=== PATIENT | female | born 1955 | race Caucasian/White ===

== ENCOUNTER 2022-08-27 08:39 | Outpatient (CLI) | payer OTHER, SELFPAY ==
[2022-08-27 15:26] LABS: Chloride* 107 mmol/L (96-114)
[2022-08-27 15:30] LABS: Blood Urea Nitrogen* 18 mg/dL (7-30); Calcium* 9.2 mg/dL (8.4-10.6)
[2022-08-27 15:45] LABS: Creatinine* 1.1 mg/dL (0.5-1.5); Estimated Glomerular Filt Rate 54 ml/min
[2022-08-27 16:26] LABS: Sodium* 143 mmol/L (135-149)
[2022-08-27 16:29] LABS: Carbon Dioxide* 29 mmol/L (20-32); Glucose* 127 mg/dL (60-115)
[2022-08-27 16:36] LABS: Creatinine Urine 187.1 mg/dL
[2022-08-27 16:41] LABS: Microalbumin Creatinine Ratio 10 mg/g (0-30); Microalbumin Urine 3 mg/dL
[2022-08-27 17:28] LABS: Vitamin B12* > 1000 pg/mL (243-894)
== END 2022-08-27 08:40 | disposition home or self-care (01) ==
PROVIDERS: PCP Emergency Medicine; Visit Provider Emergency Medicine
DX: E11.9 Type 2 diabetes mellitus without complications (principal); E78.5 Hyperlipidemia, unspecified
CPT/HCPCS: 80048; 82043; 82570; 82607

== ENCOUNTER 2022-11-03 16:12 | Outpatient (CLI) | payer OTHER, SELFPAY ==
[2022-11-04 01:36] LABS: Free T4 Free Thyroxine* 0.86 ng/dL (0.70-1.85)
== END 2022-11-03 16:13 | disposition home or self-care (01) ==
LOC: LKVREF 16:13
PROVIDERS: PCP Emergency Medicine; Visit Provider Emergency Medicine
DX: E78.5 Hyperlipidemia, unspecified (principal); R26.9 Unspecified abnormalities of gait and mobility; R42 Dizziness and giddiness
CPT/HCPCS: 84439; 84443

== ENCOUNTER 2022-11-25 08:57 | Outpatient (CLI) | payer OTHER, SELFPAY ==
--- NOTE | 2022-11-25 09:15 | CRLHL7_ITS ---
For Patients: As a result of the Century Cures Act, medical imaging exams and procedure reports are released immediately into your electronic medical record. You may view this report before your referring provider. If you have questions, please contact your health care provider. Indication: Ataxia. Gait disturbance. Memory issues. Technique: Multiplanar, multisequence MRI of the brain was performed without intravenous contrast. Comparison: None relevant available. Findings: Moderate thinning of the corpus callosum. Partially empty sella morphology. Clivus is intact. Mild degenerative change visualized upper cervical spine. There is no restricted diffusion. No intracranial hemorrhage. The ventricles are proportionate to the cerebral sulci. The 4th ventricle appears midline. The basal cisterns appear patent. No abnormal extra-axial fluid collection identified. Mild parenchymal volume loss. Scattered T2 FLAIR hyperintense foci within the subcortical and periventricular white matter, favored to represent chronic ischemic microvascular disease. There is asymmetric volume loss with cystic change involving the right amygdala and hippocampus. There is no intracranial mass, abnormal mass-effect or midline shift identified. Major intracranial vascular flow voids appear grossly intact. Bilateral pseudophakia. Impression: 1. Asymmetric volume loss with cystic change of the right amygdala and hippocampus. 2. Mild chronic ischemic microvascular disease. Dictated by Sahil Norman MD @ 11/25/2022 3:24:32 PM (Electronically Signed)
== END 2022-11-25 08:58 | disposition home or self-care (01) ==
LOC: MRI 09:02
PROVIDERS: PCP Emergency Medicine; Visit Provider Emergency Medicine
DX: R27.0 Ataxia, unspecified (principal); I67.82 Cerebral ischemia; R26.9 Unspecified abnormalities of gait and mobility
CPT/HCPCS: 70551

== ENCOUNTER 2023-03-02 08:04 | Outpatient (CLI) | payer OTHER, SELFPAY | END 2023-03-02 08:05 | disposition home or self-care (01) | LOC: WOUND 08:04 | PROVIDERS: PCP Emergency Medicine; Visit Provider Nurse Practitioner Family | DX: E11.621 Type 2 diabetes mellitus with foot ulcer (principal); L97.512 Non-pressure chronic ulcer of other part of right foot with fat layer exposed; L97.522 Non-pressure chronic ulcer of other part of left foot with fat layer exposed; Z79.84 Long term (current) use of oral hypoglycemic drugs | CPT/HCPCS: 97597 ==

== ENCOUNTER 2023-03-04 09:35 | Outpatient (CLI) | payer OTHER, SELFPAY | END 2023-03-04 09:36 | disposition home or self-care (01) | LOC: NFLDREF 03-07 13:21 | PROVIDERS: PCP Emergency Medicine; Referring Provider Emergency Medicine; Visit Provider Emergency Medicine | DX: E11.69 Type 2 diabetes mellitus with other specified complication (principal); E66.9 Obesity, unspecified; E78.5 Hyperlipidemia, unspecified; R79.89 Other specified abnormal findings of blood chemistry; E11.9 Type 2 diabetes mellitus without complications | CPT/HCPCS: 80053; 80061 ==

== ENCOUNTER 2023-03-09 08:08 | Outpatient (CLI) | payer OTHER, SELFPAY | END 2023-03-09 08:09 | disposition home or self-care (01) | LOC: WOUND 08:08 | PROVIDERS: PCP Emergency Medicine; Visit Provider Nurse Practitioner Family | DX: E11.621 Type 2 diabetes mellitus with foot ulcer (principal); L97.512 Non-pressure chronic ulcer of other part of right foot with fat layer exposed; L97.522 Non-pressure chronic ulcer of other part of left foot with fat layer exposed; Z79.84 Long term (current) use of oral hypoglycemic drugs | CPT/HCPCS: 97597 ==

== ENCOUNTER 2023-04-21 10:07 | Outpatient (CLI) | payer OTHER, SELFPAY | END 2023-04-21 10:08 | disposition home or self-care (01) | PROVIDERS: PCP Emergency Medicine; Visit Provider Emergency Medicine | DX: R79.89 Other specified abnormal findings of blood chemistry (principal); E66.9 Obesity, unspecified; R41.89 Other symptoms and signs involving cognitive functions and awareness; E11.9 Type 2 diabetes mellitus without complications | CPT/HCPCS: 84443 ==

== ENCOUNTER 2023-05-21 08:12 | Outpatient (CLI) | payer OTHER, SELFPAY | END 2023-05-21 08:13 | disposition home or self-care (01) | PROVIDERS: PCP Emergency Medicine; Referring Provider Emergency Medicine; Visit Provider Emergency Medicine | DX: Z00.00 Encounter for general adult medical examination without abnormal findings (principal); E11.43 Type 2 diabetes mellitus with diabetic autonomic (poly)neuropathy; E78.5 Hyperlipidemia, unspecified | CPT/HCPCS: 80053; 80061 ==

== ENCOUNTER 2023-05-27 08:22 | Outpatient (CLI) | payer OTHER, SELFPAY | END 2023-05-27 08:23 | disposition home or self-care (01) | PROVIDERS: PCP Emergency Medicine; Visit Provider Emergency Medicine | DX: Z00.00 Encounter for general adult medical examination without abnormal findings (principal) | CPT/HCPCS: 80048; 82607; 83735 ==

== ENCOUNTER 2023-07-07 09:50 | Outpatient (CLI) | payer OTHER, SELFPAY | END 2023-07-07 09:51 | disposition home or self-care (01) | LOC: LKVREF 09:50 | PROVIDERS: PCP Emergency Medicine; Visit Provider Emergency Medicine | DX: E11.69 Type 2 diabetes mellitus with other specified complication (principal); E83.51 Hypocalcemia; R80.9 Proteinuria, unspecified; E66.9 Obesity, unspecified | CPT/HCPCS: 82043; 82570 ==

== ENCOUNTER 2023-10-07 13:27 | Outpatient (CLI) | payer OTHER, SELFPAY ==
--- NOTE | 2023-10-07 13:30 | CRLHL7_ITS ---
For Patients: As a result of the Century Cures Act, medical imaging exams and procedure reports are released immediately into your electronic medical record. You may view this report before your referring provider. If you have questions, please contact your health care provider. INDICATION: Lung cancer screening. Significant smoking history. TECHNIQUE: Low-dose volumetric helical scanning of the thorax was performed without IV contrast material. Coronal and sagittal reconstructions were obtained. COMPARISON: None. FINDINGS: A few noncalcified nodules measuring 3 mm or less are demonstrated. A densely calcified granuloma in the right upper lobe is noted. Infiltrates in the left upper and left lower lobes are demonstrated. No significant airway abnormality is noted. No pleural effusion is demonstrated. No mediastinal or hilar lymphadenopathy is evident. Calcified right hilar and mediastinal lymph nodes are noted. The heart size is normal. Images of the upper abdomen are unremarkable except for postop changes of cholecystectomy. IMPRESSION: 1. Several noncalcified nodules measuring 3 mm or less. Lung-RADS CATEGORY 2: BENIGN APPEARANCE OR BEHAVIOR: Continue annual screening with low-dose chest CT in 12 months. 2. Infiltrates in the left upper and lower lobes. 3. Healed granulomatous disease. Please note that all CT scans at this facility use dose modulation, iterative reconstruction, and/or weight-based dosing when appropriate to reduce radiation dose to as low as reasonably achievable. Dictated by Louis Abdi MD @ 10/08/2023 12:53:16 PM (Electronically Signed)
--- OUTSIDE RECORDS SUMMARY | 2023-10-07 13:34 | XMS_ITS | Clinical Summary ---
Author Name Unknown Organization [facility] Address [address] [place] [address] Care Team Providers Care Banking Analyst Name Role Phone Irvin Mar Primary Care Provider [phone] Allergies Active Allergy Reactions Criticality Noted Date Comments Codeine Hives Medium 09/24/2021 Venlafaxine Other (See Comments) 09/24/2021 DIAPHORESIS, INSOMNIA Medications Medication Sig Dispensed Refills Start Date End Date Status ARIPiprazole (ABILIFY) 5 MG tablet Take 5 mg by mouth daily 0 08/31/2021 Active PARoxetine (PAXIL) 40 MG tablet Take 20 mg by mouth daily 0 08/31/2021 Active simvastatin (ZOCOR) 40 MG tablet Take 40 mg by mouth At Bedtime 0 10/29/2020 Active gabapentin (NEURONTIN) 600 MG tablet Take 600 mg by mouth 2 times daily NIGHT TIME DOSE 0 07/04/2021 Active gabapentin (NEURONTIN) 100 MG capsule Take 200 mg by mouth daily (2 X 100 mg) MORNING DOSE 0 05/01/2021 Active traZODone (DESYREL) 100 MG tablet Take 100 mg by mouth At Bedtime 0 09/04/2021 Active Multiple Vitamin (MULTIVITAMIN ADULT PO) Take 1 tablet by mouth daily 0 Active ibuprofen (ADVIL/MOTRIN) 600 MG tabletIndications:JAQULEINE II (vulvar intraepithelial neoplasia II) Take 1 tablet (600 mg) by mouth every 6 hours as needed for other (mild and/or inflammatory pain) 30 tablet 0 09/25/2021 Active acetaminophen (TYLENOL) 325 MG tabletIndications:JAQUELINE II (vulvar intraepithelial neoplasia II) Take 2 tablets (650 mg) by mouth every 6 hours as needed for mild pain 20 tablet 0 09/25/2021 Active metFORMIN (GLUCOPHAGE-XR) 500 MG 24 hr tablet Take 1,000 mg by mouth daily 0 09/23/2021 Active erythromycin (ROMYCIN) 5 MG/GM ophthalmic ointmentIndications:B row ptosis, bilateral Place into both eyes 3 times daily 7 g 1 11/25/2021 Active Active Problems Problem Noted Date Diagnosed Date 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 Social History Tobacco Use Types Packs/Day Years Used Date Smoking Tobacco: Every Day Cigarettes 0.5 Smokeless Tobacco: Never Alcohol Use Standard Drinks/Week Comments Not Currently 0 (1 standard drink = 0.6 oz pur e alcohol) Adolescent Education Answer Date Record ed Getting School Help Needed Not on file 06/19 Sex and Gender Information Value Date Recorded Sex Assigned at Not on file Gender Identity Not on file Sexual Orientation Not on file Last Filed Vital Signs Vital Sign Reading Time Taken Comments Blood Pressure 126/63 11/25/2021 9:35 AM ERP DEVELOPER Pulse 65 11/25/2021 9:35 AM ERP DEVELOPER Temperature 36.8 ??C (98.3 ??F) 11/25/2021 9:35 AM CS T Respiratory Rate 14 11/25/2021 9:35 AM ERP DEVELOPER Oxygen Saturation 96% 11/25/2021 9:35 AM ERP DEVELOPER Inhaled Oxygen Concentration - - Weight 77.7 kg (171 lb 3.2 oz) 11/25/2021 5:59 A M ERP DEVELOPER Height 162.6 cm (5' 4) 11/25/2021 5:59 AM ERP DEVELOPER Body Mass Index 29.39 11/25/2021 5:59 AM ERP DEVELOPER Plan of Treatment Health Maintenance Due Date Last Done Comments ADVANCE CARE PLANNING 1955 ANNUAL REVIEW OF HM ORDERS 1953 CT COLONOGRAPHY 1953 DEXA 1953 FIT 1953 FLEX SIG 1953 MAMMO SCREENING 1953 sDNA (Cologuard) 1953 COLONOSCOPY 1963 COLORECTAL CANCER SCREENING 1963 HEPATITIS C SCREENING 1971 LUNG CANCER SCREENING 2003 RSV VACCINE ( & 60+) (1 - 1-dose 60+ series) 2013 FALL RISK ASSESSMENT 2018 MEDICARE ANNUAL WELLNESS VISIT 2018 PHQ-2 (once per calendar year) 2022 COVID-19 Vaccine ( season) 2023 07/22/2021, 12/26/2020, 11/28/2020 INFLUENZA VACCINE (#1) 2023 , 06/09/2021, 07/12/2020, Additional history exists LIPID 09/23/2026 09/23/2021 DTAP/TDAP/TD IMMUNIZATION (5 - Td or Tdap) 06/18/2031 06/18/2021, 06/18/2021, 01/16/2011, Additional history exists Pneumococcal Vaccine: 65+ Years Completed 04/18/2020, 03/08/2018, 06/17/2010 ZOSTER IMMUNIZATION Completed 04/18/2020, 0 HPV IMMUNIZATION Aged Out No longer e ligible based on patient's age to complete this topic IPV IMMUNIZATION Aged Out No longer e ligible based on patient's age to complete this topic MENINGITIS IMMUNIZATION Aged Out No l onger eligible based on patient's age to complete this topic RSV MONOCLONAL ANTIBODY Aged Out No l onger eligible based on patient's age to complete this topic Care Teams Banking Analyst Relationship Specialty Start Date End Date Irvin Mar [address] [address] PCP - General Family Medicine 09/09/21
--- OUTSIDE RECORDS SUMMARY | 2023-10-07 13:34 | XMS_ITS | Referral Summary ---
Author Name Unknown Organization [facility] Address [address] [place] [address] Care Team Providers Care Curator Natural [employer] Name Role Phone Irvin Mar Primary Care Provider [phone] Allergies Active Allergy Reactions Criticality Noted Date [...] daily 0 Active ibuprofen (ADVIL/MOTRIN) 600 MG tabletIndications:JAQUELINE II (vulvar intraepithelial neoplasia II) Take 1 [...] Comments Blood Pressure 126/63 11/25/2021 9:35 AM JOB FOREMAN Pulse 65 11/25/2021 9:35 AM JOB FOREMAN Temperature 36.8 ??C (98.3 ??F) 11/25/2021 9:35 AM CS T Respiratory Rate 14 11/25/2021 9:35 AM JOB FOREMAN Oxygen Saturation 96% 11/25/2021 9:35 AM JOB FOREMAN Inhaled Oxygen Concentration - - Weight 77.7 kg (171 lb 3.2 oz) 11/25/2021 5:59 A M JOB FOREMAN Height 162.6 cm (5' 4) 11/25/2021 5:59 AM JOB FOREMAN Body Mass Index 29.39 11/25/2021 5:59 AM JOB FOREMAN Plan of Treatment Not on file Care Teams Curator Natural History Museum Relationship Specialty Start Date End Date Irvin Mar [address] [place] [address] PCP - General Family Medicine 09/09/21
--- OUTSIDE RECORDS SUMMARY | 2023-10-07 13:34 | XMS_ITS | Clinical Summary ---
Author Name Unknown Organization [email or web address] Address [place], [place] [address] Care Team Providers Care Drag Down Name Role Phone Health, Family Primary Care Provider Unavailabl e Allergies Active Allergy Reactions Criticality Noted Date Comments Michael Hivavila 06/30/2013 Medications Medication Sig Dispensed Refills Start Date End Date Status metFORMIN (GLUCOPHAGE) 500 mg tablet Take 1 tablet by mouth 2 times daily with meals. 0 06/30/2013 Active PARoxetine (PAXIL) 40 mg tablet Take 1 tablet by mouth every morning. 0 06/30/2013 Active pravastatin (PRAVACHOL) 40 mg tablet Take 1 tablet by mouth at bedtime. 2 a day total 80 mg 0 06/30/2013 Active temazepam (RESTORIL) 30 mg capsule Take 1 capsule by mouth at bedtime if needed for Sleep. 0 06/30/2013 Active anastrozole (ARIMIDEX) 1 mg tablet Take 1 tablet by mouth once daily. 0 06/30/2013 Active multivitamin (DAILY MULTI-VITAMIN) tablet Take 1 tablet by mouth once daily. 0 06/30/2013 Active Active Problems Problem Noted Date Diagnosed Date Xwdmq-Izzlhdxnq-Rgtxm (WPW) pattern seen on electrocardiography 05/26/2019 Diabetes 06/30/2013 Social History Tobacco Use Types Packs/Day Years Used Date Smoking Tobacco: Former Comments:10 years ago Alcohol Use Standard Drinks/Week Comments Not Asked 0 (1 standard drink = 0.6 oz pur e alcohol) Sex and Gender Information Value Date Recorded Sex Assigned at Not on file Gender Identity Not on file Sexual Orientation Not on file Obstetrics History Last Filed Vital Signs Vital Sign Reading Time Taken Comments Blood Pressure 132/87 06/30/2013 10:32 AM CDT Pulse 67 06/30/2013 10:32 AM CDT Temperature - - Respiratory Rate - - Oxygen Saturation - - Inhaled Oxygen Concentration - - Weight - - Height - - Body Mass Index - - Plan of Treatment Health Maintenance Due Date Last Done Comments Tdap 1964 Depression screening for age 12+ 1965 BMI (ht and wt on same day) for age 18+ 1971 Hepatitis C screening for ag e 18-79 1971 Tetanus booster 1973 Colonoscopy through age 75 1998 Lipids for age 45-75 1998 Mammogram for age 45-75 1998 Zoster (shingles) series for age 50+ (1 of 2) 2003 DEXA/DXA scan for age 65+ 2018 Medicare Wellness for age 65+ 2018 Pneumococcal series for age 65+ (1 of 1 - PCV) 2018 Influenza for age 65+ 05/28/2023 COVID-19 vaccine series Completed 09/07/20, 07/14/2022, 03/18/2022, Additional history exists Care Teams Drag Down Relationship Specialty Start Date End Date Health, Family PCP - General 06/30/13
--- OUTSIDE RECORDS SUMMARY | 2023-10-07 13:34 | XMS_ITS | Encounter Summary ---
Author Name Unknown Organization [facility] Address [address] [place] [address] Care Team Providers Care Infectious Diseases Physician Name Role Phone Irvin Mar Primary Care Provider [phone] Encounter Details Date Type Department Care Team (Late st Contact Info) Description 11/14/2021 Orders Only [facility] Centralized Scheduling [address] [place] [id number] Nolberto French MD [address] [place] [address] Social History Tobacco Use Types Packs/Day Years Used Date Smoking Tobacco: Every Day Cigarettes 0.5 Smokeless Tobacco: Never Alcohol Use Standard Drinks/Week Comments Not Currently 0 (1 standard drink = 0.6 oz pur e alcohol) Sex and Gender Information Value Date Recorded Sex Assigned at Not on file Gender Identity Not on file Sexual Orientation Not on file documented as of this encounter Plan of Treatment Not on file documented as of this encounter Visit Diagnoses Not on filedocumented in this encounter Care Teams Infectious Diseases Physician Relationship Specialty Start Date End Date Irvin Mar [address] [address] PCP - General Family Medicine 09/09/21 documented as of this encounter
--- NOTE | 2023-10-07 14:00 | CRLHL7_ITS ---
For Patients: As a result of the Century Cures Act, medical imaging exams and procedure reports are released immediately into your electronic medical record. You may view this report before your referring provider. If you have questions, please contact your health care provider. DXA BONE MINERAL DENSITY STUDY Reason for exam: Osteopenia. History of breast cancer. Current height (in): 64. Weight (lb): 170. Menopause age: 53. Ethnicity: White. 1. Have you had a previous hip or vertebral fracture? No. 2. Have you had any fractures during your adult life which did not result from significant trauma (e.g., auto accident)? No. 3. Did either of your parents have a hip fracture? No. 4. Do you smoke? No. 5. Have you ever taken Glucocorticoids? No. 6. Do you have rheumatoid arthritis? No. 7. Do you have secondary osteoporosis? No. 8. Do you drink 3 or more alcoholic drinks per day? No. 9. Are you being treated for osteoporosis? No. 10. Have you ever taken any of the following medications: Actonel, Evista, Fosamax, Miacalcin, Reclast, Boniva, Forteo, HRT (i.e., estrogen/hormone therapy), Protelos, Prolia, Vitamin D, Calcium, other ??? please specify. ANSWER: No. 11. Do you have any of the following medical conditions: Anorexia or bulimia, asthma or emphysema, end stage renal disease, hyperparathyroidism, any seizure disorders, cancer, inflammatory bowel diseases, hysterectomy, other ??? please specify. ANSWER: Yes, History of breast cancer. 12. What was your maximum height (inches)? 65. 13. Do you perform weight bearing exercise regularly? No. 14. Do you regularly consume dairy products? Yes. 15. Do you drink caffeinated beverages? Yes. If female: 16. At what age did your period start? 14. 17. Are you premenopausal? No. 18. How many full-term pregnancies have you had? 2. 19. Have you ever missed your period for more than 6 months in a row (not including or menopause)? No. TECHNIQUE: Bone mineral density study was performed using the [employer]. FINDINGS: The results of the study expressed as bone mineral density (BMD) are as follows: Lumbar spine L1 to L4: BMD: 1.054 g/cm2. T-score: 0.1. Z-score: 2.2 Neck Left: BMD: 0.746 g/cm2. T-score: -0.9. Z-score: 0.9 Right: BMD: 0.707 g/cm2. T-score: -1.3. Z-score: 0.5 Total Left: BMD: 0.973 g/cm2. T-score: 0.3. Z-score: 1.8 Right: BMD: 0.962 g/cm2. T-score: 0.2. Z-score: 1.7 IMPRESSION: Osteopenia. *Comparison exams done prior to 02/2020 were performed on different unit, [employer]. COMPARISON: Compared with scan of 12/12/2020, the bone mineral density has decreased by -1.5 percent at the spine and increased by 4.1 percent at the hip. Compared with scan of 04/04/2018, the bone mineral density has decreased by 2.5 percent at the spine and decreased by 1.4 percent at the hip. FRAX 10-year Fracture Risk Major Osteoporotic Fracture: 9.3% Hip Fracture: 1.2% Reported Risk Factors: [place] () Neck BMD=0.707, BMI= 29.2 Batsheva MENDOSA:milan Transcribed: 7:09 p.m. [email or web address] milan/Dictated by: Emil Song MD @ 10/10/2023 8:32:00 PM (Electronically Signed)
== END 2023-10-07 13:28 | disposition home or self-care (01) ==
LOC: CT 13:28
PROVIDERS: PCP Family Medicine; Visit Provider Family Medicine
DX: F17.210 Nicotine dependence, cigarettes, uncomplicated (principal); Z12.2 Encounter for screening for malignant neoplasm of respiratory organs; R91.8 Other nonspecific abnormal finding of lung field; M85.80 Other specified disorders of bone density and structure, unspecified site; Z85.3 Personal history of malignant neoplasm of breast
CPT/HCPCS: 71271; 77080

== ENCOUNTER 2023-10-14 08:45 | Outpatient (RCR) | payer OTHER, SELFPAY ==
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
== END 2023-12-23 13:42 | disposition home or self-care (01) ==
PROVIDERS: PCP Family Medicine; Visit Provider Family Medicine
DX: F03.90 Unspecified dementia, unspecified severity, without behavioral disturbance, psychotic disturbance, mood disturbance, and anxiety (principal); R26.81 Unsteadiness on feet; R41.89 Other symptoms and signs involving cognitive functions and awareness; R26.89 Other abnormalities of gait and mobility; R26.0 Ataxic gait; E11.40 Type 2 diabetes mellitus with diabetic neuropathy, unspecified; Z51.89 Encounter for other specified aftercare
CPT/HCPCS: 97110; 97112; 97116; 97162; 97166; 97535

== ENCOUNTER 2023-11-25 09:37 | Outpatient (CLI) | payer OTHER, SELFPAY ==
--- NOTE | 2023-11-25 11:58 | P.ANES_ITS ---
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
--- NOTE | 2023-11-25 12:02 | W.ANESCHARGE ---
Anesthesia Charges Start Date/Time Anesthesia Start Date: 11/25/23 Anesthesia Start Time: 11:22 Stop Date/Time Anesthesia Stop Date: 11/25/23 Anesthesia Stop Time: 11:58 Summary Extremes of Age - Over 70 or under 1: MDA
== END 2023-11-25 09:38 | disposition home or self-care (01) ==
LOC: OP CLINIC 09:37
PROVIDERS: PCP Family Medicine; Visit Provider Surgery
DX: Z12.11 Encounter for screening for malignant neoplasm of colon (principal); K63.5 Polyp of colon; Z80.0 Family history of malignant neoplasm of digestive organs
CPT/HCPCS: 00811; 45385; 88305; 99100; J2704

== ENCOUNTER 2024-02-18 08:21 | Outpatient (CLI) | payer OTHER, SELFPAY ==
--- OUTSIDE RECORDS SUMMARY | 2024-02-18 08:24 | XMS_ITS | Encounter Summary ---
Author Organization [facility] Address [address] [place] [address] Care Team Providers Care Paid Intern Name Role Phone Irvin Mar Primary Care Provider [phone] Encounter Details Date Type Department Care Team (Late st Contact Info) Description 11/14/2021 Orders Only [facility] Centralized Scheduling [address] [place] [id number] Nolberto French MD [address] [place] [address] Social History Tobacco Use Types Packs/Day Years Used Date Smoking Tobacco: Every Day Cigarettes Smokeless Tobacco: Never Alcohol Use Standard Drinks/Week [...] on filedocumented in this encounter Care Teams Paid Intern Relationship Specialty Start Date End Date Irvin Mar [address] [address] PCP - General Family Medicine 09/09/21 documented as of this encounter
--- OUTSIDE RECORDS SUMMARY | 2024-02-18 08:24 | XMS_ITS | Clinical Summary ---
Author Organization [facility] Address [place], [place] [address] Care Team Providers Care Control Room Operator Name Role Phone Health, Family Primary Care [...] Active Problems Problem Noted Date Diagnosed Date Eulbh-Qofkthspn-Sfveb (WPW) pattern seen on electrocardiography 05/26/2019 Diabetes 06/30/2013 Encounters Date Type Department Care Team Description 11/25/2023 Lab Requisition [facility] [phone] Natty Blanc MD from Last 3 Months Social History Tobacco Use Types Packs/Day Years [...] - PCV) 2018 Influenza for age 65+ 05/28/2024 COVID-19 vaccine series Completed 09/07/20 23, 07/14/2022, 03/18/2022, Additional history exists Procedures Procedure Name Priority Date/Time Associated Diagnosis Comments LAB TRACKING EVENT Routine 11/25/2023 11 :40 AM ENTEROSTOMAL THERAPY NURSE PATH TISSUE EXAM Routine 11/25/2023 11:4 0 AM ENTEROSTOMAL THERAPY NURSE from Last 3 Months Results * LAB TRACKING EVENT (11/25/2023 11:40 AM ENTEROSTOMAL THERAPY NURSE) Other (Other) Client Collect / Unknown 11/25/2023 11:40 AM ENTEROSTOMAL THERAPY NURSE 11/25/2023 9:54 PM ENTEROSTOMAL THERAPY NURSE Natty Blanc MD LAB BILL ONLY [facility]-CEN[facility]AL LABORATORY [address] [place] [address], * PATH TISSUE EXAM (11/25/2023 11:40 AM ENTEROSTOMAL THERAPY NURSE) Case Report Pathology Report ?Case: [id number] ? Authorizing Provider: ??Natty Blanc MD ?Collected: ? 11/25/2023 1140 ? Ordering Location: ? [facility] ?Received: ?11/26/2023 0924 ? Pathologist: ? David Roldan MD ? Specimens: ?? A) - Cecal Polyp ? B) - Transverse Colon Polyp ? 11/30/2023 8:31 AM [facility] LABORATORY-C ENTRAL LABORATORY Final Diagnosis A) COLON, CECUM, POLYPECTOMY: 1. Tubular adenoma 2. Negative for high grade dysplasia 3. Per the colonoscopy report: ?? a. Polyp size: 6 mm ?? b. Resection: Complete ?? c. Retrieval: Complete B) COLON, TRANSVERSE, POLYPECTOMY: 1. Tubular adenoma 2. Negative for high grade dysplasia 3. Per the colonoscopy report: ?? a. Polyp size: 5 mm ?? b. Resection: Complete ?? c. Retrieval: Complete 11/30/2023 8:31 AM ENTEROSTOMAL THERAPY [facility] Clinical Information Ms. Mayers is a 68 y.o. who presents for surveillance colonoscopy. 11/30/2023 8:31 AM ENTEROSTOMAL THERAPY NURSE [facility] Gross Description A) Received in formalin are 9 grimes mucosal fragments ranging from 1 mm to 5 mm in greatest dimension, which are entirely submitted in one cassette. It is labeled with the patient's name and designated cecum. B) Received in formalin is a grimes mucosal fragment measuring 13 mm in greatest dimension, which is entirely submitted in one cassette. It is labeled with the patient's name and designated transverse colon polyp. Luis Oliveira Lucas 11/26/2023 1:13 PM 11/30/2023 8:31 AM ENTEROSTOMAL THERAPY [facility]URSE [facility] LAB[facility]ORY Microscopic Description The final diagnosis is based on microscopic examination of appropriate sections of all specimens. 11/30/2023 8:31 AM ENTEROSTOMAL THERAPY [facility]URSE [facility] Additional Information [facility] - [address] [place] [address] 11/30/2023 8:31 AM ENTEROSTOMAL THERAPY NURSE [facility] LABORATORY-C ENTRAL LABORATORY Other (Cecal Polyp) 11/25/2023 11:40 AM ENTEROSTOMAL THERAPY NURSE 11/26/2023 9:24 AM ENTEROSTOMAL THERAPY NURSE Specimen (specimen) (Transverse Colon Polyp) 11/25/2023 11:40 AM ENTEROSTOMAL THERAPY NURSE 11/26/2023 9:24 AM ENTEROSTOMAL THERAPY NURSE Natty Blanc MD PATHOLOGY/CYTOLOGY [facility] [address] [place] [address], from Last 3 Months Care Teams Control Room Operator Relationship Specialty Start Date End Date Health, Family PCP - General 06/30/13
--- OUTSIDE RECORDS SUMMARY | 2024-02-18 08:24 | XMS_ITS | Referral Summary ---
Author Organization [facility] Address [address] [place] [address] Care Team Providers Care Therapeutic Mentor Name Role Phone Irvin Mar Primary Care Provider [phone] Allergies Active Allergy Reactions Criticality Noted Date Comments Codeine Hives Medium 09/24/2021 Venlafaxine Other (See Comments) 09/24/2021 DIAPHORESIS, INSOMNIA Medications Medication Sig Dispensed Refills Start Date End Date Status ARIPiprazole (ABILIFY) 5 MG tablet Take 5 mg by mouth daily 08/31/2021 Active PARoxetine (PAXIL) 40 MG tablet Take 20 mg by mouth daily 08/31/2021 Active simvastatin (ZOCOR) 40 MG tablet Take 40 mg by mouth At Bedtime 10/29/2020 Active gabapentin (NEURONTIN) 600 MG tablet Take 600 mg by mouth 2 times daily NIGHT TIME DOSE 07/04/2021 Active gabapentin (NEURONTIN) 100 MG capsule Take 200 mg by mouth daily (2 X 100 mg) MORNING DOSE 05/01/2021 Active traZODone (DESYREL) 100 MG tablet Take 100 mg by mouth At Bedtime 09/04/2021 Active Multiple Vitamin (MULTIVITAMIN ADULT PO) Take 1 tablet by mouth daily Active ibuprofen (ADVIL/MOTRIN) 600 MG tabletIndications:JAQUELINE II (vulvar intraepithelial neoplasia II) Take 1 tablet (600 mg) by mouth every 6 hours as needed for other (mild and/or inflammatory pain) 30 tablet 09/25/2021 Active acetaminophen (TYLENOL) 325 MG tabletIndications:JAQUELINE II (vulvar intraepithelial neoplasia II) Take 2 tablets (650 mg) by mouth every 6 hours as needed for mild pain 20 tablet 09/25/2021 Active metFORMIN (GLUCOPHAGE-XR) 500 MG 24 hr tablet Take 1,000 mg by mouth daily 09/23/2021 Active erythromycin (ROMYCIN) 5 MG/GM ophthalmic [...] Comments Blood Pressure 126/63 11/25/2021 9:35 AM MAINTENANCE ADVISOR Pulse 65 11/25/2021 9:35 AM MAINTENANCE ADVISOR Temperature 36.8 ??C (98.3 ??F) 11/25/2021 9:35 AM CS T Respiratory Rate 14 11/25/2021 9:35 AM MAINTENANCE ADVISOR Oxygen Saturation 96% 11/25/2021 9:35 AM MAINTENANCE ADVISOR Inhaled Oxygen Concentration - - Weight 77.7 kg (171 lb 3.2 oz) 11/25/2021 5:59 A M MAINTENANCE ADVISOR Height 162.6 cm (5' 4) 11/25/2021 5:59 AM MAINTENANCE ADVISOR Body Mass Index 29.39 11/25/2021 5:59 AM MAINTENANCE ADVISOR Plan of Treatment Not on file Procedures Procedure Name Priority Date/Time Associated Diagnosis Comments GLUCOSE BY METER Routine 11/25/2021 6:23 AM MAINTENANCE ADVISOR LIPID PANEL (EXTERNAL RESULT) Routine 09/23/2021 2:57 PM MAINTENANCE ADVISOR from Last 3 Months or Most Recently Relevant to Health Maintenance Results * (ABNORMAL) Glucose by meter (11/25/2021 6:23 AM MAINTENANCE ADVISOR) GLUCOSE BY METER POCT 305(H) 70 - 99 mg/dL 11/25/2021 6:30 AM MAINTENANCE ADVISOR [facility] LABORATORY POC Blood, Capillary BLOOD SPECIMEN / Unknown 11/25/2021 6:23 AM MAINTENANCE ADVISOR 11/25/2021 6:30 AM MAINTENANCE ADVISOR Debby Cunningham MD LAB - [facility] CT LABORATORY POC [facility] [address], [address] [place] [address], [facility] [phone] * (ABNORMAL) Lipid Panel (External Result) (09/23/2021 2:57 PM MAINTENANCE ADVISOR) Cholesterol (External) 183 90 - 199 mg/dL [facility] Triglycerides (External) 371(A) 40 - 149 mg/dL [facility] HDL Cholesterol (External) 44 >=50 mg/dL [facility] LDL Cholesterol Calculated (External) 65 <100 mg/dL [facility] Blood 09/23/2021 2:57 PM MAINTENANCE ADVISOR Narrative [facility] - 09/23/2021 2:57 PM MAINTENANCE ADVISOR LAB RESULTS [facility] Provider Outside LAB - HIM EXTERNAL R ESULT [facility] [address] [id number], [facility] [phone] from Last 3 Months or Most Recently Relevant to Health Maintenance Care Teams Therapeutic Mentor Relationship Specialty Start Date End Date Irvin Mar [address] [address] PCP - General Family Medicine 09/09/21
--- OUTSIDE RECORDS SUMMARY | 2024-02-18 08:24 | XMS_ITS | Clinical Summary ---
Author Organization [facility] Address [address] [place] [address] Care Team Providers Care Estimator Printing Plate Making Name Role Phone Irvin Mar Primary Care Provider [phone] Allergies Active Allergy Reactions Criticality Noted Date [...] Comments Blood Pressure 126/63 11/25/2021 9:35 AM AG EQUIPMENT FIELD SERVICE TECHNICIAN Pulse 65 11/25/2021 9:35 AM AG EQUIPMENT FIELD SERVICE TECHNICIAN Temperature 36.8 ??C (98.3 ??F) 11/25/2021 9:35 AM CS T Respiratory Rate 14 11/25/2021 9:35 AM AG EQUIPMENT FIELD SERVICE TECHNICIAN Oxygen Saturation 96% 11/25/2021 9:35 AM AG EQUIPMENT FIELD SERVICE TECHNICIAN Inhaled Oxygen Concentration - - Weight 77.7 kg (171 lb 3.2 oz) 11/25/2021 5:59 A M AG EQUIPMENT FIELD SERVICE TECHNICIAN Height 162.6 cm (5' 4) 11/25/2021 5:59 AM AG EQUIPMENT FIELD SERVICE TECHNICIAN Body Mass Index 29.39 11/25/2021 5:59 AM AG EQUIPMENT FIELD SERVICE TECHNICIAN Plan of Treatment Health Maintenance Due Date [...] ASSESSMENT 2018 MEDICARE ANNUAL WELLNESS VISIT 2018 LIPID 09/23/2022 09/23/2021 COVID-19 Vaccine ( season) 2023 07/22/2021, 12/26/2020, 11/28/2020 PHQ-2 (once per calendar year) 2023 INFLUENZA VACCINE (Season Ended) 2024 06/09/2021, 06/09/2021, 07/12/2020, Additional history exists GLUCOSE 11/25/2024 11/25/2021, 0309/2021, 09/23/2021 DTAP/TDAP/TD IMMUNIZATION (5 - Td or Tdap) 06/18/2031 06/18/2021, 06/18/2021, 01/16/2011, Additional history exists Pneumococcal Vaccine: 65+ Years Completed 04/18/2020, 03/08/2018, 06/17/2010 ZOSTER IMMUNIZATION Completed 04/18/2020, HPV IMMUNIZATION Aged Out No longer e [...] on patient's age to complete this topic Procedures Procedure Name Priority Date/Time Associated Diagnosis Comments GLUCOSE BY METER Routine 11/25/2021 6:23 AM AG EQUIPMENT FIELD SERVICE TECHNICIAN LIPID PANEL (EXTERNAL RESULT) Routine 09/23/2021 2:57 PM AG EQUIPMENT FIELD SERVICE TECHNICIAN from Last 3 Months or Most Recently Relevant to Health Maintenance Results * (ABNORMAL) Glucose by meter (11/25/2021 6:23 AM AG EQUIPMENT FIELD SERVICE TECHNICIAN) GLUCOSE BY METER POCT 305(H) 70 - 99 mg/dL 11/25/2021 6:30 AM AG EQUIPMENT FIELD SERVICE TECHNICIAN LABORATORY POC Blood, Capillary BLOOD SPECIMEN / Unknown 11/25/2021 6:23 AM AG EQUIPMENT FIELD SERVICE TECHNICIAN 11/25/2021 6:30 AM AG EQUIPMENT FIELD SERVICE TECHNICIAN Debby SCRUGGS - [facility] LABORATORY POC [facility] Care Lab [address] floor, [address] [place] [address], [facility] [phone] * (ABNORMAL) Lipid Panel (External Result) (09/23/2021 2:57 PM AG EQUIPMENT FIELD SERVICE TECHNICIAN) Cholesterol (External) 183 90 - 199 mg/dL [facility] Triglycerides (External) 371(A) 40 - 149 mg/dL [facility] HDL Cholesterol (External) 44 >=50 mg/dL [facility] LDL Cholesterol Calculated (External) 65 <100 mg/dL [facility] Blood 09/23/2021 2:57 PM AG EQUIPMENT FIELD SERVICE TECHNICIAN Narrative [facility] - 09/23/2021 2:57 PM AG EQUIPMENT FIELD SERVICE TECHNICIAN LAB RESULTS [facility] AND [facility] Provider Outside LAB - HIM EXTERNAL R ESULT [facility] [address] [place] [address], [facility] [phone] from Last 3 Months or Most Recently Relevant to Health Maintenance Care Teams Estimator Printing Plate Making Relationship Specialty Start Date End Date Irvin Mar [address] [address] PCP - General Family Medicine 09/09/21
--- NOTE | 2024-02-18 08:45 | MM_ITS ---
Patient: YOSSI MC Facility:?[facility] Patient ID:?[id number] Site Patient ID:?[id number] Site :?[id number] Study:?XRay-Breast Right 3D w/CAD-02/18/2024 8:58:25 AM Ordering Physician:Terry Final Report: BILATERAL SCREENING MAMMOGRAM WITH COMPUTER-AIDED DETECTION AND TOMOSYNTHESIS TECHNIQUE: CC and MLO views were obtained. These mammographic images have been obtained using full-field digital technique. These mammographic images were interpreted with the benefit of computer-aided detection. Breast Tomosynthesis was used in this interpretation. COMPARISON FILM: 02/09/23, 02/02/22, 12/12/20. FINDINGS: There are scattered areas of fibroglandular density. IMPRESSION: There is no radiographic evidence for malignancy. ASSESSMENT: BI-RADS Category 1: Negative RECOMMENDATION: Routine screening mammogram in 1 year. A lay language report of this examination will be provided to the patient. Rayshawn Parikh M.D. Diagnostic Radiologist [email or web address] DSM/sp R& Transcribed: 2:33 p.m. SP/Dictated by: Rayshawn Parikh MD @ 02/18/2024 11:05:00 AM Signed by:?Rayshawn Parikh MD @02/18/2024 2:34:15 PM (Electronic Signature)
== END 2024-02-18 08:22 | disposition home or self-care (01) ==
LOC: MAMMO 08:21
PROVIDERS: PCP Family Medicine; Visit Provider Family Medicine
DX: Z12.31 Encounter for screening mammogram for malignant neoplasm of breast (principal)
CPT/HCPCS: 77063; 77067

== ENCOUNTER 2024-02-22 10:03 | Outpatient (CLI) | payer OTHER, SELFPAY ==
--- OUTSIDE RECORDS SUMMARY | 2024-02-22 10:09 | XMS_ITS | Encounter Summary ---
Author Organization [facility] Address [address] [place] [address] Care Team Providers Care Hospice Team Lead Name Role Phone Irvin Mar Primary Care Provider [phone] Encounter Details Date Type Department Care Team (Late st Contact Info) Description 11/14/2021 Orders Only [facility] Centralized Scheduling [address] [place] [id number] Nolberto French MD [address] [place] [address] Social History Tobacco Use Types Packs/Day Years [...] on filedocumented in this encounter Care Teams Hospice Team Lead Relationship Specialty Start Date End Date Irvin Mar [address] [address] PCP - General Family Medicine 09/09/21 documented as of this encounter
--- OUTSIDE RECORDS SUMMARY | 2024-02-22 10:09 | XMS_ITS | Referral Summary ---
Author Organization [facility] Address [address] [place] [address] Care Team Providers Care Photo Technician Name Role Phone Irvin Mar Primary Care Provider [phone] Allergies Active Allergy Reactions Criticality Noted Date [...] Comments Blood Pressure 126/63 11/25/2021 9:35 AM AIR/OCEAN EXPORT CLERK Pulse 65 11/25/2021 9:35 AM AIR/OCEAN EXPORT CLERK Temperature 36.8 ??C (98.3 ??F) 11/25/2021 9:35 AM CS T Respiratory Rate 14 11/25/2021 9:35 AM AIR/OCEAN EXPORT CLERK Oxygen Saturation 96% 11/25/2021 9:35 AM AIR/OCEAN EXPORT CLERK Inhaled Oxygen Concentration - - Weight 77.7 kg (171 lb 3.2 oz) 11/25/2021 5:59 A M AIR/OCEAN EXPORT CLERK Height 162.6 cm (5' 4) 11/25/2021 5:59 AM AIR/OCEAN EXPORT CLERK Body Mass Index 29.39 11/25/2021 5:59 AM AIR/OCEAN EXPORT CLERK Plan of Treatment Not on file Procedures Procedure Name Priority Date/Time Associated Diagnosis Comments GLUCOSE BY METER Routine 11/25/2021 6:23 AM AIR/OCEAN EXPORT CLERK LIPID PANEL (EXTERNAL RESULT) Routine 09/23/2021 2:57 PM AIR/OCEAN EXPORT CLERK from Last 3 Months or Most Recently Relevant to Health Maintenance Results * (ABNORMAL) Glucose by meter (11/25/2021 6:23 AM AIR/OCEAN EXPORT CLERK) GLUCOSE BY METER POCT 305(H) 70 - 99 mg/dL 11/25/2021 6:30 AM AIR/OCEAN EXPORT CLERK SH LABORATORY POC Blood, Capillary BLOOD SPECIMEN / Unknown 11/25/2021 6:23 AM AIR/OCEAN EXPORT CLERK 11/25/2021 6:30 AM AIR/OCEAN EXPORT CLERK Debby Cunningham MD LAB - BEAKER PO CT LABORATORY POC [facility] Acute Care Lab [address], [address] [place] [address], [facility] [phone] * (ABNORMAL) Lipid Panel (External Result) (09/23/2021 2:57 PM AIR/OCEAN EXPORT CLERK) Cholesterol (External) 183 90 - 199 mg/dL [facility] Triglycerides (External) 371(A) 40 - 149 mg/dL [facility] HDL Cholesterol (External) 44 >=50 mg/dL [facility] LDL Cholesterol Calculated (External) 65 <100 mg/dL [facility] Blood 09/23/2021 2:57 PM AIR/OCEAN EXPORT CLERK Narrative [facility] - 09/23/2021 2:57 PM AIR/OCEAN EXPORT CLERK LAB RESULTS [facility] AND [facility] Provider Outside LAB - HIM EXTERNAL R ESULT [facility] [address] [place] [id number], [facility] [phone] from Last 3 Months or Most Recently Relevant to Health Maintenance Care Teams Photo Technician Relationship Specialty Start Date End Date Irvin Mar [address] [address] PCP - General Family Medicine 09/09/21
--- OUTSIDE RECORDS SUMMARY | 2024-02-22 10:09 | XMS_ITS | Clinical Summary ---
Author Organization [facility] Address [address] [place] [address] Care Team Providers Care Ward Helper Name Role Phone Irvin Mar Primary Care Provider [phone] Allergies Active Allergy Reactions Criticality Noted Date [...] Comments Blood Pressure 126/63 11/25/2021 9:35 AM SIGNAL CIRCUIT DESIGNER Pulse 65 11/25/2021 9:35 AM SIGNAL CIRCUIT DESIGNER Temperature 36.8 ??C (98.3 ??F) 11/25/2021 9:35 AM CS T Respiratory Rate 14 11/25/2021 9:35 AM SIGNAL CIRCUIT DESIGNER Oxygen Saturation 96% 11/25/2021 9:35 AM SIGNAL CIRCUIT DESIGNER Inhaled Oxygen Concentration - - Weight 77.7 kg (171 lb 3.2 oz) 11/25/2021 5:59 A M SIGNAL CIRCUIT DESIGNER Height 162.6 cm (5' 4) 11/25/2021 5:59 AM SIGNAL CIRCUIT DESIGNER Body Mass Index 29.39 11/25/2021 5:59 AM SIGNAL CIRCUIT DESIGNER Plan of Treatment Health Maintenance Due Date [...] GLUCOSE BY METER Routine 11/25/2021 6:23 AM SIGNAL CIRCUIT DESIGNER LIPID PANEL (EXTERNAL RESULT) Routine 09/23/2021 2:57 PM SIGNAL CIRCUIT DESIGNER from Last 3 Months or Most Recently Relevant to Health Maintenance Results * (ABNORMAL) Glucose by meter (11/25/2021 6:23 AM SIGNAL CIRCUIT DESIGNER) GLUCOSE BY METER POCT 305(H) 70 - 99 mg/dL 11/25/2021 6:30 AM SIGNAL CIRCUIT DESIGNER LABORATORY POC Blood, Capillary BLOOD SPECIMEN / Unknown 11/25/2021 6:23 AM SIGNAL CIRCUIT DESIGNER 11/25/2021 6:30 AM SIGNAL CIRCUIT DESIGNER Debby SCRUGGS - [facility] LABORATORY POC [facility] Care Lab [address], [address] [place] [address], [facility] [phone] * (ABNORMAL) Lipid Panel (External Result) (09/23/2021 2:57 PM SIGNAL CIRCUIT DESIGNER) Cholesterol (External) 183 90 - 199 mg/dL [facility] Triglycerides (External) 371(A) 40 - 149 mg/dL [facility] HDL Cholesterol (External) 44 >=50 mg/dL [facility] LDL Cholesterol Calculated (External) 65 <100 mg/dL [facility] Blood 09/23/2021 2:57 PM SIGNAL CIRCUIT DESIGNER Narrative [facility] - 09/23/2021 2:57 PM SIGNAL CIRCUIT DESIGNER LAB RESULTS [facility] AND [facility] Provider Outside LAB - HIM EXTERNAL R ESULT [facility] [address] [place] [address], [facility] [phone] from Last 3 Months or Most Recently Relevant to Health Maintenance Care Teams Ward Helper Relationship Specialty Start Date End Date Irvin Mar [address] [address] PCP - General Family Medicine 09/09/21
--- OUTSIDE RECORDS SUMMARY | 2024-02-22 10:09 | XMS_ITS | Clinical Summary ---
Author Organization [facility] Address [place], [place] [address] Care Team Providers Care Janitorial Manager Name Role Phone Health, Family Primary Care [...] Active Problems Problem Noted Date Diagnosed Date Wobkv-Mntbsvmkl-Zwsoi (WPW) pattern seen on electrocardiography 05/26/2019 Diabetes 06/30/2013 Encounters Date Type Department Care Team Description 11/25/2023 Lab Requisition [facility] [phone] Natty Blanc MD from Last 3 Months [...] TRACKING EVENT Routine 11/25/2023 11 :40 AM SQL CONSULTANT PATH TISSUE EXAM Routine 11/25/2023 11:4 0 AM SQL CONSULTANT from Last 3 Months Results * LAB TRACKING EVENT (11/25/2023 11:40 AM SQL CONSULTANT) Other (Other) Client Collect / Unknown 11/25/2023 11:40 AM SQL CONSULTANT 11/25/2023 9:54 PM SQL CONSULTANT Natty Blanc MD LAB BILL ONLY [facility] LABORATORY-CENTRAL LABORATORY [address] [place] [address], * PATH TISSUE EXAM (11/25/2023 11:40 AM SQL CONSULTANT) Case Report Pathology Report ?Case: [id number] ? Authorizing Provider: ??Natty Blanc MD ?Collected: ? 11/25/2023 1140 ? Ordering Location: ? [facility] ?Received: ?11/26/2023 0924 ? Pathologist: ? David Roldan MD ? Specimens: ?? A) - Cecal Polyp ? B) - Transverse Colon Polyp ? 11/30/2023 8:31 AM [facility] [place] [facility] LABORATORY-C ENTRAL LABORATORY Final Diagnosis A) COLON, [...] ?? c. Retrieval: Complete 11/30/2023 8:31 AM SQL CONSULTANT [facility] Clinical Information Ms. Mayers is a 68 y.o. who presents for surveillance colonoscopy. 11/30/2023 8:31 AM SQL CONSULTANT [facility] Gross Description A) Received [...] Lucas 11/26/2023 1:13 PM 11/30/2023 8:31 AM SQL CONSULTANT [facility] LAB[facility]ORY Microscopic Description The final diagnosis is based on microscopic examination of appropriate sections of all specimens. 11/30/2023 8:31 AM SQL CONSULTANT [facility]ORY Additional Information [facility] - [address] [place] [address] 11/30/2023 8:31 AM SQL CONSULTANT [facility] LABORATORY-C ENTRAL LABORATORY Other (Cecal Polyp) 11/25/2023 11:40 AM SQL CONSULTANT 11/26/2023 9:24 AM SQL CONSULTANT Specimen (specimen) (Transverse Colon Polyp) 11/25/2023 11:40 AM SQL CONSULTANT 11/26/2023 9:24 AM SQL CONSULTANT Natty Blanc MD PATHOLOGY/CYTOLOGY [facility] [address] [place] [address], from Last 3 Months Care Teams Janitorial Manager Relationship Specialty Start Date End Date Health, Family PCP - General 06/30/13
== END 2024-02-22 10:04 | disposition home or self-care (01) ==
LOC: LKVREF 10:07
PROVIDERS: PCP Family Medicine; Visit Provider Family Medicine
DX: L65.9 Nonscarring hair loss, unspecified (principal)
CPT/HCPCS: 84443

== ENCOUNTER 2024-04-07 16:27 | Outpatient (CLI) | payer OTHER, SELFPAY ==
--- OUTSIDE RECORDS SUMMARY | 2024-04-07 16:29 | XMS_ITS | Encounter Summary ---
Author Organization [facility] Address [address] [place] [address] Care Team Providers Care Program Coordinator Name Role Phone Irvin Mra Primary Care Provider [phone] Encounter Details Date Type Department Care Team (Late st Contact Info) Description 11/14/2021 Orders Only [facility] Centralized Scheduling [address] [place] [phone] Nolberto French MD [address] [place] [address] Social History Tobacco Use Types Packs/Day Years [...] on filedocumented in this encounter Care Teams Program Coordinator Relationship Specialty Start Date End Date Irvin Mar [address] [address] PCP - General Family Medicine 09/09/21 documented as of this encounter
--- OUTSIDE RECORDS SUMMARY | 2024-04-07 16:29 | XMS_ITS | Clinical Summary ---
Author Organization [facility] Address [place], [place] [address] Care Team Providers Care Nuclear Technologist Name Role Phone Augusto Scott MD Primary Care Provider [phone] Allergies Active Allergy Reactions Criticality Noted Date Comments Michael Orellana 06/30/2013 Medications Medication Sig Dispensed Refills Start Date End Date Status metFORMIN (GLUCOPHAGE) 500 mg tablet Take 1 tablet by mouth 2 times daily with meals. 0 06/30/2013 Active PARoxetine (PAXIL) 40 mg tablet Take 1 tablet by mouth every morning. 0 06/30/2013 Active temazepam (RESTORIL) 30 mg capsule Take 1 capsule by mouth at bedtime if needed for Sleep. 0 06/30/2013 Active anastrozole (ARIMIDEX) 1 mg tablet Take 1 tablet by mouth once daily. 0 06/30/2013 Active multivitamin (DAILY MULTI-VITAMIN) tablet Take 1 tablet by mouth once daily. 0 06/30/2013 Active pravastatin (PRAVACHOL) 40 mg tablet Take 1 tablet by mouth at bedtime. 2 a day total 80 mg 0 06/30/2013 03/30/2024 Discontinued( *Patient states no longer taking) cephalexin (KEFLEX) 500 mg capsuleIndication s:Cellulitis of left lower extremity Take 1 Capsule (500 mg) by mouth four times daily for 7 days. 28 Capsule 03/30/2024 04/06/2024 trimethoprim-sulf amethoxazole, 160-800 mg, (BACTRIM DS, SEPTRA DS) tabIndications:Ce llulitis of left lower extremity Take 1 Tablet by mouth two times daily for 7 days. 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 05/26/2019 Diabetes 06/30/2013 Encounters Date Type Department Care Team Description 03/30/2024 4:06 PM CDT - 03/30/2024 4:21 PM CDT Emergency [facility] [place] [address] [place] [address] Aung Quiroga MD Cellulitis of left lower extremity (Primary Dx) Discharge Disposition: Home Self Care 03/17/2024 7:54 AM CDT - 03/17/2024 11:59 PM CDT Hospital Encounter [facility] [place] [address] [facility] [address] [place] [address] Jeffrey Pearl MD Fischer, Jennifer L, OT 03/17/2024 Travel from Last 3 Months Social History Tobacco [...] Sign Reading Time Taken Comments Blood Pressure 112/70 03/30/2024 4:18 PM CDT Pulse 86 03/30/2024 4:18 PM CDT Temperature 36.9 ??C (98.4 ??F) 03/30/2024 4:18 PM CD T Respiratory Rate 18 03/30/2024 4:18 PM CDT Oxygen Saturation 99% 03/30/2024 4:18 PM CDT Inhaled Oxygen Concentration - - Weight - [...] 65+ (1 of 1 - PCV) 2018 COVID-19 vaccine series ( season) 2024 09/07/2023, 07/14/2022, 03/18/2022, Additional history exists Influenza for age 65+ 05/28/2024 Care Teams Nuclear Technologist Relationship Specialty Start Date End Date Augusto Scott MD [address] [place] [address] PCP - General Family Practice 03/30/24
--- OUTSIDE RECORDS SUMMARY | 2024-04-07 16:29 | XMS_ITS | Clinical Summary ---
Author Organization [facility] Address [address] [place] [address] Care Team Providers Care Vein Pumper Name Role Phone Irvin Mar Primary Care Provider [phone] Allergies Active Allergy Reactions Criticality Noted Date [...] Comments Blood Pressure 126/63 11/25/2021 9:35 AM BROOM MAKER Pulse 65 11/25/2021 9:35 AM BROOM MAKER Temperature 36.8 ??C (98.3 ??F) 11/25/2021 9:35 AM CS T Respiratory Rate 14 11/25/2021 9:35 AM BROOM MAKER Oxygen Saturation 96% 11/25/2021 9:35 AM BROOM MAKER Inhaled Oxygen Concentration - - Weight 77.7 kg (171 lb 3.2 oz) 11/25/2021 5:59 A M BROOM MAKER Height 162.6 cm (5' 4) 11/25/2021 5:59 AM BROOM MAKER Body Mass Index 29.39 11/25/2021 5:59 AM BROOM MAKER Plan of Treatment Health Maintenance Due Date [...] (once per calendar year) 2023 INFLUENZA VACCINE (#1) 2024 , 06/09/2021, 07/12/2020, Additional history exists GLUCOSE 11/25/2024 [...] GLUCOSE BY METER Routine 11/25/2021 6:23 AM BROOM MAKER LIPID PANEL (EXTERNAL RESULT) Routine 09/23/2021 2:57 PM BROOM MAKER from Last 3 Months or Most Recently Relevant to Health Maintenance Results * (ABNORMAL) Glucose by meter (11/25/2021 6:23 AM BROOM MAKER) GLUCOSE BY METER POCT 305(H) 70 - 99 mg/dL 11/25/2021 6:30 AM BROOM MAKER LABORATORY POC Blood, Capillary BLOOD SPECIMEN / Unknown 11/25/2021 6:23 AM BROOM MAKER 11/25/2021 6:30 AM BROOM MAKER Debby SCRUGGS - [facility] LABORATORY POC [facility] Care Lab [address], [address] [place] [address], [facility] [phone] * (ABNORMAL) Lipid Panel (External Result) (09/23/2021 2:57 PM BROOM MAKER) Cholesterol (External) 183 90 - 199 mg/dL [facility] Triglycerides (External) 371(A) 40 - 149 mg/dL [facility] HDL Cholesterol (External) 44 >=50 mg/dL [facility] LDL Cholesterol Calculated (External) 65 <100 mg/dL [facility] Blood 09/23/2021 2:57 PM BROOM MAKER Narrative [facility] - 09/23/2021 2:57 PM BROOM MAKER LAB RESULTS [facility] AND [facility] Provider Outside LAB - HIM EXTERNAL R ESULT [facility] [address] [place] [address], [facility] [phone] from Last 3 Months or Most Recently Relevant to Health Maintenance Care Teams Vein Pumper Relationship Specialty Start Date End Date Irvin Mar [address] [address] PCP - General Family Medicine 09/09/21
--- OUTSIDE RECORDS SUMMARY | 2024-04-07 16:29 | XMS_ITS | Referral Summary ---
Author Organization [facility] Address [address] [place] [address] Care Team Providers Care Needle Loom Operator Helper Name Role Phone Irvin Mar Primary Care Provider [phone] Allergies Active Allergy Reactions Criticality Noted Date [...] Comments Blood Pressure 126/63 11/25/2021 9:35 AM PURCHASER AUTOMOTIVE PARTS Pulse 65 11/25/2021 9:35 AM PURCHASER AUTOMOTIVE PARTS Temperature 36.8 ??C (98.3 ??F) 11/25/2021 9:35 AM CS T Respiratory Rate 14 11/25/2021 9:35 AM PURCHASER AUTOMOTIVE PARTS Oxygen Saturation 96% 11/25/2021 9:35 AM PURCHASER AUTOMOTIVE PARTS Inhaled Oxygen Concentration - - Weight 77.7 kg (171 lb 3.2 oz) 11/25/2021 5:59 A M PURCHASER AUTOMOTIVE [employer]S Height 162.6 cm (5' 4) 11/25/2021 5:59 AM PURCHASER AUTOMOTIVE PARTS Body Mass Index 29.39 11/25/2021 5:59 AM PURCHASER AUTOMOTIVE PARTS Plan of Treatment Not on file Procedures Procedure Name Priority Date/Time Associated Diagnosis Comments GLUCOSE BY METER Routine 11/25/2021 6:23 AM PURCHASER AUTOMOTIVE PARTS LIPID PANEL (EXTERNAL RESULT) Routine 09/23/2021 2:57 PM PURCHASER AUTOMOTIVE PARTS from Last 3 Months or Most Recently Relevant to Health Maintenance Results * (ABNORMAL) Glucose by meter (11/25/2021 6:23 AM PURCHASER AUTOMOTIVE PARTS) GLUCOSE BY METER POCT 305(H) 70 - 99 mg/dL 11/25/2021 6:30 AM PURCHASER AUTOMOTIVE PARTS SH LABORATORY POC Blood, Capillary BLOOD SPECIMEN / Unknown 11/25/2021 6:23 AM PURCHASER AUTOMOTIVE PARTS 11/25/2021 6:30 AM PURCHASER AUTOMOTIVE PARTS Debby Cunningham MD LAB - BEAKER PO CT LABORATORY POC [facility] Acute Care Lab [address], [address] [place] [address], [facility] [phone] * (ABNORMAL) Lipid Panel (External Result) (09/23/2021 2:57 PM PURCHASER AUTOMOTIVE PARTS) Cholesterol (External) 183 90 - 199 mg/dL [facility] Triglycerides (External) 371(A) 40 - 149 mg/dL [facility] HDL Cholesterol (External) 44 >=50 mg/dL [facility] LDL Cholesterol Calculated (External) 65 <100 mg/dL [facility] Blood 09/23/2021 2:57 PM PURCHASER AUTOMOTIVE PARTS Narrative [facility] - 09/23/2021 2:57 PM PURCHASER AUTOMOTIVE PARTS LAB RESULTS [facility] Provider Outside LAB - HIM EXTERNAL R ESULT [facility] [address] [place] [id number], [facility] [phone] from Last 3 Months or Most Recently Relevant to Health Maintenance Care Teams Needle Loom Operator Helper Relationship Specialty Start Date End Date Irivn Mar [address] [address] PCP - General Family Medicine 09/09/21
== END 2024-04-07 16:28 | disposition home or self-care (01) ==
LOC: LKVREF 16:28
PROVIDERS: PCP Family Medicine; Visit Provider Physician Assistant
DX: L03.90 Cellulitis, unspecified (principal)
CPT/HCPCS: 87070; 87186

== ENCOUNTER 2024-04-14 14:12 | Outpatient (CLI) | payer OTHER, SELFPAY ==
--- OUTSIDE RECORDS SUMMARY | 2024-04-14 14:18 | XMS_ITS | Clinical Summary ---
Author Organization [place] Address [address] [place] [address] Care Team Providers Care Sub Arc Operator Name Role Phone Irvin Mar Primary Care Provider [phone] Allergies Active Allergy Reactions Criticality Noted Date [...] Comments Blood Pressure 126/63 11/25/2021 9:35 AM OPS ANALYST Pulse 65 11/25/2021 9:35 AM OPS ANALYST Temperature 36.8 ??C (98.3 ??F) 11/25/2021 9:35 AM CS T Respiratory Rate 14 11/25/2021 9:35 AM OPS ANALYST Oxygen Saturation 96% 11/25/2021 9:35 AM OPS ANALYST Inhaled Oxygen Concentration - - Weight 77.7 kg (171 lb 3.2 oz) 11/25/2021 5:59 A M OPS ANALYST Height 162.6 cm (5' 4) 11/25/2021 5:59 AM OPS ANALYST Body Mass Index 29.39 11/25/2021 5:59 AM OPS ANALYST Plan of Treatment Health Maintenance Due Date [...] GLUCOSE BY METER Routine 11/25/2021 6:23 AM OPS ANALYST LIPID PANEL (EXTERNAL RESULT) Routine 09/23/2021 2:57 PM OPS ANALYST from Last 3 Months or Most Recently Relevant to Health Maintenance Results * (ABNORMAL) Glucose by meter (11/25/2021 6:23 AM OPS ANALYST) GLUCOSE BY METER POCT 305(H) 70 - 99 mg/dL 11/25/2021 6:30 AM OPS ANALYST LABORATORY POC Blood, Capillary BLOOD SPECIMEN / Unknown 11/25/2021 6:23 AM OPS ANALYST 11/25/2021 6:30 AM OPS ANALYST Debby SCRUGGS - [facility] LABORATORY POC [facility] Care Lab [address] 1st floor, [address] [place] [address], [facility] [phone] * (ABNORMAL) Lipid Panel (External Result) (09/23/2021 2:57 PM OPS ANALYST) Cholesterol (External) 183 90 - 199 mg/dL [facility] Triglycerides (External) 371(A) 40 - 149 mg/dL [facility] HDL Cholesterol (External) 44 >=50 mg/dL [facility] LDL Cholesterol Calculated (External) 65 <100 mg/dL [facility] Blood 09/23/2021 2:57 PM OPS ANALYST Narrative [facility] - 09/23/2021 2:57 PM OPS ANALYST LAB RESULTS [facility] Provider Outside LAB - HIM EXTERNAL R ESULT [facility] [address] [place] [address], [facility] [phone] from Last 3 Months or Most Recently Relevant to Health Maintenance Care Teams Sub Arc Operator Relationship Specialty Start Date End Date Irvin Mar [address] [address] PCP - General Family Medicine 09/09/21
--- OUTSIDE RECORDS SUMMARY | 2024-04-14 14:19 | XMS_ITS | Referral Summary ---
Author Organization [place] Address [address] [place] [address] Care Team Providers Care Machine Tool Dresser Name Role Phone Irvin Mar Primary Care Provider [phone] Allergies Active Allergy Reactions Criticality Noted Date [...] Comments Blood Pressure 126/63 11/25/2021 9:35 AM FIELD MERCHANDISER Pulse 65 11/25/2021 9:35 AM FIELD MERCHANDISER Temperature 36.8 ??C (98.3 ??F) 11/25/2021 9:35 AM CS T Respiratory Rate 14 11/25/2021 9:35 AM FIELD MERCHANDISER Oxygen Saturation 96% 11/25/2021 9:35 AM FIELD MERCHANDISER Inhaled Oxygen Concentration - - Weight 77.7 kg (171 lb 3.2 oz) 11/25/2021 5:59 A M FIELD MERCHANDISER Height 162.6 cm (5' 4) 11/25/2021 5:59 AM FIELD MERCHANDISER Body Mass Index 29.39 11/25/2021 5:59 AM FIELD MERCHANDISER Plan of Treatment Not on file Procedures Procedure Name Priority Date/Time Associated Diagnosis Comments GLUCOSE BY METER Routine 11/25/2021 6:23 AM FIELD MERCHANDISER LIPID PANEL (EXTERNAL RESULT) Routine 09/23/2021 2:57 PM FIELD MERCHANDISER from Last 3 Months or Most Recently Relevant to Health Maintenance Results * (ABNORMAL) Glucose by meter (11/25/2021 6:23 AM FIELD MERCHANDISER) GLUCOSE BY METER POCT 305(H) 70 - 99 mg/dL 11/25/2021 6:30 AM FIELD MERCHANDISER SH LABORATORY POC Blood, Capillary BLOOD SPECIMEN / Unknown 11/25/2021 6:23 AM FIELD MERCHANDISER 11/25/2021 6:30 AM FIELD MERCHANDISER Debby Cunningham MD LAB - BEAKER PO CT LABORATORY POC [facility] Acute Care Lab [address] floor, Room [address] [place] [address], [facility] [phone] * (ABNORMAL) Lipid Panel (External Result) (09/23/2021 2:57 PM FIELD MERCHANDISER) Cholesterol (External) 183 90 - 199 mg/dL [facility] Triglycerides (External) 371(A) 40 - 149 mg/dL [facility] HDL Cholesterol (External) 44 >=50 mg/dL [facility] LDL Cholesterol Calculated (External) 65 <100 mg/dL [facility] Blood 09/23/2021 2:57 PM FIELD MERCHANDISER Narrative [facility] - 09/23/2021 2:57 PM FIELD MERCHANDISER LAB RESULTS [facility] Provider Outside LAB - HIM EXTERNAL R ESULT [facility] [address] [place] [id number], [facility] [phone] from Last 3 Months or Most Recently Relevant to Health Maintenance Care Teams Machine Tool Dresser Relationship Specialty Start Date End Date Irvin Mar [address] [address] PCP - General Family Medicine 09/09/21
--- OUTSIDE RECORDS SUMMARY | 2024-04-14 14:19 | XMS_ITS | Encounter Summary ---
Author Organization [place] Address [address] [place] [address] Care Team Providers Care Ophthalmology Technician Name Role Phone Irvin Mar Primary Care Provider [phone] Encounter Details Date Type Department Care Team (Late st Contact Info) Description 11/14/2021 Orders Only [place] Centralized Scheduling [address] [place] [phone] Nolberto French MD [address] [place] [address] Social History Tobacco Use Types Packs/Day Years [...] on filedocumented in this encounter Care Teams Ophthalmology Technician Relationship Specialty Start Date End Date Irvin Mar [address] [address] PCP - General Family Medicine 09/09/21 documented as of this encounter
--- OUTSIDE RECORDS SUMMARY | 2024-04-14 14:19 | XMS_ITS | Clinical Summary ---
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 [address] [place] [address] Jeffrey Pearl MD Fischer, Jennifer L, OT [...] Influenza for age 65+ 05/28/2024 Care Teams Email Marketing Coordinator Relationship Specialty Start Date End Date Augusto Scott MD [address] [place] [address] PCP - General Family Practice 03/30/24
== END 2024-04-14 14:13 | disposition home or self-care (01) ==
LOC: LKVREF 14:17
PROVIDERS: PCP Family Medicine; Visit Provider Family Medicine
DX: M25.562 Pain in left knee (principal)
CPT/HCPCS: 86140

== ENCOUNTER 2024-04-21 13:35 | Outpatient (CLI) | payer OTHER, SELFPAY ==
--- OUTSIDE RECORDS SUMMARY | 2024-04-21 13:38 | XMS_ITS | Encounter Summary ---
Author Organization [place] Address [address] [place] [address] Care Team Providers Care Rehabilitation Medicine Physician Name Role Phone Irvin Mar Primary Care Provider [phone] Encounter Details Date Type Department Care Team (Late st Contact Info) Description 11/14/2021 Orders Only [place] Centralized Scheduling [address] [place] [phone] Nolberto French MD [address] [place] [address] Social History Tobacco Use Types Packs/Day Years [...] on filedocumented in this encounter Care Teams Rehabilitation Medicine Physician Relationship Specialty Start Date End Date Irvin Mar [address] [address] PCP - General Family Medicine 09/09/21 documented as of this encounter
--- OUTSIDE RECORDS SUMMARY | 2024-04-21 13:38 | XMS_ITS | Clinical Summary ---
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/26/2019 Diabetes 06/30/2013 Encounters Date Type Department Care Team Description 03/30/2024 4:06 PM CDT - 03/30/2024 4:21 PM CDT Emergency [facility] [place] [address] [address] Aung Quiroga MD Cellulitis of left lower extremity (Primary Dx) Discharge Disposition: Home Self Care 03/17/2024 7:54 AM CDT - 03/17/2024 11:59 PM CDT Hospital Encounter [facility] [place] [address] [facility] [address] [place] [address] Jeffrey Pearl MD Fischer, Jennifer L, OT [...] Influenza for age 65+ 05/28/2024 Care Teams Chief Technician X Ray Relationship Specialty Start Date End Date Augusto Scott MD [address] [place] [address] PCP - General Family Practice 03/30/24
--- OUTSIDE RECORDS SUMMARY | 2024-04-21 13:38 | XMS_ITS | Clinical Summary ---
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 [place] [address] [place] [address] [place], Wound Healing WOUND CARE from Last 3 Months Social History Tobacco [...] Comments Blood Pressure 126/63 11/25/2021 9:35 AM RADON INSPECTOR Pulse 65 11/25/2021 9:35 AM RADON INSPECTOR Temperature 36.8 ??C (98.3 ??F) 11/25/2021 9:35 AM CS T Respiratory Rate 14 11/25/2021 9:35 AM RADON INSPECTOR Oxygen Saturation 96% 11/25/2021 9:35 AM RADON INSPECTOR Inhaled Oxygen Concentration - - Weight 77.7 kg (171 lb 3.2 oz) 11/25/2021 5:59 A M RADON INSPECTOR Height 162.6 cm (5' 4) 11/25/2021 5:59 AM RADON INSPECTOR Body Mass Index 29.39 11/25/2021 5:59 AM RADON INSPECTOR Plan of Treatment Health Maintenance Due Date [...] 07/12/2020, Additional history exists GLUCOSE 11/25/2024 11/25/2021, 09/2021, 09/23/2021 DTAP/TDAP/TD IMMUNIZATION (5 - Td or [...] GLUCOSE BY METER Routine 11/25/2021 6:23 AM RADON INSPECTOR LIPID PANEL (EXTERNAL RESULT) Routine 09/23/2021 2:57 PM RADON INSPECTOR from Last 3 Months or Most Recently Relevant to Health Maintenance Results * (ABNORMAL) Glucose by meter (11/25/2021 6:23 AM RADON INSPECTOR) GLUCOSE BY METER POCT 305(H) 70 - 99 mg/dL 11/25/2021 6:30 AM RADON INSPECTOR SH LABORATORY POC Blood, Capillary BLOOD SPECIMEN / Unknown 11/25/2021 6:23 AM RADON INSPECTOR 11/25/2021 6:30 AM RADON INSPECTOR Debby Cunningham MD LAB - BEAKER PO CT LABORATORY POC [facility] Acute Care Lab [address] 1[address] floor, Room [address] [place] [address], [facility] [phone] * (ABNORMAL) Lipid Panel (External Result) (09/23/2021 2:57 PM RADON INSPECTOR) Cholesterol (External) 183 90 - 199 mg/dL [facility] Triglycerides (External) 371(A) 40 - 149 mg/dL [facility] HDL Cholesterol (External) 44 >=50 mg/dL [facility] LDL Cholesterol Calculated (External) 65 <100 mg/dL [facility] Blood 09/23/2021 2:57 PM RADON INSPECTOR Narrative [facility] - 09/23/2021 2:57 PM RADON INSPECTOR LAB RESULTS [facility] Provider Outside LAB - HIM EXTERNAL R ESULT [facility] [address] [place] [id number], [facility] [phone] from Last 3 Months or Most Recently Relevant to Health Maintenance Care Teams Master Hearth Technician Relationship Specialty Start Date End Date Irvin Mar [address] [address] PCP - General Family Medicine 09/09/21
--- OUTSIDE RECORDS SUMMARY | 2024-04-21 13:38 | XMS_ITS | Encounter Summary ---
Author Organization [place] Address [address] [place] [address] Care Team Providers Care Rapid Outsole Stitcher Name Role Phone Isabela Irvin Rucker Primary Care Provider [phone] Reason for Visit * Reason Onset Date Comments WOUND CARE 04/19/2024 Encounter Details Date Type Department Care Team (Late st Contact Info) Description 04/19/2024 Telephone [facility] [address] [place] [phone] [place], Wound Healing [facility] Medical Office Building [address] [facility], [address] [place] [address] WOUND CARE Social History Tobacco Use Types Packs/Day Years [...] on file documented as of this encounter Miscellaneous Notes * Telephone Encounter - Aleyda Dorado RN - 04/19/2024 3:39 PM CDT Returned call to Annie and discussed that [facility] is not accepting outside of [place] patients at this time. Annie is not interested in phone numbers to other wound clinics. * Telephone Encounter - Ruby Lucas - 04/19/2024 1:07 PM CDT Patient's daughter in law, Annie, is requesting a wound appt for the patient who has a LLE wound ([place] area) that is non-healing. Patient had a mole removed and sutures placed, but later developed an infection. It has thus far been addressed by dermatology but Annie states that the patient has a history of infection and issues of not healing with previous wounds. Patient is a diabetic which furthers the family's concerns. Annie has also been tending to the wound and reports that there is quite a bit of yellow slough, but with a healthy wound bed underneath. She also states that it looks like a vascular wound. Patient is AMB Please call Annie regarding scheduling [phone] documented in this encounter Plan of Treatment Not on file documented as of this encounter Visit Diagnoses Not on filedocumented in this encounter Care Teams Rapid Outsole Stitcher Relationship Specialty [place] [address] PCP - General Family Medicine 09/09/21 documented as of this encounter
--- OUTSIDE RECORDS SUMMARY | 2024-04-21 13:38 | XMS_ITS | Referral Summary ---
Author Organization [place] Address [facility] [place] [address] Care Team Providers Care Sales Incentive Analyst Name Role Phone Irvin Mar Primary Care Provider [phone] Encounters Date Type Department Care Team Description 04/19/2024 Telephone [facility] W[facility] Clinic [place] [address] [facility] [address] [place] [address] [place], Wound Healing WOUND CARE from Last 3 Months Allergies Active Allergy Reactions Criticality Noted Date [...] Comments Blood Pressure 126/63 11/25/2021 9:35 AM CLERICAL SECRETARY Pulse 65 11/25/2021 9:35 AM CLERICAL SECRETARY Temperature 36.8 ??C (98.3 ??F) 11/25/2021 9:35 AM CS T Respiratory Rate 14 11/25/2021 9:35 AM CLERICAL SECRETARY Oxygen Saturation 96% 11/25/2021 9:35 AM CLERICAL SECRETARY Inhaled Oxygen Concentration - - Weight 77.7 kg (171 lb 3.2 oz) 11/25/2021 5:59 A M CLERICAL SECRETARY Height 162.6 cm (5' 4) 11/25/2021 5:59 AM CLERICAL SECRETARY Body Mass Index 29.39 11/25/2021 5:59 AM CLERICAL SECRETARY Plan of Treatment Not on file Procedures Procedure Name Priority Date/Time Associated Diagnosis Comments GLUCOSE BY METER Routine 11/25/2021 6:23 AM CLERICAL SECRETARY LIPID PANEL (EXTERNAL RESULT) Routine 09/23/2021 2:57 PM CLERICAL SECRETARY from Last 3 Months or Most Recently Relevant to Health Maintenance Results * (ABNORMAL) Glucose by meter (11/25/2021 6:23 AM CLERICAL SECRETARY) GLUCOSE BY METER POCT 305(H) 70 - 99 mg/dL 11/25/2021 6:30 AM CLERICAL SECRETARY LABORATORY POC Blood, Capillary BLOOD SPECIMEN / Unknown 11/25/2021 6:23 AM CLERICAL SECRETARY 11/25/2021 6:30 AM CLERICAL SECRETARY Debby Cunningham MD LAB - BEAKER PO CT LABORATORY POC [facility] Acute Care Lab [address] [facility] [address] 1st floor, Room 20[address] [place] [address], [facility] [phone] * (ABNORMAL) Lipid Panel (External Result) (09/23/2021 2:57 PM CLERICAL SECRETARY) Cholesterol (External) 183 90 - 199 mg/dL [facility] Triglycerides (External) 371(A) 40 - 149 mg/dL [facility] HDL Cholesterol (External) 44 >=50 mg/dL [facility] LDL Cholesterol Calculated (External) 65 <100 mg/dL [facility] Blood 09/23/2021 2:57 PM CLERICAL SECRETARY Narrative [facility] - 09/23/2021 2:57 PM CLERICAL SECRETARY LAB RESULTS [facility] Provider Outside LAB - HIM EXTERNAL R ESULT [facility] [address] [place] [address], [facility] [phone] from Last 3 Months or Most Recently Relevant to Health Maintenance Care Teams Sales Incentive Analyst Relationship Specialty Start Date End Date Irvin Mar [address] [address] PCP - General Family Medicine 09/09/21
== END 2024-04-21 13:36 | disposition home or self-care (01) ==
LOC: WOUND 13:36
PROVIDERS: PCP Family Medicine; Visit Provider Nurse Practitioner Family
DX: E11.622 Type 2 diabetes mellitus with other skin ulcer (principal); L97.828 Non-pressure chronic ulcer of other part of left lower leg with other specified severity; F03.90 Unspecified dementia, unspecified severity, without behavioral disturbance, psychotic disturbance, mood disturbance, and anxiety; Z79.84 Long term (current) use of oral hypoglycemic drugs
CPT/HCPCS: 11042; G0463

== ENCOUNTER 2024-04-28 10:30 | Outpatient (CLI) | payer OTHER, SELFPAY ==
--- OUTSIDE RECORDS SUMMARY | 2024-05-02 11:46 | XMS_ITS | Referral Summary ---
Author Organization [place] Address [facility] [place] [address] Care Team Providers Care Talent Acquisition Relationship Manager Name Role Phone Irvin Mar Primary Care Provider [phone] Encounters Date Type Department Care Team Description 04/19/2024 Telephone [facility] Wound Clinic [place] [address] [facility] [address] [place] [address] [place], Wound Healing WOUND CARE from Last 3 [...] Comments Blood Pressure 126/63 11/25/2021 9:35 AM BURNER TENDER Pulse 65 11/25/2021 9:35 AM BURNER TENDER Temperature 36.8 ??C (98.3 ??F) 11/25/2021 9:35 AM CS T Respiratory Rate 14 11/25/2021 9:35 AM BURNER TENDER Oxygen Saturation 96% 11/25/2021 9:35 AM BURNER TENDER Inhaled Oxygen Concentration - - Weight 77.7 kg (171 lb 3.2 oz) 11/25/2021 5:59 A M BURNER TENDER Height 162.6 cm (5' 4) 11/25/2021 5:59 AM BURNER TENDER Body Mass Index 29.39 11/25/2021 5:59 AM BURNER TENDER Plan of Treatment Not on file Procedures Procedure Name Priority Date/Time Associated Diagnosis Comments GLUCOSE BY METER Routine 11/25/2021 6:23 AM BURNER TENDER LIPID PANEL (EXTERNAL RESULT) Routine 09/23/2021 2:57 PM BURNER TENDER from Last 3 Months or Most Recently Relevant to Health Maintenance Results * (ABNORMAL) Glucose by meter (11/25/2021 6:23 AM BURNER TENDER) GLUCOSE BY METER POCT 305(H) 70 - 99 mg/dL 11/25/2021 6:30 AM BURNER TENDER LABORATORY POC Blood, Capillary BLOOD SPECIMEN / Unknown 11/25/2021 6:23 AM BURNER TENDER 11/25/2021 6:30 AM BURNER TENDER Debby Cunningham MD LAB - BEAKER PO CT LABORATORY POC [facility] Acute Care Lab [address] [facility], Room [address] [place] [address], [facility] [phone] * (ABNORMAL) Lipid Panel (External Result) (09/23/2021 2:57 PM BURNER TENDER) Cholesterol (External) 183 90 - 199 mg/dL [facility] Triglycerides (External) 371(A) 40 - 149 mg/dL [facility] HDL Cholesterol (External) 44 >=50 mg/dL [facility] LDL Cholesterol Calculated (External) 65 <100 mg/dL [facility] Blood 09/23/2021 2:57 PM BURNER TENDER Narrative [facility] - 09/23/2021 2:57 PM BURNER TENDER LAB RESULTS [facility] Provider Outside LAB - HIM EXTERNAL R ESULT [facility] [address] [place] [address], [facility] [phone] from Last 3 Months or Most Recently Relevant to Health Maintenance Care Teams Talent Acquisition Relationship Manager Relationship Specialty Start Date End Date Irvin Mar [address] [address] PCP - General Family Medicine 09/09/21
--- OUTSIDE RECORDS SUMMARY | 2024-05-02 11:46 | XMS_ITS | Encounter Summary ---
Author Organization [place] Address [address] [place] [address] Care Team Providers Care Dean Of Girls Name Role Phone Irvin Mar Primary Care Provider [phone] Encounter Details Date Type Department Care Team (Late st Contact Info) Description 11/14/2021 Orders Only [facility] Centralized Scheduling [address] [place] [phone] Nolberto French MD [address] [place] [address] Social History Tobacco Use Types Packs/Day Years [...] on filedocumented in this encounter Care Teams Dean Of Girls Relationship Specialty Start Date End Date Irvin Mar [address] [address] PCP - General Family Medicine 09/09/21 documented as of this encounter
--- OUTSIDE RECORDS SUMMARY | 2024-05-02 11:46 | XMS_ITS | Clinical Summary ---
Author Organization [place] Address [address] [place] [address] Care Team Providers Care Truck Loader And Unloader Name Role Phone Irvin Mar Primary Care Provider [phone] Allergies Active Allergy Reactions Criticality Noted Date [...] Type Department Care Team Description 04/19/2024 Telephone [facility] [place] [address] [place] [address] [place], Wound Healing WOUND CARE from Last 3 [...] Comments Blood Pressure 126/63 11/25/2021 9:35 AM ASSISTANT CORPORATE SECRETARY Pulse 65 11/25/2021 9:35 AM ASSISTANT CORPORATE SECRETARY Temperature 36.8 ??C (98.3 ??F) 11/25/2021 9:35 AM CS T Respiratory Rate 14 11/25/2021 9:35 AM ASSISTANT CORPORATE SECRETARY Oxygen Saturation 96% 11/25/2021 9:35 AM ASSISTANT CORPORATE SECRETARY Inhaled Oxygen Concentration - - Weight 77.7 kg (171 lb 3.2 oz) 11/25/2021 5:59 A M ASSISTANT CORPORATE SECRETARY Height 162.6 cm (5' 4) 11/25/2021 5:59 AM ASSISTANT CORPORATE SECRETARY Body Mass Index 29.39 11/25/2021 5:59 AM ASSISTANT CORPORATE SECRETARY Plan of Treatment Health Maintenance Due Date [...] GLUCOSE BY METER Routine 11/25/2021 6:23 AM ASSISTANT CORPORATE SECRETARY LIPID PANEL (EXTERNAL RESULT) Routine 09/23/2021 2:57 PM ASSISTANT CORPORATE SECRETARY from Last 3 Months or Most Recently Relevant to Health Maintenance Results * (ABNORMAL) Glucose by meter (11/25/2021 6:23 AM ASSISTANT CORPORATE SECRETARY) GLUCOSE BY METER POCT 305(H) 70 - 99 mg/dL 11/25/2021 6:30 AM ASSISTANT CORPORATE SECRETARY SH LABORATORY POC Blood, Capillary BLOOD SPECIMEN / Unknown 11/25/2021 6:23 AM ASSISTANT CORPORATE SECRETARY 11/25/2021 6:30 AM ASSISTANT CORPORATE SECRETARY Debby Cunningham MD LAB - BEAKER PO CT LABORATORY POC [facility] Acute Care Lab [address] floor, [address] [place] [address], [facility] [phone] * (ABNORMAL) Lipid Panel (External Result) (09/23/2021 2:57 PM ASSISTANT CORPORATE SECRETARY) Cholesterol (External) 183 90 - 199 mg/dL [facility] Triglycerides (External) 371(A) 40 - 149 mg/dL [facility] HDL Cholesterol (External) 44 >=50 mg/dL [facility] LDL Cholesterol Calculated (External) 65 <100 mg/dL [facility] Blood 09/23/2021 2:57 PM ASSISTANT CORPORATE SECRETARY Narrative [facility] - 09/23/2021 2:57 PM ASSISTANT CORPORATE SECRETARY LAB RESULTS [facility] Provider Outside LAB - HIM EXTERNAL R ESULT [facility] [address] [place] [address] [id number], [facility] [phone] from Last 3 Months or Most Recently Relevant to Health Maintenance Care Teams Truck Loader And Unloader Relationship Specialty Start Date End Date Irvin Mar [address] [address] PCP - General Family Medicine 09/09/21
--- OUTSIDE RECORDS SUMMARY | 2024-05-02 11:46 | XMS_ITS | Encounter Summary ---
Author Organization [facility] Address [address] [place] [address] Care Team Providers Care Director Cardiology Name Role Phone Isabela Irvin Rucker Primary Care Provider + [phone] Reason for Visit * Reason Onset Date Comments WOUND CARE 04/19/2024 Encounter Details Date Type Department Care Team (Late st Contact Info) Description 04/19/2024 Telephone [facility] [address] [place] [phone] [place], Wound Healing [facility] Medical Office Building [address] [facility], [address] [place] [address] WOUND CARE Social History Tobacco Use Types [...] Returned call to Annie and discussed that [facility] is not accepting outside of [facility] patients at this time. Annie is not [...] is AMB Please call Annie regarding scheduling [phone] documented in this encounter Plan of Treatment Not on file documented as of this encounter Visit Diagnoses Not on filedocumented in this encounter Care Teams Director Cardiology Relationship Specialty Start Date End [place] [address] PCP - General Family Medicine 09/09/21 documented as of this encounter
--- OUTSIDE RECORDS SUMMARY | 2024-05-02 11:46 | XMS_ITS | Clinical Summary ---
Author Organization [facility] Address [place], [place] [address] Care Team Providers Care Carbon Brushes Assembler Name Role Phone Augusto Scott MD Primary Care Provider [phone] Allergies Active Allergy Reactions Criticality Noted Date [...] by mouth once daily. 0 06/30/2013 Active cephalexin (KEFLEX) 500 mg capsuleIndications: Cellulitis of left lower extremity Take 1 Capsule (500 mg) by mouth four times daily for 7 days. 28 Capsule 03/30/2024 04/06/2024 trimethoprim-sulfam ethoxazole, 160-800 mg, (BACTRIM DS, SEPTRA DS) tabIndications:Cell ulitis of left lower extremity Take 1 Tablet by mouth two times daily for 7 days. 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 05/26/2019 Diabetes 06/30/2013 Encounters Date Type Department Care Team Description 03/30/2024 4:06 PM CDT - 03/30/2024 4:21 PM CDT Emergency [facility] [place] [address] [place] [address] Aung Quiroga MD Cellulitis of left lower extremity (Primary Dx) Discharge Disposition: Home Self Care 03/17/2024 7:54 AM CDT - 03/17/2024 11:59 PM CDT Hospital Encounter [facility] - Drivers [place] [address] [facility] [address] [place] [address] Jeffrey Pearl MD Fischer, Jennifer L, OT [...] Influenza for age 65+ 05/28/2024 Care Teams Carbon Brushes Assembler Relationship Specialty Start Date End Date Augusto Scott MD [address] [place] [address] PCP - General Family Practice 03/30/24
== END 2024-04-28 10:31 | disposition home or self-care (01) ==
LOC: WOUND 05-02 11:45
PROVIDERS: PCP Family Medicine; Visit Provider Nurse Practitioner Family
DX: E11.622 Type 2 diabetes mellitus with other skin ulcer (principal); L97.828 Non-pressure chronic ulcer of other part of left lower leg with other specified severity; C44.91 Basal cell carcinoma of skin, unspecified; Z79.84 Long term (current) use of oral hypoglycemic drugs
CPT/HCPCS: 11042

== ENCOUNTER 2024-05-04 10:10 | Outpatient (CLI) | payer OTHER, SELFPAY ==
--- OUTSIDE RECORDS SUMMARY | 2024-05-04 10:12 | XMS_ITS | Encounter Summary ---
Author Organization [facility] Address [address] [place] [address] Care Team Providers Care Airplane Engineer Name Role Phone Irvin Mar Primary Care Provider [phone] Encounter Details Date Type Department Care Team (Late st Contact Info) Description 11/14/2021 Orders Only [facility] Centralized Scheduling [address] [place] [phone] Nolberto French MD [address] [place] [address] Social History Tobacco Use Types Packs/Day Years [...] on filedocumented in this encounter Care Teams Airplane Engineer Relationship Specialty Start Date End Date Irvin Mar [address] [address] PCP - General Family Medicine 09/09/21 documented as of this encounter
--- OUTSIDE RECORDS SUMMARY | 2024-05-04 10:12 | XMS_ITS | Clinical Summary ---
Author Organization [facility] Address [address] [place] [address] Care Team Providers Care Automatic Pattern Edger Name Role Phone Irvin Mar Primary Care Provider [phone] Allergies Active Allergy Reactions Criticality Noted Date [...] [facility] [place] [address] [place] [address] [place], Wound Healing WOUND CARE from Last 3 [...] Comments Blood Pressure 126/63 11/25/2021 9:35 AM TRACK LAYING MACHINE OPERATOR Pulse 65 11/25/2021 9:35 AM TRACK LAYING MACHINE OPERATOR Temperature 36.8 ??C (98.3 ??F) 11/25/2021 9:35 AM CS T Respiratory Rate 14 11/25/2021 9:35 AM TRACK LAYING MACHINE OPERATOR Oxygen Saturation 96% 11/25/2021 9:35 AM TRACK LAYING MACHINE OPERATOR Inhaled Oxygen Concentration - - Weight 77.7 kg (171 lb 3.2 oz) 11/25/2021 5:59 A M TRACK LAYING MACHINE OPERATOR Height 162.6 cm (5' 4) 11/25/2021 5:59 AM TRACK LAYING MACHINE OPERATOR Body Mass Index 29.39 11/25/2021 5:59 AM TRACK LAYING MACHINE OPERATOR Plan of Treatment Health Maintenance Due Date [...] GLUCOSE BY METER Routine 11/25/2021 6:23 AM TRACK LAYING MACHINE OPERATOR LIPID PANEL (EXTERNAL RESULT) Routine 09/23/2021 2:57 PM TRACK LAYING MACHINE OPERATOR from Last 3 Months or Most Recently Relevant to Health Maintenance Results * (ABNORMAL) Glucose by meter (11/25/2021 6:23 AM TRACK LAYING MACHINE OPERATOR) GLUCOSE BY METER POCT 305(H) 70 - 99 mg/dL 11/25/2021 6:30 AM TRACK LAYING MACHINE OPERATOR SH LABORATORY POC Blood, Capillary BLOOD SPECIMEN / Unknown 11/25/2021 6:23 AM TRACK LAYING MACHINE OPERATOR 11/25/2021 6:30 AM TRACK LAYING MACHINE OPERATOR Debby Cunningham MD LAB - BEAKER PO CT LABORATORY POC [facility] Acute Care Lab [address] 1[address] floor, [address] [place] [address], [facility] [phone] * (ABNORMAL) Lipid Panel (External Result) (09/23/2021 2:57 PM TRACK LAYING MACHINE OPERATOR) Cholesterol (External) 183 90 - 199 mg/dL [facility] Triglycerides (External) 371(A) 40 - 149 mg/dL [facility] HDL Cholesterol (External) 44 >=50 mg/dL [facility] LDL Cholesterol Calculated (External) 65 <100 mg/dL [facility] Blood 09/23/2021 2:57 PM TRACK LAYING MACHINE OPERATOR Narrative [facility] - 09/23/2021 2:57 PM TRACK LAYING MACHINE OPERATOR LAB RESULTS [facility] Provider Outside LAB - HIM EXTERNAL R ESULT [facility] [address] [place] [id number], [facility] [phone] from Last 3 Months or Most Recently Relevant to Health Maintenance Care Teams Automatic Pattern Edger Relationship Specialty Start Date End Date Irvin Mar [address] [address] PCP - General Family Medicine 09/09/21
--- OUTSIDE RECORDS SUMMARY | 2024-05-04 10:12 | XMS_ITS | Referral Summary ---
Author Organization [facility] Address [facility] [place] [address] Care Team Providers Care Patent Lawyer Name Role Phone Irvin Mar Primary Care Provider [phone] Encounters Date Type Department Care Team Description 04/19/2024 Telephone [facility] [place] [address] [facility] [address] [place] [address] [place], Wound Healing WOUND CARE from Last 3 [...] Comments Blood Pressure 126/63 11/25/2021 9:35 AM CREATIVE PRODUCER Pulse 65 11/25/2021 9:35 AM CREATIVE PRODUCER Temperature 36.8 ??C (98.3 ??F) 11/25/2021 9:35 AM CS T Respiratory Rate 14 11/25/2021 9:35 AM CREATIVE PRODUCER Oxygen Saturation 96% 11/25/2021 9:35 AM CREATIVE PRODUCER Inhaled Oxygen Concentration - - Weight 77.7 kg (171 lb 3.2 oz) 11/25/2021 5:59 A M CREATIVE PRODUCER Height 162.6 cm (5' 4) 11/25/2021 5:59 AM CREATIVE PRODUCER Body Mass Index 29.39 11/25/2021 5:59 AM CREATIVE PRODUCER Plan of Treatment Not on file Procedures Procedure Name Priority Date/Time Associated Diagnosis Comments GLUCOSE BY METER Routine 11/25/2021 6:23 AM CREATIVE PRODUCER LIPID PANEL (EXTERNAL RESULT) Routine 09/23/2021 2:57 PM CREATIVE PRODUCER from Last 3 Months or Most Recently Relevant to Health Maintenance Results * (ABNORMAL) Glucose by meter (11/25/2021 6:23 AM CREATIVE PRODUCER) GLUCOSE BY METER POCT 305(H) 70 - 99 mg/dL 11/25/2021 6:30 AM CREATIVE PRODUCER LABORATORY POC Blood, Capillary BLOOD SPECIMEN / Unknown 11/25/2021 6:23 AM CREATIVE PRODUCER 11/25/2021 6:30 AM CREATIVE PRODUCER Debby Cunningham MD LAB - BEAKER PO CT LABORATORY POC [facility] Acute Care Lab [address] [facility] [address], [address] [place] [address], [facility] [phone] * (ABNORMAL) Lipid Panel (External Result) (09/23/2021 2:57 PM CREATIVE PRODUCER) Cholesterol (External) 183 90 - 199 mg/dL [facility] Triglycerides (External) 371(A) 40 - 149 mg/dL [facility] HDL Cholesterol (External) 44 >=50 mg/dL [facility] LDL Cholesterol Calculated (External) 65 <100 mg/dL [facility] Blood 09/23/2021 2:57 PM CREATIVE PRODUCER Narrative [facility] - 09/23/2021 2:57 PM CREATIVE PRODUCER LAB RESULTS [facility] AND [facility] Provider Outside LAB - HIM EXTERNAL R ESULT [facility] [address] [place] [address], [facility] [phone] from Last 3 Months or Most Recently Relevant to Health Maintenance Care Teams Patent Lawyer Relationship Specialty Start Date End Date Irvin Mar [address] [address] PCP - General Family Medicine 09/09/21
--- OUTSIDE RECORDS SUMMARY | 2024-05-04 10:12 | XMS_ITS | Encounter Summary ---
Author Organization [facility] Address [address] [place] [address] Care Team Providers Care Voltmeter Operator Name Role Phone Isabela Irvin Rucker Primary Care Provider + [phone] Reason for Visit * Reason Onset Date Comments WOUND CARE 04/19/2024 Encounter Details Date Type Department Care Team (Late st Contact Info) Description 04/19/2024 Telephone [facility] [address] [place] [phone] [place], Wound Healing [facility] Medical Office Building [address] [facility], [address] [place] [address] WOUND CARE Social History Tobacco Use Types [...] Returned call to Annie and discussed that [facility] is not accepting outside of [facility] patients at this time. Annie is not [...] is AMB Please call Annie regarding scheduling [phone] documented in this encounter Plan of Treatment Not on file documented as of this encounter Visit Diagnoses Not on filedocumented in this encounter Care Teams Voltmeter Operator Relationship Specialty Start [place] [address] PCP - General Family Medicine 09/09/21 documented as of this encounter
--- OUTSIDE RECORDS SUMMARY | 2024-05-04 10:12 | XMS_ITS | Clinical Summary ---
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 05/26/2019 Diabetes 06/30/2013 Encounters Date Type Department Care Team Description 03/30/2024 4:06 PM CDT - 03/30/2024 4:21 PM CDT Emergency [facility] [place] [address] [place] [address] Aung Quiroga MD Cellulitis of left lower extremity (Primary Dx) Discharge Disposition: Home Self Care 03/17/2024 7:54 AM CDT - 03/17/2024 11:59 PM CDT Hospital Encounter [facility] - Drivers [place] [address] [facility] [address] [place] [address] Jeffrey Pearl MD Fischer, Jennifer L, OT [...] Influenza for age 65+ 05/28/2024 Care Teams Dry Food Products Mixer Relationship Specialty Start Date End Date Augusto Scott MD [address] [place] [address] PCP - General Family Practice 03/30/24
== END 2024-05-04 10:11 | disposition home or self-care (01) ==
LOC: WOUND 10:10
PROVIDERS: PCP Family Medicine; Visit Provider Nurse Practitioner Family
DX: E11.622 Type 2 diabetes mellitus with other skin ulcer (principal); L97.828 Non-pressure chronic ulcer of other part of left lower leg with other specified severity; F17.210 Nicotine dependence, cigarettes, uncomplicated; Z79.84 Long term (current) use of oral hypoglycemic drugs
CPT/HCPCS: 11042

== ENCOUNTER 2024-07-05 09:02 | Outpatient (CLI) | payer OTHER, SELFPAY ==
--- OUTSIDE RECORDS SUMMARY | 2024-07-07 12:55 | XMS_ITS | Clinical Summary ---
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
--- OUTSIDE RECORDS SUMMARY | 2024-07-07 12:55 | XMS_ITS | Clinical Summary ---
Author Organization [facility] Address [address] [place] [address] Care Team Providers Care Ship Surveyor Name Role Phone Irvin Mar Primary Care Provider [phone] Allergies Active Allergy Reactions Criticality Noted Date [...] Type Department Care Team Description 04/19/2024 Telephone [facility] Wound Clinic [place] [address] [place] [address] [place], Wound Healing WOUND CARE from Last 3 [...] Comments Blood Pressure 126/63 11/25/2021 9:35 AM REGIONAL SALES LEADER Pulse 65 11/25/2021 9:35 AM REGIONAL SALES LEADER Temperature 36.8 ??C (98.3 ??F) 11/25/2021 9:35 AM CS T Respiratory Rate 14 11/25/2021 9:35 AM REGIONAL SALES LEADER Oxygen Saturation 96% 11/25/2021 9:35 AM REGIONAL SALES LEADER Inhaled Oxygen Concentration - - Weight 77.7 kg (171 lb 3.2 oz) 11/25/2021 5:59 A M REGIONAL SALES LEADER Height 162.6 cm (5' 4) 11/25/2021 5:59 AM REGIONAL SALES LEADER Body Mass Index 29.39 11/25/2021 5:59 AM REGIONAL SALES LEADER Plan of Treatment Health Maintenance Due Date Last Done Comments ADVANCE CARE PLANNING 1953 ANNUAL REVIEW OF HM ORDERS 1953 CT COLONOGRAPHY 1953 DEXA 1953 FIT 1953 FLEX SIG 1953 MAMMO SCREENING 1953 sDNA (Cologuard) 1953 COLONOSCOPY 1963 COLORECTAL CANCER SCREENING 1963 HEPATITIS C SCREENING 1971 LUNG CANCER SCREENING 2003 FALL RISK ASSESSMENT 2018 MEDICARE ANNUAL WELLNESS VISIT 2018 LIPID 09/23/2022 09/23/2021 PHQ-2 (once per calendar year) 2023 COVID-19 Vaccine ( - season) 2024 07/22/2021, 12/26/2020, 11/28/2020 INFLUENZA VACCINE (#1) 2024 , 06/09/2021, 07/12/2020, Additional history exists GLUCOSE 11/25/2024 11/25/2021, 03/0 09/2021, 09/23/2021 RSV VACCINE (1 - 1-dose 75+ series) 2028 DTAP/TDAP/TD IMMUNIZATION (5 - Td or Tdap) [...] GLUCOSE BY METER Routine 11/25/2021 6:23 AM REGIONAL SALES LEADER LIPID PANEL (EXTERNAL RESULT) Routine 09/23/2021 2:57 PM REGIONAL SALES LEADER from Last 3 Months or Most Recently Relevant to Health Maintenance Results * (ABNORMAL) Glucose by meter (11/25/2021 6:23 AM REGIONAL SALES LEADER) GLUCOSE BY METER POCT 305(H) 70 - 99 mg/dL 11/25/2021 6:30 AM REGIONAL SALES LEADER LABORATORY POC Blood, Capillary BLOOD SPECIMEN / Unknown 11/25/2021 6:23 AM REGIONAL SALES LEADER 11/25/2021 6:30 AM REGIONAL SALES LEADER Debby Cunningham MD LAB - BEAKER PO CT SH LABORATORY POC [facility] Acute Care Lab [address] 1st floor, [address] [place] [address], [facility] [phone] * (ABNORMAL) Lipid Panel (External Result) (09/23/2021 2:57 PM REGIONAL SALES LEADER) Cholesterol (External) 183 90 - 199 mg/dL [facility] Triglycerides (External) 371(A) 40 - 149 mg/dL [facility] HDL Cholesterol (External) 44 >=50 mg/dL [facility] LDL Cholesterol Calculated (External) 65 <100 mg/dL [facility] Blood 09/23/2021 2:57 PM REGIONAL SALES LEADER Narrative [facility] - 09/23/2021 2:57 PM REGIONAL SALES LEADER LAB RESULTS [facility] AND [facility] Provider Outside LAB - HIM EXTERNAL R ESULT [facility] [address] [place] [address], [facility] [phone] from Last 3 Months or Most Recently Relevant to Health Maintenance Care Teams Ship Surveyor Relationship Specialty Start Date End Date Irvin Mar [address] [address] PCP - General Family Medicine 09/09/21
--- OUTSIDE RECORDS SUMMARY | 2024-07-07 12:55 | XMS_ITS | Referral Summary ---
Author Organization [facility] Address Replaced by [facility] [place] [address] Care Team Providers Care Hospital Sales Representative Name Role Phone Irvin Mar Primary Care Provider [phone] Encounters Date Type Department Care Team Description 04/19/2024 Telephone [facility] [place] [address] [facility] [address] [place] [address] [place], Wound Healing WOUND CARE from Last 3 [...] Comments Blood Pressure 126/63 11/25/2021 9:35 AM FELT PULLER Pulse 65 11/25/2021 9:35 AM FELT PULLER Temperature 36.8 ??C (98.3 ??F) 11/25/2021 9:35 AM CS T Respiratory Rate 14 11/25/2021 9:35 AM FELT PULLER Oxygen Saturation 96% 11/25/2021 9:35 AM FELT PULLER Inhaled Oxygen Concentration - - Weight 77.7 kg (171 lb 3.2 oz) 11/25/2021 5:59 A M FELT PULLER Height 162.6 cm (5' 4) 11/25/2021 5:59 AM FELT PULLER Body Mass Index 29.39 11/25/2021 5:59 AM FELT PULLER Plan of Treatment Not on file Procedures Procedure Name Priority Date/Time Associated Diagnosis Comments GLUCOSE BY METER Routine 11/25/2021 6:23 AM FELT PULLER LIPID PANEL (EXTERNAL RESULT) Routine 09/23/2021 2:57 PM FELT PULLER from Last 3 Months or Most Recently Relevant to Health Maintenance Results * (ABNORMAL) Glucose by meter (11/25/2021 6:23 AM FELT PULLER) GLUCOSE BY METER POCT 305(H) 70 - 99 mg/dL 11/25/2021 6:30 AM FELT PULLER LABORATORY POC Blood, Capillary BLOOD SPECIMEN / Unknown 11/25/2021 6:23 AM FELT PULLER 11/25/2021 6:30 AM FELT PULLER Debby Cunningham MD LAB - BEAKER PO CT LABORATORY POC [facility] Acute Care Lab [address] floor, [address] [place] [address], [facility] [phone] * (ABNORMAL) Lipid Panel (External Result) (09/23/2021 2:57 PM FELT PULLER) Cholesterol (External) 183 90 - 199 mg/dL [facility] Triglycerides (External) 371(A) 40 - 149 mg/dL [facility] HDL Cholesterol (External) 44 >=50 mg/dL [facility] LDL Cholesterol Calculated (External) 65 <100 mg/dL [facility] Blood 09/23/2021 2:57 PM FELT PULLER Narrative [facility] - 09/23/2021 2:57 PM FELT PULLER LAB RESULTS [facility] AND [facility] Provider Outside LAB - HIM EXTERNAL R ESULT [facility] [address] [place] [address], [facility] [phone] from Last 3 Months or Most Recently Relevant to Health Maintenance Care Teams Hospital Sales Representative Relationship Specialty Start Date End Date Irvin Mar [address] [address] PCP - General Family Medicine 09/09/21
--- OUTSIDE RECORDS SUMMARY | 2024-07-07 12:55 | XMS_ITS | Encounter Summary ---
Author Organization [facility] Address [address] [place] [address] Care Team Providers Care Landfill Gas Collection Operator Name Role Phone Irvin Mar Primary Care Provider [phone] Encounter Details Date Type Department Care Team (Late st Contact Info) Description 11/14/2021 Orders Only [facility] Centralized Scheduling [address] [place] [phone] Nolberto French MD [address] [place] [address] Social History Tobacco Use Types Packs/Day Years [...] on filedocumented in this encounter Care Teams Landfill Gas Collection Operator Relationship Specialty Start Date End Date Irvin Mar [address] [address] PCP - General Family Medicine 09/09/21 documented as of this encounter
--- OUTSIDE RECORDS SUMMARY | 2024-07-07 12:55 | XMS_ITS | Encounter Summary ---
Author Organization [facility] Address [address] [place] [address] Care Team Providers Care Thread Roller Name Role Phone Isabela Irvin Rucker Primary Care Provider [phone] Reason for Visit * Reason Onset Date Comments WOUND CARE 04/19/2024 Encounter Details Date Type Department Care Team (Late st Contact Info) Description 04/19/[address] [facility] W[facility] Clinic [address] [place] [phone] [place], Wound Healing [facility] Medical Office Building [address] [facility], [address] [place] [address] WOUND CARE Social History Tobacco Use Types [...] Returned call to Annie and discussed that [facility] is not accepting outside of [facility] patients at this time. Annie is not [...] vascular wound. Patient is AMB Please call Annei regarding scheduling [phone] documented in this encounter Plan of Treatment Not on file documented as of this encounter Visit Diagnoses Not on filedocumented in this encounter Care Teams Thread Roller Relationship Specialty Start [place] [address] PCP - General Family Medicine 09/09/21 documented as of this encounter
== END 2024-07-05 09:03 | disposition home or self-care (01) ==
LOC: NFLDREF 07-07 12:53
PROVIDERS: PCP Family Medicine; Referring Provider Family Medicine; Visit Provider Family Medicine
DX: E11.69 Type 2 diabetes mellitus with other specified complication (principal); E66.9 Obesity, unspecified; E11.9 Type 2 diabetes mellitus without complications; E78.00 Pure hypercholesterolemia, unspecified
CPT/HCPCS: 80053; 80061; 82043; 82570

== ENCOUNTER 2024-07-20 10:22 | Outpatient (CLI) | payer OTHER, SELFPAY ==
--- OUTSIDE RECORDS SUMMARY | 2024-07-21 11:14 | XMS_ITS | Clinical Summary ---
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 Active simvastatin (ZOCOR) 40 MG tablet Take 40 mg by mouth At Bedtime Active gabapentin (NEURONTIN) 600 MG tablet Take 600 mg by mouth at bedtime. Active traZODone (DESYREL) 100 MG tablet Take 200 mg by mouth at bedtime. Active Multiple Vitamin (MULTIVITAMIN ADULT PO) Take 1 tablet by mouth daily Active metFORMIN (GLUCOPHAGE-XR) 500 MG 24 hr tablet Take 1,000 mg by mouth 2 times daily (with meals). Active buPROPion (WELLBUTRIN SR) 150 MG 12 hr tablet Take 150 mg by mouth 2 times daily. Active busPIRone (BUSPAR) 10 MG tablet Take 10 mg by mouth 2 times daily. Active Continuous Glucose Sensor (DEXCOM G7 SENSOR) MISC Change every 10 days. Active DULoxetine (CYMBALTA) 30 MG capsule Take 30 mg by mouth daily. Active Semaglutide, 1 MG/DOSE, (OZEMPIC) 4 MG/3ML pen Inject 1 mg subcutaneously every 7 days. Active empagliflozin (JARDIANCE) 10 MG TABS tablet Take 10 mg by mouth daily. Active Vitamin D3 (VITAMIN D, CHOLECALCIFEROL,) 25 mcg (1000 units) tablet Take 1 tablet by mouth daily. Active gabapentin (NEURONTIN) 100 MG capsule Take 200 mg by mouth daily (2 X 100 mg) MORNING DOSE 021 2023 Discontin ued(Med Rec(No AVS / No eCancel)) ibuprofen (ADVIL/MOTRIN) 600 MG tabletIndications: JAQUELINE II (vulvar intraepithelial neoplasia II) Take 1 tablet (600 mg) by mouth every 6 hours as needed for other (mild and/or inflammatory pain) 30 tablet 2023 Discontin ued(Med Rec(No AVS / No eCancel)) acetaminophen (TYLENOL) 325 MG tabletIndications: JAQUELINE II (vulvar intraepithelial neoplasia II) Take 2 tablets (650 mg) by mouth every 6 hours as needed for mild pain 20 tablet 2023 Discontin ued(Med Rec(No AVS / No eCancel)) erythromycin (ROMYCIN) 5 MG/GM ophthalmic ointmentIndication s:Brow ptosis, bilateral Place into both eyes 3 times daily 7 g 1 022 2023 Discontin ued(Med Rec(No AVS / No eCancel)) doxycycline hyclate (VIBRAMYCIN) 100 MG capsule Take 100 mg by mouth 2 times daily. 024 2023 Discontin ued(Stop at Discharge ) amoxicillin-clavul anate (AUGMENTIN) 875-125 MG tabletIndications: Pneumonia of left lower lobe due to infectious organism Take 1 tablet by mouth 2 times daily for 6 days. 12 tablet 024 2023 Active Problems Problem Noted Date Diagnosed Date Severe sepsis 07/11/2024 Pneumonia of left lower lobe due to infectious o rganism 07/11/2024 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 Encounters Date Type Department Care Team Description 07/11/2024 4:33 PM CDT - 07/13/2024 10:58 AM CDT Hospital Encounter [facility] [address] [facility] [address] [place] [id number] Brody Beckford MD Jaleta, MD Jo Ann Hoffman, MD Amanuel Severe sepsis (H); Pneumonia of left lower lobe due to infectious organism Discharge Disposition: Home or Self Care 07/11/2024 Travel from Last 3 Months Immunizations Name Administration Dates Next Due Flu, Unspecified 08/28/2005 Influenza (High Dose) Trival ent,PF (Fluzone) 06/16/2024,09/30/2019,07/11/2018 Influenza Vaccine 65+ (Fluzone HD) 07/07,07/14/2022,06/09/2021,2019 Influenza Vaccine >6 months,quad, PF 07/29/2017 Influenza, Split Virus, Triv alent, Pf (Fluzone\Fluarix) 06/22/2013,06/28/2012,06/22/2011 Pneumo Conj 13-V (2010&after) 03/08/2018 Pneumococcal 23 valent 04/18/2020,06/17/2010 RSV Vaccine (Arexvy) 12/27/2023 TDAP (Adacel,Boostrix) 01/16/2011 Td (Adult), Adsorbed 06/18/2021,08/07/2004 Zoster recombinant adjuvante d (SHINGRIX) 04/18/2020,09/30/2019 Social History Tobacco Use Types Packs/Day Years Used Date Smoking Tobacco: Every Day Cigarettes Smokeless Tobacco: Never Alcohol Use Standard Drinks/Week Comments Not Currently 0 (1 standard drink = 0.6 oz pur e alcohol) Adolescent Education Answer Date Record ed Getting School Help Needed Not on file 06/19 Comments No Sex and Gender Information Value Date Recorded Sex Assigned at Not on file Legal Sex Female 11:18 AM [employer] Gender Identity Not on file Sexual Orientation Not on file Last Filed Vital Signs Vital Sign Reading Time Taken Comments Blood Pressure 118/69 07/13/2024 8:02 AM CDT Pulse 69 07/13/2024 8:02 AM CDT Temperature 36.8 ??C (98.2 ??F) 07/13/2024 8:02 AM CD T Respiratory Rate 16 07/13/2024 8:02 AM CDT Oxygen Saturation 97% 07/13/2024 8:02 AM CDT Inhaled Oxygen Concentration - - Weight 77.7 kg (171 lb 3.2 oz) 11/25/2021 5:59 A M [employer] Height 162.6 cm (5' 4) 11/25/2021 5:59 AM [employer] Body Mass Index 29.39 11/25/2021 5:59 AM [employer] Plan of Treatment Health Maintenance Due Date [...] 09/23/2021 PHQ-2 (once per calendar year) 2023 GLUCOSE 07/13/2027 07/13/2024, 06/27, 07/12/2024, Additional history exists DTAP/TDAP/TD IMMUNIZATION (3 - Td or Tdap) 06/18/2031 06/18/2021, 01/16/2011, 08/07/2004 Pneumococcal Vaccine: 65+ Years Completed 04/18/2020, 03/08/2018, 06/17/2010 ZOSTER IMMUNIZATION Completed 04/18/2020, 0 RSV VACCINE Completed 12/27/2023 COVID-19 Vaccine Completed 06/16/2024, 09/2023, 09/07/2023, Additional history exists INFLUENZA VACCINE Completed 06/16/2024, , 07/14/2022, Additional history exists HPV IMMUNIZATION Aged Out No longer e ligible based on patient's age to complete this topic MENINGITIS IMMUNIZATION Aged Out No l onger eligible based on patient's age to complete this topic RSV MONOCLONAL ANTIBODY Aged Out No l onger eligible based on patient's age to complete this topic Procedures Procedure Name Priority Date/Time Associated Diagnosis Comments GLUCOSE BY METER Routine 07/13/2024 8:23 AM CDT EXTRA PURPLE TOP EDTA (LAB USE ONLY) Routine 07/13/2024 6:03 AM CDT LACTIC ACID WHOLE BLOOD Timed 07/13/2024 6:03 AM CDT GLUCOSE BY METER Routine 07/13/2024 2:05 AM CDT GLUCOSE BY METER Routine 07/12/2024 10:3 7 PM CDT LACTIC ACID WHOLE BLOOD Timed 07/12/2024 8:58 PM CDT GLUCOSE BY METER Routine 07/12/2024 4:46 PM CDT GLUCOSE BY METER STAT 07/12/2024 11:3 6 AM CDT GLUCOSE BY METER STAT 07/12/2024 9:27 AM CDT CBC WITH PLATELETS STAT 07/12/2024 8: 53 AM CDT BASIC METABOLIC PANEL STAT 07/12/2024 8:53 AM CDT LACTIC ACID WHOLE BLOOD STAT 07/12/2024 8:53 AM CDT GLUCOSE BY METER STAT 07/12/2024 12:0 6 AM CDT LACTIC ACID WHOLE BLOOD STAT 07/11/2024 10:28 PM CDT ROUTINE UA WITH MICROSCOPIC REFLEX TO CULTURE STAT 07/11/2024 8:32 PM CDT ISTAT GASES LACTATE VENOUS POCT STAT 07/11/2024 8:06 PM CDT XR CHEST 2 VIEWS STAT 07/11/2024 7:[address] HEAD W/O CONTRAST STAT 07/11/2024 7:42 PM CDT ISTAT GASES LACTATE VENOUS POCT STAT 07/11/2024 6:52 PM CDT BLOOD CULTURE STAT 07/11/2024 6:31 PM CDT EKG 12-LEAD, TRACING ONLY STAT 07/11/2024 6:14 PM CDT INFLUENZA A/B, RSV, & SARS-COV2 PCR STAT 07/11/2024 5:19 PM CDT CBC WITH PLATELETS & DIFFERENTIAL STAT 07/11/2024 5:09 PM CDT CBC WITH PLATELETS AND DIFFERENTIAL STAT 07/11/2024 5:09 PM CDT COMPREHENSIVE METABOLIC PANEL STAT 07/11/2024 5:09 PM CDT EXTRA PURPLE TOP TUBE STAT 07/11/2024 5:09 PM CDT EXTRA GREEN TOP (LITHIUM HEPARIN) TUBE STAT 07/11/2024 5:09 PM CDT EXTRA RED TOP TUBE STAT 07/11/2024 5: 09 PM CDT EXTRA BLUE TOP TUBE STAT 07/11/2024 5 :09 PM CDT EXTRA TUBE STAT 07/11/2024 5:09 PM CDT LIPID PANEL (EXTERNAL RESULT) Routine 09/23/2021 2:57 PM [employer]IB[employer] TIER from Last 3 Months or Most Recently Relevant to Health Maintenance Results * (ABNORMAL) Glucose by meter (07/13/2024 8:23 AM CDT) Only the most recent of7 resultswithin the time period is included. GLUCOSE BY METER POCT 120(H) 70 - 99 mg/dL 07/13/2024 8:30 AM CDT [facility] POC Blood, Capillary BLOOD SPECIMEN / Unknown 07/13/2024 8:23 AM CDT 07/13/2024 8:30 AM CDT us Amanuel Cherry MD LAB - BEAKER POCT Final Result [facility] POC [facility] [address] Lab (1st floor, no room number) [place] [phone] [place] [address] * Extra Purple Top EDTA (LAB USE ONLY) (07/13/2024 6:03 AM CDT) Hold Specimen JIC 07/13/2024 7:16 AM CDT [facility] Blood STRUCTURE OF RIGHT HAND / Unknown Venipuncture / Unknown 07/13/2024 6:03 AM CDT 07/13/2024 6:15 AM CDT us Rohit Lerma [facility] LAB - BLOOD ORDERABLES F inal Result [facility] [address] Lab (1st floor, no room number) [address] * Lactic acid whole blood (07/13/2024 6:03 AM CDT) Only the most recent of4 resultswithin the time period is included. Lactic Acid 1.4 0.7 - 2.0 mmol/L 07/13/2024 6:22 AM CDT [facility] Blood STRUCTURE OF RIGHT HAND / Unknown Venipuncture / Unknown 07/13/2024 6:03 AM CDT 07/13/2024 6:15 AM CDT us Allan Mathews MD LAB - BLOOD ORDERABLES Fi nal Result [facility] [address] Lab (1st floor, no room number) [place] [address] * (ABNORMAL) Basic metabolic panel (07/12/2024 8:53 AM CDT) Sodium 137 135 - 145 mmol/L 07/12/2024 9:25 AM CDT LABORATORY Potassium 4.5 3.4 - 5.3 mmol/L 07/12/2024 9:25 AM CDT LABORATORY Chloride 104 98 - 107 mmol/L 07/12/2024 9:25 AM CDT LABORATORY Carbon Dioxide (CO2) 22 22 - 29 mmol/L 07/12/2024 9:25 AM CDT [facility] Anion Gap 11 7 - 15 mmol/L 07/12/2024 9:25 AM CDT [facility] Urea Nitrogen 16.1 8.0 - 23.0 mg/dL 07/12/2024 9:25 AM CDT LABORATORY Creatinine 0.82 0.51 - 0.95 mg/dL 07/12/2024 9:25 AM CDT LABORATORY GFR Estimate 76 >60 mL/min/1.7 3m2 07/12/2024 9:25 AM CDT LABORATORY Comment:eGFR calculated usin 2020 CKD-EPI equation. Calcium 8.2(L) 8.8 - 10.4 mg/dL 07/12/2024 9:25 AM CDT LABORATORY Comment:Reference intervals for this test were updated on 04/11/2024 to reflect our healthy population more accurately. There may be differences in the flagging of prior results with similar values performed with this method. Those prior results can be interpreted in the context of the updated reference intervals. Glucose 129(H) 70 - 99 mg/dL 07/12/2024 9:25 AM CDT LABORATORY Blood STRUCTURE OF RIGHT HAND / Unknown Venipuncture / Unknown 07/12/2024 8:53 AM CDT 07/12/2024 8:58 AM CDT Ashish Dixon MD LAB - BLOOD ORDERABLES Final Result LABORATORY [facility] [address] Lab (1st floor, no room number) [place] [address] * (ABNORMAL) CBC with platelets (07/12/2024 8:53 AM CDT) WBC Count 12.3(H) 4.0 - 11.0 10e3/uL 07/12/2024 9:01 AM CDT [facility] RBC Count 4.12 3.80 - 5.20 10e6/uL 07/12/2024 9:01 AM CDT [facility] Hemoglobin 12.7 11.7 - 15.7 g/dL 07/12/2024 9:01 AM CDT [facility] Hematocrit 39.2 35.0 - 47.0 % 07/12/2024 9:01 AM CDT LABORATORY MCV 95 78 - 100 fL 07/12/2024 9:01 AM CDT LABORATORY MCH 30.8 26.5 - 33.0 pg 07/12/2024 9:01 AM CDT LABORATORY MCHC 32.4 31.5 - 36.5 g/dL 07/12/2024 9:01 AM CDT LABORATORY RDW 12.5 10.0 - 15.0 % 07/12/2024 9:01 AM CDT LABORATORY Platelet Count 164 150 - 450 10e3/uL 07/12/2024 9:01 AM CDT LABORATORY Blood STRUCTURE OF RIGHT HAND / Unknown Venipuncture / Unknown 07/12/2024 8:53 AM CDT 07/12/2024 8:58 AM CDT Ashish Dixon MD LAB - BLOOD ORDERABLES Final Result LABORATORY [facility] [address] Lab (1st floor, no room number) [place] [address], [facility] * (ABNORMAL) UA with Microscopic reflex to Culture (07/11/2024 8:32 PM CDT) Color Urine Light Yellow Colorless, Straw, Light Yellow, Yellow 07/11/2024 8:47 PM CDT LABORATORY Appearance Urine Clear Clear 07/11/20 24 8:47 PM CDT LABORATORY Glucose Urine >=1000(A) Negative mg/dL 07/11/2024 8:47 PM CDT [facility] Bilirubin Urine Negative Negative 8:47 PM CDT [facility] Ketones Urine Negative Negative mg/dL 07/11/2024 8:47 PM CDT [facility] Specific [place]oper Urine 1.032 1.003 - 1.035 07/11/2024 8:47 PM CDT [facility] Blood Urine Moderate(A) Negative 07/11/2024 8:47 PM CDT [facility] pH Urine 5.5 5.0 - 7.0 07/11/2024 8:47 PM CDT [facility] Protein Albumin Urine 20(A) Negative mg/dL 07/11/2024 8:47 PM CDT [facility] Urobilinogen Urine Normal Normal, 2.0 mg/dL 07/11/2024 8:47 PM CDT [facility] Nitrite Urine Negative Negative 07/11/2024 8:47 PM CDT [facility] Leukocyte Esterase Urine Negative Negative 07/11/2024 8:47 PM CDT [facility] RBC Urine <1 <=2 /HPF 07/11/2024 8:47 PM CDT [facility] WBC Urine 0 <=5 /HPF 07/11/2024 8:47 PM CDT [facility] Urine URINE SPECIMEN FROM URINARY CONDUIT / Unknown Non-blood Collection / Unknown 07/11/2024 8:32 PM CDT 07/11/2024 8:36 PM CDT Narrative [facility] - 07/11/2024 8:47 PM CDT Urine Culture not indicated us Brody Beckford MD LAB - URINE ORDERABLES Final Result LABORATORY [facility] [address] Lab (1st floor, no room number) [place] [address], [facility] * (ABNORMAL) iStat Gases (lactate) venous, POCT (07/11/2024 8:06 PM CDT) Only the most recent of2 resultswithin the time period is included. Lactic Acid POCT 1.9 <=2.0 mmol/L 07/11/2024 8:08 PM CDT [facility] POC Bicarbonate Venous POCT 25 21 - 28 mmol/L 07/11/2024 8:08 PM CDT [facility] POC O2 Sat, Venous POCT 64(L) 70 - 75 % 07/11/2024 8:08 PM CDT [facility] POC pCO2 Venous POCT 41 40 - 50 mm Hg 07/11/2024 8:08 PM CDT [facility] POC pH Venous POCT 7.40 7.32 - 7.43 07/11/2024 8:08 PM CDT [facility] POC pO2 Venous POCT 33 25 - 47 mm Hg 07/11/2024 8:08 PM CDT [facility] POC Blood, venous BLOOD SPECIMEN / Unknown 07/11/2024 8:06 PM CDT 07/11/2024 8:08 PM CDT us Brody Beckford MD LAB - BEAKER POCT Final Resul t [facility] POC [facility] [address] [facility] Lab (1st floor, no room number) [place] [address] * XR Chest 2 Views (07/11/2024 7:54 PM CDT) Anatomical Region Laterality Modality Chest Digital Radiogra phy 07/11/2024 7:54 PM CDT Impressions 07/11/2024 8:28 PM CDT IMPRESSION: Heart size is normal. Confluent airspace disease noted in the left lower lobe posteriorly compatible with pneumonia. Clinical correlation and follow-up to resolution recommended. No effusions or pneumothorax. No acute bony abnormalities. Clips in the right upper quadrant are compatible with prior cholecystectomy. Narrative 07/11/2024 8:28 PM CDT EXAM: XR CHEST 2 VIEWS LOCATION: [facility] DATE: 07/11/2024 INDICATION: Fever COMPARISON: None. Procedure Note Hira Casey MD - 07/11/2024 EXAM: XR CHEST 2 VIEWS LOCATION: [facility] DATE: 07/11/2024 INDICATION: Fever COMPARISON: None. IMPRESSION: Heart size is normal. Confluent airspace disease noted in theleft lower lobe posteriorly compatible with pneumonia. Clinicalcorrelation and follow-up to resolution recommended. No effusions orpneumothorax. No acute bony abnormalities. Clips in the right upper quadrant are compatible with priorcholecystectomy. us Brody Beckford MD IMG DIAGNOSTIC IMAGING ORDERA BLES Final Result * Head CT w/o contrast (07/11/2024 7:42 PM CDT) Anatomical Region Laterality Modality Head, SUBRAD CT NEURO, SUBRA D CT NEURO, UMP CT NEURO, RAD CT Computed Tomography 07/11/2024 7:42 PM CDT Impressions 07/11/2024 8:07 PM CDT IMPRESSION: 1. ??No CT evidence for acute intracranial process. 2. ??Brain atrophy and presumed chronic microvascular ischemic changes as above. Narrative 07/11/2024 8:07 PM CDT EXAM: CT HEAD W/O CONTRAST LOCATION: [facility] DATE: 07/11/2024 INDICATION: Confusion. COMPARISON: None. TECHNIQUE: Routine CT Head without IV contrast. Multiplanar reformats. Dose reduction techniques were used. FINDINGS: INTRACRANIAL CONTENTS: No intracranial hemorrhage, extra-axial collection, or mass effect. ??No CT evidence of acute infarct. Mild presumed chronic small vessel ischemic changes. Mild generalized volume loss. No hydrocephalus. VISUALIZED ORBITS/SINUSES/MASTOIDS: No intraorbital abnormality. No paranasal sinus mucosal disease. No middle ear or mastoid effusion. BONES/SOFT TISSUES: No acute abnormality. Procedure Note José Luis Rogel MD - 07/11/2024 EXAM: CT HEAD W/O CONTRAST LOCATION: [facility] DATE: 07/11/2024 INDICATION: Confusion. COMPARISON: None. TECHNIQUE: Routine CT Head without IV contrast. Multiplanar reformats.Dose reduction techniques were used. FINDINGS: INTRACRANIAL CONTENTS: No intracranial hemorrhage, extra-axial collection,or mass effect. No CT evidence of acute infarct. Mild presumed chronicsmall vessel ischemic changes. Mild generalized volume loss. Nohydrocephalus. VISUALIZED ORBITS/SINUSES/MASTOIDS: No intraorbital abnormality. Noparanasal sinus mucosal disease. No middle ear or mastoid effusion. BONES/SOFT TISSUES: No acute abnormality. IMPRESSION: 1. No CT evidence for acute intracranial process. 2. Brain atrophy and presumed chronic microvascular ischemic changes asabove. Brody Beckford MD IMG CT ORDERABLES Final Resul t * Blood Culture Peripheral Blood (07/11/2024 6:31 PM CDT) Culture No Growth 07/16/2024 8:31 PM CDT [facility] Blood BLOOD SPECIMEN / Unknown Venipuncture / Unknown 07/11/2024 6:31 PM CDT 07/11/2024 6:52 PM CDT Brody Beckford MD LAB - MICRO GENERAL ORDERABLE S Final Result Performing Organization Address [place]/[facility] Co de Phone Number [facility] Inf. [facility] Di[facility] Lab [address] [facility] [facility] [address] [place] [id number] * EKG 12 lead (07/11/2024 6:14 PM CDT) Systolic Blood Pressure mmHg RADIOLOGY RESULTS Diastolic Blood Pressure mmHg RADIOLOGY RESULTS Ventricular Rate 91 BPM RAD IOLOGY RESULTS Atrial Rate 91 BPM RADIOLOG Y RESULTS MO Interval 128 ms RADIOLOG Y RESULTS QRS Duration 80 ms RADIOLO GY RESULTS QT 374 ms RADIOLOGY RESULTS QTc 460 ms RADIOLOGY RESULTS P [place] 60 degrees RADIOLOGY RESULTS R AXIS 7 degrees RADIOLOGY RESULTS T [place] 48 degrees RADIOLOGY RESULTS Interpretation ECG Sinus rhythm Normal ECG No previous ECGs available Confirmed by MD WALSH STEVEN ([id number]) on 07/13/2024 4:48:22 PM RADIOLOGY RESULTS 07/11/2024 6:14 PM CDT 07/13/2024 4:48 PM CDT David Gilliland MD ECG ORDERABLES Edited Result - Final RADIOLOGY RESULTS * Asymptomatic Influenza A/B, RSV, & SARS-CoV2 PCR (COVID-19) Nose (07/11/2024 5:19 PM CDT) Influenza A PCR Negative Negative 07/11/2024 6:08 PM CDT [facility] Influenza B PCR Negative Negative 07/11/2024 6:08 PM CDT [facility] RSV PCR Negative Negative 07/11/2024 6:08 PM CDT [facility] SARS CoV2 PCR Negative Negative 07/11/2024 6:08 PM CDT [facility] Comment:NEGATIVE: SARS-CoV-2 (COVID-19) RNA not detected, presumed negative. Swab NASAL STRUCTURE / Unknown Non-blood Collection / Unknown 07/11/2024 5:19 PM CDT 07/11/2024 5:29 PM CDT Narrative [facility] - 07/11/2024 6:08 PM CDT Testing was performed using the Xpert Xpress CoV2/Flu/RSV Assay on the [employer]Xpert Instrument. This test should be ordered for the detection of SARS- CoV2, influenza, and RSV viruses in individuals with signs and symptoms of respiratory tract infection. This test is for in vitro diagnostic use under the [place] FDA for laboratories certified under CLIA to perform high or moderate complexity testing. This test has been [place] FDA cleared. A negative result does not rule out the presence of PCR inhibitors in the specimen or target RNA in concentration below the limit of detection for the assay. If only one viral target is positive but coinfection with multiple targets is suspected, the sample should be re-tested with another FDA cleared, approved, or authorized test, if coninfection would change clinical management. This test was validated by the [facility]. These laboratories are certified under the Clinical Laboratory Improvement Amendments of 1988 (CLIA-88) as qualified to perfom high complexity laboratory testing. Brody Beckford MD LAB - MICRO GENERAL ORDERABLE S Final Result LABORATORY [facility] [address] [facility] Lab (1st floor, no room number) [place] [address], [facility] * Extra Purple Top Tube (07/11/2024 5:09 PM CDT) Hold Specimen [facility] 07/11/2024 6:31 PM CDT [facility] Blood BLOOD SPECIMEN / Unknown Venipuncture / Unknown 07/11/2024 5:09 PM CDT 07/11/2024 5:20 PM CDT Brody Beckford MD LAB - BLOOD ORDERABLES Final Result [facility] [address] Lab (1st floor, no room number) [place] [address] * Extra Green Top (Turrell Heparin) Tube (07/11/2024 5:09 PM CDT) Hold Specimen [facility] 07/11/2024 6:31 PM CDT [facility] Blood BLOOD SPECIMEN / Unknown Venipuncture / Unknown 07/11/2024 5:09 PM CDT 07/11/2024 5:20 PM CDT us Brody Beckford MD LAB - BLOOD ORDERABLES Final Result Performing Organization Address City/[facility]/ZIP Co de Phone Number [facility] [address] Lab (1st floor, no room number) [place] [address], [facility] * Extra Red Top Tube (07/11/2024 5:09 PM CDT) Hold Specimen [facility] 07/11/2024 6:31 PM CDT [facility] Blood BLOOD SPECIMEN / Unknown Venipuncture / Unknown 07/11/2024 5:09 PM CDT 07/11/2024 5:20 PM CDT Brody Beckford MD LAB - BLOOD ORDERABLES Final Result [facility] [address] Lab (1st floor, no room number) [place] [address], [facility] * Extra Blue Top Tube (07/11/2024 5:09 PM CDT) Hold Specimen [facility] 07/11/2024 6:31 PM CDT [facility] Blood BLOOD SPECIMEN / Unknown Venipuncture / Unknown 07/11/2024 5:09 PM CDT 07/11/2024 5:20 PM CDT us Brody Beckford MD LAB - BLOOD ORDERABLES Final Result [facility] [address] Lab (1st floor, no room number) [place] [address], [facility] * (ABNORMAL) CBC with platelets and differential (07/11/2024 5:09 PM CDT) WBC Count 13.4(H) 4.0 - 11.0 10e3/uL 07/11/2024 6:38 PM CDT [facility] RBC Count 4.75 3.80 - 5.20 10e6/uL 07/11/2024 6:38 PM CDT [facility] Hemoglobin 14.7 11.7 - 15.7 g/dL 07/11/2024 6:38 PM CDT [facility] Hematocrit 43.4 35.0 - 47.0 % 07/11/2024 6:38 PM CDT [facility] MCV 91 78 - 100 fL 07/11/2024 6:38 PM CDT [facility] MCH 30.9 26.5 - 33.0 pg 07/11/2024 6:38 PM CDT [facility] MCHC 33.9 31.5 - 36.5 g/dL 07/11/2024 6:38 PM CDT [facility] RDW 12.3 10.0 - 15.0 % 07/11/2024 6:38 PM CDT [facility] Platelet Count 200 150 - 450 10e3/uL 07/11/2024 6:38 PM CDT [facility] % Neutrophils 87 % 07/11/2024 6:38 PM CDT [facility] % Lymphocytes 6 % 07/11/2024 6:38 PM CDT [facility] % Monocytes 6 % 07/11/2024 6:38 PM CDT [facility] % Eosinophils 0 % 07/11/2024 6:38 PM CDT [facility] % Basophils 0 % 07/11/2024 6:38 PM CDT [facility] % Immature Granulocytes 1 % 07/11/2024 6:38 PM CDT [facility] NRBCs per 100 WBC 0 <1 /100 024 6:38 PM CDT [facility] Absolute Neutrophils 11.6(H) 1.6 - 8.3 10e3/uL 07/11/2024 6:38 PM CDT [facility] Absolute Lymphocytes 0.8 0.8 - 5.3 10e3/uL 07/11/2024 6:38 PM CDT [facility] Absolute Monocytes 0.8 0.0 - 1.3 10e3/uL 07/11/2024 6:38 PM CDT [facility] Absolute Eosinophils 0.0 0.0 - 0.7 10e3/uL 07/11/2024 6:38 PM CDT [facility] Absolute Basophils 0.0 0.0 - 0.2 10e3/uL 07/11/2024 6:38 PM CDT [facility] Absolute Immature Granulocytes 0.1 <=0.4 10e3/uL 07/11/2024 6:38 PM CDT [facility] Absolute NRBCs 0.0 10e3/uL 07/11/2024 6:38 PM CDT [facility] Blood BLOOD SPECIMEN / Unknown Venipuncture / Unknown 07/11/2024 5:09 PM CDT 07/11/2024 5:20 PM CDT us Brody Beckford MD LAB - BLOOD ORDERABLES Final Result LABORATORY [facility] [address] [facility] Lab (1st floor, no room number) [place] [address], [facility] * (ABNORMAL) Comprehensive metabolic panel (07/11/2024 5:09 PM CDT) Sodium 130(L) 135 - 145 mmol/L 07/11/2024 6:52 PM CDT LABORATORY Potassium 4.5 3.4 - 5.3 mmol/L 07/11/2024 6:52 PM CDT LABORATORY Carbon Dioxide (CO2) 22 22 - 29 mmol/L 07/11/2024 6:52 PM CDT LABORATORY Anion Gap 17(H) 7 - 15 mmol/L 07/11/2024 6:52 PM CDT LABORATORY Urea Nitrogen 16.6 8.0 - 23.0 mg/dL 07/11/2024 6:52 PM CDT [facility] LAB[facility]ATORY Creatinine 1.07(H) 0.51 - 0.95 mg/dL 07/11/2024 6:52 PM CDT RH LABORATORY GFR Estimate 55(L) >60 mL/min/1.7 3m2 07/11/2024 6:52 PM CDT RH LABORATORY Comment:eGFR calculated usin 2020 CKD-EPI equation. Calcium 9.2 8.8 - 10.4 mg/dL 07/11/2024 6:52 PM CDT [facility] LABORATORY Comment:Reference intervals for this test were updated on 04/11/2024 to reflect our healthy population more accurately. There may be differences in the flagging of prior results with similar values performed with this method. Those prior results can be interpreted in the context of the updated reference intervals. Chloride 91(L) 98 - 107 mmol/L 07/11/2024 6:52 PM CDT RH LABORATORY Glucose 327(H) 70 - 99 mg/dL 07/11/2024 6:52 PM CDT [facility] LABORATORY Alkaline Phosphatase 100 40 - 150 U/L 07/11/2024 6:52 PM CDT RH LABORATORY AST 23 0 - 45 U/L 07/11/2024 6:52 PM CDT RH LABORATORY ALT 15 0 - 50 U/L 07/11/2024 6:52 PM CDT RH LABORATORY Protein Total 7.5 6.4 - 8.3 g/dL 07/11/2024 6:52 PM CDT RH LABORATORY Albumin 4.1 3.5 - 5.2 g/dL 07/11/2024 6:52 PM CDT RH LABORATORY Bilirubin Total 0.5 <=1.2 mg/dL 07/11/2024 6:52 PM CDT RH LABORATORY Blood BLOOD SPECIMEN / Unknown Venipuncture / Unknown 07/11/2024 5:09 PM CDT 07/11/2024 5:20 PM CDT us Brody Beckford MD LAB - BLOOD ORDERABLES Final Result RH LABORATORY [facility] [address] Lab (1st floor, no room number) [place] [address], [facility] * (ABNORMAL) Lipid Panel (External Result) (09/23/2021 2:57 PM RIBBON TIER) Cholesterol (External) 183 90 - 199 mg/dL [facility] Triglycerides (External) 371(A) 40 - 149 mg/dL [facility] HDL Cholesterol (External) 44 >=50 mg/dL [facility] LDL Cholesterol Calculated (External) 65 <100 mg/dL [facility] Blood 09/23/2021 2:57 PM RIBBON TIER Narrative [facility] - 09/23/2021 2:57 PM RIBBON TIER LAB RESULTS [facility] AND [facility] us Provider Outside LAB - HIM EXTERNAL RESULT Edite d Result - Final [facility] [address] [place] [address], [facility] [phone] from Last 3 Months or Most Recently Relevant to Health Maintenance Insurance [employer] Advance Directives For more information, please contact: [phone] * Full Code (Latest Code Status on File) Date Activated Date Inactivated Comments 07/13/2024 8:47 AM Question Answer Comments Code status determined by: Discussion with palak nt/ legal decision maker * Full Code Date Activated Date Inactivated Comments 07/11/2024 11:54 PM 07/13/2024 8:47 AM All basic and advanced life-sustaining interventions are performed as appropriate Question Answer Comments Code status determined by: Discussion with palak nt/ legal decision maker Care Teams Gluing Pressman Relationship Specialty Start Date End Date Augusto Scott MD [facility] [address], [place] [address] PCP - General Family Medicine 07/11/24
--- OUTSIDE RECORDS SUMMARY | 2024-07-21 11:14 | XMS_ITS | Referral Summary ---
Author Organization [facility] Address [address] [place] [address] Care Team Providers Care Fire Tender Name Role Phone Augusto Scott MD Primary Care Provider [phone] Encounters Date Type Department Care Team Description 07/11/2024 4:33 PM CDT - 07/13/2024 10:58 AM CDT Hospital Encounter [place] [address] [facility] [address] [place] [address] Brody Beckford MD Jaleta, MD Jo Ann Hoffman, MD Amanuel Severe sepsis (H); Pneumonia of left lower lobe due to infectious organism Discharge Disposition: Home or Self Care 07/11/2024 Travel from Last 3 Months Allergies Active Allergy [...] daily (2 X 100 mg) MORNING DOSE 2023 Discontin ued(Med Rec(No AVS / No [...] 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 Immunizations Name Administration Dates Next Due Flu, [...] on file 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 Gender Identity Not on file Sexual Orientation [...] lb 3.2 oz) 11/25/2021 5:59 A M TRAVELING CONSTRUCTION SUPERINTENDENT Height 162.6 cm (5' 4) 11/25/2021 5:59 AM TRAVELING CONSTRUCTION SUPERINTENDENT Body Mass Index 29.39 11/25/2021 5:59 AM TRAVELING CONSTRUCTION SUPERINTENDENT Plan of Treatment Not on file Procedures [...] PANEL (EXTERNAL RESULT) Routine 09/23/2021 2:57 PM TRAVELING CONSTRUCTION SUPERINTENDENT from Last 3 Months or Most Recently Relevant to Health Maintenance Results * (ABNORMAL) Glucose by meter (07/13/2024 8:23 AM CDT) Only the most recent of7 resultswithin the time period is included. GLUCOSE BY METER POCT 120(H) 70 - 99 mg/dL 07/13/2024 8:30 AM CDT LABORATORY POC Blood, Capillary BLOOD SPECIMEN / Unknown 07/13/2024 8:23 AM CDT 07/13/2024 8:30 AM CDT Amanuel Cherry MD LAB - BEAKER POCT Final Result LABORATORY POC [facility] Care Lab [address] Lab (1st floor, no room number) [address] * Extra Purple Top EDTA (LAB USE ONLY) (07/13/2024 6:03 AM CDT) Hold Specimen JIC 07/13/2024 7:16 AM CDT LABORATORY Blood STRUCTURE OF RIGHT HAND / Unknown Venipuncture / Unknown 07/13/2024 6:03 AM CDT 07/13/2024 6:15 AM CDT Rohit Lerma [facility] LAB - BLOOD ORDERABLES F inal Result LABORATORY [facility] [address] Lab (1st floor, no room number) [address] * Lactic acid whole blood (07/13/2024 6:03 AM CDT) Only the most recent of4 resultswithin the time period is included. Lactic Acid 1.4 0.7 - 2.0 mmol/L 07/13/2024 6:22 AM CDT LABORATORY Blood STRUCTURE OF RIGHT HAND / Unknown Venipuncture / Unknown 07/13/2024 6:03 AM CDT 07/13/2024 6:15 AM CDT us Al Andres Mathews MD LAB - BLOOD ORDERABLES Fi nal Result LABORATORY [facility] Lab [address] [facility] Lab (1st floor, no room number) [place] [address] * (ABNORMAL) Basic metabolic panel (07/12/2024 8:53 AM CDT) Sodium 137 135 - 145 mmol/L 07/12/2024 9:25 AM CDT LABORATORY Potassium 4.5 3.4 - 5.3 mmol/L 07/12/2024 9:25 AM CDT LABORATORY Chloride 104 98 - 107 mmol/L 07/12/2024 9:25 AM CDT LABORATORY Carbon Dioxide (CO2) 22 22 - 29 mmol/L 07/12/2024 9:25 AM CDT LABORATORY Anion Gap 11 7 - 15 mmol/L 07/12/2024 9:25 AM CDT LABORATORY Urea Nitrogen 16.1 8.0 - 23.0 mg/dL 07/12/2024 9:25 AM CDT LABORATORY Creatinine 0.82 0.51 - 0.95 mg/dL 07/12/2024 9:25 AM CDT LABORATORY GFR Estimate 76 >60 mL/min/1.7 3m2 07/12/2024 9:25 AM CDT LABORATORY Comment:eGFR calculated usin g 2020 CKD-EPI equation. Calcium 8.2(L) 8.8 - [...] - 99 mg/dL 07/12/2024 9:25 AM CDT RH LABORATORY Blood STRUCTURE OF RIGHT HAND / Unknown Venipuncture / Unknown 07/12/2024 8:53 AM CDT 07/12/2024 8:58 AM CDT Ashish Dixon MD LAB - BLOOD ORDERABLES Final Result RH LABORATORY [facility] [address] Lab (1st floor, no room number) [place] [address] * (ABNORMAL) CBC with platelets (07/12/2024 8:53 AM CDT) [facility] WBC Count 12.3(H) 4.0 - 11.0 10e3/uL 07/12/2024 9:01 AM CDT RH LABORATORY RBC Count 4.12 3.80 - 5.20 10e6/uL 07/12/2024 9:01 AM CDT RH LABORATORY Hemoglobin 12.7 11.7 - 15.7 g/dL 07/12/2024 9:01 AM CDT RH LABORATORY Hematocrit 39.2 35.0 - 47.0 % 07/12/2024 9:01 AM CDT RH LABORATORY MCV 95 78 - 100 fL 07/12/2024 9:01 AM CDT RH LABORATORY MCH 30.8 26.5 - 33.0 pg 07/12/2024 9:01 AM CDT RH LABORATORY MCHC 32.4 31.5 - 36.5 g/dL 07/12/2024 9:01 AM CDT RH LABORATORY RDW 12.5 10.0 - 15.0 % 07/12/2024 9:01 AM CDT RH LABORATORY Platelet Count 164 150 - 450 10e3/uL 07/12/2024 9:01 AM CDT RH LABORATORY Blood STRUCTURE OF RIGHT HAND / Unknown Venipuncture / Unknown 07/12/2024 8:53 AM CDT 07/12/2024 8:58 AM CDT Ashish Dixon MD LAB - BLOOD ORDERABLES Final Result RH LABORATORY [facility] [address] Lab (1st floor, no room number) [place] [address], [facility] * (ABNORMAL) UA with Microscopic reflex to Culture (07/11/2024 8:32 PM CDT) Color Urine Light Yellow Colorless, Straw, Light Yellow, Yellow 07/11/2024 8:47 PM CDT LABORATORY Appearance Urine Clear Clear 07/11/20 24 8:47 PM CDT LABORATORY Glucose Urine >=1000(A) Negative mg/dL 07/11/2024 8:47 PM CDT LABORATORY Bilirubin Urine Negative Negative 8:47 PM CDT LABORATORY Ketones Urine Negative Negative mg/dL 07/11/2024 8:47 PM CDT LABORATORY Specific [place] Urine 1.032 1.003 - 1.035 07/11/2024 8:47 PM CDT LABORATORY Blood Urine Moderate(A) Negative 07/11/2024 8:47 PM CDT LABORATORY pH Urine 5.5 5.0 - 7.0 07/11/2024 8:47 PM CDT LABORATORY Protein Albumin Urine 20(A) Negative mg/dL 07/11/2024 8:47 PM CDT LABORATORY Urobilinogen Urine Normal Normal, 2.0 mg/dL 07/11/2024 8:47 PM CDT LABORATORY Nitrite Urine Negative Negative 07/11/2024 8:47 PM CDT LABORATORY Leukocyte Esterase Urine Negative Negative 07/11/2024 8:47 PM CDT LABORATORY RBC Urine <1 <=2 /HPF 07/11/2024 8:47 PM CDT LABORATORY WBC Urine 0 <=5 /HPF 07/11/2024 8:47 PM CDT LABORATORY Urine URINE SPECIMEN FROM URINARY CONDUIT / Unknown Non-blood Collection / Unknown 07/11/2024 8:32 PM CDT 07/11/2024 8:36 PM CDT Narrative LABORATORY - 07/11/2024 8:47 PM CDT Urine Culture not indicated us Brody Beckford MD LAB - URINE ORDERABLES Final Result LABORATORY [facility] [address] Lab (1st floor, no room number) [place] [address] * (ABNORMAL) iStat Gases (lactate) venous, [...] 8:06 PM CDT 07/11/2024 8:08 PM CDT Brody Beckford MD [facility] POCT Final Resul t RH LABORATORY POC [facility] [address] [facility] (1[facility] floor, no room number) [place] [address], [facility] * XR Chest 2 Views (07/11/2024 7:54 [...] CDT EXAM: XR CHEST 2 VIEWS LOCATION: [facility] DATE: 07/11/2024 INDICATION: Fever COMPARISON: None. Procedure Note Hira Casey MD - 07/11/2024 EXAM: XR CHEST 2 VIEWS LOCATION: [facility] DATE: 07/11/2024 INDICATION: Fever COMPARISON: None. IMPRESSION: [...] CDT EXAM: CT HEAD W/O CONTRAST LOCATION: [facility] DATE: 07/11/2024 INDICATION: Confusion. COMPARISON: None. TECHNIQUE: [...] 07/11/2024 EXAM: CT HEAD W/O CONTRAST LOCATION: [facility] DATE: 07/11/2024 INDICATION: Confusion. COMPARISON: None. TECHNIQUE: [...] - MICRO GENERAL ORDERABLE S Final Result [facility] LABORATORY [facility] Inf. Diseases Diag. Lab [address] [facility], Room [address] [address] * EKG 12 lead (07/11/2024 6:14 PM CDT) Systolic Blood Pressure mmHg RADIOLOGY RESULTS Diastolic Blood Pressure mmHg RADIOLOGY RESULTS Ventricular Rate 91 BPM RAD IOLOGY RESULTS Atrial Rate 91 BPM RADIOLOG Y RESULTS WV Interval 128 ms RADIOLOG Y RESULTS QRS Duration 80 ms RADIOLO GY RESULTS QT 374 ms RADIOLOGY RESULTS QTc 460 ms RADIOLOGY RESULTS P Dickinson 60 degrees RADIOLOGY RESULTS R AXIS 7 degrees RADIOLOGY RESULTS T Dickinson 48 degrees RADIOLOGY RESULTS Interpretation ECG Sinus [...] the Xpert Xpress CoV2/Flu/RSV Assay on the [employer] GeneXpert Instrument. This test should be ordered for [...] management. This test was validated by the [facility] [employer]. These laboratories are certified under the Clinical Laboratory Improvement Amendments of 1988 (CLIA-88) as qualified to perfom high complexity laboratory testing. Brody Beckford MD LAB - MICRO GENERAL ORDERABLE S Final Result [facility] [address] Lab (1st floor, no room number) [place] [address] * Extra Purple Top Tube (07/11/2024 5:09 PM CDT) Hold Specimen JI 07/11/2024 6:31 PM CDT RH LABORATORY Blood BLOOD SPECIMEN / Unknown Venipuncture / Unknown 07/11/2024 5:09 PM CDT 07/11/2024 5:20 PM CDT us Brody Beckford MD LAB - BLOOD ORDERABLES Final Result [facility] [address] Lab (1st floor, no room number) [place] [address] * Extra Green Top ([place] Heparin) Tube (07/11/2024 5:09 PM CDT) Hold Specimen [facility] 07/11/2024 6:31 PM CDT RH LABORATORY Blood BLOOD SPECIMEN / Unknown Venipuncture / Unknown 07/11/2024 5:09 PM CDT 07/11/2024 5:20 PM CDT us Brody Beckford MD LAB - BLOOD ORDERABLES Final Result [facility] [address] Lab (1st floor, no room number) [place] [address] * Extra Red Top Tube (07/11/2024 5:09 PM CDT) Hold Specimen [facility] 07/11/2024 6:31 PM CDT RH LABORATORY Blood BLOOD SPECIMEN / Unknown Venipuncture / Unknown 07/11/2024 5:09 PM CDT 07/11/2024 5:20 PM CDT us Brody Beckford MD LAB - BLOOD ORDERABLES Final Result RH LABORATORY [facility] [address] Lab (1st floor, no room number) [place] [address] * Extra Blue Top Tube (07/11/2024 5:09 PM CDT) Hold Specimen JIC 07/11/2024 6:31 PM CDT RH LABORATORY Blood BLOOD SPECIMEN / Unknown Venipuncture / Unknown 07/11/2024 5:09 PM CDT 07/11/2024 5:20 PM CDT Brody Beckford MD LAB - BLOOD ORDERABLES Final Result Performing Organization Address City/[facility]/ZIP Co de Phone Number LABORATORY [facility] Care Lab [address] Lab (1st floor, no room number) [place] [phone] * (ABNORMAL) CBC with platelets and [...] - BLOOD ORDERABLES Final Result RH LABORATORY [facility] [address] Lab (1st floor, no room number) [place] [address], [facility] * (ABNORMAL) Comprehensive metabolic panel (07/11/2024 5:09 PM CDT) Sodium 130(L) 135 - 145 mmol/L 07/11/2024 6:52 PM CDT RH LABORATORY Potassium 4.5 3.4 - 5.3 mmol/L 07/11/2024 6:52 PM CDT RH LABORATORY Carbon Dioxide (CO2) 22 22 - 29 mmol/L 07/11/2024 6:52 PM CDT RH LABORATORY Anion Gap 17(H) 7 - 15 mmol/L 07/11/2024 6:52 PM CDT RH LABORATORY Urea Nitrogen 16.6 8.0 - 23.0 [...] MD LAB - BLOOD ORDERABLES Final Result [facility] [address] Lab (1st floor, no room number) [place] [address], [facility] * (ABNORMAL) Lipid Panel (External Result) (09/23/2021 2:57 PM TRAVELING CONSTRUCTION SUPERINTENDENT) [facility] Signature Cholesterol (External) 183 90 - 199 mg/dL [facility] Triglycerides (External) 371(A) 40 - 149 mg/dL [facility] HDL Cholesterol (External) 44 >=50 mg/dL [facility] LDL Cholesterol Calculated (External) 65 <100 mg/dL [facility] Blood 09/23/2021 2:57 PM TRAVELING CONSTRUCTION SUPERINTENDENT Narrative [facility] - 09/23/2021 2:57 PM TRAVELING CONSTRUCTION SUPERINTENDENT LAB RESULTS [facility] us Provider Outside LAB - HIM EXTERNAL RESULT Edite d Result - Final Performing Organization Address City/[facility]/ZIP Co de Phone Number [facility] [address] [place] [address], [facility] [phone] from Last 3 Months or Most Recently Relevant to Health Maintenance Insurance [employer] Advance Directives For more information, please contact: [phone] * Full Code (Latest Code Status on [...] palak nt/ legal decision maker Care Teams Fire Tender Relationship Specialty Start Date End Date Augusto Scott MD [facility] [address] [place] [address] PCP - General Family Medicine 07/11/24
--- OUTSIDE RECORDS SUMMARY | 2024-07-21 11:14 | XMS_ITS | Encounter Summary ---
Author Organization [facility] Address [address] [place] [address]. [place] [address] Care Team Providers Care School Psychologist Assistant Name Role Phone Irvin Mar Primary Care Provider [phone] Reason for Visit * Reason Onset Date Comments WOUND CARE 04/19/2024 Encounter Details Date Type Department Care Team (Late st Contact Info) Description 04/19/2024 Telephone [facility] [address] [place] [address] [phone] [place], Wound Healing [facility] [address] [facility], [address] [place], [place] [id number] WOUND CARE Social History Tobacco Use Types [...] on file 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 Annie is not [...] vascular wound. Patient is AMB Please call Anine regarding scheduling [phone] documented in this encounter Plan of Treatment Not on file documented as of this encounter Visit Diagnoses Not on filedocumented in this encounter Care Teams School Psychologist Assistant Relationship Specialty Start Date End Date Irvin Mar [address] [address] PCP - General Family Medicine 09/09/21 07/10/24 documented as of this encounter
--- OUTSIDE RECORDS SUMMARY | 2024-07-21 11:14 | XMS_ITS | Encounter Summary ---
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
--- OUTSIDE RECORDS SUMMARY | 2024-07-21 11:14 | XMS_ITS ---
Author Organization [facility] Address [address] [place] [address] Care Team Providers Care Department Secretary Name Role Phone Augusto Scott MD Primary Care Provider [phone] Transitional Care Management Status:Enrolled (Active) Start date:07/14/2024 Enrollment date:07/15/2024 Continued Care and Services Coordination
--- OUTSIDE RECORDS SUMMARY | 2024-07-21 11:14 | XMS_ITS | Encounter Summary ---
Author Organization [facility] Address [address] [place] [address] Care Team Providers Care Screen Examiner Name Role Phone Irvin Mar Primary Care Provider [phone] Augusto Scott MD Primary Care Provider [phone] Encounter Details Date Type Department Care Team (Late st Contact Info) Description 11/14/2021 Orders Only [facility] Centralized Scheduling [address] [place] [address] Nolberto French MD [address] [place] [address] Social History Tobacco Use Types Packs/Day Years Used Date Smoking Tobacco: Every Day Cigarettes Smokeless Tobacco: Never Alcohol Use Standard Drinks/Week Comments Not Currently 0 (1 standard drink = 0.6 oz pur e alcohol) Comments No Sex and Gender Information Value Date Recorded Sex Assigned at Not on file 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
--- OUTSIDE RECORDS SUMMARY | 2024-07-21 11:14 | XMS_ITS | Encounter Summary ---
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 Role Phone Augusto Scott MD Primary Care Provider [phone] Reason for Visit * Reason Comments Urinary Frequency UTI * Auth/Cert (Routine) Specialty Diagnoses / Procedures Referred By Contac t Referred To Contact EMERGENCY MEDICINE Diagnoses Severe sepsis (H) Pneumonia of left lower lobe due to infectious organism [facility] Emergency Dept [address] [place] [address] Phone: tel:[phone] fax: Referral ID Status Reason Start Date Expiration Date Visits Re quested Visits Authorized [id number] 1 1 Encounter Details Date Type Department Care Team (Late st Contact Info) Description 07/11/2024 4:33 PM CDT - 07/13/2024 10:58 AM CDT Hospital Encounter [facility] 5 Medical Surgical [address] [place] [id number] Brody Beckford MD [facility] [address] [facility] [address] [place] [address] Ashish Dixon MD [address] [place] [address] Amanuel Cherry MD [facility] [address], [facility] [address] [place] [address] Severe sepsis (H); Pneumonia of left lower lobe due to infectious organism Discharge Disposition: Home or Self Care Social History Tobacco Use Types Packs/Day Years [...] on file 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 [facility] Hospitalist Discharge Summary Date of Admission: 07/11/2024 Date of Discharge: 07/13/2024 Discharging Provider: Allan Mathews MD, MD Discharge Service: Hospitalist Service Discharge Diagnoses Severe sepsis secondary to bacterial community-acquired pneumonia left lung LINDA resolved secondary to hypovolemia and sepsis Hypovolemic hyponatremia improving resolved Alteration of mental state secondary to acute infectious encephalopathy improved and resolved Rgw-[id number]-[id number] diabetes mellitus History of depression Anxiety Clinically Significant Risk Factors Follow-ups Needed After Discharge Follow-up Appointments Follow-up and recommended labs and tests Follow up with primary care provider, Augusto Scott, within 7 days to evaluate medication change, to evaluate treatment change, and for hospital follow- up. Unresulted Labs Ordered in the Past 30 Days of this Admission Date and Time Order Name Status Description 07/11/2024 6:22 PM Blood Culture Peripheral Blood Preliminary These results will be followed up by primary care physician Discharge Disposition Discharged to home Condition at discharge: Stable Hospital Course Ms. Mayers is a pleasant 69-year-old lady who lives at home with a background history of diabetes, dyslipidemia, anxiety, depression and has been having URI symptoms and was seen as an outpatient basis and started on oral doxycycline but unfortunately did not improve much and had some worsening symptomatology with decreasing oral intake, generalized weakness, fever, cough and alteration in mental status and was seen in the emergency room and eventually got admitted to the hospital. She was foundwith severe sepsis upon presentation felt likely secondary to underlying bacterial community-acquired pneumonia with underlying acute infectious encephalopathy and LINDA. Fortunately she responded wellwith IV fluids resuscitation and support together with administration of IV antibiotics and supportive care. Overnight she remained hemodynamically stable. Mental state back at baseline levels. Able to tolerate oral diet with no nausea or vomiting. She is hopeful and wishing for hospital discharge as she is feeling significantly improved. Currently she is demonstrating stable oxygen levels. No further issues of any worsening coughing spells. Denies any chest pain or shortness of breath. No reports of any diarrhea or any bleeding tendencies. Will continue with plan hospital discharge with intention to finish course of oral antibiotics with Augmentin. She needs to follow-up closely with PCP next week. Halle Mayers is a 69 year old female patient with past medical history of diabetes mellitus type2, hyperlipidemia, anxiety, depression, was brought to emergency room for evaluation for cough, fever, sore throat, generalized weakness and confusion. She states that her symptoms started couple of days ago and gradually got worse. She was seen in the [facility] and diagnosed with bronchitis. She was started on oral doxycycline. Today, she developed worsening symptoms. She was brought to emergency room for evaluation. On arrival to emergency room, her initial vital signs showed temperature 103, pulse 131, blood pressure 125/100, oxygen saturation 98% on room air. Laboratory workup showed sodium 130, potassium 4.5, creatinine 1.07, ALT 15, AST 23, glucose 327, lactic acid 3.0. WBC 13.4, hemoglobin 14.7. Influenza A and B, COVID-19 PCR, RSV PCR negative CT of the head without contrast showed no evidence of acute intracranial process. Chest x-ray showed confluent airspace disease in the left lower lobe posteriorly compatible with pneumonia. In the emergency room, she was given normal saline 2 L bolus. She was also given IV Zosyn and azithromycin. She was admitted to the hospital for further management. Severe sepsis secondary to committee acquired pneumonia Acute infectious encephalopathy-improving Patient presented with cough, fever, sore throat, generalized weakness, confusion. She was febrile and tachycardic on arrival to emergency room. Initial blood pressure was stable. She was not hypoxic. Lab workup showed evidence of leukocytosis, lactic acidosis. Lactic acid improved after 2 L normalsaline. Blood culture collected. Received a dose of Zosyn and azithromycin in the ER. -Currently able to tolerate some of oral diet. Stable hemodynamics. May discontinue IV fluid support -Titrate oxygen support as able -As needed antitussives -Follow-up cultures and adjust antibiotics accordingly -Will put her on normal saline at 100 mL/h -Will put her on ceftriaxone 2 g IV daily and azithromycin 500 mg IV daily -Will put her on oxygen supplement as needed Acute kidney injury-improving resolved -Baseline creatinine around. 1.0. Creatinine elevated at 1.07. Received 2 L NS in the ER. Will continue maintenance IVF. Will monitor renal function. Diabetes mellitus type 2 Hyperglycemia -Will put her on insulin sliding scale. Will resume metformin. Hyperlipidemia -Will resume simvastatin Depression/anxiety -Will resume her psych meds including Abilify, Wellbutrin SR, BuSpar, Cymbalta, trazodone, Paxil once doses verified by pharmacy Medically Ready for Discharge: Anticipated in 2-4 Days Consultations This Hospital Stay None Code Status Full Code Time Spent on this Encounter I, Allan Mathews MD, MD, personally saw the patient today and spent greater than 30 minutes discharging this patient. Allan Mathews MD, MD [place] [address] MEDICAL SURGICAL [address] [facility] [address] Physical Exam Vital Signs: Temp: 98.2 ??F (36.8 ??C) Temp src: Oral BP: 118/69 Pulse: 69 Resp: 16 SpO2: 97 % O2 Device: None (Room air) Weight: 0 lbs 0 oz HEENT; Atraumatic, normocephalic, pinkish conjuctiva, pupils bilateral reactive Skin: warm and moist, no rashes Lymphatics: no cervical or axillary lymphandenopathy Lungs: equal chest expansion, clear to auscultation, no wheezes, no stridor, no crackles, Heart: normal rate, normal rhythm, no rubs or gallops. Abdomen: normal bowel sounds, no tenderness, no peritoneal signs, no guarding Extremities: no deformities, no edema Neuro; follow commands, alert and oriented x3, spontaneous speech, coherent, moves all extremities spontaneously Psych; no hallucination, euthymic mood, not agitated Primary Care Physician Augusto Scott Discharge Orders Reason for your hospital stay Ms. Mayers is a pleasant 69-year-old lady who lives at home with a background history of diabetes, dyslipidemia, anxiety, depression and has been having URI symptoms and was seen as an outpatient basis and started on oral doxycycline but unfortunately did not improve much and had some worsening symptomatology with decreasing oral intake, generalized weakness, fever, cough and alteration in mental status and was seen in the emergency room and eventually got admitted to the hospital. She was foundwith severe sepsis upon presentation felt likely secondary to underlying bacterial community-acquired pneumonia with underlying acute infectious encephalopathy and LINDA. Fortunately she responded wellwith IV fluids resuscitation and support together with administration of IV antibiotics and supportive care. Overnight she remained hemodynamically stable. Mental state back at baseline levels. Able to tolerate oral diet with no nausea or vomiting. She is hopeful and wishing for hospital discharge as she is feeling significantly improved. Currently she is demonstrating stable oxygen levels. No further issues of any worsening coughing spells. Denies any chest pain or shortness of breath. No reports of any diarrhea or any bleeding tendencies. Will continue with plan hospital discharge with intention to finish course of oral antibiotics with Augmentin. She needs to follow-up closely with PCP next week. Follow-up and recommended labs and tests Follow up with primary care provider, Augusto Scott, within 7 days to evaluate medication change, toevaluate treatment change, and for hospital follow- up. Activity Your activity upon discharge: activity as tolerated Full Code Diet Follow this diet upon discharge: Current Diet:Orders Placed This Encounter Combination Diet Regular Diet Adult Significant Results and Procedures Most Recent 3 CBC's: Recent Labs Lab Test 07/12/24 0853 07/11/24 1709 09/25/21 1457 WBC 12.3* 13.4* 5.2 HGB 12.7 14.7 13.6 MCV 95 91 96 PLT 164 200 184 Most Recent 3 BMP's: Recent Labs Lab Test 07/13/24 0823 07/13/24 0205 07/12/24 2237 07/12/24 0927 07/12/24 0853 07/12/24 0006 07/11/24 1709 NA -- -- -- -- 137 -- 130* POTASSIUM -- -- -- -- 4.5 -- 4.5 CHLORIDE -- -- -- -- 104 -- 91* CO2 -- -- -- -- 22 -- 22 BUN -- -- -- -- 16.1 -- 16.6 CR -- -- -- -- 0.82 -- 1.07* ANIONGAP -- -- -- -- 11 -- 17* LYNDSAY -- -- -- -- 8.2* -- 9.2 GLC 120* 113* 125* < > 129* < > 327* < > = values in this interval not displayed. Most Recent 2 LFT's: Recent Labs Lab Test 07/11/24 1709 AST 23 ALT 15 ALKPHOS 100 BILITOTAL 0.5 7-Day Micro Results Collected Updated Procedure Result Status 07/11/2024 1831 07/12/20242030 Blood Culture Peripheral Blood [[id number]] Peripheral Blood Preliminary result Component Value Culture No growth after 1 day [P] 07/11/2024 1719 07/11/2024 1808 Asymptomatic Influenza A/B, RSV, & SARS-CoV2 PCR (COVID-19) Nose [[id number]] Swab from Nose Final result Component Value Influenza A PCR Negative Influenza B PCR Negative RSV PCR Negative SARS CoV2 PCR Negative NEGATIVE: SARS-CoV-2 (COVID-19) RNA not detected, presumed negative. Most Recent TSH and T4:No lab results found. Most Recent Hemoglobin A1c:No lab results found. Most Recent 6 glucoses: Recent Labs Lab Test 07/13/24 0823 07/13/24 0205 07/12/24 2237 07/12/24 1646 07/12/24 1136 07/12/24 0927 GLC 120* 113* 125* 107* 105* 117* Most Recent Urinalysis: Recent Labs Lab Test 07/11/242031 COLOR Light Yellow APPEARANCE Clear URINEGLC >=1000* URINEBILI Negative URINEKETONE Negative SG 1.032 UBLD Moderate* URINEPH 5.5 PROTEIN 20* NITRITE Negative LEUKEST Negative RBCU <1 WBCU 0 Most Recent ABG:No lab results found., Results for orders placed or performed during the hospital encounter of 07/11/24 XR Chest 2 Views Narrative EXAM: XR CHEST 2 VIEWS LOCATION: [facility] DATE: 07/11/2024 INDICATION: Fever COMPARISON: None. Impression IMPRESSION: Heart size is normal. Confluent airspace disease noted in the left lower lobe posteriorly compatible with pneumonia. Clinical correlation and follow-up to resolution recommended. No effusions or pneumothorax. No acute bony abnormalities. Clips in the right upper quadrant are compatible with prior cholecystectomy. Head CT w/o contrast Narrative EXAM: CT HEAD W/O CONTRAST LOCATION: [facility] DATE: 07/11/2024 INDICATION: Confusion. COMPARISON: None. TECHNIQUE: Routine CT Head without IV contrast. Multiplanar reformats. Dose reduction techniques were used. FINDINGS: INTRACRANIAL CONTENTS: No intracranial hemorrhage, extra-axial collection, or mass effect. No CT evidence of acute infarct. Mild presumed chronic small vessel ischemic changes. Mild generalized volume loss. No hydrocephalus. VISUALIZED ORBITS/SINUSES/MASTOIDS: No intraorbital abnormality. No paranasal sinus mucosal disease. No middle ear or mastoid effusion. BONES/SOFT TISSUES: No acute abnormality. Impression IMPRESSION: 1. No CT evidence for acute intracranial process. 2. Brain atrophy and presumed chronic microvascular ischemic changes as above. Discharge Medications Current Discharge Medication List START taking these medications Details amoxicillin-clavulanate (AUGMENTIN) 875-125 MG tablet Take 1 tablet by mouth 2 times daily for 6 days. Qty: 12 tablet, Refills: 0 Associated Diagnoses: Pneumonia of left lower lobe due to infectious organism CONTINUE these medications which have NOT CHANGED Details ARIPiprazole (ABILIFY) 5 MG tablet Take 5 mg by mouth daily buPROPion (WELLBUTRIN SR) 150 MG 12 hr tablet Take 150 mg by mouth 2 times daily. busPIRone (BUSPAR) 10 MG tablet Take 10 mg by mouth 2 times daily. Continuous Glucose Sensor (DEXCOM G7 SENSOR) MISC Change every 10 days. DULoxetine (CYMBALTA) 30 MG capsule Take 30 mg by mouth daily. empagliflozin (JARDIANCE) 10 MG TABS tablet Take 10 mg by mouth daily. gabapentin (NEURONTIN) 600 MG tablet Take 600 mg by mouth at bedtime. metFORMIN (GLUCOPHAGE-XR) 500 MG 24 hr tablet Take 1,000 mg by mouth 2 times daily (with meals). Multiple Vitamin (MULTIVITAMIN ADULT PO) Take 1 tablet by mouth daily PARoxetine (PAXIL) 40 MG tablet Take 40 mg by mouth daily. Semaglutide, 1 MG/DOSE, (OZEMPIC) 4 MG/3ML pen Inject 1 mg subcutaneously every 7 days. simvastatin (ZOCOR) 40 MG tablet Take 40 mg by mouth At Bedtime traZODone (DESYREL) 100 MG tablet Take 200 mg by mouth at bedtime. Vitamin D3 (VITAMIN D, CHOLECALCIFEROL,) 25 mcg (1000 units) tablet Take 1 tablet by mouth daily. STOP taking these medications doxycycline hyclate (VIBRAMYCIN) 100 MG capsule Comments: Reason for Stopping: Allergies Allergies Allergen Reactions Codeine Hives Venlafaxine Other (See Comments) DIAPHORESIS, INSOMNIA documented in this encounter Medications at Time of Discharge ARIPiprazole (ABILIFY) 5 MG tablet Take 5 mg by mouth daily 08/31/2021 buPROPion (WELLBUTRIN SR) 150 MG 12 hr tablet Take 150 mg by mouth 2 times daily. busPIRone (BUSPAR) 10 MG tablet Take 10 mg by mouth 2 times daily. Continuous Glucose Sensor (DEXCOM G7 SENSOR) MISC Change every 10 days. DULoxetine (CYMBALTA) 30 MG capsule Take 30 mg by mouth daily. empagliflozin (JARDIANCE) 10 MG TABS tablet Take 10 mg by mouth daily. gabapentin (NEURONTIN) 600 MG tablet Take 600 mg by mouth at bedtime. metFORMIN (GLUCOPHAGE-XR) 500 MG 24 hr tablet Take 1,000 mg by mouth 2 times daily (with meals). 09/23/2021 Multiple Vitamin (MULTIVITAMIN ADULT PO) Take 1 tablet by mouth daily PARoxetine (PAXIL) 40 MG tablet Take 40 mg by mouth daily. 08/31/2021 Semaglutide, 1 MG/DOSE, (OZEMPIC) 4 MG/3ML pen Inject 1 mg subcutaneously every 7 days. simvastatin (ZOCOR) 40 MG tablet Take 40 mg by mouth At Bedtime 10/29/2020 traZODone (DESYREL) 100 MG tablet Take 200 mg by mouth at bedtime. 09/04/2021 Vitamin D3 (VITAMIN D, CHOLECALCIFEROL ,) 25 mcg (1000 units) tablet Take 1 tablet by mouth daily. amoxicillin-cla vulanate (AUGMENTIN) 875-125 MG tabletIndicatio ns:Pneumonia of left lower lobe due to infectious organism Take 1 tablet by mouth 2 times daily for 6 days. 12 tablet 07/14/2024 documented as of this encounter Progress Notes * Sierra Goodman RN - 07/12/2024 10:47 PM CDT 07/12/24 1700 Skin Skin WDL X;color;integrity;moisture Skin Color pale Skin Moisture dry Skin Integrity scab;abrasion/excoriation Abrasion / Excoriation Right;Nix Scab Other (Comment) (scattered) Device Skin Interventions Taken No adjustments needed Admission/Transfer from: ED 2 RN skin assessment completed. Yes Significant findings include: LDA added (if applicable)? NO Requested WOC Nurse Consult from MD? NO * Allan Mathews MD - 07/12/2024 11:[address] [facility] Medicine Progress Note - Hospitalist Service Date of Admission: 07/11/2024 Assessment & Plan Halle Mayers is a 69 year old female patient with past medical history of diabetes mellitus type2, hyperlipidemia, anxiety, depression, was brought to emergency room for evaluation for cough, fever, sore throat, generalized weakness and confusion. She states that her symptoms started couple of days ago and gradually got worse. She was seen in the [facility] and diagnosed with bronchitis. She was started on oral doxycycline. Today, she developed worsening symptoms. She was brought to emergency room for evaluation. On arrival to emergency room, her initial vital signs showed temperature 103, pulse 131, blood pressure 125/100, oxygen saturation 98% on room air. Laboratory workup showed sodium 130, potassium 4.5, creatinine 1.07, ALT 15, AST 23, glucose 327, lactic acid 3.0. WBC 13.4, hemoglobin 14.7. Influenza A and B, COVID-19 PCR, RSV PCR negative CT of the head without contrast showed no evidence of acute intracranial process. Chest x-ray showed confluent airspace disease in the left lower lobe posteriorly compatible with pneumonia. In the emergency room, she was given normal saline 2 L bolus. She was also given IV Zosyn and azithromycin. She was admitted to the hospital for further management. Severe sepsis secondary to committee acquired pneumonia Acute infectious encephalopathy-improving Patient presented with cough, fever, sore throat, generalized weakness, confusion. She was febrile and tachycardic on arrival to emergency room. Initial blood pressure was stable. She was not hypoxic. Lab workup showed evidence of leukocytosis, lactic acidosis. Lactic acid improved after 2 L normalsaline. Blood culture collected. Received a dose of Zosyn and azithromycin in the ER. -Currently able to tolerate some of oral diet. Stable hemodynamics. May discontinue IV fluid support -Titrate oxygen support as able -As needed antitussives -Follow-up cultures and adjust antibiotics accordingly -Will put her on normal saline at 100 mL/h -Will put her on ceftriaxone 2 g IV daily and azithromycin 500 mg IV daily -Will put her on oxygen supplement as needed Acute kidney injury-improving resolved -Baseline creatinine around. 1.0. Creatinine elevated at 1.07. Received 2 L NS in the ER. Will continue maintenance IVF. Will monitor renal function. Diabetes mellitus type 2 Hyperglycemia -Will put her on insulin sliding scale. Will resume metformin. Hyperlipidemia -Will resume simvastatin Depression/anxiety -Will resume her psych meds including Abilify, Wellbutrin SR, BuSpar, Cymbalta, trazodone, Paxil once doses verified by pharmacy Medically Ready for Discharge: Anticipated in 2-4 Days Diet: Combination Diet Regular Diet Adult DVT Prophylaxis: Pneumatic Compression Devices and Ambulate every shift Esquivel Catheter: Not present Lines: None Cardiac Monitoring: None Code Status: Full Code Clinically Significant Risk Factors Present on Admission # Hyponatremia: Lowest Na = 130 mmol/L in last 2 days, will monitor as appropriate # Hypochloremia: Lowest Cl = 91 mmol/L in last 2 days, will monitor as appropriate # Hypocalcemia: Lowest Ca = 8.2 mg/dL in last 2 days, will monitor and replace as appropriate Disposition Plan Medically Ready for Discharge: Anticipated in 2-4 Days Allan Mathews MD, Hospitalist Service [facility] Securely message with [employer] (more info) Text page via [facility] Paging/Directory Interval History I assumed medicine service care today. Seen and examined. Chart reviewed. Family updated this patient's son present at bedside. I met this pleasant lady while she is laying comfortably in the gurney boarding the emergency room waiting for her admission bed. Fortunately sheappears to be significantly improved with her mental state that she is now more cooperative, interactive and able to take some of oral intake earlier. She is endorsing no ongoing nausea, vomiting or diarrhea. No escalation of oxygen needs. Remained to be afebrile. Still having some intermittent coughing spells. Physical Exam Vital Signs: Temp: 98.3 ??F (36.8 ??C) Temp src: Oral BP: 113/73 Pulse: 76 Resp: 20 SpO2: 92 % O2 Device: Nasal cannula Weight: 0 lbs 0 oz HEENT; Atraumatic, normocephalic, pinkish conjuctiva, pupils bilateral reactive Skin: warm and moist, no rashes Lungs: equal chest expansion, clear to auscultation, no wheezes, no stridor, no crackles, Heart: normal rate, normal rhythm, no rubs or gallops. Abdomen: normal bowel sounds, no tenderness, no peritoneal signs, no guarding Extremities: no deformities, no edema Neuro; follow commands, alert and oriented x3, spontaneous speech, coherent, moves all extremities spontaneously Psych; no hallucination, euthymic mood, not agitated Medical Decision Making 50 MINUTES SPENT BY ME on the date of service doing chart review, history, exam, documentation & further activities per the note. MANAGEMENT DISCUSSED with the following over the past 24 hours: Yes NOTE(S)/MEDICAL RECORDS REVIEWED over the past 24 hours: Yes Data I have personally reviewed the following data over the past 24 hrs: 12.3 (H) \ 12.7 / 164 137 104 16.1 / 117 (H) 4.5 22 0.82 \ ALT: 15 AST: 23 AP: 100 TBILI: 0.5 ALB: 4.1 TOT PROTEIN: 7.5 LIPASE: N/A Procal: N/A CRP: N/A Lactic Acid: 1.1 Imaging results reviewed over the past 24 hrs: Recent Results (from the past 24 hour(s)) Head CT w/o contrast Narrative EXAM: CT HEAD W/O CONTRAST LOCATION: [facility] DATE: 07/11/2024 INDICATION: Confusion. COMPARISON: None. TECHNIQUE: Routine CT Head without IV contrast. Multiplanar reformats. Dose reduction techniques were used. FINDINGS: INTRACRANIAL CONTENTS: No intracranial hemorrhage, extra-axial collection, or mass effect. No CT evidence of acute infarct. Mild presumed chronic small vessel ischemic changes. Mild generalized volume loss. No hydrocephalus. VISUALIZED ORBITS/SINUSES/MASTOIDS: No intraorbital abnormality. No paranasal sinus mucosal disease. No middle ear or mastoid effusion. BONES/SOFT TISSUES: No acute abnormality. Impression IMPRESSION: 1. No CT evidence for acute intracranial process. 2. Brain atrophy and presumed chronic microvascular ischemic changes as above. XR Chest 2 Views Narrative EXAM: XR CHEST 2 VIEWS LOCATION: [facility] DATE: 07/11/2024 INDICATION: Fever COMPARISON: None. Impression IMPRESSION: Heart size is normal. Confluent airspace disease noted in the left lower lobe posteriorly compatible with pneumonia. Clinical correlation and follow-up to resolution recommended. No effusions or pneumothorax. No acute bony abnormalities. Clips in the right upper quadrant are compatible with prior cholecystectomy. * Jazmine Reilly RN - 07/12/2024 7:52 AM CDT [facility] ED Boarding Nurse Handoff Addendum Report: Date/time: 07/12/2024, 7:53 AM Activity Level: assist of 1 Fall Risk: Yes: nonskid shoes/slippers when out of bed and patient and family education Active Infusions: Yes Current Meds Due: See mar Current care needs: continue with POC Oxygen requirements (liters/min and/or FiO2): RA Respiratory status: Room air Vital signs (within last 30 minutes): Vitals: 07/11/24 2230 07/11/24 2245 07/12/24 0000 07/12/24 0741 BP: 90/55 103/53 100/68 112/70 BP Location: Left arm Pulse: 72 75 75 74 Resp: 20 Temp: 98.3 ??F (36.8 ??C) TempSrc: Oral SpO2: 94% 94% 95% 99% Focused assessment within last 30 minutes: ED Boarding Nurse name: Jazmine Reilly RN documented in this encounter H&P Notes * Ashish Dixon MD - 07/11/2024 9:[address] [facility] History and Physical Hospitalist Date of Admission: 07/11/2024 Date of Service (when I saw the patient): 07/11/24 Assessment & Plan Halle Loreto Mayers is a 69 year old female patient with past medical history of diabetes mellitus type2, hyperlipidemia, anxiety, depression, was brought to emergency room for evaluation for cough, fever, sore throat, generalized weakness and confusion. She states that her symptoms started couple of days ago and gradually got worse. She was seen in the [place] [facility] and diagnosed with bronchitis. She was started on oral doxycycline. Today, she developed worsening symptoms. She was brought to emergency room for evaluation. On arrival to emergency room, her initial vital signs showed temperature 103, pulse 131, blood pressure 125/100, oxygen saturation 98% on room air. Laboratory workup showed sodium 130, potassium 4.5, creatinine 1.07, ALT 15, AST 23, glucose 327, lactic acid 3.0. WBC 13.4, hemoglobin 14.7. Influenza A and B, COVID-19 PCR, RSV PCR negative CT of the head without contrast showed no evidence of acute intracranial process. Chest x-ray showed confluent airspace disease in the left lower lobe posteriorly compatible with pneumonia. In the emergency room, she was given normal saline 2 L bolus. She was also given IV Zosyn and azithromycin. She was admitted to the hospital for further management. Severe sepsis secondary to committee acquired pneumonia Acute infectious encephalopathy Patient presented with cough, fever, sore throat, generalized weakness, confusion. She was febrile and tachycardic on arrival to emergency room. Initial blood pressure was stable. She was not hypoxic. Lab workup showed evidence of leukocytosis, lactic acidosis. Lactic acid improved after 2 L normalsaline. Blood culture collected. Received a dose of Zosyn and azithromycin in the ER. -Will put her on normal saline at 100 mL/h -Will put her on ceftriaxone 2 g IV daily and azithromycin 500 mg IV daily -Will put her on oxygen supplement as needed Acute kidney injury -Baseline creatinine around. 1.0. Creatinine elevated at 1.07. Received 2 L NS in the ER. Will continue maintenance IVF. Will monitor renal function. Diabetes mellitus type 2 Hyperglycemia -Will put her on insulin sliding scale. Will resume metformin. Hyperlipidemia -Will resume simvastatin Depression/anxiety -Will resume her psych meds including Abilify, Wellbutrin SR, BuSpar, Cymbalta, trazodone, Paxil once doses verified by pharmacy DVT Prophylaxis: Pneumatic Compression Devices Code Status: Full Code Disposition: Medically Ready for Discharge: Anticipated in 2-4 Days Ashish Dixon MD Primary Care Physician Augusto Scott Chief Complaint Cough, fever History is obtained from the patient History of Present Illness Halle Mayers is a 69 year old female patient with past medical history of diabetes mellitus type2, hyperlipidemia, anxiety, depression, was brought to emergency room for evaluation for cough, fever, sore throat, generalized weakness and confusion. History is obtained from the patient and her son at bedside. She states that she lives independently. She was having cough and fever for the past couple of days. She was seen in the [facility] and diagnosed with bronchitis. She was started on oral antibiotic. Today, she developed worsening symptoms. She was brought to emergency room for evaluation. On arrival to emergency room, her initial vital signs showed temperature 103, pulse 131, blood pressure 125/100, oxygen saturation 98% on room air. Laboratory workup showed sodium 130, potassium 4.5, creatinine 1.07, ALT 15, AST 23, glucose 327, lactic acid 3.0. WBC 13.4, hemoglobin 14.7. CT of the head without contrast showed no evidence of acute intracranial process. Chest x-ray showed confluent airspace disease in the left lower lobe posteriorly compatible with pneumonia. In the emergency room, she was given normal saline 2 L bolus. She was also given IV Zosyn and azithromycin. She was admitted to the hospital for further management. Past Medical History I have reviewed this patient's medical history and updated it with pertinent information if needed. Past Medical History: Diagnosis Date Anxiety and depression Diabetes (H) TYPE 2 History of breast cancer HLD (hyperlipidemia) Obese Past Surgical History I have reviewed this patient's surgical history and updated it with pertinent information if needed. Past Surgical History: Procedure Laterality Date BIOPSY SENTINEL LYMPH NODE BIOPSY BREAST SURGERY MASTECTOMY CHOLECYSTECTOMY COLONOSCOPY COLPOSCOPY, BIOPSY, COMBINED N/A 09/25/2021 Procedure: COLPOSCOPY OF THE VULVA, VAGINA, AND CERVIX,; Surgeon: Ruby Rivero MD; Location: OR COMBINED REPAIR PTOSIS WITH BLEPHAROPLASTY BILATERAL Bilateral 11/25/2021 Procedure: BILATERAL UPPER LID PTOSIS , BLEPHAROPLASTY; Surgeon: Debby Cunningham MD; Location: OR EXCISE VULVA WIDE LOCAL N/A 09/25/2021 Procedure: WIDE LOCAL EXCISION OF THE right groin; Surgeon: Ruby Rivero MD; Location: OR EYE SURGERY CATARACT BILATERAL 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 Taking? ARIPiprazole (ABILIFY) 5 MG tablet Yes Yes Sig: Take 5 mg by mouth daily Continuous Glucose Sensor (DEXCOM G7 SENSOR) MISC Yes Yes Sig: Change every 10 days. DULoxetine (CYMBALTA) 30 MG capsule Yes Yes Sig: Take 30 mg by mouth daily. Multiple Vitamin (MULTIVITAMIN ADULT PO) Yes Yes Sig: Take 1 tablet by mouth daily PARoxetine (PAXIL) 40 MG tablet Yes No Sig: Take 20 mg by mouth daily Semaglutide, 1 MG/DOSE, (OZEMPIC) 4 MG/3ML pen Yes Yes Sig: Inject 1 mg subcutaneously every 7 days. buPROPion (WELLBUTRIN SR) 150 MG 12 hr tablet Yes Yes Sig: Take 150 mg by mouth 2 times daily. busPIRone (BUSPAR) 10 MG tablet Yes Yes Sig: Take 10 mg by mouth 2 times daily. doxycycline hyclate (VIBRAMYCIN) 100 MG capsule Yes Yes Sig: Take 100 mg by mouth 2 times daily. gabapentin (NEURONTIN) 600 MG tablet Yes Yes Sig: Take 600 mg by mouth at bedtime. metFORMIN (GLUCOPHAGE-XR) 500 MG 24 hr tablet Yes Yes Sig: Take 2,000 mg by mouth daily. simvastatin (ZOCOR) 40 MG tablet Yes Yes Sig: Take 40 mg by mouth At Bedtime traZODone (DESYREL) 100 MG tablet Yes Yes Sig: Take 200 mg by mouth at bedtime. Facility-Administered Medications: None Allergies Allergies Allergen Reactions Codeine Hives Venlafaxine Other (See Comments) DIAPHORESIS, INSOMNIA Social History I have reviewed this patient's social history and updated it with pertinent information if needed. Halle Mayers reports that she has been smoking cigarettes. She has never used smokeless tobacco. She reports that she does not currently use alcohol. She reports that she does not use drugs. Family History I have reviewed this patient's family history and updated it with pertinent information if needed. No family history on file. Review of Systems The 10 point Review of Systems is negative other than noted in the HPI or here. Cough, fever Physical Exam Temp: (!) 103 ??F (39.4 ??C) Temp src: Oral BP: 99/67 Pulse: 98 SpO2: 95 % Vital Signs with Ranges Temp: [103 ??F (39.4 ??C)] 103 ??F (39.4 ??C) Pulse: [98-110] 98 BP: (99-128)/(67-77) 99/67 SpO2: [94 %-95 %] 95 % 0 lbs 0 oz GEN: Alert, oriented x 3, appears comfortable, NAD. HEENT: Normocephalic/atraumatic, no scleral icterus, no nasal discharge, mouth moist. CV: Regular rate and rhythm, no murmur or JVD. S1 + S2 noted, no S3 or S4. LUNGS: Clear to auscultation bilaterally without rales/rhonchi/wheezing/retractions. Symmetric chest rise on inhalation noted. ABD: Active bowel sounds, soft, non-tender/non-distended. No rebound/guarding/rigidity. EXT: No edema or cyanosis. Hands/feet warm to touch with good signs of peripheral perfusion. No joint synovitis noted. SKIN: Dry to touch, no exanthems noted in the visualized areas. NEURO: Symmetric muscle strength, sensation to touch grossly intact. No new focal deficits appreciated. Data Data reviewed today: I personally reviewed no images or EKG's today. Recent Labs Lab 07/11/24 1709 WBC 13.4* HGB 14.7 MCV 91 PLT 200 NA 130* POTASSIUM 4.5 CHLORIDE 91* CO2 22 BUN 16.6 CR 1.07* ANIONGAP 17* LYNDSAY 9.2 GLC 327* ALBUMIN 4.1 PROTTOTAL 7.5 BILITOTAL 0.5 ALKPHOS 100 ALT 15 AST 23 Recent Results (from the past 24 hour(s)) Head CT w/o contrast Narrative EXAM: CT HEAD W/O CONTRAST LOCATION: [facility] DATE: 07/11/2024 INDICATION: Confusion. COMPARISON: None. TECHNIQUE: Routine CT Head without IV contrast. Multiplanar reformats. Dose reduction techniques were used. FINDINGS: INTRACRANIAL CONTENTS: No intracranial hemorrhage, extra-axial collection, or mass effect. No CT evidence of acute infarct. Mild presumed chronic small vessel ischemic changes. Mild generalized volume loss. No hydrocephalus. VISUALIZED ORBITS/SINUSES/MASTOIDS: No intraorbital abnormality. No paranasal sinus mucosal disease. No middle ear or mastoid effusion. BONES/SOFT TISSUES: No acute abnormality. Impression IMPRESSION: 1. No CT evidence for acute intracranial process. 2. Brain atrophy and presumed chronic microvascular ischemic changes as above. XR Chest 2 Views Narrative EXAM: XR CHEST 2 VIEWS LOCATION: [facility] DATE: 07/11/2024 INDICATION: Fever COMPARISON: None. Impression IMPRESSION: Heart size is normal. Confluent airspace disease noted in the left lower lobe posteriorly compatible with pneumonia. Clinical correlation and follow-up to resolution recommended. No effusions or pneumothorax. No acute bony abnormalities. Clips in the right upper quadrant are compatible with prior cholecystectomy. documented in this encounter ED Notes * Sukhdeep Navarro RN - 07/11/2024 11:48 PM CDT Report given to Meri LEW * Tracey Solorzano RN - 07/11/2024 11:43 PM CDT Bed: ED30 Expected date: Expected time: Means of arrival: Comments: 37 for Meri * Sukhdeep Navarro RN - 07/11/2024 9:[address] [facility] ED Nurse Handoff Report ED Chief complaint: Urinary Frequency (UTI) . ED Diagnosis: Final diagnoses: Severe sepsis (H) Pneumonia of left lower lobe due to infectious organism Allergies: Allergies Allergen Reactions Codeine Hives Venlafaxine Other (See Comments) DIAPHORESIS, INSOMNIA Code Status: Full Code/ No code status on file Activity level - Baseline/Home: assist of 1. Activity Level - Current: assist of 1. Lift room needed: No. 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 Infection: Not Applicable. Respiratory status: Room air Vital Signs (within 30 minutes): Vitals: 07/11/24 1714 07/11/24 1730 07/11/24 1745 07/11/24 1800 BP: 128/70 122/77 113/74 99/67 Pulse: 105 110 100 98 Temp: TempSrc: SpO2: 95% 95% 94% 95% Cardiac Rhythm: , Pain level: Patient confused: Yes. Patient Falls Risk: assistive device/personal items within reach. Elimination Status: pt straight cathed for UA Patient Report - Initial Complaint: . Urinary Frequency Focused Assessment: Pt A&O X 2, family at bedside, lactic acide initally 3, now 1.8, received abx X2, 2LNS, CT w/o done, Xray chest done, UA sent after straight cath (650 out), 20 RAC, VSS on RA. Abnormal Results: Labs Ordered and Resulted from Time of ED Arrival to Time of ED Departure ROUTINE UA WITH MICROSCOPIC REFLEX TO CULTURE - Abnormal Result Value Color Urine Light Yellow Appearance Urine Clear Glucose Urine >=1000 (*) Bilirubin Urine Negative Ketones Urine Negative Specific [place] Urine 1.032 Blood Urine Moderate (*) pH Urine 5.5 Protein Albumin Urine 20 (*) Urobilinogen Urine Normal Nitrite Urine Negative Leukocyte Esterase Urine Negative RBC Urine <1 WBC Urine 0 COMPREHENSIVE METABOLIC PANEL - Abnormal Sodium 130 (*) Potassium 4.5 Carbon Dioxide (CO2) 22 Anion Gap 17 (*) Urea Nitrogen 16.6 Creatinine 1.07 (*) GFR Estimate 55 (*) Calcium 9.2 Chloride 91 (*) Glucose 327 (*) Alkaline Phosphatase 100 AST 23 ALT 15 Protein Total 7.5 Albumin 4.1 Bilirubin Total 0.5 CBC WITH PLATELETS AND DIFFERENTIAL - Abnormal WBC Count 13.4 (*) RBC Count 4.75 Hemoglobin 14.7 Hematocrit 43.4 MCV 91 MCH 30.9 MCHC 33.9 RDW 12.3 Platelet Count 200 % Neutrophils 87 % Lymphocytes 6 % Monocytes 6 % Eosinophils 0 % Basophils 0 % Immature Granulocytes 1 NRBCs per 100 WBC 0 Absolute Neutrophils 11.6 (*) Absolute Lymphocytes 0.8 Absolute Monocytes 0.8 Absolute Eosinophils 0.0 Absolute Basophils 0.0 Absolute Immature Granulocytes 0.1 Absolute NRBCs 0.0 ISTAT GASES LACTATE VENOUS POCT - Abnormal Lactic Acid POCT 3.0 (*) Bicarbonate Venous POCT 28 O2 Sat, Venous POCT 65 (*) pCO2 Venous POCT 43 pH Venous POCT 7.43 pO2 Venous POCT 33 ISTAT GASES LACTATE VENOUS POCT - Abnormal Lactic Acid POCT 1.9 Bicarbonate Venous POCT 25 O2 Sat, Venous POCT 64 (*) pCO2 Venous POCT 41 pH Venous POCT 7.40 pO2 Venous POCT 33 INFLUENZA A/B, RSV, & SARS-COV2 PCR - Normal Influenza A PCR Negative Influenza B PCR Negative RSV PCR Negative SARS CoV2 PCR Negative LACTIC ACID WHOLE BLOOD BLOOD CULTURE XR Chest 2 Views Final Result IMPRESSION: Heart size is normal. Confluent airspace disease noted in the left lower lobe posteriorly compatible with pneumonia. Clinical correlation and follow-up to resolution recommended. No effusions or pneumothorax. No acute bony abnormalities. Clips in the right upper quadrant are compatible with prior cholecystectomy. Head CT w/o contrast Final Result IMPRESSION: 1. No CT evidence for acute intracranial process. 2. Brain atrophy and presumed chronic microvascular ischemic changes as above. Treatments provided: See mAR/notes Family Comments: at bedside OBS brochure/video discussed/provided to patient: No ED Medications: Medications sodium chloride (PF) 0.9% PF flush 3 mL (3 mLs Intracatheter $Given 07/11/241842) sodium chloride (PF) 0.9% PF flush 3 mL (has no administration in time range) sodium chloride 0.9% BOLUS 1,000 mL (1,000 mLs Intravenous $New Bag 07/11/242050) azithromycin (ZITHROMAX) 500 mg in NS 250 mL intermittent infusion (500 mg Intravenous $New Bag 07/11/242046) acetaminophen (TYLENOL) tablet 650 mg (650 mg Oral $Given 07/11/241704) piperacillin-tazobactam (ZOSYN) 4.5 g vial to attach to NS 100 mL bag (0 g Intravenous Stopped 07/11/242009) sodium chloride 0.9% BOLUS 1,000 mL (1,000 mLs Intravenous $New Bag 07/11/241842) Drips infusing: Yes For the majority of the shift this patient was Green. Interventions performed were N/A. Sepsis treatment initiated: No Cares/treatment/interventions/medications to be completed following ED care: N/A ED Nurse Name: Sukhdeep Navarro RN 9:20 PM' * Brody Beckford MD - 07/11/2024 6:07 PM CDT Emergency Department Note History of Present Illness Chief Complaint Urinary Frequency (UTI) HPI Halle Mayers is a 69 year old female with h/o WPW pattern and DM who presents to the ER for evaluation of fever, malaise, cough, sore throat, mild headache, mild confusion. Patient lives independently. She was seen at her clinic in [place] for bronchitis yesterday. Today she developed progressive weakness per the [id number] at the bedside. Also some mild confusion. No vomiting or diarrhea or abdominal pain or dysuria or rashes or neck stiffness. Independent Historian Daughter in law provides history above. Past Medical History Medical History and Problem List Past Medical History: Diagnosis Date Anxiety and depression Diabetes (H) History of breast cancer HLD (hyperlipidemia) Obese Medications ARIPiprazole (ABILIFY) 5 MG tablet buPROPion (WELLBUTRIN SR) 150 MG 12 hr tablet busPIRone (BUSPAR) 10 MG tablet Continuous Glucose Sensor (DEXCOM G7 SENSOR) MISC doxycycline hyclate (VIBRAMYCIN) 100 MG capsule DULoxetine (CYMBALTA) 30 MG capsule empagliflozin (JARDIANCE) 10 MG TABS tablet gabapentin (NEURONTIN) 600 MG tablet metFORMIN (GLUCOPHAGE-XR) 500 MG 24 hr tablet Multiple Vitamin (MULTIVITAMIN ADULT PO) PARoxetine (PAXIL) 40 MG tablet Semaglutide, 1 MG/DOSE, (OZEMPIC) 4 MG/3ML pen simvastatin (ZOCOR) 40 MG tablet traZODone (DESYREL) 100 MG tablet Vitamin D3 (VITAMIN D, CHOLECALCIFEROL,) 25 mcg (1000 units) tablet Surgical History Past Surgical History: Procedure Laterality Date BIOPSY SENTINEL LYMPH NODE BIOPSY BREAST SURGERY MASTECTOMY CHOLECYSTECTOMY COLONOSCOPY COLPOSCOPY, BIOPSY, COMBINED N/A 09/25/2021 Procedure: COLPOSCOPY OF THE VULVA, VAGINA, AND CERVIX,; Surgeon: Ruby Rivero MD; Location: OR COMBINED REPAIR PTOSIS WITH BLEPHAROPLASTY BILATERAL Bilateral 11/25/2021 Procedure: BILATERAL UPPER LID PTOSIS , BLEPHAROPLASTY; Surgeon: Debby Cunningham MD; Location: OR EXCISE VULVA WIDE LOCAL N/A 09/25/2021 Procedure: WIDE LOCAL EXCISION OF THE right groin; Surgeon: Ruby Rivero MD; Location: OR EYE SURGERY CATARACT BILATERAL GEOSPATIAL INTELLIGENCE ANALYST SURGERY TUBAL LIGATION ORTHOPEDIC SURGERY Right ACL REPAIR REPAIR PTOSIS BROW Bilateral 11/25/2021 Procedure: AND BROW PTOSIS REPAIR; Surgeon: Debby Cunningham MD; Location: OR Physical Exam Patient Vitals for the past 24 hrs: BP Temp Temp src Pulse SpO2 07/12/24 0000 100/68 -- -- 75 95 % 07/11/242244 103/53 -- -- 75 94 % 07/11/240 90/55 -- -- 72 94 % 07/11/242214 95/55 -- -- 72 -- 07/11/242199 98/63 -- -- 76 -- 07/11/242151 -- 98 ??F (36.7 ??C) -- -- -- 07/11/242149 101/62 -- -- 75 -- 07/11/242129 100/60 -- -- 75 -- 07/11/242114 97/64 -- -- 77 -- 07/11/242099 103/66 -- -- 79 92 % 07/11/242044 101/67 -- -- 74 94 % 07/11/242029 96/76 -- -- 79 94 % 07/11/242014 96/63 -- -- 77 94 % 07/11/241999 102/60 -- -- 80 94 % 07/11/24 1800 99/67 -- -- 98 95 % 07/11/24 1745 113/74 -- -- 100 94 % 07/11/24 1730 122/77 -- -- 110 95 % 07/11/24 1714 128/70 -- -- 105 95 % 07/11/241711 -- (!) 103 ??F (39.4 ??C) Oral -- -- Physical Exam VS: Reviewed per above HENT: Mucous membranes moist EYES: sclera anicteric CV: Rate as noted, regular rhythm. RESP: Effort normal. Breath sounds are normal bilaterally. GI: no tenderness/rebound/guarding, not distended. NEURO: Alert, moving all extremities, GCS 14 owing to mild confusion MSK: No deformity of the extremities SKIN: Warm and dry, no rashes Diagnostics Lab Results Labs Ordered and Resulted from Time of ED Arrival to Time of ED Departure ROUTINE UA WITH MICROSCOPIC REFLEX TO CULTURE - Abnormal Result Value Color Urine Light Yellow Appearance Urine Clear Glucose Urine >=1000 (*) Bilirubin Urine Negative Ketones Urine Negative Specific [place] Urine 1.032 Blood Urine Moderate (*) pH Urine 5.5 Protein Albumin Urine 20 (*) Urobilinogen Urine Normal Nitrite Urine Negative Leukocyte Esterase Urine Negative RBC Urine <1 WBC Urine 0 COMPREHENSIVE METABOLIC PANEL - Abnormal Sodium 130 (*) Potassium 4.5 Carbon Dioxide (CO2) 22 Anion Gap 17 (*) Urea Nitrogen 16.6 Creatinine 1.07 (*) GFR Estimate 55 (*) Calcium 9.2 Chloride 91 (*) Glucose 327 (*) Alkaline Phosphatase 100 AST 23 ALT 15 Protein Total 7.5 Albumin 4.1 Bilirubin Total 0.5 CBC WITH PLATELETS AND DIFFERENTIAL - Abnormal WBC Count 13.4 (*) RBC Count 4.75 Hemoglobin 14.7 Hematocrit 43.4 MCV 91 MCH 30.9 MCHC 33.9 RDW 12.3 Platelet Count 200 % Neutrophils 87 % Lymphocytes 6 % Monocytes 6 % Eosinophils 0 % Basophils 0 % Immature Granulocytes 1 NRBCs per 100 WBC 0 Absolute Neutrophils 11.6 (*) Absolute Lymphocytes 0.8 Absolute Monocytes 0.8 Absolute Eosinophils 0.0 Absolute Basophils 0.0 Absolute Immature Granulocytes 0.1 Absolute NRBCs 0.0 ISTAT GASES LACTATE VENOUS POCT - Abnormal Lactic Acid POCT 3.0 (*) Bicarbonate Venous POCT 28 O2 Sat, Venous POCT 65 (*) pCO2 Venous POCT 43 pH Venous POCT 7.43 pO2 Venous POCT 33 ISTAT GASES LACTATE VENOUS POCT - Abnormal Lactic Acid POCT 1.9 Bicarbonate Venous POCT 25 O2 Sat, Venous POCT 64 (*) pCO2 Venous POCT 41 pH Venous POCT 7.40 pO2 Venous POCT 33 GLUCOSE BY METER - Abnormal GLUCOSE BY METER POCT 168 (*) INFLUENZA A/B, RSV, & SARS-COV2 PCR - Normal Influenza A PCR Negative Influenza B PCR Negative RSV PCR Negative SARS CoV2 PCR Negative LACTIC ACID WHOLE BLOOD - Normal Lactic Acid 1.5 GLUCOSE MONITOR NURSING POCT GLUCOSE MONITOR NURSING POCT GLUCOSE MONITOR NURSING POCT GLUCOSE MONITOR NURSING POCT GLUCOSE MONITOR NURSING POCT BLOOD CULTURE Imaging XR Chest 2 Views Final Result IMPRESSION: Heart size is normal. Confluent airspace disease noted in the left lower lobe posteriorly compatible with pneumonia. Clinical correlation and follow-up to resolution recommended. No effusions or pneumothorax. No acute bony abnormalities. Clips in the right upper quadrant are compatible with prior cholecystectomy. Head CT w/o contrast Final Result IMPRESSION: 1. No CT evidence for acute intracranial process. 2. Brain atrophy and presumed chronic microvascular ischemic changes as above. EKG ECG taken at 1813, ECG read at 1814 Normal sinus rhythm No significant changes as compared to prior, dated 09/23/21. Rate 91 bpm. MS interval 128 ms. QRS duration 80 ms. QT/QTc 374/460 ms. P-R-T axes 60 7 48. ED Course Medications Administered Medications sodium chloride (PF) 0.9% PF flush 3 mL (3 mLs Intracatheter $Given 07/11/24 184) sodium chloride (PF) 0.9% PF flush 3 mL (3 mLs Intracatheter $Given 07/12/24 0010) lidocaine 1 % 0.1-1 mL (has no administration in time range) lidocaine (LMX4) cream (has no administration in time range) sodium chloride (PF) 0.9% PF flush 3 mL (3 mLs Intracatheter $Given 07/12/24 001) sodium chloride (PF) 0.9% PF flush 3 mL (has no administration in time range) senna-docusate (SENOKOT-S/PERICOLACE) 8.6-50 MG per tablet 1 tablet (has no administration in time range) Or senna-docusate (SENOKOT-S/PERICOLACE) 8.6-50 MG per tablet 2 tablet (has no administration in time range) calcium carbonate (TUMS) chewable tablet 1,000 mg (has no administration in time range) sodium chloride 0.9 % infusion ( Intravenous $New Bag 07/12/24 001) acetaminophen (TYLENOL) tablet 650 mg (has no administration in time range) Or acetaminophen (TYLENOL) Suppository 650 mg (has no administration in time range) ondansetron (ZOFRAN ODT) ODT tab 4 mg (has no administration in time range) Or ondansetron (ZOFRAN) injection 4 mg (has no administration in time range) cefTRIAXone (ROCEPHIN) 2 g vial to attach to NS 100 ml bag for ADULTS or NS 50 ml bag for PEDS (hasno administration in time range) azithromycin (ZITHROMAX) 500 mg in NS 250 mL intermittent infusion (has no administration in time range) glucose gel 15-30 g (has no administration in time range) Or dextrose 50 % injection 25-50 mL (has no administration in time range) Or glucagon injection 1 mg (has no administration in time range) insulin aspart (NovoLOG) injection (RAPID ACTING) (has no administration in time range) insulin aspart (NovoLOG) injection (RAPID ACTING) ( Subcutaneous Not Given 07/12/24 0014) acetaminophen (TYLENOL) tablet 650 mg (650 mg Oral $Given 07/11/24 1705) piperacillin-tazobactam (ZOSYN) 4.5 g vial to attach to NS 100 mL bag (0 g Intravenous Stopped 07/11/242009) sodium chloride 0.9% BOLUS 1,000 mL (0 mLs Intravenous Stopped 07/11/242238) sodium chloride 0.9% BOLUS 1,000 mL (0 mLs Intravenous Stopped 07/11/242238) azithromycin (ZITHROMAX) 500 mg in NS 250 mL intermittent infusion (0 mg Intravenous Stopped 07/11/242238) Procedures Procedures Medical Decision Making / Diagnosis [facility] Diagnoses: IV Antibiotics given and/or elevated Lactate of 3 and no sepsis note found - Delete this reminder and enter the sepsis note or '.edcms' before signing chart.>>>The patient hassigns of sepsis Sepsis ED evaluation The patient has signs of sepsis as evidenced by: 1. Presence of 2 SIRS criteria, suspected infection, AND 2. Organ dysfunction: Lactic Acidosis with value >2.0 due to infection Time zero: 2027 on 07/11/24 as this was the time when CXR resulted, raising suspicion for bacterialinfection and Lactate was resulted and the level was greater than 2. Note: Due to a national blood culture bottle shortage, reduced blood cultures may have been drawn on this patient. Lactic Acid Results: Recent Labs Lab Test 07/11/24222707/11/24200507/11/24 1852 LACT 1.5 1.9 3.0* 3 Hour Bundle 6 Hour Bundle (Reassessment) Blood Cultures before IV Antibiotics: Yes Antibiotics given: see below Prehospital fluid volume (mL): Total fluids given (ED +Pre-hospital): The patient responded to a lesser volume of IV fluids. The initial volume ordered was 1000 mL. Repeat Lactic Acid Level: Ordered by reflex for 2 hours after initial lactic acid collection. Vasopressors: MAP>65 after initial IVF bolus, will continue to monitor fluid status and vital signs. Repeat perfusion exam: I attest to having performed a repeat sepsis exam and assessment of perfusion at 2046 BMI Readings from Last 1 Encounters: 11/25/21 29.39 kg/m?? Anti-infectives (From admission through now) Start Dose/Rate Route Frequency Ordered Stop 07/11/242039 azithromycin (ZITHROMAX) 500 mg in NS 250 mL intermittent infusion 500 mg over 1 Hours Intravenous ONCE 07/11/24203207/11/24223807/11/241824 piperacillin-tazobactam (ZOSYN) 4.5 g vial to attach to NS 100 mL bag Note to Pharmacy: For [facility], [facility] and [facility]: For Zosyn-naive patients, use the Zosyn initial dose + extended infusion order panel. 4.5 g over 30 Minutes Intravenous ONCE 07/11/24182107/11/242009 and None [facility] Halle Loreto Mayers is a 69 year old female who presents to the ER for evaluation of cough, malaise, fever. On arrival she is febrile. Blood pressures are 90-100 systolic. She is awake and alert with mild confusion. Noncontrast CT head negative. Evaluation notable for signs of severe sepsis with pneumonia. Suspect mild encephalopathy is related to underlying pneumonia. She was given broad- spectrum antibiotics and admitted to hospital service for further cares. At this time, lower suspicion for sinister infectious intra-abdominal pathology or WRAPPING CHECKER infection or skin or soft tissue infection or UTI. Disposition The patient was admitted to the hospital. Diagnosis ICD-10-CM 1. Severe sepsis (H) A41.9 R65.20 2. Pneumonia of left lower lobe due to infectious organism J18.9 Discharge Medications New Prescriptions No medications on file Brody Beckford MD 07/12/24 0030 * Brenda Amador RN - 07/11/2024 4:33 PM CDT Bed: ED37 Expected date: 07/11/24 Expected time: 4:09 PM Means of arrival: Comments: Christi [phone] female documented in this encounter Miscellaneous Notes * Plan of Care - Yuni Snyder RN - 07/13/2024 10:10 AM CDT Goal Outcome Evaluation: Pt A&O, independent for mobility, denied pain, on 100 ml/hr continuing IV fluids, CMS intact, voided adequately, refused breakfast, family present at the bed side, will go home today with oral amoxicillin. BP 118/69 (BP Location: Left arm) Pulse 69 Temp 98.2 ??F (36.8 ??C) (Oral) Resp 16 SpO2 97% Problem: Adult Inpatient Plan of Care Goal: Plan of Care Review Description: The Plan of Care Review/Shift note should be completed every shift. The Outcome Evaluation is a brief statement about your assessment that the patient is improving, declining, or no change. This information will be displayed automatically on your shift note. Outcome: Met Goal: Patient-Specific Goal (Individualized) Description: You can add care plan individualizations to a care plan. Examples of Individualizationmight be: Parent requests to be called daily at 9am for status, I have a hard time hearing out of my right ear, or Do not touch me to wake me up as it startles me. Outcome: Met Goal: Absence of Hospital-Acquired Illness or Injury Outcome: Met Intervention: Identify and Manage Fall Risk Recent Flowsheet Documentation Taken 07/13/2024 1000 by Yuni Snyder RN Safety Promotion/Fall Prevention: safety round/check completed Intervention: Prevent Skin Injury Recent Flowsheet Documentation Taken 07/13/2024 1000 by Yuni Snyder RN Body Position: position changed independently Intervention: Prevent and Manage VTE (Venous Thromboembolism) Risk Recent Flowsheet Documentation Taken 07/13/2024 1000 by Yuni Snyder RN VTE Prevention/Management: SCDs off (sequential compression devices) Intervention: Prevent Infection Recent Flowsheet Documentation Taken 07/13/2024 1000 by Yuni Snyder RN Infection Prevention: single patient room provided Goal: Optimal Comfort and Wellbeing Outcome: Met Goal: Readiness for Transition of Care Outcome: Met Problem: UTI (Urinary Tract Infection) Goal: Improved Infection Symptoms Outcome: Met * Plan of Care - Camryn Hobson RN - 07/13/2024 6:28 AM CDT To Do: End of Shift Summary For vital signs and complete assessments, please see documentation flowsheets. Pertinent assessments: Pt alert, disoriented to place and time. VSS. Denies nausea, pain and SOB. Major Shift Events : none Treatment Plan: RocepjamarnFarooqithro IV and symptom management Bedside Nurse: Camryn Hobson RN Problem: Adult Inpatient Plan of Care Goal: Plan of Care Review Description: The Plan of Care Review/Shift note should be completed every shift. The Outcome Evaluation is a brief statement about your assessment that the patient is improving, declining, or no change. This information will be displayed automatically on your shift note. Outcome: Not Progressing Flowsheets (Taken 07/13/2024 06) Plan of Care Reviewed With: patient Overall Patient Progress: no change Goal: Patient-Specific Goal (Individualized) Description: You can add care plan individualizations to a care plan. Examples of Individualizationmight be: Parent requests to be called daily at 9am for status, I have a hard time hearing out of my right ear, or Do not touch me to wake me up as it startles me. Outcome: Not Progressing Goal: Absence of Hospital-Acquired Illness or Injury Outcome: Not Progressing Intervention: Identify and Manage Fall Risk Recent Flowsheet Documentation Taken 07/12/20242338 by Camryn Hobson RN Safety Promotion/Fall Prevention: activity supervised clutter free environment maintained increase visualization of patient nonskid shoes/slippers when out of bed safety round/check completed room near nurse's station Intervention: Prevent Skin Injury Recent Flowsheet Documentation Taken 07/12/20242338 by Camryn Hobson RN Body Position: position changed independently Intervention: Prevent and Manage VTE (Venous Thromboembolism) Risk Recent Flowsheet Documentation Taken 07/12/20242338 by Camryn Hobson RN VTE Prevention/Management: SCDs off (sequential compression devices) Goal: Optimal Comfort and Wellbeing Outcome: Not Progressing Goal: Readiness for Transition of Care Outcome: Not Progressing Problem: UTI (Urinary Tract Infection) Goal: Improved Infection Symptoms Outcome: Not Progressing Goal Outcome Evaluation: Plan of Care Reviewed With: patient Overall Patient Progress: no changeOverall Patient Progress: no change * Plan of Care - Sierra Goodman RN - 07/12/2024 10:36 PM CDT End of Shift Summary For vital signs and complete assessments, please see documentation flowsheets. Pertinent assessments: pt disoriented to time and place. VSS, on RA. Complained of headache, prn tylenol given. Up SBA . PIV running NS. Major Shift Events: Admitted to unit. Treatment Plan: IVF, IV ABX. Bedside Nurse: Sierra Goodman RN Problem: Adult Inpatient Plan of Care Goal: Plan of Care Review Description: The Plan of Care Review/Shift note should be completed every shift. The Outcome Evaluation is a brief statement about your assessment that the patient is improving, declining, or no change. This information will be displayed automatically on your shift note. Outcome: Not Progressing Flowsheets (Taken 07/12/2024 2236) Outcome Evaluation: prn tylenol given for headache Plan of Care Reviewed With: patient Overall Patient Progress: no change Goal: Patient-Specific Goal (Individualized) Description: You can add care plan individualizations to a care plan. Examples of Individualizationmight be: Parent requests to be called daily at 9am for status, I have a hard time hearing out of my right ear, or Do not touch me to wake me up as it startles me. Outcome: Not Progressing Goal: Absence of Hospital-Acquired Illness or Injury Outcome: Not Progressing Intervention: Identify and Manage Fall Risk Recent Flowsheet Documentation Taken 07/12/2024 1700 by Sierra Goodman RN Safety Promotion/Fall Prevention: supervised activity safety round/check completed room organization consistent room near nurse's station patient and family education nonskid shoes/slippers when out of bed lighting adjusted increase visualization of patient increased rounding and observation clutter free environment maintained Intervention: Prevent Skin Injury Recent Flowsheet Documentation Taken 07/12/2024 1659 by Sierra Goodman RN Body Position: position changed independently Intervention: Prevent and Manage VTE (Venous Thromboembolism) Risk Recent Flowsheet Documentation Taken 07/12/2024 1700 by Babul, Sierra A, RN VTE Prevention/Management: SCDs off (sequential compression devices) Intervention: Prevent Infection Recent Flowsheet Documentation Taken 07/12/2024 1700 by Sierra Goodman RN Infection Prevention: single patient room provided Goal: Optimal Comfort and Wellbeing Outcome: Not Progressing Goal: Readiness for Transition of Care Outcome: Not Progressing Problem: UTI (Urinary Tract Infection) Goal: Improved Infection Symptoms Outcome: Not Progressing Goal Outcome Evaluation: Plan of Care Reviewed With: patient Overall Patient Progress: no changeOverall Patient Progress: no change Outcome Evaluation: prn tylenol given for headache * Pharmacy-Admission Medication History - Riley Rick RPH - 07/11/2024 10:40 PM CDT Pharmacist Admission Medication History Admission medication history is complete. The information provided in this note is only as accurateas the sources available at the time of the update. 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 Past Week busPIRone (BUSPAR) 10 MG tablet Take 10 mg by mouth 2 times daily. Past Week Continuous Glucose Sensor (DEXCOM G7 SENSOR) MISC Change every 10 days. doxycycline hyclate (VIBRAMYCIN) 100 MG capsule Take 100 mg by mouth 2 times daily. 07/11/2024: Prescribed 07/10/24, has not started yet DULoxetine (CYMBALTA) 30 MG capsule Take 30 mg by mouth daily. 07/11/2024: Prescribed 07/10/24, hasnot started yet empagliflozin (JARDIANCE) 10 MG TABS tablet Take 10 mg by mouth daily. Past Week at AM gabapentin (NEURONTIN) 600 MG tablet Take 600 mg by mouth at bedtime. Past Week at PM metFORMIN (GLUCOPHAGE-XR) 500 MG 24 hr tablet Take 1,000 mg by mouth 2 times daily (with meals). Past Week Multiple Vitamin (MULTIVITAMIN ADULT PO) Take 1 tablet by mouth daily Past Week at AM PARoxetine (PAXIL) 40 MG tablet Take 40 mg by mouth daily. Past Week at AM Semaglutide, 1 MG/DOSE, (OZEMPIC) 4 MG/3ML pen Inject 1 mg subcutaneously every 7 days. 07/09/2024 simvastatin (ZOCOR) 40 MG tablet Take 40 mg by mouth At Bedtime traZODone (DESYREL) 100 MG tablet Take 200 mg by mouth at bedtime. Past Week at HS Vitamin D3 (VITAMIN D, CHOLECALCIFEROL,) 25 mcg (1000 units) tablet Take 1 tablet by mouth daily. Past Week at AM documented in this encounter Plan of Treatment Not on file documented as of this encounter Procedures Procedure Name Priority Date/Time Associated Diagnosis [...] BY METER STAT 07/12/2024 9:27 AM CDT LACTIC ACID WHOLE BLOOD STAT 07/12/2024 8:53 AM CDT BASIC METABOLIC PANEL STAT 07/12/2024 8:53 AM CDT CBC WITH PLATELETS STAT 07/12/2024 8: 53 AM CDT GLUCOSE BY METER STAT 07/12/2024 [...] SARS-COV2 PCR STAT 07/11/2024 5:19 PM CDT EXTRA TUBE STAT 07/11/2024 5:09 PM CDT EXTRA PURPLE TOP TUBE STAT 07/11/2024 5:09 PM CDT EXTRA GREEN TOP (LITHIUM HEPARIN) TUBE STAT 07/11/2024 5:09 PM CDT EXTRA RED TOP TUBE STAT 07/11/2024 5: 09 PM CDT EXTRA BLUE TOP TUBE STAT 07/11/2024 5 :09 PM CDT CBC WITH PLATELETS AND DIFFERENTIAL STAT 07/11/2024 5:09 PM CDT CBC WITH PLATELETS & DIFFERENTIAL STAT 07/11/2024 5:09 PM CDT COMPREHENSIVE METABOLIC PANEL STAT 07/11/2024 5:09 PM CDT documented in this encounter Results * (ABNORMAL) Glucose by meter (07/13/2024 8:23 AM CDT) GLUCOSE BY METER POCT 120(H) 70 - 99 mg/dL 07/13/2024 8:30 AM CDT LABORATORY POC Blood, Capillary BLOOD SPECIMEN / Unknown 07/13/2024 8:23 AM CDT 07/13/2024 8:30 AM CDT us Amanuel Cherry MD LAB - BEAKER POCT Final Result LABORATORY [facility] Acute Care Lab [address] Lab (1st floor, no room number) [place] [address] * Extra Purple Top EDTA (LAB USE ONLY) (07/13/2024 6:03 AM CDT) Pathologist [facility] Hold Specimen JIC 07/13/2024 7:16 AM CDT LABORATORY Blood STRUCTURE OF RIGHT HAND / Unknown Venipuncture / Unknown 07/13/2024 6:03 AM CDT 07/13/2024 6:15 AM CDT us Rohit Lerma [facility] LAB - BLOOD ORDERABLES F inal Result LABORATORY [facility] Care Lab [address] Lab (1st floor, no room number) [address] * Lactic acid whole blood (07/13/2024 6:03 AM CDT) Lactic Acid 1.4 0.7 - 2.0 mmol/L 07/13/2024 6:22 AM CDT LABORATORY Blood STRUCTURE OF RIGHT HAND / Unknown Venipuncture / Unknown 07/13/2024 6:03 AM CDT 07/13/2024 6:15 AM CDT us Allan Mathews MD LAB - BLOOD ORDERABLES Fi nal Result Performing Organization Address City/[facility]/ZIP Co de Phone Number LABORATORY [facility] Lab [address] Lab (1st floor, no room number) [place] [address] [place] [address] * (ABNORMAL) Glucose by meter (07/13/2024 2:05 AM CDT) GLUCOSE BY METER POCT 113(H) 70 - 99 mg/dL 07/13/2024 2:12 AM CDT LABORATORY POC Blood, Capillary BLOOD SPECIMEN / Unknown 07/13/2024 2:05 AM CDT 07/13/2024 2:12 AM CDT us Amanuel Cherry MD LAB - BEAKER POCT Final Result LABORATORY POC [facility] Lab [address] Lab (1st floor, no room number) [address] [place] [address] * (ABNORMAL) Glucose by meter (07/12/2024 10:37 PM CDT) GLUCOSE BY METER POCT 125(H) 70 - 99 mg/dL 07/12/2024 10:43 PM CDT LABORATORY POC Blood, Capillary BLOOD SPECIMEN / Unknown 07/12/2024 10:37 PM CDT 07/12/2024 10:43 PM CDT Amanuel Cherry MD LAB - BEAKER POCT Final Result Performing Organization Address City/[facility]/ZIP Co de Phone Number LABORATORY [facility] Lab [address] Lab (1st floor, no room number) [place] [address], [facility] * Lactic acid whole blood (07/12/2024 8:58 PM CDT) Lactic Acid 0.9 0.7 - 2.0 mmol/L 07/12/2024 9:04 PM CDT LABORATORY Blood STRUCTURE OF LEFT HAND / Unknown Venipuncture / Unknown 07/12/2024 8:58 PM CDT 07/12/2024 9:02 PM CDT us Allan Mathews MD LAB - BLOOD ORDERABLES Fi nal Result Performing Organization Address City/[facility]/ZIP Co de Phone Number [facility] Lab [address] Lab (1st floor, no room number) [place] [address], [facility] * (ABNORMAL) Glucose by meter (07/12/2024 4:46 PM CDT) GLUCOSE BY METER POCT 107(H) 70 - 99 mg/dL 07/12/2024 4:53 PM CDT LABORATORY POC Blood, Capillary BLOOD SPECIMEN / Unknown 07/12/2024 4:46 PM CDT 07/12/2024 4:53 PM CDT us Amanuel SCRUGGS - BEAKER POCT Final Result LABORATORY [facility] Lab [address] Lab (1st floor, no room number) [place] [address], [facility] * (ABNORMAL) Glucose by meter (07/12/2024 11:36 AM CDT) GLUCOSE BY METER POCT 105(H) 70 - 99 mg/dL 07/12/2024 11:44 AM CDT [facility] LABORATORY POC Blood, Capillary BLOOD SPECIMEN / Unknown 07/12/2024 11:36 AM CDT 07/12/2024 11:44 AM CDT Amanuel Chrery MD LAB - BEAKER POCT Final Result LABORATORY [facility] Lab [address] Lab (1st floor, no room number) [place] [address] * (ABNORMAL) Glucose by meter (07/12/2024 9:27 AM CDT) GLUCOSE BY METER POCT 117(H) 70 - 99 mg/dL 07/12/2024 9:34 AM CDT LABORATORY POC Blood, Capillary BLOOD SPECIMEN / Unknown 07/12/2024 9:27 AM CDT 07/12/2024 9:34 AM CDT Amanuel Cherry MD LAB - BEAKER POCT Final Result Performing Organization Address City/[facility]/ZIP Co de Phone Number LABORATORY [facility] Lab [address] Lab (1st floor, no room number) [place] [address] * Lactic acid whole blood (07/12/2024 8:53 AM CDT) Lactic Acid 1.1 0.7 - 2.0 mmol/L 07/12/2024 9:06 AM CDT LABORATORY Blood STRUCTURE OF RIGHT HAND / Unknown Venipuncture / Unknown 07/12/2024 8:53 AM CDT 07/12/2024 8:58 AM CDT Brody Beckford MD LAB - BLOOD ORDERABLES Final Result [facility] Lab [address] Lab (1st floor, no room number) [place] [address] * (ABNORMAL) CBC with platelets (07/12/2024 8:53 [...] - BLOOD ORDERABLES Final Result RH LABORATORY [facility] Acute [facility] Lab [address] Lab (1st floor, no room number) [place] [address], [facility] * (ABNORMAL) Basic metabolic panel (07/12/2024 8:53 AM CDT) Pathologist [facility] Sodium 137 135 - 145 mmol/L 07/12/2024 9:25 AM CDT RH LABORATORY Potassium 4.5 3.4 - 5.3 mmol/L 07/12/2024 9:25 AM CDT RH LABORATORY Chloride 104 98 - 107 mmol/L [...] LAB - BLOOD ORDERABLES Final Result LABORATORY [facility] Acute [facility] Lab [address] Lab (1st floor, no room number) [place] [address], [facility] * (ABNORMAL) Glucose by meter (07/12/2024 12:06 AM CDT) [facility] GLUCOSE BY METER POCT 168(H) 70 - 99 mg/dL 07/12/2024 12:13 AM CDT LABORATORY POC Blood, Capillary BLOOD SPECIMEN / Unknown 07/12/2024 12:06 AM CDT 07/12/2024 12:13 AM CDT us Amanuel Cherry MD LAB - BEAKER POCT Final Result LABORATORY [facility] Care Lab [address] Lab (1st floor, no room number) [place] [address], [facility] * Lactic acid whole blood (07/11/2024 10:28 PM CDT) Lactic Acid 1.5 0.7 - 2.0 mmol/L 07/11/2024 10:41 PM CDT LABORATORY Blood BLOOD SPECIMEN / Unknown Venipuncture / Unknown 07/11/2024 10:28 PM CDT 07/11/2024 10:38 PM CDT us Brody Beckford MD LAB - BLOOD ORDERABLES Final Result Performing Organization Address City/[facility]/ZIP Co de Phone Number LABORATORY [facility] Lab [address] Lab (1st floor, no room number) [place] [address], [facility] * (ABNORMAL) UA with Microscopic reflex [...] mg/dL 07/11/2024 8:47 PM CDT LABORATORY Specific [place] Urine 1.032 1.003 - 1.035 07/11/2024 8:47 [...] LAB - URINE ORDERABLES Final Result LABORATORY [facility] Lab [address] Lab (1st floor, no room number) [place] [address] * (ABNORMAL) iStat Gases (lactate) venous, POCT (07/11/2024 8:06 PM CDT) Lactic Acid POCT 1.9 <=2.0 mmol/L 07/11/2024 [...] 07/11/2024 8:08 PM CDT Brody Beckford MD LAB - BEAKER POCT Final Resul t LABORATORY [facility] Acute Care Lab [address] Lab (1st floor, no room number) [place] [address], [facility] * XR Chest 2 Views (07/11/2024 [...] CDT EXAM: XR CHEST 2 VIEWS LOCATION: [facility] DATE: 07/11/2024 INDICATION: Fever COMPARISON: None. Procedure Note Hira Casey MD - 07/11/2024 EXAM: XR CHEST 2 VIEWS LOCATION: [facility] DATE: 07/11/2024 INDICATION: Fever COMPARISON: None. IMPRESSION: Heart size is normal. Confluent airspace disease noted in theleft lower lobe posteriorly compatible with pneumonia. Clinicalcorrelation and follow-up to resolution recommended. No effusions orpneumothorax. No acute bony abnormalities. Clips in the right upper quadrant are compatible with priorcholecystectomy. Brody Beckford MD IMG DIAGNOSTIC IMAGING ORDERA [...] CDT EXAM: CT HEAD W/O CONTRAST LOCATION: [facility] DATE: 07/11/2024 INDICATION: Confusion. COMPARISON: None. TECHNIQUE: [...] 07/11/2024 EXAM: CT HEAD W/O CONTRAST LOCATION: [facility] DATE: 07/11/2024 INDICATION: Confusion. COMPARISON: None. TECHNIQUE: [...] microvascular ischemic changes asabove. Brody Beckford MD IM CT ORDERABLES Final Resul t * (ABNORMAL) iStat Gases (lactate) venous, POCT (07/11/2024 6:52 PM CDT) Lactic Acid POCT 3.0(H) <=2.0 mmol/L 07/11/2024 6:55 PM CDT RH LABORATORY POC Bicarbonate Venous POCT 28 21 - 28 mmol/L 07/11/2024 6:55 PM CDT RH LABORATORY POC O2 Sat, Venous POCT 65(L) 70 - 75 % 07/11/2024 6:55 PM CDT RH LABORATORY POC pCO2 Venous POCT 43 40 - 50 mm Hg 07/11/2024 6:55 PM CDT RH LABORATORY POC pH Venous POCT 7.43 7.32 - 7.43 07/11/2024 6:55 PM CDT RH LABORATORY POC pO2 Venous POCT 33 25 - 47 mm Hg 07/11/2024 6:55 PM CDT RH LABORATORY POC Blood, venous BLOOD SPECIMEN / Unknown 07/11/2024 6:52 PM CDT 07/11/2024 6:55 PM CDT us Brody Beckford MD LAB - BEAKER POCT Final Resul t RH LABORATORY POC [facility] Lab [address] Lab (1st floor, no room number) [place] [address] * Blood Culture Peripheral Blood (07/11/2024 6:31 PM CDT) Culture No Growth 07/16/2024 8:31 PM CDT [facility] LABORATORY Blood BLOOD SPECIMEN / Unknown Venipuncture / Unknown 07/11/2024 6:31 PM CDT 07/11/2024 6:52 PM CDT us Brody Beckford MD LAB - MICRO GENERAL ORDERABLE S Final Result [facility] LABORATORY [facility] Inf. Diseases Diag. Lab [address] [place] [address] * EKG 12 lead (07/11/2024 6:14 PM CDT) Systolic Blood Pressure mmHg RADIOLOGY RESULTS Diastolic Blood Pressure mmHg RADIOLOGY RESULTS Ventricular Rate 91 BPM RAD IOLOGY RESULTS Atrial Rate 91 BPM RADIOLOG Y RESULTS MS Interval 128 ms RADIOLOG Y RESULTS QRS Duration 80 ms RADIOLO GY RESULTS QT 374 ms RADIOLOGY RESULTS QTc 460 ms RADIOLOGY RESULTS P [place] 60 degrees RADIOLOGY RESULTS R AXIS 7 degrees RADIOLOGY RESULTS T [place] 48 degrees RADIOLOGY RESULTS Interpretation ECG Sinus rhythm Normal ECG No previous ECGs available Confirmed by HEIFETZ, MD, ADRIANA ([id number]) on 07/13/2024 4:48:22 PM RADIOLOGY RESULTS [...] the Xpert Xpress CoV2/Flu/RSV Assay on the [employer] GeneXpert Instrument. This test should be ordered [...] management. This test was validated by the [facility] [employer]. These laboratories are certified under the Clinical Laboratory Improvement Amendments of 1988 (CLIA-88) as qualified to perfom high complexity laboratory testing. us Brody Beckford MD LAB - MICRO GENERAL ORDERABLE S Final Result RH LABORATORY [facility] Lab [address] Lab (1st floor, no room number) [place] [address], [facility] * (ABNORMAL) CBC with platelets and differential [...] NRBCs per 100 WBC 0 <1 /100 10/15/2 024 6:38 PM CDT RH LABORATORY Absolute Neutrophils 11.6(H) 1.6 - 8.3 10e3/uL 07/11/2024 6:38 PM CDT [facility] LABORATORY Absolute Lymphocytes 0.8 0.8 - 5.3 10e3/uL 07/11/2024 6:38 PM CDT [facility] LABORATORY Absolute Monocytes 0.8 0.0 - 1.3 10e3/uL 07/11/2024 6:38 PM CDT LABORATORY Absolute Eosinophils 0.0 0.0 - 0.7 10e3/uL 07/11/2024 6:38 PM CDT RH LABORATORY Absolute Basophils 0.0 0.0 - 0.2 10e3/uL 07/11/2024 6:38 PM CDT RH LABORATORY Absolute Immature Granulocytes 0.1 <=0.4 10e3/uL 07/11/2024 6:38 PM CDT RH LABORATORY Absolute NRBCs 0.0 10e3/uL 07/11/2024 6:38 PM CDT LABORATORY Blood BLOOD SPECIMEN / Unknown Venipuncture / Unknown 07/11/2024 5:09 PM CDT 07/11/2024 5:20 PM CDT us Brody Beckford MD LAB - BLOOD ORDERABLES Final Result LABORATORY [facility] [address] [facility] Lab (1st floor, no room number) [place] [address], [facility] * (ABNORMAL) Comprehensive metabolic panel (07/11/2024 [...] LAB - BLOOD ORDERABLES Final Result LABORATORY [facility] [address] Lab (1st floor, no room number) [place] [address], [facility] * Extra Purple Top Tube (07/11/2024 5:09 PM CDT) Hold Specimen [facility] 07/11/2024 6:31 PM CDT RH LABORATORY Blood BLOOD SPECIMEN / Unknown Venipuncture / Unknown 07/11/2024 5:09 PM CDT 07/11/2024 5:20 PM CDT Brody Beckford MD LAB - BLOOD ORDERABLES Final Result [facility] [address] Lab (1st floor, no room number) [place] [address] * Extra Green Top ([place] Heparin) Tube (07/11/2024 5:09 PM CDT) Hold Specimen [facility] 07/11/2024 6:31 PM CDT RH LABORATORY Blood BLOOD SPECIMEN / Unknown Venipuncture / Unknown 07/11/2024 5:09 PM CDT 07/11/2024 5:20 PM CDT us Brody Beckford MD LAB - BLOOD ORDERABLES Final Result [facility] [address] Lab (1st floor, no room number) [place] [address], [facility] * Extra Red Top Tube (07/11/2024 5:09 PM CDT) Hold Specimen [facility] 07/11/2024 6:31 PM CDT RH LABORATORY Blood BLOOD SPECIMEN / Unknown Venipuncture / Unknown 07/11/2024 5:09 PM CDT 07/11/2024 5:20 PM CDT us Brody Beckford MD LAB - BLOOD ORDERABLES Final Result [facility] [address] Lab (1st floor, no room number) [place] [address], [facility] * Extra Blue Top Tube (07/11/2024 5:09 PM CDT) Hold Specimen [facility] 07/11/2024 6:31 PM CDT LABORATORY Blood BLOOD SPECIMEN / Unknown Venipuncture / Unknown 07/11/2024 5:09 PM CDT 07/11/2024 5:20 PM CDT Brody Beckford MD LAB - BLOOD ORDERABLES Final Result LABORATORY [facility] [address] Lab (1st floor, no room number) [place] [address], [facility] documented in this encounter Visit Diagnoses Diagnosis Severe sepsis (H) Pneumonia of left lower lobe due to infectious organism Severe sepsis (H) Pneumonia of left lower lobe due to infectious organism documented in this encounter Administered Medications Inactive Administered Medications - up to 3 most recent administrations Medication Order MAR Action Action Date Dose Rate Site acetaminophen (TYLENOL) Suppository 650 mg 650 mg, Rectal, EVERY 4 HOURS PRN, mild pain, other, and adjunct with moderate or severe pain or per patient request, Starting on Wed07/11/24 at 2354, Alternate with ibuprofen if ordered. Maximum acetaminophen dose from all sources = 75 mg/kg/day not to exceed 4 grams/day. acetaminophen (TYLENOL) tablet 650 mg 650 mg, Oral, ONCE, On Wed07/11/24 at 1705, For 1 dose, Maximum acetaminophen dose from all sources = 75 mg/kg/day not to exceed 4 grams/day. $Given 07/11/2024 5:05 PM CDT 650 mg acetaminophen (TYLENOL) tablet 650 mg 650 mg, Oral, EVERY 4 HOURS PRN, mild pain, other, and adjunct with moderate or severe pain or per patient request, Starting on Wed07/11/24 at 2354, Alternate with ibuprofen if ordered. Maximum acetaminophen dose from all sources = 75 mg/kg/day not to exceed 4 grams/day. $Given 07/12/2024 9:09 PM CDT 650 mg ARIPiprazole (ABILIFY) tablet 5 mg 5 mg, Oral, DAILY, First dose on Wed07/12/24 at 1345 $Given 07/13/2024 8:05 AM CDT 5 mg $Given 07/12/2024 4:08 PM CDT 5 mg azithromycin (ZITHROMAX) 500 mg in NS 250 mL intermittent infusion STAT, 500 mg, Intravenous, ONCE, On Wed07/11/24 at 2040, For 1 dose, Indications: Community Acquired PneumoniaIndications:Community Acquired Pneumonia $New Bag 07/11/2024 8:47 PM CDT 500 mg azithromycin (ZITHROMAX) 500 mg in NS 250 mL intermittent infusion Routine, 500 mg, Intravenous, EVERY 24 HOURS, First dose on Wed07/12/24 at 0800, Indications: Community Acquired PneumoniaIndications:Community Acquired Pneumonia $New Bag 07/13/2024 8:24 AM CDT 500 mg $New Bag 07/12/2024 9:06 AM CDT 500 mg buPROPion (WELLBUTRIN SR) 12 hr tablet 150 mg 150 mg, Oral, 2 TIMES DAILY, First dose on Wed07/12/24 at 1999, DO NOT CRUSH. $Given 07/13/2024 8:06 AM CDT 150 mg $Given 07/12/2024 9:11 PM CDT 150 mg busPIRone (BUSPAR) tablet 10 mg 10 mg, Oral, 2 TIMES DAILY, First dose on Wed07/12/24 at 2000 $Given 07/13/2024 8:05 AM CDT 10 mg $Given 07/12/2024 9:10 PM CDT 10 mg cefTRIAXone (ROCEPHIN) 2 g vial to attach to NS 100 ml bag for ADULTS or NS 50 ml bag for PEDS Routine, 2 g, Intravenous, EVERY 24 HOURS, First dose on Wed07/12/24 at 0800, Indications: Community Acquired PneumoniaIndications:Community Acquired Pneumonia $New Bag 07/13/2024 8:04 AM CDT 2 g $New Bag 07/12/2024 8:31 AM CDT 2 g dextrose 50 % injection 25-50 mL 25-50 mL, Intravenous, EVERY 15 MIN PRN, low blood sugar, Administer over 1-5 Minutes, Starting on Wed07/11/24 at 2354, Use if have IV access, BG less than 70 mg/dL and meet dose criteria below: Dose if conscious and alert (or disorientated) and NPO = 25 mL Dose if unconscious / not alert = 50 mL Give first dose for initial blood glucose less than 70 mg/dL. If blood glucose at 15 minute recheck is less than or equal to 80 mg/dL continue to administer carbohydrate treatment every 15 minutes, as needed, based on blood glucose and assessment parameters until blood glucose level is above 80 mg/dL x 2 consecutive 15 minute checks. DULoxetine (CYMBALTA) DR capsule 30 mg 30 mg, Oral, DAILY, First dose on Wed07/12/24 at 1345 $Given 07/13/2024 8:05 AM CDT 30 mg $Given 07/12/2024 9:10 PM CDT 30 mg gabapentin (NEURONTIN) tablet 600 mg 600 mg, Oral, AT BEDTIME, First dose on Wed07/12/24 at 2200 $Given 07/12/2024 9:09 PM CDT 600 mg glucagon injection 1 mg 1 mg, Subcutaneous, EVERY 15 MIN PRN, low blood sugar, May repeat x 1 only, Starting on Wed07/11/24 at 2354, May give SQ or IM. ONLY use glucagon IF patient has NO IV access AND is UNABLE to swallow AND blood glucose is LESS than or EQUAL to 50 mg/dL. glucose gel 15-30 g 15-30 g, Oral, EVERY 15 MIN PRN, low blood sugar, Starting on Wed07/11/24 at 2354, Give first dose for initial blood glucose less than 70 mg/dL per the dosing instructions below. If blood glucose at 15 minute rechecks is still less than or equal to 80 mg/dL, continue to administer doses per blood glucose parameters every 15 minutes, as needed, until blood glucose level is at or above 80 mg/dL x 2 consecutive 15 minute checks. Dosing Instructions: ~If patient is conscious and able to swallow and NO enteral tube For initial BG 51-69mg/dL OR 15 minute recheck BG 51- 80 mg/dL - give 15 g For BG less than or equal to 50 mg/dL - give 30 g ~ If Enteral tube For initial BG 51-69mg/dL OR 15 minute recheck BG 51- 80 mg/dL - give apple juice 120 mL (4 oz or 15 g of CHO) via enteral tube For BG less than or equal to 50 mg/dL - Give apple juice 240 mL (8 oz or 30 g of CHO) via enteral tube ~Oral gel is preferable for conscious and able to swallow patient. ~IF gel unavailable or patient refuses may provide apple juice per Enteral tube dosing instructions. Document juice on I and O flowsheet. multivitamin w/minerals (THERA-VIT-M) tablet 1 tablet 1 tablet, Oral, DAILY, First dose on Wed07/12/24 at 1345 $Given 07/13/2024 8:05 AM CDT 1 tablet $Given 07/12/2024 4:09 PM CDT 1 tablet ondansetron (ZOFRAN ODT) ODT tab 4 mg 4 mg, Oral, EVERY 6 HOURS PRN, nausea, vomiting, Starting on Wed07/11/24 at 2354, This is Step 1 of nausea and vomiting management. If nausea not resolved in 15 minutes, go to Step 2 prochlorperazine (COMPAZINE). With dry hands, peel back foil backing and gently remove tablet. Do not push oral disintegrating tablet through foil backing. Administer immediately on tongue and oral disintegrating tablet dissolves in seconds, then swallow with saliva. Liquid not required. ondansetron (ZOFRAN) injection 4 mg 4 mg, Intravenous, EVERY 6 HOURS PRN, nausea, vomiting, Administer over 2-5 Minutes, Starting on Wed07/11/24 at 2354, Give IF patient unable to tolerate oral medication. This is Step 1 of nausea and vomiting management. If nausea not resolved in 15 minutes, go to Step 2 prochlorperazine (COMPAZINE). PARoxetine (PAXIL) tablet 40 mg 40 mg, Oral, DAILY, First dose on Wed07/12/24 at 1345 $Given 07/13/2024 8:06 AM CDT 40 mg $Given 07/12/2024 4:09 PM CDT 40 mg piperacillin-tazobactam (ZOSYN) 4.5 g vial to attach to NS 100 mL bag STAT, 4.5 g, Intravenous, ONCE, On Wed07/11/24 at 1825, For 1 dose, First dose STAT and to be started in the unit ordered (ED) PRIOR to transfer or admission. Lactated Ringer's solution is not compatible with piperacillin-tazobactam for injection., Indications: SepsisIndications:Sepsis $New Bag 07/11/2024 6:42 PM CDT 4.5 g senna-docusate (SENOKOT-S/PERICOLACE) 8.6-50 MG per tablet 1 tablet 1 tablet, Oral, 2 TIMES DAILY PRN, constipation, Starting on Wed07/11/24 at 2354, If no bowel movement in 24 hours, increase to 2 tablets by mouth. IF more than 1 constipation PRN medication is ordered, administer step-dunn as indicated, moving to the next step ONLY if prior step ineffective. Step 1: senna-docusate (SENOKOT-S; PERICOLACE) OR bisacodyl (DULCOLAX) EC tablet Step 2: polyethylene glycol (MIRALAX/GLYCOLAX) Step 3: bisacodyl (DULCOLAX) suppository Step 4: enema Hold for loose stools. senna-docusate (SENOKOT-S/PERICOLACE) 8.6-50 MG per tablet 2 tablet 2 tablet, Oral, 2 TIMES DAILY PRN, constipation, Starting on Wed07/11/24 at 2354, IF more than 1 constipation PRN medication is ordered, administer step-dunn as indicated, moving to the next step ONLY if prior step ineffective. Step 1: senna-docusate (SENOKOT-S; PERICOLACE) OR bisacodyl (DULCOLAX) EC tablet Step 2: polyethylene glycol (MIRALAX/GLYCOLAX) Step 3: bisacodyl (DULCOLAX) suppository Step 4: enema Hold for loose stools. simvastatin (ZOCOR) tablet 40 mg 40 mg, Oral, AT BEDTIME, First dose on Wed07/12/24 at 2200 $Given 07/12/2024 9:09 PM CDT 40 mg sodium chloride (PF) 0.9% PF flush 3 mL 3 mL, Intracatheter, EVERY 1 MIN PRN, line flush, for peripheral IV flush post IV meds or to ensure patency., Starting on Wed07/11/24 at 1817 $Given 07/11/2024 6:43 PM CDT 3 mLs sodium chloride (PF) 0.9% PF flush 3 mL 3 mL, Intracatheter, EVERY 8 HOURS, First dose on Wed07/11/24 at 1825, And PRN, to lock peripheral IV dormant line. $Given 07/12/2024 12:10 AM CDT 3 mLs sodium chloride (PF) 0.9% PF flush 3 mL 3 mL, Intracatheter, EVERY 8 HOURS, First dose on Wed07/11/24 at 2355, to lock peripheral IV dormant line $Given 07/12/2024 12:11 AM CDT 3 mLs sodium chloride 0.9 % infusion at 100 mL/hr, Intravenous, CONTINUOUS, Starting on Wed07/11/24 at 2355, Until Samina 07/13/24 at 1258 Rate/Dose Verify 07/13/2024 10:00 AM CDT 100 mL/hr $New Bag 07/13/2024 6:58 AM CDT 100 mL/hr Rate/Dose Verify 07/12/2024 11:39 PM CDT 100 mL /hr sodium chloride 0.9% BOLUS 1,000 mL Intravenous, 1,000 mL, ONCE, at 1,000 mL/hr, Administer over 1 Hours, On Wed07/11/24 at 1825, For 1 dose $New Bag 07/11/2024 6:43 PM CDT 1,000 mLs 1000 mL/hr sodium chloride 0.9% BOLUS 1,000 mL Intravenous, 1,000 mL, ONCE, at 1,000 mL/hr, Administer over 1 Hours, On Wed07/11/24 at 2025, For 1 dose $New Bag 07/11/2024 8:51 PM CDT 1,000 mLs 1000 mL/hr traZODone (DESYREL) tablet 200 mg 200 mg, Oral, AT BEDTIME, First dose on Wed07/12/24 at 2200 $Given 07/12/2024 9:09 PM CDT 200 mg Vitamin D3 (CHOLECALCIFEROL) tablet 25 mcg 25 mcg, Oral, DAILY, First dose on Wed07/12/24 at 1345, Note: 25 mcg = 1000 units $Given 07/13/2024 8:05 AM CDT 25 mcg $Given 07/12/2024 4:09 PM CDT 25 mcg documented in this encounter Active and Recently Administered Medications Times are shown in CDT. Scheduled Medication Order 07/11/2024 07/12/2024 07/13/2024 acetaminophen (TYLENOL) tablet 650 mg (COMPLETED) 650 mg, Oral, ONCE, On Wed07/11/24 at 1705, For 1 dose, Maximum acetaminophen dose from all sources = 75 mg/kg/day not to exceed 4 grams/day. 1705 ($Given - Provider: Sukhdeep Navarro RN) ARIPiprazole (ABILIFY) tablet 5 mg 5 mg, Oral, DAILY, First dose on Wed07/12/24 at 1345 1608 ($Given - Provider: Sierra Goodman RN - Comment: pt came up from ED) 0805 ($Given - Provider: Yuni Cano RN) azithromycin (ZITHROMAX) 500 mg in NS 250 mL intermittent infusion (COMPLETED) STAT, 500 mg, Intravenous, ONCE, On Wed07/11/24 at 2040, For 1 dose, Indications: Community Acquired Pneumonia 2046 ($New Bag - Provider: Laina Ace RN)223 (Stopped - Provider: Sukhdeep Navarro RN) azithromycin (ZITHROMAX) 500 mg in NS 250 mL intermittent infusion Routine, 500 mg, Intravenous, EVERY 24 HOURS, First dose on Wed07/12/24 at 0800, Indications: Community Acquired Pneumonia 0906 ($New Bag - Provider: Annie Heredia RN)1010 (Stopped - Provider: Sandra Holman RN) 0824 ($New Bag - Provider: Yuni Cano RN) buPROPion (WELLBUTRIN SR) 12 hr tablet 150 mg 150 mg, Oral, 2 TIMES DAILY, First dose on Wed07/12/24 at 1999, DO NOT CRUSH. 2111 ($Given - Provider: Sierra Goodman RN) 0806 ($Given - Provider: Yuni Cano RN) busPIRone (BUSPAR) tablet 10 mg 10 mg, Oral, 2 TIMES DAILY, First dose on Wed07/12/24 at 1999 2110 ($Given - Provider: Sierra Goodman RN) 0805 ($Given - Provider: Yuni Cano RN) cefTRIAXone (ROCEPHIN) 2 g vial to attach to NS 100 ml bag for ADULTS or NS 50 ml bag for PEDS Routine, 2 g, Intravenous, EVERY 24 HOURS, First dose on Wed07/12/24 at 0800, Indications: Community Acquired Pneumonia 0831 ($New Bag - Provider: Annie Heredia RN)0906 (Stopped - Provider: Annie Heredia RN) 0804 ($New Bag - Provider: Yuni Cano RN) DULoxetine (CYMBALTA) DR capsule 30 mg 30 mg, Oral, DAILY, First dose on Wed07/12/24 at 1345 2110 ($Given - Provider: Sierra Goodman RN) 0805 ($Given - Provider: Yuni Cano RN) gabapentin (NEURONTIN) tablet 600 mg 600 mg, Oral, AT BEDTIME, First dose on Wed07/12/24 at 2200 2109 ($Given - Provider: Sierra Goodman RN) insulin aspart (NovoLOG) injection (RAPID ACTING) 1-7 Units, Subcutaneous, 3 TIMES DAILY BEFORE MEALS, First dose on Wed07/12/24 at 0730, Correction Scale - MEDIUM INSULIN RESISTANCE DOSING Do Not give Correction Insulin if Pre-Meal BG less than 140. For Pre-Meal BG 140 - 189 give 1 unit. For Pre-Meal BG 190 - 239 give 2 units. For Pre-Meal BG 240 - 289 give 3 units. For Pre-Meal BG 290 - 339 give 4 units. For Pre-Meal BG 340- 389 give 5 units. For Pre-Meal BG 390-439 give 6 units For Pre-Meal BG greater than or equal to 440 give 7 units. To be given with prandial insulin, and based on pre-meal blood glucose. Administering insulin within 5 minutes of the start of the meal is ideal. Administer insulin no more than 30 minutes after the start of the meal, unless directed otherwise by provider. Notify provider if glucose greater than or equal to 350 mg/dL after administration of correction dose. 0933 (Not Given - Provider: Sandra Holman RN - Reason: Order to hold this dose - Comment: BG [phone] (Not Given - Provider: Sandra Holman RN - Reason: Order parameters not met - Comment: BG [phone] (Not Given - Provider: Sierra Goodman RN - Reason: Order parameters not met) 0824 (Not Given - Provider: Yuni Cano RN - Reason: Order parameters not met)1200 (Canceled Entry - Provider: Orders Generic Provider - Comment: Automatically canceled at discontinue of medication order) insulin aspart (NovoLOG) injection (RAPID ACTING) 1-5 Units, Subcutaneous, AT BEDTIME, First dose on Wed07/11/24 at 2355, MEDIUM INSULIN RESISTANCE DOSING Do Not give Bedtime Correction Insulin if BG less than 200. For BG 200 - 249 give 1 units. For BG 250 - 299 give 2 units. For BG 300 - 349 give 3 units. For BG 350 -399 give 4 units. For BG greater than or equal to 400 give 5 units. Notify provider if glucose greater than or equal to 350 mg/dL after administration of correction dose. 0014 (Not Given - Provider: Jazmine Reilly RN - Reason: Order parameters not met - Comment: BG [phone] (Not Given - Provider: Sierra Goodman RN - Reason: Order parameters not met) multivitamin w/minerals (THERA-VIT-M) tablet 1 tablet 1 tablet, Oral, DAILY, First dose on Wed07/12/24 at 1345 1609 ($Given - Provider: Sierra Goodman RN) 0805 ($Given - Provider: Yuni Cano RN) PARoxetine (PAXIL) tablet 40 mg 40 mg, Oral, DAILY, First dose on Wed07/12/24 at 1345 1609 ($Given - Provider: Sierra Goodman RN) 0806 ($Given - Provider: Yuni Cano RN) piperacillin-tazobactam (ZOSYN) 4.5 g vial to attach to NS 100 mL bag (COMPLETED) STAT, 4.5 g, Intravenous, ONCE, On Wed07/11/24 at 1825, For 1 dose, First dose STAT and to be started in the unit ordered (ED) PRIOR to transfer or admission. Lactated Ringer's solution is not compatible with piperacillin-tazobactam for injection., Indications: Sepsis 184 ($New Bag - Provider: Sukhdeep Navarro RN)2009 (Stopped - Provider: Sukhdeep Navarro RN) simvastatin (ZOCOR) tablet 40 mg 40 mg, Oral, AT BEDTIME, First dose on Wed07/12/24 at 2200 2109 ($Given - Provider: Sierra Goodman RN) sodium chloride (PF) 0.9% PF flush 3 mL 3 mL, Intracatheter, EVERY 8 HOURS, First dose on Wed07/11/24 at 1825, And PRN, to lock peripheral IV dormant line. 0010 ($Given - Provider: Jazmine Reilly RN)0140 (Not Given - Provider: Angélica Arroyo RN - Reason: Other)1032 (Not Given - Provider: Sandra Holman RN - Reason: IV Infusing)1858 (Not Given - Provider: Sierra Goodman RN - Reason: IV Infusing) 0130 (Not Given - Provider: Camryn Hobson RN - Reason: IV Infusing)0929 (Not Given - Provider: Yuni Cano RN - Reason: IV Infusing) sodium chloride (PF) 0.9% PF flush 3 mL 3 mL, Intracatheter, EVERY 8 HOURS, First dose on Wed07/11/24 at 2355, to lock peripheral IV dormant line 0011 ($Given - Provider: Jazmine Reilly RN)1028 (Not Given - Provider: Sandra Holman RN - Reason: IV Infusing)1600 (Not Given - Provider: Sierra Goodman RN - Reason: IV Infusing)2340 (Not Given - Provider: Camryn Hobson RN - Reason: IV Infusing) 0813 (Not Given - Provider: Yuni Cano RN - Reason: IV Infusing) sodium chloride 0.9% BOLUS 1,000 mL (COMPLETED) Intravenous, 1,000 mL, ONCE, at 1,000 mL/hr, Administer over 1 Hours, On Wed07/11/24 at 1825, For 1 dose 1843 ($New Bag - Provider: Sukhdeep Navarro RN)223 (Stopped - Provider: Sukhdeep Navarro RN) sodium chloride 0.9% BOLUS 1,000 mL (COMPLETED) Intravenous, 1,000 mL, ONCE, at 1,000 mL/hr, Administer over 1 Hours, On Wed07/11/24 at 2025, For 1 dose 2050 ($New Bag - Provider: Laina Ace RN)223 (Stopped - Provider: Sukhdeep Navarro RN) traZODone (DESYREL) tablet 200 mg 200 mg, Oral, AT BEDTIME, First dose on Wed07/12/24 at 2200 210 ($Given - Provider: Sierra Goodman RN) Vitamin D3 (CHOLECALCIFEROL) tablet 25 mcg 25 mcg, Oral, DAILY, First dose on Wed07/12/24 at 1345, Note: 25 mcg = 1000 units 1609 ($Given - Provider: Sierra Goodman RN) 0805 ($Given - Provider: Yuni Cano RN) Continuous Medication Order 07/11/2024 07/12/2024 07/13/2024 sodium chloride 0.9 % infusion at 100 mL/hr, Intravenous, CONTINUOUS, Starting on Wed07/11/24 at 2355, Until Wed07/13/24 at 1258 0011 ($New Bag - Provider: Jazmine Reilly RN)0833 (Rate/Dose Verify - Provider: Annie Heredia RN)1030 ($New Bag - Provider: Sandra Holman RN)1557 (Rate/Dose Verify - Provider: Sierra Goodman RN)2111 ($New Bag - Provider: Sierra Goodman RN)2339 (Rate/Dose Verify - Provider: Camryn Hobson, VIPIN) 0658 ($New Bag - Provider: Camryn Hobson, VIPIN)1000 (Rate/Dose Verify - Provider: Yuni Cano RN) PRN Medication Order 07/11/2024 07/12/2024 07/13/2024 acetaminophen (TYLENOL) Suppository 650 mg(Linked Group 1) 650 mg, Rectal, EVERY 4 HOURS PRN, mild pain, other, and adjunct with moderate or severe pain or per patient request, Starting on Wed07/11/24 at 2354, Alternate with ibuprofen if ordered. Maximum acetaminophen dose from all sources = 75 mg/kg/day not to exceed 4 grams/day. 2108 (See Alternative - Provider: Sierra Goodman RN) acetaminophen (TYLENOL) tablet 650 mg(Linked Group 1) 650 mg, Oral, EVERY 4 HOURS PRN, mild pain, other, and adjunct with moderate or severe pain or per patient request, Starting on Wed07/11/24 at 2354, Alternate with ibuprofen if ordered. Maximum acetaminophen dose from all sources = 75 mg/kg/day not to exceed 4 grams/day. 2108 ($Given - Provider: Sierra Goodman RN) calcium carbonate (TUMS) chewable tablet 1,000 mg 1,000 mg, Oral, 4 TIMES DAILY PRN, heartburn, Starting on Wed07/11/24 at 2354 dextrose 50 % injection 25-50 mL(Linked Group 2) 25-50 mL, Intravenous, EVERY 15 MIN PRN, low blood sugar, Administer over 1-5 Minutes, Starting on Wed07/11/24 at 2354, Use if have IV access, BG less than 70 mg/dL and meet dose criteria below: Dose if conscious and alert (or disorientated) and NPO = 25 mL Dose if unconscious / not alert = 50 mL Give first dose for initial blood glucose less than 70 mg/dL. If blood glucose at 15 minute recheck is less than or equal to 80 mg/dL continue to administer carbohydrate treatment every 15 minutes, as needed, based on blood glucose and assessment parameters until blood glucose level is above 80 mg/dL x 2 consecutive 15 minute checks. glucagon injection 1 mg(Linked Group 2) 1 mg, Subcutaneous, EVERY 15 MIN PRN, low blood sugar, May repeat x 1 only, Starting on Wed07/11/24 at 2354, May give SQ or IM. ONLY use glucagon IF patient has NO IV access AND is UNABLE to swallow AND blood glucose is LESS than or EQUAL to 50 mg/dL. glucose gel 15-30 g(Linked Group 2) 15-30 g, Oral, EVERY 15 MIN PRN, low blood sugar, Starting on Wed07/11/24 at 2354, Give first dose for initial blood glucose less than 70 mg/dL per the dosing instructions below. If blood glucose at 15 minute rechecks is still less than or equal to 80 mg/dL, continue to administer doses per blood glucose parameters every 15 minutes, as needed, until blood glucose level is at or above 80 mg/dL x 2 consecutive 15 minute checks. Dosing Instructions: ~If patient is conscious and able to swallow and NO enteral tube For initial BG 51-69mg/dL OR 15 minute recheck BG 51- 80 mg/dL - give 15 g For BG less than or equal to 50 mg/dL - give 30 g ~ If Enteral tube For initial BG 51-69mg/dL OR 15 minute recheck BG 51- 80 mg/dL - give apple juice 120 mL (4 oz or 15 g of CHO) via enteral tube For BG less than or equal to 50 mg/dL - Give apple juice 240 mL (8 oz or 30 g of CHO) via enteral tube ~Oral gel is preferable for conscious and able to swallow patient. ~IF gel unavailable or patient refuses may provide apple juice per Enteral tube dosing instructions. Document juice on I and O flowsheet. lidocaine (LMX4) cream Topical, EVERY 1 HOUR PRN, pain, with VAD insertion, Starting on Wed07/11/24 at 2354, Apply at least 30 minutes prior to VAD insertion in divided doses as needed for size of site for insertion. MAX Dose: 2.5 g (?? of 5 g tube) Do NOT give if patient has a history of allergy to any local anesthetic or any dixon product. Do NOT use both lidocaine intradermal/subcutaneous injection and the lidocaine cream on the same site. lidocaine 1 % 0.1-1 mL 0.1-1 mL, Other, EVERY 1 HOUR PRN, mild pain with VAD insertion, Starting on Wed07/11/24 at 2354, MAX dose 1 mL subcutaneous OR intradermal along the side of the vein in divided doses as needed for VAD insertion. Do NOT give if patient has a history of allergy to any local anesthetic or any dixon product. Do NOT use both lidocaine intradermal/subcutaneous injection and the lidocaine cream on the same site. ondansetron (ZOFRAN ODT) ODT tab 4 mg(Linked Group 3) 4 mg, Oral, EVERY 6 HOURS PRN, nausea, vomiting, Starting on Wed07/11/24 at 2354, This is Step 1 of nausea and vomiting management. If nausea not resolved in 15 minutes, go to Step 2 prochlorperazine (COMPAZINE). With dry hands, peel back foil backing and gently remove tablet. Do not push oral disintegrating tablet through foil backing. Administer immediately on tongue and oral disintegrating tablet dissolves in seconds, then swallow with saliva. Liquid not required. ondansetron (ZOFRAN) injection 4 mg(Linked Group 3) 4 mg, Intravenous, EVERY 6 HOURS PRN, nausea, vomiting, Administer over 2-5 Minutes, Starting on Wed07/11/24 at 2354, Give IF patient unable to tolerate oral medication. This is Step 1 of nausea and vomiting management. If nausea not resolved in 15 minutes, go to Step 2 prochlorperazine (COMPAZINE). senna-docusate (SENOKOT-S/PERICOLACE) 8.6-50 MG per tablet 1 tablet(Linked Group 4) 1 tablet, Oral, 2 TIMES DAILY PRN, constipation, Starting on Wed07/11/24 at 2354, If no bowel movement in 24 hours, increase to 2 tablets by mouth. IF more than 1 constipation PRN medication is ordered, administer step-dunn as indicated, moving to the next step ONLY if prior step ineffective. Step 1: senna-docusate (SENOKOT-S; PERICOLACE) OR bisacodyl (DULCOLAX) EC tablet Step 2: polyethylene glycol (MIRALAX/GLYCOLAX) Step 3: bisacodyl (DULCOLAX) suppository Step 4: enema Hold for loose stools. senna-docusate (SENOKOT-S/PERICOLACE) 8.6-50 MG per tablet 2 tablet(Linked Group 4) 2 tablet, Oral, 2 TIMES DAILY PRN, constipation, Starting on Wed07/11/24 at 2354, IF more than 1 constipation PRN medication is ordered, administer step-dunn as indicated, moving to the next step ONLY if prior step ineffective. Step 1: senna-docusate (SENOKOT-S; PERICOLACE) OR bisacodyl (DULCOLAX) EC tablet Step 2: polyethylene glycol (MIRALAX/GLYCOLAX) Step 3: bisacodyl (DULCOLAX) suppository Step 4: enema Hold for loose stools. sodium chloride (PF) 0.9% PF flush 3 mL 3 mL, Intracatheter, EVERY 1 MIN PRN, line flush, for peripheral IV flush post IV meds or to ensure patency., Starting on Wed07/11/24 at 1817 1843 ($Given - Provider: Sukhdeep Navarro RN) sodium chloride (PF) 0.9% PF flush 3 mL 3 mL, Intracatheter, EVERY 1 MIN PRN, line flush, other, to ensure patency or to lock dormant line, Starting on Wed07/11/24 at 2354 Linked Groups Order Group 1: acetaminophen (TYLENOL) tablet 650 mgJump to med 650 mg, Oral, EVERY 4 HOURS PRN, mild pain, other, and adjunct with moderate or severe pain or per patient request, Starting on Wed07/11/24 at 2354, Alternate with ibuprofen if ordered. Maximum acetaminophen dose from all sources = 75 mg/kg/day not to exceed 4 grams/day. Or acetaminophen (TYLENOL) Suppository 650 mgJump to med 650 mg, Rectal, EVERY 4 HOURS PRN, mild pain, other, and adjunct with moderate or severe pain or per patient request, Starting on Wed07/11/24 at 2354, Alternate with ibuprofen if ordered. Maximum acetaminophen dose from all sources = 75 mg/kg/day not to exceed 4 grams/day. Group 2: glucose gel 15-30 gJump to med 15-30 g, Oral, EVERY 15 MIN PRN, low blood sugar, Starting on Wed07/11/24 at 2354, Give first dose for initial blood glucose less than 70 mg/dL per the dosing instructions below. If blood glucose at 15 minute rechecks is still less than or equal to 80 mg/dL, continue to administer doses per blood glucose parameters every 15 minutes, as needed, until blood glucose level is at or above 80 mg/dL x 2 consecutive 15 minute checks. Dosing Instructions: ~If patient is conscious and able to swallow and NO enteral tube For initial BG 51-69mg/dL OR 15 minute recheck BG 51- 80 mg/dL - give 15 g For BG less than or equal to 50 mg/dL - give 30 g ~ If Enteral tube For initial BG 51-69mg/dL OR 15 minute recheck BG 51- 80 mg/dL - give apple juice 120 mL (4 oz or 15 g of CHO) via enteral tube For BG less than or equal to 50 mg/dL - Give apple juice 240 mL (8 oz or 30 g of CHO) via enteral tube ~Oral gel is preferable for conscious and able to swallow patient. ~IF gel unavailable or patient refuses may provide apple juice per Enteral tube dosing instructions. Document juice on I and O flowsheet. Or dextrose 50 % injection 25-50 mLJump to med 25-50 mL, Intravenous, EVERY 15 MIN PRN, low blood sugar, Administer over 1-5 Minutes, Starting on Wed07/11/24 at 2354, Use if have IV access, BG less than 70 mg/dL and meet dose criteria below: Dose if conscious and alert (or disorientated) and NPO = 25 mL Dose if unconscious / not alert = 50 mL Give first dose for initial blood glucose less than 70 mg/dL. If blood glucose at 15 minute recheck is less than or equal to 80 mg/dL continue to administer carbohydrate treatment every 15 minutes, as needed, based on blood glucose and assessment parameters until blood glucose level is above 80 mg/dL x 2 consecutive 15 minute checks. Or glucagon injection 1 mgJump to med 1 mg, Subcutaneous, EVERY 15 MIN PRN, low blood sugar, May repeat x 1 only, Starting on Wed07/11/24 at 2354, May give SQ or IM. ONLY use glucagon IF patient has NO IV access AND is UNABLE to swallow AND blood glucose is LESS than or EQUAL to 50 mg/dL. Group 3: ondansetron (ZOFRAN ODT) ODT tab 4 mgJump to med 4 mg, Oral, EVERY 6 HOURS PRN, nausea, vomiting, Starting on Wed07/11/24 at 2354, This is Step 1 of nausea and vomiting management. If nausea not resolved in 15 minutes, go to Step 2 prochlorperazine (COMPAZINE). With dry hands, peel back foil backing and gently remove tablet. Do not push oral disintegrating tablet through foil backing. Administer immediately on tongue and oral disintegrating tablet dissolves in seconds, then swallow with saliva. Liquid not required. Or ondansetron (ZOFRAN) injection 4 mgJump to med 4 mg, Intravenous, EVERY 6 HOURS PRN, nausea, vomiting, Administer over 2-5 Minutes, Starting on Wed07/11/24 at 2354, Give IF patient unable to tolerate oral medication. This is Step 1 of nausea and vomiting management. If nausea not resolved in 15 minutes, go to Step 2 prochlorperazine (COMPAZINE). Group 4: senna-docusate (SENOKOT-S/PERICOLACE) 8.6-50 MG per tablet 1 tabletJump to med 1 tablet, Oral, 2 TIMES DAILY PRN, constipation, Starting on Wed07/11/24 at 2354, If no bowel movement in 24 hours, increase to 2 tablets by mouth. IF more than 1 constipation PRN medication is ordered, administer step-dunn as indicated, moving to the next step ONLY if prior step ineffective. Step 1: senna-docusate (SENOKOT-S; PERICOLACE) OR bisacodyl (DULCOLAX) EC tablet Step 2: polyethylene glycol (MIRALAX/GLYCOLAX) Step 3: bisacodyl (DULCOLAX) suppository Step 4: enema Hold for loose stools. Or senna-docusate (SENOKOT-S/PERICOLACE) 8.6-50 MG per tablet 2 tabletJump to med 2 tablet, Oral, 2 TIMES DAILY PRN, constipation, Starting on Wed07/11/24 at 2354, IF more than 1 constipation PRN medication is ordered, administer step-dunn as indicated, moving to the next step ONLY if prior step ineffective. Step 1: senna-docusate (SENOKOT-S; PERICOLACE) OR bisacodyl (DULCOLAX) EC tablet Step 2: polyethylene glycol (MIRALAX/GLYCOLAX) Step 3: bisacodyl (DULCOLAX) suppository Step 4: enema Hold for loose stools. documented in this encounter Care Teams Nuclear Equipment Test Engineer Relationship Specialty Start Date End Date Augusto Scott MD [facility] [address], [place] [address] PCP - General Family Medicine 07/11/24 documented as of this encounter
--- OUTSIDE RECORDS SUMMARY | 2024-07-21 11:15 | XMS_ITS | Clinical Summary ---
Author Organization [facility] Address [place], [place] [address] Care Team Providers Care Retail Support Manager Name Role Phone Augusto Scott MD Primary Care Provider [phone] Allergies Active Allergy Reactions Criticality Noted Date [...] Active Problems Problem Noted Date Diagnosed Date Kqbxl-Bykcntofb-Ixaph (WPW) pattern seen on electrocardiography 05/26/2019 Diabetes [...] Influenza for age 65+ 05/28/2024 Care Teams Retail Support Manager Relationship Specialty Start Date End Date Augusto Scott MD [address] [place] [address] PCP - General Family Practice 03/30/24
== END 2024-07-20 10:23 | disposition home or self-care (01) ==
LOC: NFLDREF 07-21 11:09
PROVIDERS: PCP Family Medicine; Referring Provider Family Medicine; Visit Provider Family Medicine
DX: R19.7 Diarrhea, unspecified (principal)
CPT/HCPCS: 87493

== ENCOUNTER 2024-07-24 08:37 | Outpatient (CLI) | payer OTHER, SELFPAY ==
--- OUTSIDE RECORDS SUMMARY | 2024-07-24 08:39 | XMS_ITS | Clinical Summary ---
Author Organization [place] Address [address] [place] [address] Care Team Providers Care Psychiatrist Name Role Phone Augusto Scott MD Primary Care Provider [phone] Allergies Active Allergy Reactions Criticality Noted Date [...] - 07/13/2024 10:58 AM CDT Hospital Encounter [facility] [address] [facility] [address] [place] [id number] Brody Beckford MD Jaleta, MD Jo Ann [...] on file Legal Sex Female 11:18 AM PERSONAL BANKING REPRESENTATIVE Gender Identity Not on file Sexual Orientation [...] lb 3.2 oz) 11/25/2021 5:59 A M PERSONAL BANKING REPRESENTATIVE Height 162.6 cm (5' 4) 11/25/2021 5:59 AM PERSONAL BANKING REPRESENTATIVE Body Mass Index 29.39 11/25/2021 5:59 AM PERSONAL BANKING REPRESENTATIVE Plan of Treatment Health Maintenance Due Date [...] PANEL (EXTERNAL RESULT) Routine 09/23/2021 2:57 PM PERSONAL BANKING REPRESENTATIVE from Last 3 Months or Most Recently [...] BEAKER POCT Final Result [facility] P[facility] [address] Lab (1st floor, no room number) [place] [id number] [place] [address] * Extra Purple Top EDTA (LAB USE ONLY) (07/13/2024 6:03 AM CDT) Hold Specimen JIC 07/13/2024 7:16 AM CDT [facility] Blood STRUCTURE OF RIGHT HAND / Unknown Venipuncture / Unknown 07/13/2024 6:03 AM CDT 07/13/2024 6:15 AM CDT us Rohit Lerma [facility] LAB - BLOOD ORDERABLES F inal Result [facility] [address] Lab (1st floor, no room number) [address] * Lactic acid whole blood (07/13/2024 6:03 AM CDT) Only the most recent of4 resultswithin the time period is included. Lactic Acid 1.4 0.7 - 2.0 mmol/L 07/13/2024 6:22 AM CDT [facility] Blood STRUCTURE OF RIGHT HAND / Unknown Venipuncture / Unknown 07/13/2024 6:03 AM CDT 07/13/2024 6:15 AM CDT us Allan Mathews MD LAB - BLOOD ORDERABLES Fi nal Result [facility] [address] Lab (1st floor, no room number) [place] [address] * (ABNORMAL) Basic metabolic panel (07/12/2024 [...] LAB - BLOOD ORDERABLES Final Result LABORATORY [facility] [address] Lab (1st floor, no room number) [place] [address] * (ABNORMAL) CBC with platelets (07/12/2024 [...] LAB - BLOOD ORDERABLES Final Result LABORATORY [facility] [address] Lab (1st floor, no room number) [place] [address], [facility] * (ABNORMAL) UA with Microscopic reflex [...] 07/11/2024 8:47 PM CDT [facility] Specific [place] Urine 1.032 1.003 - 1.035 07/11/2024 8:47 [...] LAB - URINE ORDERABLES Final Result LABORATORY [facility] [address] Lab (1st floor, no room number) [place] [address], [facility] * (ABNORMAL) iStat Gases (lactate) venous, [...] POCT Final Resul t [facility] POC [facility] [address] [facility] Lab (1st floor, no room number) [place] [address] * XR Chest 2 Views (07/11/2024 [...] CDT EXAM: XR CHEST 2 VIEWS LOCATION: [facility] DATE: 07/11/2024 INDICATION: Fever COMPARISON: None. Procedure Note Hira Casey MD - 07/11/2024 EXAM: XR CHEST 2 VIEWS LOCATION: [facility] DATE: 07/11/2024 INDICATION: Fever COMPARISON: [...] CDT EXAM: CT HEAD W/O CONTRAST LOCATION: [facility] DATE: 07/11/2024 INDICATION: Confusion. COMPARISON: [...] 07/11/2024 EXAM: CT HEAD W/O CONTRAST LOCATION: [facility] DATE: 07/11/2024 INDICATION: Confusion. COMPARISON: [...] ORDERABLE S Final Result Performing Organization Address [facility] Co de Phone Number [facility]. Diseases Di[facility]. Lab [address] [facility], [address] [place] [id number] * EKG 12 lead (07/11/2024 6:14 PM CDT) Systolic Blood Pressure mmHg RADIOLOGY RESULTS Diastolic Blood Pressure mmHg RADIOLOGY RESULTS Ventricular Rate 91 BPM RAD IOLOGY RESULTS Atrial Rate 91 BPM RADIOLOG Y RESULTS CA Interval 128 ms RADIOLOG Y RESULTS QRS Duration 80 ms RADIOLO GY RESULTS QT 374 ms RADIOLOGY RESULTS QTc 460 ms RADIOLOGY RESULTS P Fowler 60 degrees RADIOLOGY RESULTS R AXIS 7 degrees RADIOLOGY RESULTS T [place] 48 degrees RADIOLOGY RESULTS Interpretation ECG Sinus [...] the Xpert Xpress CoV2/Flu/RSV Assay on the [employer]landXpert Instrument. This test should be ordered for [...] management. This test was validated by the [facility]. These laboratories are certified under the Clinical Laboratory Improvement Amendments of 1988 (CLIA-88) as qualified to perfom high complexity laboratory testing. Brody Beckford MD LAB - MICRO GENERAL ORDERABLE S Final Result LABORATORY [facility] [address] [facility] Lab (1st floor, no room number) [place] [address], [facility] * Extra Purple Top Tube (07/11/2024 5:09 PM CDT) Hold Specimen [facility] 07/11/2024 6:31 PM CDT [facility] Blood BLOOD SPECIMEN / Unknown Venipuncture / Unknown 07/11/2024 5:09 PM CDT 07/11/2024 5:20 PM CDT Brody Beckford MD LAB - BLOOD ORDERABLES Final Result [facility] [address] Lab (1st floor, no room number) [place] [address] * Extra Green Top ([place] Heparin) Tube (07/11/2024 5:09 PM CDT) Hold Specimen [facility] 07/11/2024 6:31 PM CDT [facility] Blood BLOOD SPECIMEN / Unknown Venipuncture / Unknown 07/11/2024 5:09 PM CDT 07/11/2024 5:20 PM CDT us Brody Beckford MD LAB - BLOOD ORDERABLES Final Result Performing Organization Address City/[facility]/ZIP Co de Phone Number [facility] [address] Lab (1st floor, no room number) [place] [address], [facility] * Extra Red Top Tube (07/11/2024 5:09 PM CDT) Hold Specimen [facility] 07/11/2024 6:31 PM CDT [facility] Blood BLOOD SPECIMEN / Unknown Venipuncture / Unknown 07/11/2024 5:09 PM CDT 07/11/2024 5:20 PM CDT Brody Beckford MD LAB - BLOOD ORDERABLES Final Result [facility] [address] Lab (1st floor, no room number) [place] [address], [facility] * Extra Blue Top Tube (07/11/2024 5:09 PM CDT) Hold Specimen [facility] 07/11/2024 6:31 PM CDT [facility] Blood BLOOD SPECIMEN / Unknown Venipuncture / Unknown 07/11/2024 5:09 PM CDT 07/11/2024 5:20 PM CDT us Brody Beckford MD LAB - BLOOD ORDERABLES Final Result [facility] [address] Lab (1st floor, no room number) [place] [address], [facility] * (ABNORMAL) CBC with platelets and [...] LAB - BLOOD ORDERABLES Final Result LABORATORY [facility] [address] [facility] Lab (1st floor, no room number) [place] [address], [facility] * (ABNORMAL) Comprehensive metabolic panel (07/11/2024 [...] - BLOOD ORDERABLES Final Result [facility] [address] Lab (1st floor, no room number) [place] [address], [facility] * (ABNORMAL) Lipid Panel (External Result) (09/23/2021 2:57 PM PERSONAL BANKING REPRESENTATIVE) Cholesterol (External) 183 90 - 199 mg/dL [facility] Triglycerides (External) 371(A) 40 - 149 mg/dL [facility] HDL Cholesterol (External) 44 >=50 mg/dL [facility] LDL Cholesterol Calculated (External) 65 <100 mg/dL [facility] Blood 09/23/2021 2:57 PM PERSONAL BANKING REPRESENTATIVE Narrative [facility] - 09/23/2021 2:57 PM PERSONAL BANKING REPRESENTATIVE LAB RESULTS [facility] us Provider Outside LAB - HIM EXTERNAL RESULT Edite d Result - Final [facility] [address] [place] [address], [facility] [phone] from Last 3 Months or Most Recently Relevant to Health Maintenance Insurance [employer] Advance Directives For more information, please contact: [phone] * Full Code (Latest Code Status on [...] palak nt/ legal decision maker Care Teams Psychiatrist Relationship Specialty Start Date End Date Augusto Scott MD PCP - General Family Medicine 07/11/24
--- OUTSIDE RECORDS SUMMARY | 2024-07-24 08:39 | XMS_ITS | Referral Summary ---
Author Organization [facility] Address [address] [place] [address] Care Team Providers Care Cuff Maker Name Role Phone Augusto Scott MD Primary Care Provider [phone] Encounters Date Type Department Care Team Description 07/11/2024 4:33 PM CDT - 07/13/2024 10:58 AM CDT Hospital Encounter [place] [address] [facility] [address] [place] [address] Brody Beckford MD Jaleta, MD Jo Ann [...] on file Legal Sex Female 11:18 AM PHYSIOLOGICAL CHEMIST Gender Identity Not on file Sexual Orientation [...] lb 3.2 oz) 11/25/2021 5:59 A M PHYSIOLOGICAL CHEMIST Height 162.6 cm (5' 4) 11/25/2021 5:59 AM PHYSIOLOGICAL CHEMIST Body Mass Index 29.39 11/25/2021 5:59 AM PHYSIOLOGICAL CHEMIST Plan of Treatment Not on file Procedures [...] PANEL (EXTERNAL RESULT) Routine 09/23/2021 2:57 PM PHYSIOLOGICAL CHEMIST from Last 3 Months or Most Recently Relevant to Health Maintenance Results * (ABNORMAL) Glucose by meter (07/13/2024 8:23 AM CDT) Only the most recent of7 resultswithin the time period is included. GLUCOSE BY METER POCT 120(H) 70 - 99 mg/dL 07/13/2024 8:30 AM CDT LABORATORY POC Blood, Capillary BLOOD SPECIMEN / Unknown 07/13/2024 8:23 AM CDT 07/13/2024 8:30 AM CDT Amanule Cherry MD LAB - BEAKER POCT Final Result LABORATORY POC [facility] [address] Lab (1st floor, no room number) [address] * Extra Purple Top EDTA (LAB USE ONLY) (07/13/2024 6:03 AM CDT) Hold Specimen JIC 07/13/2024 7:16 AM CDT LABORATORY Blood STRUCTURE OF RIGHT HAND / Unknown Venipuncture / Unknown 07/13/2024 6:03 AM CDT 07/13/2024 6:15 AM CDT Rohit Lerma [facility] LAB - BLOOD ORDERABLES F inal Result LABORATORY [facility] [address] (1st floor, no room number) [address] * Lactic acid whole blood (07/13/2024 6:03 AM CDT) Only the most recent of4 resultswithin the time period is included. Lactic Acid 1.4 0.7 - 2.0 mmol/L 07/13/2024 6:22 AM CDT LABORATORY Blood STRUCTURE OF RIGHT HAND / Unknown Venipuncture / Unknown 07/13/2024 6:03 AM CDT 07/13/2024 6:15 AM CDT us Al Andres Mathwes MD LAB - BLOOD ORDERABLES Fi nal Result LABORATORY [facility] [address] [facility] Lab (1st floor, no room number) [place] [address] * (ABNORMAL) Basic metabolic panel (07/12/2024 [...] - BLOOD ORDERABLES Final Result RH LABORATORY [facility] [address] Lab (1st floor, no room number) [place] [address] * (ABNORMAL) CBC with platelets (07/12/2024 8:53 AM CDT) [facility] WBC Count 12.3(H) 4.0 - 11.0 [...] - BLOOD ORDERABLES Final Result RH LABORATORY [facility] [address] Lab (1st floor, no room number) [place] [address], [facility] * (ABNORMAL) UA with Microscopic [...] mg/dL 07/11/2024 8:47 PM CDT LABORATORY Specific [place] Urine 1.032 1.003 - 1.035 07/11/2024 8:47 [...] LAB - URINE ORDERABLES Final Result LABORATORY [facility] [address] Lab (1st floor, no room number) [place] [address] * (ABNORMAL) iStat Gases (lactate) venous, POCT [...] 07/11/2024 8:08 PM CDT Brody Beckford MD [facility] POCT Final Resul t RH LABORATORY POC [facility] [address] ([facility], no room number) [place] [address], [facility] * XR Chest 2 Views (07/11/2024 [...] CDT EXAM: XR CHEST 2 VIEWS LOCATION: [facility] DATE: 07/11/2024 INDICATION: Fever COMPARISON: None. Procedure Note Hira Casey MD - 07/11/2024 EXAM: XR CHEST 2 VIEWS LOCATION: [facility] DATE: 07/11/2024 INDICATION: Fever COMPARISON: None. [...] CDT EXAM: CT HEAD W/O CONTRAST LOCATION: [facility] DATE: 07/11/2024 INDICATION: Confusion. COMPARISON: None. [...] 07/11/2024 EXAM: CT HEAD W/O CONTRAST LOCATION: [facility] DATE: 07/11/2024 INDICATION: Confusion. COMPARISON: None. [...] ORDERABLE S Final Result [facility] IDD LABORATORY [facility] Inf. Diseases Diag. Lab [address] [facility], Room [address] [address] * EKG 12 lead (07/11/2024 6:14 PM CDT) Systolic Blood Pressure mmHg RADIOLOGY RESULTS Diastolic Blood Pressure mmHg RADIOLOGY RESULTS Ventricular Rate 91 BPM RAD IOLOGY RESULTS Atrial Rate 91 BPM RADIOLOG Y RESULTS ND Interval 128 ms RADIOLOG Y RESULTS QRS Duration 80 ms RADIOLO GY RESULTS QT 374 ms RADIOLOGY RESULTS QTc 460 ms RADIOLOGY RESULTS P [place] 60 degrees RADIOLOGY RESULTS R AXIS 7 degrees RADIOLOGY RESULTS T [place] 48 degrees RADIOLOGY RESULTS Interpretation ECG Sinus [...] the Xpert Xpress CoV2/Flu/RSV Assay on the [employer] GeneXpert Instrument. This test should be ordered [...] management. This test was validated by the [facility] for[MD]. These laboratories are certified under the Clinical Laboratory Improvement Amendments of 1988 (CLIA-88) as qualified to perfom high complexity laboratory testing. Brody Beckford MD LAB - MICRO GENERAL ORDERABLE S Final Result [facility] Care Lab [address] Lab (1st floor, no room number) [place] [address] * Extra Purple Top Tube (07/11/2024 5:09 PM CDT) Hold Specimen JI 07/11/2024 6:31 PM CDT RH LABORATORY Blood BLOOD SPECIMEN / Unknown Venipuncture / Unknown 07/11/2024 5:09 PM CDT 07/11/2024 5:20 PM CDT us Brody Beckford MD LAB - BLOOD ORDERABLES Final Result [facility] [address] Lab (1st floor, no room number) [place] [address] * Extra Green Top ([place] Heparin) Tube (07/11/2024 5:09 PM CDT) Hold Specimen [facility] 07/11/2024 6:31 PM CDT RH LABORATORY Blood BLOOD SPECIMEN / Unknown Venipuncture / Unknown 07/11/2024 5:09 PM CDT 07/11/2024 5:20 PM CDT us Brody Beckford MD LAB - BLOOD ORDERABLES Final Result [facility] [address] Lab (1st floor, no room number) [place] [address] * Extra Red Top Tube (07/11/2024 5:09 PM CDT) Hold Specimen [facility] 07/11/2024 6:31 PM CDT RH LABORATORY Blood BLOOD SPECIMEN / Unknown Venipuncture / Unknown 07/11/2024 5:09 PM CDT 07/11/2024 5:20 PM CDT us Brody Beckford MD LAB - BLOOD ORDERABLES Final Result RH LABORATORY [facility] [address] Lab (1st floor, no room number) [place] [address] * Extra Blue Top Tube (07/11/2024 5:09 PM CDT) Hold Specimen JIC 07/11/2024 6:31 PM CDT RH LABORATORY Blood BLOOD SPECIMEN / Unknown Venipuncture / Unknown 07/11/2024 5:09 PM CDT 07/11/2024 5:20 PM CDT Brody Beckford MD LAB - BLOOD ORDERABLES Final Result Performing Organization Address City/[facility]/ZIP Co de Phone Number LABORATORY [facility] [address] Lab (1st floor, no room number) [place] [id number] * (ABNORMAL) CBC with platelets and [...] - BLOOD ORDERABLES Final Result RH LABORATORY [facility] [address] Lab (1st floor, no room number) [place] [address], [facility] * (ABNORMAL) Comprehensive metabolic panel [...] MD LAB - BLOOD ORDERABLES Final Result [facility] [address] Lab (1st floor, no room number) [place] [address], [facility] * (ABNORMAL) Lipid Panel (External Result) (09/23/2021 2:57 PM PHYSIOLOGICAL CHEMIST) [facility] Signature Cholesterol (External) 183 90 - 199 mg/dL [facility] Triglycerides (External) 371(A) 40 - 149 mg/dL [facility] HDL Cholesterol (External) 44 >=50 mg/dL [facility] LDL Cholesterol Calculated (External) 65 <100 mg/dL [facility] Blood 09/23/2021 2:57 PM PHYSIOLOGICAL CHEMIST Narrative [facility] - 09/23/2021 2:57 PM PHYSIOLOGICAL CHEMIST LAB RESULTS [facility] us Provider Outside LAB - HIM EXTERNAL RESULT Edite d Result - Final Performing Organization Address City/[facility]/ZIP Co de Phone Number [facility] [address] [place] [address], [facility] [phone] from Last 3 Months or Most Recently Relevant to Health Maintenance Insurance [employer] Advance Directives For more information, please contact: [phone] * Full Code (Latest Code Status on [...] palak nt/ legal decision maker Care Teams Cuff Maker Relationship Specialty Start Date End Date Augusto Scott MD PCP - General Family Medicine 07/11/24
--- OUTSIDE RECORDS SUMMARY | 2024-07-24 08:40 | XMS_ITS | Encounter Summary ---
Author Organization [facility] Address [address] [place] [address]. [place] [address] Care Team Providers Care Director Summer Sessions Name Role Phone Irvin Mar Primary Care Provider [phone] Reason for Visit * Reason Onset Date Comments WOUND CARE 04/19/2024 Encounter Details Date Type Department Care Team (Late st Contact Info) Description 04/19/2024 Telephone [facility] [address] [place] [phone] [place] Medical Office Building [address] [facility], [address] [place], [place] [id number] WOUND CARE Social History Tobacco Use Types [...] on file Legal Sex 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 Annie is not [...] is AMB Please call Annie regarding scheduling [phone] documented in this encounter Plan of Treatment Not on file documented as of this encounter Visit Diagnoses Not on filedocumented in this encounter Care Teams Director Summer Sessions Relationship Specialty Start Date End Date Irvin Mar [address] [address] PCP - General Family Medicine 09/09/21 07/10/24 documented as of this encounter
--- OUTSIDE RECORDS SUMMARY | 2024-07-24 08:40 | XMS_ITS | Encounter Summary ---
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
--- OUTSIDE RECORDS SUMMARY | 2024-07-24 08:40 | XMS_ITS ---
Author Organization [facility] Address [address] [place] [address] Care Team Providers Care Layout Designer Name Role Phone Augusto Scott MD Primary Care Provider [phone] Transitional Care Management Status:Enrolled (Active) Start date:07/14/2024 Enrollment date:07/15/2024 Continued Care and Services Coordination
--- OUTSIDE RECORDS SUMMARY | 2024-07-24 08:40 | XMS_ITS | Encounter Summary ---
Author Organization [facility] Address [address] [place] [address] Care Team Providers Care Identification Technician Name Role Phone Irvin Mar Primary Care Provider [phone] Augusto Scott MD Primary Care Provider [phone] Encounter Details Date Type Department Care Team (Late st Contact Info) Description 11/14/2021 Orders Only [facility] Centralized Scheduling [address] [place] [address] Nolberto French MD [address] [place] [address] Social History Tobacco Use Types Packs/Day Years Used Date Smoking Tobacco: Every Day Cigarettes Smokeless Tobacco: Never Alcohol Use Standard Drinks/Week Comments Not Currently 0 (1 standard drink = 0.6 oz pur e alcohol) Comments No Sex and Gender Information Value Date Recorded Sex Assigned at Not on file 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
--- OUTSIDE RECORDS SUMMARY | 2024-07-24 08:40 | XMS_ITS | Encounter Summary ---
Author Organization [place] Address [address] [place] [address] Care Team Providers Care Assistant News Director Name Role Phone Augusto Scott MD Primary Care Provider [phone] Reason for Visit * Reason Comments Urinary Frequency UTI * Auth/Cert (Routine) Specialty Diagnoses / Procedures Referred By Contac t Referred To Contact EMERGENCY MEDICINE Diagnoses Severe sepsis (H) Pneumonia of left lower lobe due to infectious organism [facility] Emergency Dept [address] [place] [address] Phone: tel:[phone] fax: Referral ID Status Reason Start Date Expiration Date Visits Re quested Visits Authorized [id number] 1 1 Encounter Details Date Type Department Care Team (Late st Contact Info) Description 07/11/2024 4:33 PM CDT - 07/13/2024 10:58 AM CDT Hospital Encounter [facility] 5 Medical Surgical [address] [place] [id number] Brody Beckford MD [facility] [address] [facility] [address] [place] [address] Ashish Dixon MD [address] [place] [address] Amanuel Cherry MD [facility] [address], [facility] [address] [place] [address] Severe sepsis (H); Pneumonia of left lower [...] on file 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 [facility] Hospitalist Discharge Summary Date of Admission: 07/11/2024 Date of Discharge: 07/13/2024 Discharging Provider: Allan Mathews MD, MD Discharge Service: Hospitalist Service Discharge Diagnoses Severe sepsis secondary to bacterial community-acquired pneumonia left lung [place] resolved secondary to hypovolemia and sepsis Hypovolemic hyponatremia improving resolved Alteration of mental state secondary to acute infectious encephalopathy improved and resolved Ben-jgavohp-qmnjakofq diabetes mellitus History of depression Anxiety Clinically [...] got worse. She was seen in the [place] [facility] and diagnosed with bronchitis. She was [...] discharging this patient. Allan Mathews MD, MD [place] [address] MEDICAL SURGICAL [address] [facility] [address] Physical Exam Vital Signs: Temp: 98.2 ??F [...] 07/11/2024 1831 07/12/20242030 Blood Culture Peripheral Blood [[id number]] Peripheral Blood Preliminary result Component Value Culture No growth after 1 day [P] 07/11/2024 1719 07/11/2024 1808 Asymptomatic Influenza A/B, RSV, & SARS-CoV2 PCR (COVID-19) Nose [[id number]] Swab from Nose Final result Component Value [...] Narrative EXAM: XR CHEST 2 VIEWS LOCATION: [facility] DATE: 07/11/2024 INDICATION: Fever COMPARISON: None. Impression IMPRESSION: Heart size is normal. Confluent airspace disease noted in the left lower lobe posteriorly compatible with pneumonia. Clinical correlation and follow-up to resolution recommended. No effusions or pneumothorax. No acute bony abnormalities. Clips in the right upper quadrant are compatible with prior cholecystectomy. Head CT w/o contrast Narrative EXAM: CT HEAD W/O CONTRAST LOCATION: [facility] DATE: 07/11/2024 INDICATION: Confusion. COMPARISON: None. [...] MD - 07/12/2024 11:[address] [facility] Medicine Progress Note - Hospitalist Service Date [...] got worse. She was seen in the [facility] and diagnosed with bronchitis. She was started [...] Days Allan Mathews MD, Hospitalist Service [facility] Securely message with [employer] (more info) Text page via [facility] Paging/Directory Interval History I assumed medicine service [...] She is endorsing no ongoing nausea, vomiting ordiarrhea. No escalation of oxygen needs. Remained to [...] Narrative EXAM: CT HEAD W/O CONTRAST LOCATION: [facility] DATE: 07/11/2024 INDICATION: Confusion. COMPARISON: None. [...] Narrative EXAM: XR CHEST 2 VIEWS LOCATION: [facility] DATE: 07/11/2024 INDICATION: Fever COMPARISON: None. Impression IMPRESSION: Heart size is normal. Confluent airspace disease noted in the left lower lobe posteriorly compatible with pneumonia. Clinical correlation and follow-up to resolution recommended. No effusions or pneumothorax. No acute bony abnormalities. Clips in the right upper quadrant are compatible with prior cholecystectomy. * Jazmine Reilly RN - 07/12/2024 7:52 AM CDT [facility] ED Boarding Nurse Handoff Addendum Report: [...] MD - 07/11/2024 9:[address] [facility] History and Physical Hospitalist Date of Admission: [...] got worse. She was seen in the [place] [facility] and diagnosed with bronchitis. She was [...] of days. She was seen in the [facility] and diagnosed with bronchitis. 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 COMPARISON: None. [...] Narrative EXAM: XR CHEST 2 VIEWS LOCATION: [facility] DATE: 07/11/2024 INDICATION: Fever COMPARISON: None. [...] RN - 07/11/2024 9:[address] [facility] ED Nurse Handoff Report ED Chief complaint: [...] 1. Lift room needed: No. Bariatric: No Computational Geneticist Needed: No Isolation: No. Infection: Not Applicable. [...] Bilirubin Urine Negative Ketones Urine Negative Specific Brush Urine 1.032 Blood Urine Moderate (*) pH [...] She was seen at her clinic in [place] for bronchitis yesterday. Today she developed progressive weakness per the qqvdayep-ps-tfc at the bedside. Also some mild confusion. 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 Rate 91 bpm. MD interval 128 ms. QRS duration 80 ms. [...] 0.9 % infusion ( Intravenous $New Bag 07/12/2410) acetaminophen (TYLENOL) tablet 650 mg (has no [...] Procedures Procedures Medical Decision Making / Diagnosis [facility] Diagnoses: IV Antibiotics given and/or elevated Lactate [...] 30 Minutes Intravenous ONCE 07/11/24182107/11/242009 and None [facility] Halle Loreto Mayers is [...] suspicion for sinister infectious intra-abdominal pathology or TOBACCO SORTER infection or skin or soft tissue infection [...] Major Shift Events : none Treatment Plan: Farooq Gibsonithro IV and symptom management Bedside Nurse: Camryn [...] shift note. Outcome: Not Progressing Flowsheets (Taken 07/13/2024627) Plan of Care Reviewed With: patient Overall [...] shift note. Outcome: Not Progressing Flowsheets (Taken 07/12/20242235) Outcome Evaluation: prn tylenol given for headache [...] Taken 07/12/2024 1700 by Sierra Goodman RN VTE Prevention/Management: SCDs off (sequential compression [...] in-person Pertinent Information: None Changes made to [employer] medication list: Added: Bupropion SR, Buspirone, Dexcom G7 CGM, Doxycycline, Duloxetine, Empagliflozin, Semaglutide,Vit D Deleted: APAP Changed: Metformin XR --> 1000mg BID WC Paroxetine 20mg --> 40mg daily Trazodone 100mg --> 200mg HS Allergies reviewed with patient and updates made in EHR: no Medication History Completed By: Riley Rick RPH 07/11/2024 10:40 PM [employer] Med List Medication Sig Note Last Dose [...] LAB - BEAKER POCT Final Result LABORATORY [facility] Acute Care Lab [address] Lab (1st floor, no room number) [place] [address]RUST * Extra Purple Top EDTA (LAB USE ONLY) (07/13/2024 6:03 AM CDT) Pathologist [facility] Hold Specimen JIC 07/13/2024 7:16 AM CDT LABORATORY Blood STRUCTURE OF RIGHT HAND / Unknown Venipuncture / Unknown 07/13/2024 6:03 AM CDT 07/13/2024 6:15 AM CDT us Rohit Lerma [facility] LAB - BLOOD ORDERABLES F inal Result LABORATORY [facility] Care Lab [address] Lab (1st floor, no room number) [place] [id number] [place] [address] * Lactic acid whole blood (07/13/2024 6:03 AM CDT) Lactic Acid 1.4 0.7 - 2.0 mmol/L 07/13/2024 6:22 AM CDT LABORATORY Blood STRUCTURE OF RIGHT HAND / Unknown Venipuncture / Unknown 07/13/2024 6:03 AM CDT 07/13/2024 6:15 AM CDT us Allan Mathews MD LAB - BLOOD ORDERABLES Fi nal Result Performing Organization Address City/[facility]/ZIP Co de Phone Number [facility] Lab [address] Lab (1st floor, no room number) [place] [id number] * (ABNORMAL) Glucose by meter (07/13/2024 2:05 AM CDT) GLUCOSE BY METER POCT 113(H) 70 - 99 mg/dL 07/13/2024 2:12 AM CDT LABORATORY POC Blood, Capillary BLOOD SPECIMEN / Unknown 07/13/2024 2:05 AM CDT 07/13/2024 2:12 AM CDT us Amanuel Cherry MD LAB - BEAKER POCT Final Result LABORATORY POC [facility] Care Lab [address] Lab (1st floor, no room number) [place] [id number] * (ABNORMAL) Glucose by meter (07/12/2024 10:37 PM CDT) GLUCOSE BY METER POCT 125(H) 70 - 99 mg/dL 07/12/2024 10:43 PM CDT LABORATORY POC Blood, Capillary BLOOD SPECIMEN / Unknown 07/12/2024 10:37 PM CDT 07/12/2024 10:43 PM CDT us Amanuel Cherry MD LAB - BEAKER POCT Final Result Performing Organization Address City/[facility]/ZIP Co de Phone Number LABORATORY [facility] Care Lab [address] Lab (1st floor, no room number) [place] [address], [facility] * Lactic acid whole blood (07/12/2024 8:58 PM CDT) Lactic Acid 0.9 0.7 - 2.0 mmol/L 07/12/2024 9:04 PM CDT LABORATORY Blood STRUCTURE OF LEFT HAND / Unknown Venipuncture / Unknown 07/12/2024 8:58 PM CDT 07/12/2024 9:02 PM CDT us Allan Mathews MD LAB - BLOOD ORDERABLES Fi nal Result Performing Organization Address City/[facility]/ZIP Co de Phone Number [facility] Lab [address] Lab (1st floor, no room number) [place] [address], [facility] * (ABNORMAL) Glucose by meter (07/12/2024 4:46 PM CDT) GLUCOSE BY METER POCT 107(H) 70 - 99 mg/dL 07/12/2024 4:53 PM CDT LABORATORY POC Blood, Capillary BLOOD SPECIMEN / Unknown 07/12/2024 4:46 PM CDT 07/12/2024 4:53 PM CDT us Amanuel Cherry MD LAB - BEAKER POCT Final Result LABORATORY [facility] Care Lab [address] Lab (1st floor, no room number) [place] [address], [facility] * (ABNORMAL) Glucose by meter (07/12/2024 11:36 AM CDT) GLUCOSE BY METER POCT 105(H) 70 - 99 mg/dL 07/12/2024 11:44 AM CDT RH LABORATORY POC Blood, Capillary BLOOD SPECIMEN / Unknown 07/12/2024 11:36 AM CDT 07/12/2024 11:44 AM CDT Amanuel Cherry MD LAB - BEAKER POCT Final Result LABORATORY [facility] Lab [address] Lab (1st floor, no room number) [place] [address] * (ABNORMAL) Glucose by meter (07/12/2024 9:27 AM CDT) GLUCOSE BY METER POCT 117(H) 70 - 99 mg/dL 07/12/2024 9:34 AM CDT LABORATORY POC Blood, Capillary BLOOD SPECIMEN / Unknown 07/12/2024 9:27 AM CDT 07/12/2024 9:34 AM CDT Amanuel Cherry MD LAB - BEAKER POCT Final Result Performing Organization Address City/[facility]/ZIP Co de Phone Number LABORATORY [facility] Lab [address] Lab (1st floor, no room number) [place] [address] * Lactic acid whole blood (07/12/2024 8:53 AM CDT) Lactic Acid 1.1 0.7 - 2.0 mmol/L 07/12/2024 9:06 AM CDT LABORATORY Blood STRUCTURE OF RIGHT HAND / Unknown Venipuncture / Unknown 07/12/2024 8:53 AM CDT 07/12/2024 8:58 AM CDT Brody Beckford MD LAB - BLOOD ORDERABLES Final Result [facility] Lab [address] Lab (1st floor, no room number) [place] [address] * (ABNORMAL) CBC with platelets (07/12/2024 8:53 [...] - BLOOD ORDERABLES Final Result RH LABORATORY [facility] Acute Care Lab [address] Lab (1st floor, no room number) [place] [address], [facility] * (ABNORMAL) Basic metabolic panel (07/12/2024 [...] LAB - BLOOD ORDERABLES Final Result LABORATORY [facility] Acute Care Lab [address] Lab (1st floor, no room number) [place] [address], [facility] * (ABNORMAL) Glucose by meter (07/12/2024 12:06 AM CDT) [facility] GLUCOSE BY METER POCT 168(H) 70 - 99 mg/dL 07/12/2024 12:13 AM CDT LABORATORY POC Blood, Capillary BLOOD SPECIMEN / Unknown 07/12/2024 12:06 AM CDT 07/12/2024 12:13 AM CDT us Amanuel Cherry MD LAB - BEAKER POCT Final Result LABORATORY [facility] Care Lab [address] Lab (1st floor, no room number) [place] [address], [facility] * Lactic acid whole blood (07/11/2024 10:28 PM CDT) Pathologist [facility] Lactic Acid 1.5 0.7 - 2.0 mmol/L 07/11/2024 10:41 PM CDT LABORATORY Blood BLOOD SPECIMEN / Unknown Venipuncture / Unknown 07/11/2024 10:28 PM CDT 07/11/2024 10:38 PM CDT us Brody Beckford MD LAB - BLOOD ORDERABLES Final Result Performing Organization Address City/[facility]/ZIP Co de Phone Number LABORATORY [facility] [address] [facility] Lab ([facility], no room number) [place] [address], [facility] * (ABNORMAL) UA with Microscopic [...] mg/dL 07/11/2024 8:47 PM CDT LABORATORY Specific Brush Urine 1.032 1.003 - 1.035 07/11/2024 8:47 [...] LAB - URINE ORDERABLES Final Result LABORATORY [facility] Acute Care Lab [address] Lab (1st floor, no room number) [place] [address] * (ABNORMAL) iStat Gases (lactate) venous, POCT [...] - BEAKER POCT Final Resul t LABORATORY [facility] Acute Care Lab [address] Lab (1st floor, no room number) [place] [address], [facility] * XR Chest 2 Views [...] CDT EXAM: XR CHEST 2 VIEWS LOCATION: [facility] DATE: 07/11/2024 INDICATION: Fever COMPARISON: None. Procedure Note Hira Casey MD - 07/11/2024 EXAM: XR CHEST 2 VIEWS LOCATION: [facility] DATE: 07/11/2024 INDICATION: Fever COMPARISON: None. [...] CDT EXAM: CT HEAD W/O CONTRAST LOCATION: [facility] DATE: 07/11/2024 INDICATION: Confusion. COMPARISON: None. [...] 07/11/2024 EXAM: CT HEAD W/O CONTRAST LOCATION: [facility] DATE: 07/11/2024 INDICATION: Confusion. COMPARISON: None. [...] microvascular ischemic changes asabove. Brody Beckford MD [facility] CT ORDERABLES Final Resul t * (ABNORMAL) [...] POCT Final Resul t RH LABORATORY POC [facility] Acute Care Lab [address] Lab (1st floor, no room number) [place] [address] * Blood Culture Peripheral Blood (07/11/2024 6:31 PM CDT) Culture No Growth 07/16/2024 8:31 PM CDT [facility] LABORATORY Blood BLOOD SPECIMEN / Unknown Venipuncture / Unknown 07/11/2024 6:31 PM CDT 07/11/2024 6:52 PM CDT us Brody Beckford MD LAB - MICRO GENERAL ORDERABLE S Final Result [facility] LABORATORY [facility] Inf. Diseases Diag. Lab [address] [facility] [place] [address] * EKG 12 lead (07/11/2024 6:14 PM CDT) Systolic Blood Pressure mmHg RADIOLOGY RESULTS Diastolic Blood Pressure mmHg RADIOLOGY RESULTS Ventricular Rate 91 BPM RAD IOLOGY RESULTS Atrial Rate 91 BPM RADIOLOG Y RESULTS MD Interval 128 ms RADIOLOG Y RESULTS QRS Duration 80 ms RADIOLO GY RESULTS QT 374 ms RADIOLOGY RESULTS QTc 460 ms RADIOLOGY RESULTS P [place] 60 degrees RADIOLOGY RESULTS R AXIS 7 degrees RADIOLOGY RESULTS T [place] 48 degrees RADIOLOGY RESULTS Interpretation ECG Sinus [...] the Xpert Xpress CoV2/Flu/RSV Assay on the 3nder GeneXpert Instrument. This test should be ordered [...] management. This test was validated by the [facility] [employer]. These laboratories are certified under the Clinical Laboratory Improvement Amendments of 1988 (CLIA-88) as qualified to perfom high complexity laboratory testing. us Brody Beckford MD LAB - MICRO GENERAL ORDERABLE S Final Result RH LABORATORY [facility] Acute Care Lab [address] Lab (1st floor, no room number) [place] [address], [facility] * (ABNORMAL) CBC with platelets [...] 0 <1 /100 024 6:38 PM CDT LABORATORY Absolute Neutrophils 11.6(H) 1.6 - 8.3 10e3/uL 07/11/2024 6:38 PM CDT LABORATORY Absolute Lymphocytes 0.8 0.8 - 5.3 [...] LAB - BLOOD ORDERABLES Final Result LABORATORY [facility] Acute Care Lab [address] [facility] Lab (1st floor, no room number) [place] [address], [facility] * (ABNORMAL) Comprehensive metabolic panel [...] 6:52 PM CDT RH LABORATORY Comment:eGFR calculated us2020 CKD-EPI equation. Calcium 9.2 8.8 - 10.4 [...] LAB - BLOOD ORDERABLES Final Result LABORATORY [facility] Acute Care Lab [address] Lab (1st floor, no room number) [place] [address], [facility] * Extra Purple Top Tube (07/11/2024 5:09 PM CDT) Hold Specimen [facility] 07/11/2024 6:31 PM CDT RH LABORATORY Blood BLOOD SPECIMEN / Unknown Venipuncture / Unknown 07/11/2024 5:09 PM CDT 07/11/2024 5:20 PM CDT us Brody Beckford MD LAB - BLOOD ORDERABLES Final Result [facility] Lab [address] Lab (1st floor, no room number) [place] [address], [facility] * Extra Green Top ([place] Heparin) Tube (07/11/2024 5:09 PM CDT) Hold Specimen [facility] 07/11/2024 6:31 PM CDT RH LABORATORY Blood BLOOD SPECIMEN / Unknown Venipuncture / Unknown 07/11/2024 5:09 PM CDT 07/11/2024 5:20 PM CDT us Brody Beckford MD LAB - BLOOD ORDERABLES Final Result [facility] Lab [address] Lab (1st floor, no room number) [place] [address], [facility] * Extra Red Top Tube (07/11/2024 5:09 PM CDT) Hold Specimen [facility] 07/11/2024 6:31 PM CDT RH LABORATORY Blood BLOOD SPECIMEN / Unknown Venipuncture / Unknown 07/11/2024 5:09 PM CDT 07/11/2024 5:20 PM CDT us Brody Beckford MD LAB - BLOOD ORDERABLES Final Result [facility] Lab [address] Lab (1st floor, no room number) [place] [address], [facility] * Extra Blue Top Tube (07/11/2024 5:09 PM CDT) Hold Specimen [facility] 07/11/2024 6:31 PM CDT LABORATORY Blood BLOOD SPECIMEN / Unknown Venipuncture / Unknown 07/11/2024 5:09 PM CDT 07/11/2024 5:20 PM CDT Brody Beckford MD LAB - BLOOD ORDERABLES Final Result [facility] Acute Care Lab [address] [facility] Lab (1st floor, no room number) [place] [address], [facility] documented in this encounter Visit Diagnoses Diagnosis [...] BEDTIME, First dose on Wed07/12/24 at 2200 2108 ($Given - Provider: Sierra Goodman RN) Vitamin [...] Goodman RN)2339 (Rate/Dose Verify - Provider: Camryn Hobson RN) 0658 ($New Bag - Provider: Camryn Hobson, [...] stools. documented in this encounter Care Teams Assistant News Director Relationship Specialty Start Date End Date Augusto Scott MD PCP - General Family Medicine 07/11/24 documented as of this encounter
--- OUTSIDE RECORDS SUMMARY | 2024-07-24 08:40 | XMS_ITS | Clinical Summary ---
Author Organization [facility] Address [place], [place] [address] Care Team Providers Care Rn Post Partum Name Role Phone Augusto Scott MD Primary Care Provider [phone] Allergies Active Allergy Reactions Criticality Noted Date [...] Active Problems Problem Noted Date Diagnosed Date Shnag-Vzfjvlkcr-Gykwa (WPW) pattern seen on electrocardiography 05/26/2019 Diabetes [...] Influenza for age 65+ 05/28/2024 Care Teams Rn Post Partum Relationship Specialty Start Date End Date Augusto Scott MD [address] [place] [address] PCP - General Family Practice 03/30/24
--- NOTE | 2024-07-24 10:00 | CRLHL7_ITS ---
For Patients: As a result of the Century Cures Act, medical imaging exams and procedure reports are released immediately into your electronic medical record. You may view this report before your referring provider. If you have questions, please contact your health care provider. Indication: BREAST CANCER, SOFT TISSUE MASS LEFT CHEST WALL Technique: CT Chest/Abd/Pelvis w/ 75cc [id number] Please note that all CT scans at this facility use dose modulation, iterative reconstruction, and/or weight-based dosing when appropriate to reduce radiation dose to as low as reasonably achievable. Comparison: 10/07/2023 Findings: In the chest, postop changes of left mastectomy are present. There is a circumscribed complex mass within the left anterior chest wall superiorly measuring 3.3 x 4.9 cm. A smaller similar masses present deeper within the left anterior chest wall measuring 1.8 x 2.6 cm adjacent to the anterior 1st rib. Visualized pancreas is normal. Mildly prominent prevascular lymph node is present measuring 13 x 5 millimeters. Similar appearance of precarinal and subcarinal lymph nodes. No enlarged hilar lymph nodes. No pleural or pericardial effusion. Calcified intrathoracic lymph nodes are again noted related to prior granulomatous disease. Calcified granuloma in the right lung is similar. Multiple small pulmonary nodules are present bilaterally particularly within the left lower lobe measuring up to 4.9 millimeters. Development of reticular densities within the left lower lobe. Mild emphysematous changes noted. Multilevel degenerative changes. No fracture. In the abdomen, ill-defined hypodense lesions are present within the left hepatic lobe measuring up to approximately 3.3 cm. Other smaller lesions are present elsewhere within the left hepatic lobe. The gallbladder is absent. No biliary obstruction. Pancreas normal. Normal spleen. Adrenal glands normal. No hydronephrosis. In the abdomen, the bladder is incompletely distended. Uterus normal. Normal ovaries. Relative absence of colonic stool. No mechanical bowel obstruction. Atherosclerotic changes. No aneurysm. No pelvic or inguinal adenopathy. Degenerative facet arthropathy lower lumbar spine. Mild chronic wedging of L5. Impression: Two complex circumscribed masses within the left upper chest wall measuring 4.9 cm and 2.6 cm. Ultrasound recommended for further evaluation followed by biopsy. Innumerable small pulmonary nodules bilaterally particularly within the left lower lobe measuring up to 4.9 millimeters, more conspicuous compared to the prior study. Also development of reticular densities within the left lower lobe. Indeterminate intrahepatic lesions within the left hepatic lobe measuring up to 3.3 cm. Liver MRI recommended for further evaluation. Please note that all CT scans at this facility use dose modulation, iterative reconstruction, and/or weight-based dosing when appropriate to reduce radiation dose to as low as reasonably achievable. Dictated by Rayshawn Parikh MD @ 07/24/2024 12:18:10 PM (Electronically Signed)
== END 2024-07-24 08:38 | disposition home or self-care (01) ==
LOC: CT 08:37
PROVIDERS: PCP Family Medicine; Visit Provider Family Medicine
DX: R22.2 Localized swelling, mass and lump, trunk (principal); M79.89 Other specified soft tissue disorders; R91.8 Other nonspecific abnormal finding of lung field; K76.9 Liver disease, unspecified
CPT/HCPCS: 71260; 74177; Q9967

== ENCOUNTER 2024-07-28 10:53 | Outpatient (CLI) | payer OTHER, SELFPAY ==
--- OUTSIDE RECORDS SUMMARY | 2024-07-28 10:56 | XMS_ITS | Referral Summary ---
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 [address] [employer] Lab (1st floor, no room number) [address] * Extra Purple Top EDTA (LAB USE ONLY) (07/13/2024 6:03 AM CDT) Hold Specimen JIC 07/13/2024 7:16 AM CDT LABORATORY Blood STRUCTURE OF RIGHT HAND / Unknown Venipuncture / Unknown 07/13/2024 6:03 AM CDT 07/13/2024 6:15 AM CDT Rohit Lerma [facility] LAB - BLOOD ORDERABLES F inal Result LABORATORY [facility] [address] (1st floor, no room number) [address] * Lactic acid whole blood (07/13/2024 [...] - BLOOD ORDERABLES Fi nal Result LABORATORY [facility] [address] [facility] Lab (1st floor, no room number) [place] [address] * (ABNORMAL) Basic metabolic panel (07/12/2024 [...] - BLOOD ORDERABLES Final Result RH LABORATORY [facility] [address] Lab (1st floor, no room number) [place] [address] * (ABNORMAL) CBC with platelets (07/12/2024 8:53 AM CDT) [facility] WBC Count 12.3(H) 4.0 - 11.0 [...] - BLOOD ORDERABLES Final Result RH LABORATORY [facility] [address] Lab (1st floor, no room number) [place] [address], [facility] * (ABNORMAL) UA with Microscopic reflex [...] mg/dL 07/11/2024 8:47 PM CDT LABORATORY Specific [place] Urine 1.032 1.003 - 1.035 07/11/2024 8:47 [...] LAB - URINE ORDERABLES Final Result LABORATORY [facility] [address] Lab (1st floor, no room number) [place] [address] * (ABNORMAL) iStat Gases (lactate) venous, [...] 07/11/2024 8:08 PM CDT Brody Beckford MD [facility] POCT Final Resul t RH LABORATORY POC [facility] [address] [facility] (1st floor, no room number) [place] [address], [facility] * XR Chest 2 Views (07/11/2024 [...] CDT EXAM: XR CHEST 2 VIEWS LOCATION: [facility] DATE: 07/11/2024 INDICATION: Fever COMPARISON: None. Procedure Note Hira Casey MD - 07/11/2024 EXAM: XR CHEST 2 VIEWS LOCATION: [facility] DATE: 07/11/2024 INDICATION: Fever COMPARISON: [...] CDT EXAM: CT HEAD W/O CONTRAST LOCATION: [facility] DATE: 07/11/2024 INDICATION: Confusion. COMPARISON: [...] 07/11/2024 EXAM: CT HEAD W/O CONTRAST LOCATION: [facility] DATE: 07/11/2024 INDICATION: Confusion. COMPARISON: [...] ORDERABLE S Final Result [facility] IDD LABORATORY [facility] Lab [address] [facility], Room [address] [address] * EKG 12 lead (07/11/2024 6:14 PM CDT) Systolic Blood Pressure mmHg RADIOLOGY RESULTS Diastolic Blood Pressure mmHg RADIOLOGY RESULTS Ventricular Rate 91 BPM RAD IOLOGY RESULTS Atrial Rate 91 BPM RADIOLOG Y RESULTS AK Interval 128 ms RADIOLOG Y RESULTS QRS Duration 80 ms RADIOLO GY RESULTS QT 374 ms RADIOLOGY RESULTS QTc 460 ms RADIOLOGY RESULTS P Vanduser 60 degrees RADIOLOGY RESULTS R AXIS 7 degrees RADIOLOGY RESULTS T Vanduser 48 degrees RADIOLOGY RESULTS Interpretation ECG Sinus [...] the Xpert Xpress CoV2/Flu/RSV Assay on the [employer] GeneXpert Instrument. This test should be [...] management. This test was validated by the [facility] [employer]. These laboratories are certified under the Clinical Laboratory Improvement Amendments of 1988 (CLIA-88) as qualified to perfom high complexity laboratory testing. Brody Beckford MD LAB - MICRO GENERAL ORDERABLE S Final Result [facility] Care [facility] [address] Lab (1st floor, no room number) [place] [address] * Extra Purple Top Tube (07/11/2024 5:09 PM CDT) Hold Specimen JI 07/11/2024 6:31 PM CDT RH LABORATORY Blood BLOOD SPECIMEN / Unknown Venipuncture / Unknown 07/11/2024 5:09 PM CDT 07/11/2024 5:20 PM CDT us Brody Beckford MD LAB - BLOOD ORDERABLES Final Result [facility] [address] Lab (1st floor, no room number) [place] [address] * Extra Green Top ([place] Heparin) Tube (07/11/2024 5:09 PM CDT) Hold Specimen [facility] 07/11/2024 6:31 PM CDT RH LABORATORY Blood BLOOD SPECIMEN / Unknown Venipuncture / Unknown 07/11/2024 5:09 PM CDT 07/11/2024 5:20 PM CDT us Brody Beckford MD LAB - BLOOD ORDERABLES Final Result [facility] [address] Lab (1st floor, no room number) [place] [address] * Extra Red Top Tube (07/11/2024 5:09 PM CDT) Hold Specimen [facility] 07/11/2024 6:31 PM CDT RH LABORATORY Blood BLOOD SPECIMEN / Unknown Venipuncture / Unknown 07/11/2024 5:09 PM CDT 07/11/2024 5:20 PM CDT us Brody Beckford MD LAB - BLOOD ORDERABLES Final Result RH LABORATORY [facility] [address] Lab (1st floor, no room number) [place] [address] * Extra Blue Top Tube (07/11/2024 5:09 PM CDT) Hold Specimen JIC 07/11/2024 6:31 PM CDT RH LABORATORY Blood BLOOD SPECIMEN / Unknown Venipuncture / Unknown 07/11/2024 5:09 PM CDT 07/11/2024 5:20 PM CDT Brody Beckford MD LAB - BLOOD ORDERABLES Final Result Performing Organization Address City/[facility]/ZIP Co de Phone Number LABORATORY [facility] Care Lab [address] Lab (1st floor, no room number) [place] [phone] * (ABNORMAL) CBC with platelets and [...] - BLOOD ORDERABLES Final Result RH LABORATORY [facility] [address] Lab (1st floor, no room number) [place] [address], [facility] * (ABNORMAL) Comprehensive metabolic panel (07/11/2024 [...] MD LAB - BLOOD ORDERABLES Final Result [facility] Lab [address] Lab (1st floor, no room number) [place] [address], [facility] * (ABNORMAL) Lipid Panel (External Result) (09/23/2021 2:57 PM JUNIOR LEGAL SECRETARY) [facility] Signature Cholesterol (External) 183 90 - 199 mg/dL [facility] Triglycerides (External) 371(A) 40 - 149 mg/dL [facility] HDL Cholesterol (External) 44 >=50 mg/dL [facility] LDL Cholesterol Calculated (External) 65 <100 mg/dL [facility] Blood 09/23/2021 2:57 PM JUNIOR LEGAL SECRETARY Narrative [facility] - 09/23/2021 2:57 PM JUNIOR LEGAL SECRETARY LAB RESULTS [facility] us Provider Outside LAB - HIM EXTERNAL RESULT Edite d Result - Final Performing Organization Address City/[facility]/ZIP Co de Phone Number [facility] [address] [place] [address], [facility] [phone] from Last 3 Months or Most Recently Relevant to Health Maintenance Insurance Badge Advance Directives For more information, please contact: [phone] * Full Code (Latest Code Status on [...] palak nt/ legal decision maker Care Teams Genetic Counsellor Relationship Specialty Start Date End Date Augusto Scott MD PCP - General Family Medicine 07/11/24
--- OUTSIDE RECORDS SUMMARY | 2024-07-28 10:56 | XMS_ITS | Encounter Summary ---
Author Organization [facility] Address [address] [place] [address] Care Team Providers Care Development Administrator Name Role Phone Augusto Scott MD Primary Care Provider [phone] Reason for Visit * Reason Comments Urinary Frequency UTI * Auth/Cert (Routine) Specialty Diagnoses / Procedures Referred By Contac t Referred To Contact EMERGENCY MEDICINE Diagnoses Severe sepsis (H) Pneumonia of left lower lobe due to infectious organism [facility] Emergency Dept [address] [place] [address] Phone: tel:[phone] fax: Referral ID Status Reason Start Date Expiration Date Visits Re quested Visits Authorized [id number] 1 1 Encounter Details Date Type Department Care Team (Late st Contact Info) Description 07/11/2024 4:33 PM CDT - 07/13/2024 10:58 AM CDT Hospital Encounter 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 [facility] Hospitalist Discharge Summary Date of Admission: 07/11/2024 Date of Discharge: 07/13/2024 Discharging Provider: Allan Mathews MD, MD Discharge Service: Hospitalist Service Discharge Diagnoses Severe sepsis secondary to bacterial community-acquired pneumonia left lung LINDA resolved secondary to hypovolemia and sepsis Hypovolemic hyponatremia improving resolved Alteration of mental state secondary to acute infectious encephalopathy improved and resolved Adl-zkwtnnv-tmcxcovwb diabetes mellitus History of depression Anxiety Clinically [...] follow-up closely with PCP next week. Halle aMyers is a 69 year old female patient with past medical history of diabetes mellitus type2, hyperlipidemia, anxiety, depression, was brought to emergency room for evaluation for cough, fever, sore throat, generalized weakness and confusion. She states that her symptoms started couple of days ago and gradually got worse. She was seen in the [place] clinic and diagnosed with bronchitis. She was [...] discharging this patient. Allan Mathews MD, MD [place] [address] MEDICAL SURGICAL [address] [facility] [address] Physical Exam Vital Signs: Temp: 98.2 ??F [...] 07/11/2024 1831 07/12/20242030 Blood Culture Peripheral Blood [[id number]] Peripheral Blood Preliminary result Component Value Culture No growth after 1 day [P] 07/11/2024 1719 07/11/2024 1808 Asymptomatic Influenza A/B, RSV, & SARS-CoV2 PCR (COVID-19) Nose [[id number]] Swab from Nose Final result Component Value [...] Narrative EXAM: XR CHEST 2 VIEWS LOCATION: [facility] DATE: 07/11/2024 INDICATION: Fever COMPARISON: None. Impression IMPRESSION: Heart size is normal. Confluent airspace disease noted in the left lower lobe posteriorly compatible with pneumonia. Clinical correlation and follow-up to resolution recommended. No effusions or pneumothorax. No acute bony abnormalities. Clips in the right upper quadrant are compatible with prior cholecystectomy. Head CT w/o contrast Narrative EXAM: CT HEAD W/O CONTRAST LOCATION: [facility] DATE: 07/11/2024 INDICATION: Confusion. COMPARISON: None. TECHNIQUE: [...] Mathews MD - 07/12/2024 11:04 AM CDT [facility] Medicine Progress Note - Hospitalist [...] got worse. She was seen in the [facility] and diagnosed with bronchitis. She was started [...] 2-4 Days Allan Mathews MD, Hospitalist Service [facility] Securely message with [employer] (more info) Text page via [facility] Paging/Directory Interval History I assumed medicine [...] Narrative EXAM: CT HEAD W/O CONTRAST LOCATION: [facility] DATE: 07/11/2024 INDICATION: Confusion. COMPARISON: None. TECHNIQUE: [...] Narrative EXAM: XR CHEST 2 VIEWS LOCATION: [facility] DATE: 07/11/2024 INDICATION: Fever COMPARISON: None. Impression IMPRESSION: Heart size is normal. Confluent airspace disease noted in the left lower lobe posteriorly compatible with pneumonia. Clinical correlation and follow-up to resolution recommended. No effusions or pneumothorax. No acute bony abnormalities. Clips in the right upper quadrant are compatible with prior cholecystectomy. * Jazmine Reilly RN - 07/12/2024 7:52 AM CDT [facility] ED Boarding Nurse Handoff Addendum Report: Date/time: [...] Dixon MD - 07/11/2024 9:23 PM CDT [facility] History and Physical Hospitalist Date [...] got worse. She was seen in the [place] [facility] and diagnosed with bronchitis. She was [...] of days. She was seen in the [facility] and diagnosed with bronchitis. 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 COMPARISON: None. TECHNIQUE: [...] Narrative EXAM: XR CHEST 2 VIEWS LOCATION: [facility] DATE: 07/11/2024 INDICATION: Fever COMPARISON: None. Impression [...] Navarro RN - 07/11/2024 9:20 PM CDT [facility] ED Nurse Handoff Report ED [...] 1. Lift room needed: No. Bariatric: No Computer Technician Needed: No Isolation: No. Infection: Not Applicable. [...] Bilirubin Urine Negative Ketones Urine Negative Specific [place] Urine 1.032 Blood Urine Moderate (*) pH [...] She was seen at her clinic in [place] for bronchitis yesterday. Today she developed progressive weakness per the cnrgiyso-lv-gyk at the bedside. Also some mild confusion. [...] MD; Location: OR EYE SURGERY CATARACT BILATERAL TRIPLE VALVE MECHANIC SURGERY TUBAL LIGATION ORTHOPEDIC SURGERY Right ACL [...] Bilirubin Urine Negative Ketones Urine Negative Specific [place] Urine 1.032 Blood Urine Moderate (*) pH [...] to prior, dated 09/23/21. Rate 91 bpm. [place] interval 128 ms. QRS duration 80 ms. [...] Procedures Procedures Medical Decision Making / Diagnosis [facility] Diagnoses: IV Antibiotics given and/or elevated Lactate [...] 30 Minutes Intravenous ONCE 07/11/24182107/11/242009 and None [facility] Halle Loreto Mayers is a 69 year [...] suspicion for sinister infectious intra-abdominal pathology or OPTICAL DESIGNER infection or skin or soft tissue infection [...] in-person Pertinent Information: None Changes made to DATA ARCHITECT medication list: Added: Bupropion SR, Buspirone, Dexcom G7 CGM, Doxycycline, Duloxetine, Empagliflozin, Semaglutide,Vit D Deleted: APAP Changed: Metformin XR --> 1000mg BID WC Paroxetine 20mg --> 40mg daily Trazodone 100mg --> 200mg HS Allergies reviewed with patient and updates made in EHR: no Medication History Completed By: Riley Rick RPH 07/11/2024 10:40 PM DATA ARCHITECT Med List Medication Sig Note Last Dose [...] LAB - BEAKER POCT Final Result LABORATORY [facility] [address] Lab (1st floor, no room number) [place] [address] * Extra Purple Top EDTA (LAB USE ONLY) (07/13/2024 6:03 AM CDT) Pathologist [facility] Hold Specimen JIC 07/13/2024 7:16 AM CDT LABORATORY Blood STRUCTURE OF RIGHT HAND / Unknown Venipuncture / Unknown 07/13/2024 6:03 AM CDT 07/13/2024 6:15 AM CDT us Rohit Lerma [facility] LAB - BLOOD ORDERABLES F inal Result LABORATORY [facility] Care Lab [address] Lab (1st floor, no room number) [place] [phone] [place] [address] * Lactic acid whole blood (07/13/2024 6:03 AM CDT) Lactic Acid 1.4 0.7 - 2.0 mmol/L 07/13/2024 6:22 AM CDT LABORATORY Blood STRUCTURE OF RIGHT HAND / Unknown Venipuncture / Unknown 07/13/2024 6:03 AM CDT 07/13/2024 6:15 AM CDT us Allan Mathews MD LAB - BLOOD ORDERABLES Fi nal Result Performing Organization Address City/[facility]/ZIP Co de Phone Number [facility] Lab [address] Lab (1st floor, no room number) [place] [phone] * (ABNORMAL) Glucose by meter (07/13/2024 2:05 AM CDT) GLUCOSE BY METER POCT 113(H) 70 - 99 mg/dL 07/13/2024 2:12 AM CDT LABORATORY POC Blood, Capillary BLOOD SPECIMEN / Unknown 07/13/2024 2:05 AM CDT 07/13/2024 2:12 AM CDT us Amanuel Cherry MD LAB - BEAKER POCT Final Result LABORATORY POC [facility] Care Lab [address] Lab (1st floor, no room number) [place] [phone] * (ABNORMAL) Glucose by meter (07/12/2024 10:37 PM CDT) GLUCOSE BY METER POCT 125(H) 70 - 99 mg/dL 07/12/2024 10:43 PM CDT LABORATORY POC Blood, Capillary BLOOD SPECIMEN / Unknown 07/12/2024 10:37 PM CDT 07/12/2024 10:43 PM CDT us Amanuel Cherry MD LAB - BEAKER POCT Final Result Performing Organization Address City/[facility]/ZIP Co de Phone Number LABORATORY [facility] Care Lab [address] Lab (1st floor, no room number) [place] [address], [place] * Lactic acid whole blood (07/12/2024 8:58 PM CDT) Lactic Acid 0.9 0.7 - 2.0 mmol/L 07/12/2024 9:04 PM CDT LABORATORY Blood STRUCTURE OF LEFT HAND / Unknown Venipuncture / Unknown 07/12/2024 8:58 PM CDT 07/12/2024 9:02 PM CDT us Allan Mathews MD LAB - BLOOD ORDERABLES Fi nal Result Performing Organization Address City/[facility]/ZIP Co de Phone Number [facility] Lab [address] Lab (1st floor, no room number) [place] [address], [place] * (ABNORMAL) Glucose by meter (07/12/2024 4:46 PM CDT) GLUCOSE BY METER POCT 107(H) 70 - 99 mg/dL 07/12/2024 4:53 PM CDT LABORATORY POC Blood, Capillary BLOOD SPECIMEN / Unknown 07/12/2024 4:46 PM CDT 07/12/2024 4:53 PM CDT us Amanuel Cherry MD LAB - BEAKER POCT Final Result LABORATORY [facility] Care Lab [address] Lab (1st floor, no room number) [place] [address], [place] * (ABNORMAL) Glucose by meter (07/12/2024 11:36 AM CDT) GLUCOSE BY METER POCT 105(H) 70 - 99 mg/dL 07/12/2024 11:44 AM CDT RH LABORATORY POC Blood, Capillary BLOOD SPECIMEN / Unknown 07/12/2024 11:36 AM CDT 07/12/2024 11:44 AM CDT Amanuel Cherry MD LAB - BEAKER POCT Final Result LABORATORY [facility] Lab [address] Lab (1st floor, no room number) [place] [address] * (ABNORMAL) Glucose by meter (07/12/2024 9:27 AM CDT) GLUCOSE BY METER POCT 117(H) 70 - 99 mg/dL 07/12/2024 9:34 AM CDT LABORATORY POC Blood, Capillary BLOOD SPECIMEN / Unknown 07/12/2024 9:27 AM CDT 07/12/2024 9:34 AM CDT Amanuel Cherry MD LAB - BEAKER POCT Final Result Performing Organization Address City/[facility]/ZIP Co de Phone Number LABORATORY [facility] Lab [address] Lab (1st floor, no room number) [place] [address] * Lactic acid whole blood (07/12/2024 8:53 AM CDT) Lactic Acid 1.1 0.7 - 2.0 mmol/L 07/12/2024 9:06 AM CDT LABORATORY Blood STRUCTURE OF RIGHT HAND / Unknown Venipuncture / Unknown 07/12/2024 8:53 AM CDT 07/12/2024 8:58 AM CDT Brody Beckford MD LAB - BLOOD ORDERABLES Final Result [facility] Lab [address] Lab (1st floor, no room number) [place] [address] * (ABNORMAL) CBC with platelets (07/12/2024 [...] - BLOOD ORDERABLES Final Result RH LABORATORY [facility] Acute Care Lab [address] Lab (1st floor, no room number) [place] [address], [place] * (ABNORMAL) Basic metabolic panel (07/12/2024 8:53 [...] LAB - BLOOD ORDERABLES Final Result LABORATORY [facility] Acute Care Lab [address] Lab (1st floor, no room number) [place] [address], [place] * (ABNORMAL) Glucose by meter (07/12/2024 12:06 AM CDT) [facility] GLUCOSE BY METER POCT 168(H) 70 - 99 mg/dL 07/12/2024 12:13 AM CDT LABORATORY POC Blood, Capillary BLOOD SPECIMEN / Unknown 07/12/2024 12:06 AM CDT 07/12/2024 12:13 AM CDT us Amanuel Cherry MD LAB - BEAKER POCT Final Result LABORATORY [facility] Care Lab [address] Lab (1st floor, no room number) [place] [address], [place] * Lactic acid whole blood (07/11/2024 10:28 PM CDT) Pathologist [facility] Lactic Acid 1.5 0.7 - 2.0 mmol/L 07/11/2024 10:41 PM CDT LABORATORY Blood BLOOD SPECIMEN / Unknown Venipuncture / Unknown 07/11/2024 10:28 PM CDT 07/11/2024 10:38 PM CDT us Brody Beckford MD LAB - BLOOD ORDERABLES Final Result Performing Organization Address City/[facility]/ZIP Co de Phone Number LABORATORY [facility] [address] [facility] ([facility], no room number) [place] [address], [place] * (ABNORMAL) UA with Microscopic reflex to [...] mg/dL 07/11/2024 8:47 PM CDT LABORATORY Specific [place] Urine 1.032 1.003 - 1.035 07/11/2024 8:47 [...] LAB - URINE ORDERABLES Final Result LABORATORY [facility] Acute Care Lab [address] Lab (1st floor, no room number) [place] [address] * (ABNORMAL) iStat Gases (lactate) venous, [...] - BEAKER POCT Final Resul t LABORATORY [facility] Lab [address] Lab (1st floor, no room number) [place] [address], [place] * XR Chest 2 Views (07/11/2024 7:54 [...] CDT EXAM: XR CHEST 2 VIEWS LOCATION: [facility] DATE: 07/11/2024 INDICATION: Fever COMPARISON: None. Procedure Note Hira Casey MD - 07/11/2024 EXAM: XR CHEST 2 VIEWS LOCATION: [facility] DATE: 07/11/2024 INDICATION: Fever COMPARISON: None. IMPRESSION: [...] CDT EXAM: CT HEAD W/O CONTRAST LOCATION: [facility] DATE: 07/11/2024 INDICATION: Confusion. COMPARISON: None. TECHNIQUE: [...] 07/11/2024 EXAM: CT HEAD W/O CONTRAST LOCATION: [facility] DATE: 07/11/2024 INDICATION: Confusion. COMPARISON: None. TECHNIQUE: [...] microvascular ischemic changes asabove. Brody Beckford MD [facility] CT ORDERABLES Final Resul t * (ABNORMAL) [...] POCT Final Resul t RH LABORATORY POC [facility] Acute Care Lab [address] Lab (1st floor, no room number) [place] [address] * Blood Culture Peripheral Blood (07/11/2024 6:31 PM CDT) Culture No Growth 07/16/2024 8:31 PM CDT [facility] LABORATORY Blood BLOOD SPECIMEN / Unknown Venipuncture / Unknown 07/11/2024 6:31 PM CDT 07/11/2024 6:52 PM CDT us Brody Beckford MD LAB - MICRO GENERAL ORDERABLE S Final Result [facility] LABORATORY [facility] Inf. Diseases Diag. Lab [address] [facility] [place] [address] * EKG 12 lead (07/11/2024 6:14 PM CDT) Systolic Blood Pressure mmHg RADIOLOGY RESULTS Diastolic Blood Pressure mmHg RADIOLOGY RESULTS Ventricular Rate 91 BPM RAD IOLOGY RESULTS Atrial Rate 91 BPM RADIOLOG Y RESULTS [place] Interval 128 ms RADIOLOG Y RESULTS QRS Duration 80 ms RADIOLO GY RESULTS QT 374 ms RADIOLOGY RESULTS QTc 460 ms RADIOLOGY RESULTS P [place] 60 degrees RADIOLOGY RESULTS R AXIS 7 degrees RADIOLOGY RESULTS T [place] 48 degrees RADIOLOGY RESULTS Interpretation ECG Sinus [...] the Xpert Xpress CoV2/Flu/RSV Assay on the [employer] GeneXpert Instrument. This test should be ordered [...] management. This test was validated by the [facility]. These laboratories are certified under the Clinical Laboratory Improvement Amendments of 1988 (CLIA-88) as qualified to perfom high complexity laboratory testing. us Brody Beckford MD LAB - MICRO GENERAL ORDERABLE S Final Result RH LABORATORY [facility] Acute Care Lab [address] Lab (1st floor, no room number) [place] [address], [place] * (ABNORMAL) CBC with platelets and differential [...] LAB - BLOOD ORDERABLES Final Result LABORATORY [facility] Acute Care Lab [address] [facility] Lab (1st floor, no room number) [place] [address], [place] * (ABNORMAL) Comprehensive metabolic panel (07/11/2024 5:09 [...] LAB - BLOOD ORDERABLES Final Result LABORATORY [facility] Acute Care Lab [address] Lab (1st floor, no room number) [place] [address], [place] * Extra Purple Top Tube (07/11/2024 5:09 PM CDT) Hold Specimen [facility] 07/11/2024 6:31 PM CDT RH LABORATORY Blood BLOOD SPECIMEN / Unknown Venipuncture / Unknown 07/11/2024 5:09 PM CDT 07/11/2024 5:20 PM CDT us Brody Beckford MD LAB - BLOOD ORDERABLES Final Result [facility] Lab [address] Lab (1st floor, no room number) [place] [address], [place] * Extra Green Top ([place] Heparin) Tube (07/11/2024 5:09 PM CDT) Hold Specimen [facility] 07/11/2024 6:31 PM CDT RH LABORATORY Blood BLOOD SPECIMEN / Unknown Venipuncture / Unknown 07/11/2024 5:09 PM CDT 07/11/2024 5:20 PM CDT us Brody Beckford MD LAB - BLOOD ORDERABLES Final Result [facility] Lab [address] Lab (1st floor, no room number) [place] [address], [place] * Extra Red Top Tube (07/11/2024 5:09 PM CDT) Hold Specimen [facility] 07/11/2024 6:31 PM CDT RH LABORATORY Blood BLOOD SPECIMEN / Unknown Venipuncture / Unknown 07/11/2024 5:09 PM CDT 07/11/2024 5:20 PM CDT us Brody Beckford MD LAB - BLOOD ORDERABLES Final Result [facility] Lab [address] Lab (1st floor, no room number) [place] [address], [place] * Extra Blue Top Tube (07/11/2024 5:09 PM CDT) Hold Specimen [facility] 07/11/2024 6:31 PM CDT LABORATORY Blood BLOOD SPECIMEN / Unknown Venipuncture / Unknown 07/11/2024 5:09 PM CDT 07/11/2024 5:20 PM CDT Brody Beckford MD LAB - BLOOD ORDERABLES Final Result [facility] Acute Care Lab [address] [facility] Lab (1st floor, no room number) [place] [address], [place] documented in this encounter Visit Diagnoses Diagnosis [...] 4 grams/day. 1705 ($Given - Provider: Sukhdeep aNvarro RN) ARIPiprazole (ABILIFY) tablet 5 mg 5 [...] stools. documented in this encounter Care Teams Development Administrator Relationship Specialty Start Date End Date Augusto Scott MD PCP - General Family Medicine 07/11/24 documented as of this encounter
--- OUTSIDE RECORDS SUMMARY | 2024-07-28 10:56 | XMS_ITS | Clinical Summary ---
Author Organization [facility] Address [address] [place] [address] Care Team Providers Care Linoleum Tile Layer Name Role Phone Augusto Scott MD Primary Care Provider [phone] Allergies Active Allergy Reactions Criticality Noted Date [...] - 07/13/2024 10:58 AM CDT Hospital Encounter [place] [address] [facility] [address] [place] [id number] Brody Beckford MD Jaleta, MD Jo Ann [...] on file Legal Sex Female 11:18 AM KELP GATHERER Gender Identity Not on file Sexual Orientation [...] lb 3.2 oz) 11/25/2021 5:59 A M KELP GATHERER Height 162.6 cm (5' 4) 11/25/2021 5:59 AM KELP GATHERER Body Mass Index 29.39 11/25/2021 5:59 AM KELP GATHERER Plan of Treatment Health Maintenance Due Date [...] PANEL (EXTERNAL RESULT) Routine 09/23/2021 2:57 PM KELP GATHERER from Last 3 Months or Most Recently [...] BEAKER POCT Final Result [facility]AT[facility] POC [facility] [address] Lab (1st floor, no room number) [place] [id number] [place] [address] * Extra Purple Top EDTA (LAB USE ONLY) (07/13/2024 6:03 AM CDT) Hold Specimen JIC 07/13/2024 7:16 AM CDT [facility] LABORATORY Blood STRUCTURE OF RIGHT HAND / Unknown Venipuncture / Unknown 07/13/2024 6:03 AM CDT 07/13/2024 6:15 AM CDT us Rohit Lerma [facility] LAB - BLOOD ORDERABLES F inal Result [facility] Lab [address] Lab (1st floor, no room number) [address] * Lactic acid whole blood (07/13/2024 6:03 AM CDT) Only the most recent of4 resultswithin the time period is included. Lactic Acid 1.4 0.7 - 2.0 mmol/L 07/13/2024 6:22 AM CDT [facility] LABORATORY Blood STRUCTURE OF RIGHT HAND / Unknown Venipuncture / Unknown 07/13/2024 6:03 AM CDT 07/13/2024 6:15 AM CDT us Allan Mathews MD LAB - BLOOD ORDERABLES Fi nal Result [facility] [address] Lab (1st floor, no room number) [place] [address] * (ABNORMAL) Basic metabolic panel [...] LAB - BLOOD ORDERABLES Final Result LABORATORY [facility] [address] Lab (1st floor, no room number) [place] [address] * (ABNORMAL) CBC with platelets [...] LAB - BLOOD ORDERABLES Final Result LABORATORY [facility] [address] Lab (1st floor, no room number) [place] [address], [facility] * (ABNORMAL) UA with Microscopic reflex [...] 07/11/2024 8:47 PM CDT [facility] LABORATORY Specific [place] Urine 1.032 1.003 - 1.035 07/11/2024 8:47 [...] LAB - URINE ORDERABLES Final Result LABORATORY [facility] [address] Lab (1st floor, no room number) [place] [address], [facility] * (ABNORMAL) iStat Gases (lactate) venous, [...] POCT Final Resul t [facility] LABORATORY POC [facility] [address] [facility] Lab (1st floor, no room number) [place] [address] * XR Chest 2 Views [...] CDT EXAM: XR CHEST 2 VIEWS LOCATION: [facility] DATE: 07/11/2024 INDICATION: Fever COMPARISON: None. Procedure Note Hria Casey MD - 07/11/2024 EXAM: XR CHEST 2 VIEWS LOCATION: [facility] DATE: 07/11/2024 INDICATION: [...] CDT EXAM: CT HEAD W/O CONTRAST LOCATION: [facility] DATE: 07/11/2024 INDICATION: [...] 07/11/2024 EXAM: CT HEAD W/O CONTRAST LOCATION: [facility] DATE: 07/11/2024 INDICATION: [...] ORDERABLE S Final Result Performing Organization Address [facility] Co de Phone Number [facility] Inf. Diseases Diag. Lab [address] [facility], [address] [place] [id number] * EKG 12 lead (07/11/2024 6:14 PM CDT) Systolic Blood Pressure mmHg RADIOLOGY RESULTS Diastolic Blood Pressure mmHg RADIOLOGY RESULTS Ventricular Rate 91 BPM RAD IOLOGY RESULTS Atrial Rate 91 BPM RADIOLOG Y RESULTS FL Interval 128 ms RADIOLOG Y RESULTS QRS Duration 80 ms RADIOLO GY RESULTS QT 374 ms RADIOLOGY RESULTS QTc 460 ms RADIOLOGY RESULTS P [place] 60 degrees RADIOLOGY RESULTS R AXIS 7 degrees RADIOLOGY RESULTS T [place] 48 degrees RADIOLOGY RESULTS Interpretation ECG Sinus [...] the Xpert Xpress CoV2/Flu/RSV Assay on the ADPXpert Instrument. This test should be ordered for [...] management. This test was validated by the [facility]. These laboratories are certified under the Clinical Laboratory Improvement Amendments of 1988 (CLIA-88) as qualified to perfom high complexity laboratory testing. Brody Beckford MD LAB - MICRO GENERAL ORDERABLE S Final Result LABORATORY [facility] [address] [facility] Lab (1st floor, no room number) [place] [address], [facility] * Extra Purple Top Tube (07/11/2024 5:09 PM CDT) Hold Specimen [facility] 07/11/2024 6:31 PM CDT RH LABORATORY Blood BLOOD SPECIMEN / Unknown Venipuncture / Unknown 07/11/2024 5:09 PM CDT 07/11/2024 5:20 PM CDT Brody Beckford MD LAB - BLOOD ORDERABLES Final Result [facility] [address] Lab (1st floor, no room number) [place] [address] * Extra Green Top ([place] Heparin) Tube (07/11/2024 5:09 PM CDT) Hold Specimen [facility] 07/11/2024 6:31 PM CDT [facility] LABORATORY Blood BLOOD SPECIMEN / Unknown Venipuncture / Unknown 07/11/2024 5:09 PM CDT 07/11/2024 5:20 PM CDT us Brody Beckford MD LAB - BLOOD ORDERABLES Final Result Performing Organization Address City/[facility]/ZIP Co de Phone Number [facility] [address] Lab (1st floor, no room number) [place] [address], [facility] * Extra Red Top Tube (07/11/2024 5:09 PM CDT) Hold Specimen [facility] 07/11/2024 6:31 PM CDT RH LABORATORY Blood BLOOD SPECIMEN / Unknown Venipuncture / Unknown 07/11/2024 5:09 PM CDT 07/11/2024 5:20 PM CDT Brody Beckford MD LAB - BLOOD ORDERABLES Final Result [facility] [address] Lab (1st floor, no room number) [place] [address], [facility] * Extra Blue Top Tube (07/11/2024 5:09 PM CDT) Hold Specimen [facility] 07/11/2024 6:31 PM CDT [facility] LABORATORY Blood BLOOD SPECIMEN / Unknown Venipuncture / Unknown 07/11/2024 5:09 PM CDT 07/11/2024 5:20 PM CDT us Brody Beckford MD LAB - BLOOD ORDERABLES Final Result [facility] LABORATORY [facility] [address] Lab (1st floor, no room number) [place] [address], [facility] * (ABNORMAL) CBC with platelets and [...] LAB - BLOOD ORDERABLES Final Result LABORATORY [facility] [address] [facility] Lab (1st floor, no room number) [place] [address], [facility] * (ABNORMAL) Comprehensive metabolic panel (07/11/2024 [...] - BLOOD ORDERABLES Final Result RH LABORATORY [facility] [address] Lab (1st floor, no room number) [place] [address], [facility] * (ABNORMAL) Lipid Panel (External Result) (09/23/2021 2:57 PM KELP GATHERER) Cholesterol (External) 183 90 - 199 mg/dL [facility] Triglycerides (External) 371(A) 40 - 149 mg/dL [facility] HDL Cholesterol (External) 44 >=50 mg/dL [facility] LDL Cholesterol Calculated (External) 65 <100 mg/dL [facility] Blood 09/23/2021 2:57 PM KELP GATHERER Narrative [facility] - 09/23/2021 2:57 PM KELP GATHERER LAB RESULTS [facility] us Provider Outside LAB - HIM EXTERNAL RESULT Edite d Result - Final [facility] [address] [place] [address], [facility] [phone] from Last 3 Months or Most Recently Relevant to Health Maintenance Insurance [employer] Advance Directives For more information, please contact: [phone] * Full Code (Latest Code Status on [...] palak nt/ legal decision maker Care Teams Linoleum Tile Layer Relationship Specialty Start Date End Date Augusto Scott MD PCP - General Family Medicine 07/11/24
--- OUTSIDE RECORDS SUMMARY | 2024-07-28 10:57 | XMS_ITS | Clinical Summary ---
Author Organization [facility] Address [place], [place] [address] Care Team Providers Care Product Test Specialist Name Role Phone Augusto Scott MD Primary Care Provider [phone] Allergies Active Allergy Reactions Criticality Noted Date [...] Active Problems Problem Noted Date Diagnosed Date Krrvp-Icsokdlnu-Qynsl (WPW) pattern seen on electrocardiography 05/26/2019 Diabetes [...] Influenza for age 65+ 05/28/2024 Care Teams Product Test Specialist Relationship Specialty Start Date End Date Augusto Scott MD [address] [place] [address] PCP - General Family Practice 03/30/24
--- OUTSIDE RECORDS SUMMARY | 2024-07-28 10:57 | XMS_ITS ---
Author Organization [facility] Address [address] [place] [address] Care Team Providers Care Geothermal Heat Pump Machinist Name Role Phone Augusto Scott MD Primary Care Provider [phone] Transitional Care Management Status:Enrolled (Active) Start date:07/14/2024 Enrollment date:07/15/2024 Continued Care and Services Coordination
--- OUTSIDE RECORDS SUMMARY | 2024-07-28 10:57 | XMS_ITS | Encounter Summary ---
Author Organization [facility] Address [address] [place] [address]. [place] [address] Care Team Providers Care Tin Pourer Name Role Phone Irvin Mar Primary Care Provider [phone] Reason for Visit * Reason Onset Date Comments WOUND CARE 04/19/2024 Encounter Details Date Type Department Care Team (Late st Contact Info) Description 04/19/2024 Telephone [facility] [address] [place] [phone] [place], W[facility] Healing [facility] [address] [facility], [address] [place], [place] [id number] WOUND CARE Social History Tobacco Use Types [...] on file Legal Sex Female 11:18 AM CIGAR PATCHER Gender Identity Not on file Sexual Orientation Not on file documented as of this encounter Miscellaneous Notes * Telephone Encounter - Aleyda Dorado RN - 04/19/2024 3:39 PM CDT Returned call to Annie and discussed that [facility] is not accepting outside of [place] patients at this time. Annie is not [...] is AMB Please call Annie regarding scheduling [phone] documented in this encounter Plan of Treatment Not on file documented as of this encounter Visit Diagnoses Not on filedocumented in this encounter Care Teams Tin Pourer Relationship Specialty Start Date End Date Irvin Mar [address] [address] PCP - General Family Medicine 09/09/21 07/10/24 documented as of this encounter
--- OUTSIDE RECORDS SUMMARY | 2024-07-28 10:57 | XMS_ITS | Encounter Summary ---
Author Organization [facility] Address [address] [place] [address] Care Team Providers Care American Board Certified Orthotist Name Role Phone Irvin Mar Primary Care Provider [phone] Augusto Scott MD Primary Care Provider [phone] Encounter Details Date Type Department Care Team (Late st Contact Info) Description 11/14/2021 Orders Only [facility] Centralized Scheduling [address] [place] [address] Nolberto French MD [address] [place] [address] Social History Tobacco Use Types Packs/Day Years Used Date Smoking Tobacco: Every Day Cigarettes Smokeless Tobacco: Never Alcohol Use Standard Drinks/Week Comments Not Currently 0 (1 standard drink = 0.6 oz pur e alcohol) Comments No Sex and Gender Information Value Date Recorded Sex Assigned at Not on file Legal Sex Female 11:18 AM AUTOMATIC LOG CUT OFF SAWYER Gender Identity Not on file Sexual Orientation Not on file documented as of this encounter Plan of Treatment Not on file documented as of this encounter Visit Diagnoses Not on filedocumented in this encounter Care Teams American Board Certified Orthotist Relationship Specialty Start Date End Date Irvin Mar [facility] [address] [place] [id number] PCP - General Family Medicine 09/09/21 07/10/24 Augusto Scott MD [address] [address] PCP - General Family Medicine 07/11/24 documented as of this encounter
--- OUTSIDE RECORDS SUMMARY | 2024-07-28 10:57 | XMS_ITS | Encounter Summary ---
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
--- NOTE | 2024-07-28 11:00 | CRLHL7_ITS ---
For Patients: As a result of the Century Cures Act, medical imaging exams and procedure reports are released immediately into your electronic medical record. You may view this report before your referring provider. If you have questions, please contact your health care provider. ULTRASOUND-GUIDED CORE NEEDLE BIOPSY OF LEFT ANTERIOR CHEST WALL MASS. CLINICAL HISTORY: Large palpable mass. COMPARISON STUDIES: Ultrasound 07/28/2024, CT 07/24/2024 TECHNIQUE: Real-time ultrasound with image documentation was used for targeting the soft tissue lesion. Core biopsy specimens were obtained using an automated gun with a 14-gauge biopsy needle. CONSENT and TIME OUT: The procedure, risks, and alternatives were explained to the patient and a consent was signed. [place] Protocol was followed including pre-procedure verification that relevant information/documentation was available, reviewed and properly matched to the patient; consent accurate and complete; and equipment and supplies available. Time Out was conducted just prior to starting procedure to verify the four required elements: patient identity, correct side/site marked (if applicable), procedure, relevant images/results properly labeled and displayed (if applicable). PROCEDURE: The patient was positioned supine on the ultrasound table. The left upper anterior chest wall was prepped with ChloraPrep. 8 cc of 1 percent lidocaine was used for local anesthesia. Core samples were obtained. The specimens were placed in 10% formalin and sent to the pathology department. Pressure was held on the biopsy site until all bleeding subsided. The skin incision was closed with Steri-Strips. Post-biopsy instructions were reviewed with the patient, and a written copy was given to her. LATERALITY: Left upper anterior chest wall LESION: Mostly solid soft tissue mass measuring up to 5.6 cm SUSPICION FOR MALIGNANCY: High NUMBER OF SAMPLES: 5 IMPRESSION: Ultrasound-guided soft tissue mass biopsy. Dictated by Rayshawn Parikh MD @ 07/28/2024 1:36:11 PM (Electronically Signed)
--- NOTE | 2024-07-28 11:00 | CRLHL7_ITS ---
For Patients: As a result of the Century Cures Act, medical imaging exams and procedure reports are released immediately into your electronic medical record. You may view this report before your referring provider. If you have questions, please contact your health care provider. Indication: Soft tissue mass Technique: Grayscale and color Doppler ultrasound of the left upper anterior chest wall performed in the area of concern, corresponding with the CT Comparison: CT 07/24/2024 Findings: There is a macrolobular mostly solid heterogeneous mass within the left upper anterior chest wall soft tissues measuring 4.1 x 2.8 x 5.6 cm. A smaller associated masses present deeper to the primary mass. Mild internal vascularity is present. Impression: Large suspicious mostly solid soft tissue mass measuring up to 5.6 cm. Biopsy will be performed subsequently. Dictated by Rayshawn Parikh MD @ 07/28/2024 1:13:22 PM (Electronically Signed)
== END 2024-07-28 10:54 | disposition home or self-care (01) ==
LOC: US 10:54
PROVIDERS: PCP Family Medicine; Visit Provider Family Medicine
DX: M79.89 Other specified soft tissue disorders (principal)
CPT/HCPCS: 20206; 76604; 76942; 88307; 88341; 88342; 88360; 88361; 88377

== ENCOUNTER 2024-08-10 14:51 | Outpatient (CLI) | payer OTHER, SELFPAY ==
--- OUTSIDE RECORDS SUMMARY | 2024-08-10 14:57 | XMS_ITS | Clinical Summary ---
Author Organization [place] Address [address] [place] [address] Care Team Providers Care Sr. Payroll Manager Name Role Phone Augusto Scott MD Primary Care Provider [phone] Allergies Active Allergy Reactions Criticality Noted Date Comments Codeine Hives Medium 09/24/2021 Venlafaxine Other (See Comments) 09/24/2021 DIAPHORESIS, INSOMNIA Medications ARIPiprazole (ABILIFY) 5 MG tablet Take 5 mg by mouth daily 08/31/20 21 Active PARoxetine (PAXIL) 40 MG tablet Take 40 mg by mouth daily. 08/31/20 21 Active simvastatin (ZOCOR) 40 MG tablet Take 40 mg by mouth At Bedtime 10/29/19 21 Active gabapentin (NEURONTIN) 600 MG tablet Take 600 mg by mouth at bedtime. Active traZODone (DESYREL) 100 MG tablet Take 200 mg by mouth at bedtime. 09/04/20 21 Active Multiple Vitamin (MULTIVITAMIN ADULT PO) Take 1 tablet by mouth daily Active metFORMIN (GLUCOPHAGE-XR ) 500 MG 24 hr tablet Take 1,000 mg by mouth 2 times daily (with meals). 09/23/20 21 Active buPROPion (WELLBUTRIN SR) 150 MG 12 [...] mouth daily. Active Vitamin D3 (VITAMIN D, CHOLECALCIFERO L,) 25 mcg (1000 units) tablet Take 1 tablet by mouth daily. Active doxycycline hyclate (VIBRAMYCIN) 100 MG capsule Take 100 mg by mouth 2 times daily. 07/10/20 024 Discontinu ed(Stop at Discharge) amoxicillin-cl avulanate (AUGMENTIN) 875-125 MG tabletIndicati ons:Pneumonia of left lower lobe due to infectious organism Take 1 tablet by mouth 2 times daily for 6 days. 12 tablet 07/14/20 024 Active Problems Problem Noted Date Diagnosed Date Severe sepsis 07/11/2024 Pneumonia of left lower lobe due to infectious o rganism 07/11/2024 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 Encounters Date Type Department Care Team Description 07/11/2024 4:33 PM CDT - 07/13/2024 10:58 AM CDT Hospital Encounter [place] [address] [facility] [address] [place] [address] Brody Beckford MD Jaleta, MD Jo Ann [...] on file Legal Sex Female 11:18 AM PRINT PRODUCER Gender Identity Not on file Sexual Orientation [...] lb 3.2 oz) 11/25/2021 5:59 A M PRINT PRODUCER Height 162.6 cm (5' 4) 11/25/2021 5:59 AM PRINT PRODUCER Body Mass Index 29.39 11/25/2021 5:59 AM PRINT PRODUCER Plan of Treatment Health Maintenance Due Date [...] 04/18/2020, 03/08/2018, 06/17/2010 ZOSTER IMMUNIZATION Completed 04/18/2020, RSV VACCINE Completed 12/27/2023 COVID-19 Vaccine Completed [...] STAT 07/11/2024 6:14 PM CDT INFLUENZA A/B, RSV AND SARS-COV2 PCR STAT 07/11/2024 5:19 PM CDT [...] PANEL (EXTERNAL RESULT) Routine 09/23/2021 2:57 PM PRINT PRODUCER from Last 3 Months or Most [...] CDT us Amanuel Cherry MD LAB - [facility] POCT Final Result [facility] LABORATORY [facility] Acute Care Lab [address] Lab (1st floor, no room number) [place] [address], [facility] * Extra Purple Top EDTA (LAB USE ONLY) (07/13/2024 6:03 AM CDT) Hold Specimen JIC 07/13/2024 7:16 AM CDT LABORATORY Blood STRUCTURE OF RIGHT HAND / Unknown Venipuncture / Unknown 07/13/2024 6:03 AM CDT 07/13/2024 6:15 AM CDT us Rohit Lerma [facility] LAB - BLOOD ORDERABLES F inal Result [facility] Care Lab [address] Lab (1st floor, no room number) [place] [address] * Lactic acid whole blood (07/13/2024 6:03 [...] ORDERABLES Fi nal Result Performing Organization Address City/[facility]/ZIP Co de Phone Number [facility] Acute Care Lab [address] Lab (1st floor, no room number) [place] [address] * (ABNORMAL) Basic metabolic panel (07/12/2024 [...] >60 mL/min/1.7 3m2 07/12/2024 9:25 AM CDT RH LABORATORY Comment:eGFR calculated us2020 CKD-EPI equation. Calcium 8.2(L) 8.8 - 10.4 mg/dL 07/12/2024 9:25 AM CDT [facility] LABORATORY Comment:Reference intervals for this [...] BLOOD ORDERABLES Final Result RH LABORATORY [facility] Acute Care Lab [address] [facility] Lab (1st floor, no room number) [place] [address] * (ABNORMAL) CBC with platelets (07/12/2024 [...] BLOOD ORDERABLES Final Result RH LABORATORY [facility] Acute Care Lab [address] Lab (1st floor, no room number) [place] [address], [facility] * (ABNORMAL) UA with Microscopic reflex to Culture (07/11/2024 8:32 PM CDT) Color Urine Light Yellow Colorless, Straw, Light Yellow, Yellow 07/11/2024 8:47 PM CDT LABORATORY Appearance Urine Clear Clear 07/11/20 8:47 PM CDT LABORATORY Glucose Urine >=1000(A) Negative mg/dL 07/11/2024 8:47 PM CDT LABORATORY Bilirubin Urine Negative Negative 8:47 PM CDT LABORATORY Ketones Urine Negative Negative mg/dL 07/11/2024 8:47 PM CDT LABORATORY Specific [place] Urine 1.032 1.003 - 1.035 07/11/2024 8:47 [...] LAB - URINE ORDERABLES Final Result LABORATORY [facility] Care Lab [address] Lab (1st floor, no room number) [place] [address], [facility] * (ABNORMAL) iStat Gases (lactate) [...] POCT Final Resul t RH LABORATORY POC [facility] Care Lab [address] Lab (1st floor, no room number) [place] [address], [place] * XR Chest 2 Views (07/11/2024 7:54 [...] ORDERABLE S Final Result [facility] IDD LABORATORY [facility] Inf. Diseases Diag. Lab [address] [facility] [place] [address], [facility] * EKG 12 lead (07/11/2024 6:14 PM CDT) Systolic Blood Pressure mmHg RADIOLOGY RESULTS Diastolic Blood Pressure mmHg RADIOLOGY RESULTS Ventricular Rate 91 BPM RAD IOLOGY RESULTS Atrial Rate 91 BPM RADIOLOG Y RESULTS WY Interval 128 ms RADIOLOG Y RESULTS QRS Duration 80 ms RADIOLO GY RESULTS QT 374 ms RADIOLOGY RESULTS QTc 460 ms RADIOLOGY RESULTS P [place] 60 degrees RADIOLOGY RESULTS R AXIS 7 degrees RADIOLOGY RESULTS T [place] 48 degrees RADIOLOGY RESULTS Interpretation ECG Sinus rhythm Normal ECG No previous ECGs available Confirmed by MD WALSH STEVEN ([id number]) on 07/13/2024 4:48:22 PM RADIOLOGY RESULTS 07/11/2024 6:14 PM CDT 07/13/2024 4:48 PM CDT David Gilliland MD ECG ORDERABLES Edited Result - Final RADIOLOGY RESULTS * Asymptomatic Influenza A/B, RSV, & SARS-CoV2 PCR (COVID-19) Nose (07/11/2024 5:19 PM CDT) Pathologist [facility] Influenza A PCR Negative Negative 07/11/2024 6:08 PM CDT LABORATORY Influenza B PCR Negative Negative 07/11/2024 6:08 PM CDT LABORATORY RSV PCR Negative Negative 07/11/2024 6:08 PM CDT LABORATORY SARS CoV2 PCR Negative Negative 07/11/2024 6:08 PM CDT LABORATORY Comment:NEGATIVE: SARS-CoV-2 (COVID-19) RNA not detected, presumed negative. Swab NASAL STRUCTURE / Unknown Non-blood Collection / Unknown 07/11/2024 5:19 PM CDT 07/11/2024 5:29 PM CDT Narrative [facility] LABORATORY - 07/11/2024 6:08 PM CDT Testing was performed using the Xpert Xpress CoV2/Flu/RSV Assay on the Outline AppXpert Instrument. This test should be ordered for [...] management. This test was validated by the [facility]. These laboratories are certified under the Clinical Laboratory Improvement Amendments of 1988 (CLIA-88) as qualified to perfom high complexity laboratory testing. Brody Beckford MD LAB - MICRO GENERAL ORDERABLE S Final Result [facility] Lab [address] Lab (1st floor, no room number) [place] [address] * Extra Purple Top Tube (07/11/2024 5:09 PM CDT) Hold Specimen [facility] 07/11/2024 6:31 PM CDT RH LABORATORY Blood BLOOD SPECIMEN / Unknown Venipuncture / Unknown 07/11/2024 5:09 PM CDT 07/11/2024 5:20 PM CDT Brody Beckford MD LAB - BLOOD ORDERABLES Final Result Performing Organization Address City/[facility]/ZIP Co de Phone Number [facility] Lab [address] Lab (1st floor, no room number) [place] [address], [facility] * Extra Green Top (Moodus Heparin) Tube (07/11/2024 5:09 PM CDT) Hold Specimen [facility] 07/11/2024 6:31 PM CDT RH LABORATORY Blood BLOOD SPECIMEN / Unknown Venipuncture / Unknown 07/11/2024 5:09 PM CDT 07/11/2024 5:20 PM CDT Brody Beckford MD LAB - BLOOD ORDERABLES Final Result [facility] Care Lab [address] Lab (1st floor, no room number) [place] [id number] * Extra Red Top Tube (07/11/2024 5:09 PM CDT) Hold Specimen [facility] 07/11/2024 6:31 PM CDT RH LABORATORY Blood BLOOD SPECIMEN / Unknown Venipuncture / Unknown 07/11/2024 5:09 PM CDT 07/11/2024 5:20 PM CDT Brody Beckford MD LAB - BLOOD ORDERABLES Final Result LABORATORY [facility] Lab [address] Lab (1st floor, no room number) [place] [phone] [place] [address] * Extra Blue Top Tube (07/11/2024 5:09 PM CDT) [facility] Signature Hold Specimen [facility] 07/11/2024 6:31 PM CDT RH LABORATORY Blood BLOOD SPECIMEN / Unknown Venipuncture / Unknown 07/11/2024 5:09 PM CDT 07/11/2024 5:20 PM CDT Brody Beckford MD LAB - BLOOD ORDERABLES Final Result LABORATORY [facility] Care Lab [address] Lab (1st floor, no room number) [place] [phone] [place] [address] * (ABNORMAL) CBC with platelets and differential (07/11/2024 5:09 PM CDT) Pathologist [facility] WBC Count 13.4(H) 4.0 - 11.0 10e3/uL [...] BLOOD ORDERABLES Final Result RH LABORATORY [facility] Acute Care Lab [address] Lab (1st floor, no room number) [place] [address], [facility] * (ABNORMAL) Comprehensive metabolic panel [...] LAB - BLOOD ORDERABLES Final Result LABORATORY [facility] Acute Care Lab [address] Lab (1st floor, no room number) [place] [address], [facility] * (ABNORMAL) Lipid Panel (External Result) (09/23/2021 2:57 PM PRINT PRODUCER) [facility] Signature Cholesterol (External) 183 90 - 199 mg/dL [facility] Triglycerides (External) 371(A) 40 - 149 mg/dL [facility] HDL Cholesterol (External) 44 >=50 mg/dL [facility] LDL Cholesterol Calculated (External) 65 <100 mg/dL [facility] Blood 09/23/2021 2:57 PM PRINT PRODUCER Narrative [facility] - 09/23/2021 2:57 PM PRINT PRODUCER LAB RESULTS [facility] us Provider Outside LAB - HIM EXTERNAL RESULT Edite d Result - Final [facility] [address] [place] [address], [facility] [phone] from Last 3 Months or Most Recently Relevant to Health Maintenance Insurance [employer] Advance Directives For more information, please contact: [phone] * Full Code (Latest Code Status on [...] palak nt/ legal decision maker Care Teams Sr. Payroll Manager Relationship Specialty Start Date End Date Augusto Scott MD [facility] [address] [place] [address] PCP - General Family Medicine 07/11/24
--- OUTSIDE RECORDS SUMMARY | 2024-08-10 14:58 | XMS_ITS | Clinical Summary ---
Author Organization [facility] Address [place], [place] [address] Care Team Providers Care Superintendent Custodian Janitor Name Role Phone Augusto Scott MD Primary Care Provider [phone] Allergies Active Allergy Reactions Criticality Noted Date [...] Active Problems Problem Noted Date Diagnosed Date Kqdat-Rvlxjedhc-Oafmj (WPW) pattern seen on electrocardiography 05/26/2019 Diabetes 06/30/2013 Encounters Date Type Department Care Team Description 07/28/2024 Lab Requisition [facility] C[facility]AL LAB [phone] Unknown, Doctor from Last 3 Months Social History Tobacco [...] history exists Influenza for age 65+ 05/28/2024 Procedures Procedure Name Priority Date/Time Associated Diagnosis Comments LAB TRACKING EVENT Routine 07/28/2024 11 :40 AM CDT PATH TISSUE EXAM Routine 07/28/2024 11:4 0 AM CDT CG HER2 BREAST Routine 07/28/2024 11:40 AM CDT CYTOGENETICS MALIGNANT TISSUE Routine 07/28/2024 11:40 AM CDT from Last 3 Months Results * LAB TRACKING EVENT (07/28/2024 11:40 AM CDT) Other (Other) Client Collect / Unknown 07/28/2024 11:40 AM CDT 07/28/2024 10:16 PM CDT Doctor Unknown LAB BILL ONLY [facility] LABORAT[facility]-CENTRAL LABORATORY [address] [place] [address], [place] * CG HER2 BREAST (07/28/2024 11:40 AM CDT) Other (Chest Wall) 07/28/2024 11:40 AM CDT 08/02/2024 11:30 AM VALIDATION SPECIALIST Doctor Unknown LABORATORY Performing Organization Address [facility] de Phone Number [facility] [address] [place] [address], [place] * CYTOGENETICS MALIGNANT TISSUE STUDIES (07/28/2024 11:40 AM CDT) RFR Breast cancer 08/07/2024 4:01 PM VALIDATION SPECIALIST [facility] LABORATORY- NTRAL LABORATORY TEST & RESULT SUMMARY HER2 FISH Breast: See pathology report [id number]. See comments. 08/07/2024 4:01 PM VALIDATION SPECIALIST [facility] LABORATORY- NTRAL LABORATORY _ 08/07/2024 4:01 PM VALIDATION SPECIALIST [facility] LABORATORY- NTRAL LABORATORY COMMENTS This record is used as an internal laboratory test designed for workflow purposes only. 08/07/2024 4:01 PM VALIDATION SPECIALIST [facility] LABORATORY- NTRAL LABORATORY SOURCE Chest Wall (Paraffin Slides A1 2 uns) [id number] 08/07/2024 4:01 PM VALIDATION SPECIALIST [facility] LABORATORY- NTRAL LABORATORY Other (Chest Wall) 07/28/2024 11:40 AM CDT 08/02/2024 11:30 AM VALIDATION SPECIALIST Doctor Unknown LABORATORY Performing Organization Address [facility] Co de Phone Number [facility] [employer]-CENTRAL LABORATORY [address] [place] [address], * PATH TISSUE EXAM (07/28/2024 11:40 AM CDT) Case Report Pathology Report ?Case: [id number] ? Authorizing Provider: ??Unknown, Doctor ?Collected: ? 07/28/2024 1140 ? Ordering Location: ? [facility] ?Received: ?07/29/2024 0534 ? Pathologist: ? Haven Birmingham ? MD Vilma ? Specimen: ?Chest Wall ? 4 5:13 PM VALIDATION SPECIALIST [facility] LABORATORY- CENTRAL LABORATORY Amendment 08/02/2024 - Amendmen t issued to incorporate ancillary studies. 08/07/2024 - Amendment issued to incorporate ancillary HER2 FISH studies. 4 5:13 PM VALIDATION SPECIALIST [facility]- CENTRAL LABORATORY Final Diagnosis SOFT TISSUE MASS, LEFT CHEST WALL, CORE BIOPSY: 1. Poorly differentiated adenocarcinoma, compatible with breast primary 2. Breast Ancillary Testing: ?a. Hormone Receptors: ?Estrogen receptor: Negative ?Progesterone receptor: Negative ?b. HER2 by IHC: Equivocal (2+ by manual morphometry) ? HER2 by FISH: Negative ?HER2/CEP17 ratio: 1.46 ?HER2 signals/cell: 3.47 ?CEP17 signals/cell: 2.38 4 5:13 PM [facility] Amendment electronically signed by Alva Goss MD on 08/07/2024 at 5:13 PM Amendment electronically signed by Alva Goss MD on 08/02/2024 at 11:33 AM Electronically signed by Alva Goss MD for [facility], Haven Esparza MD on 08/02/2024 at 9:47 AM Comment Case seen in consultation with Dr. Goss. Estrogen Receptor Comment No internal controls are present, but external controls are appropriately positive. If needed, testing another specimen that contains internal controls may be warranted for confirmation of ER status. 4 5:13 PM [facility] Clinical Information The patient is a 69 y.o. female with a left anterior chest wall mass, approximately 6 cm. She has a history of left breast cancer 7 years ago. 4 5:13 PM [facility] Gross Description A) Received in formalin, labeled with the patient's name and anterior chest wall left, are 5 cylindrical grimes-white ranging from 1.4-1.7 cm in length and each measuring 0.2 cm in diameter. ??The specimen is submitted entirely, in toto in 1 cassette. [facility]MG 07/29/2024 ? 4 5:13 PM [facility] Microscopic Description The final diagnosis is based on microscopic examination of appropriate sections of all specimens. Immunohistochemical staining is performed (block A1) with the following results: Stain: ?Result: Claudin-4 ? Positive SHANIQUE-3 ?Positive CK 7 ?Positive Support for the interpretation of this case may have included the use of immunohistochemistry and/or in situ hybridization tests that were performed by [facility] and whose performance characteristics were evaluated by pathologists from [facility]. These tests have not been cleared or approved by the U.S. Food and Drug Administration. The FDA has determined that such clearance or approval is not necessary. These tests are used for??clinical purposes and should not be regarded as investigational or for research. This laboratory is certified under the Clinical Laboratory Improvement Amendments of 1988 (CLIA) as qualified to perform high complexity clinical laboratory testing. 4 5:13 PM [facility] Cytogenetics Summary Cytogenetic testing has been ordered and will be reported separately. 4 5:13 PM [facility] SYNOPTIC REPORTING Breast Biomarker Reporting Template BREAST BIOMARKER REPORTING TEMPLATE - A Protocol posted: 09/08/2023 ?? Test(s) Performed: ? Estrogen Receptor (ER) Status: ?Negative (less than 1%) ? : ?Internal control cells absent ? Test Type: ?Laboratory-developed test ? Primary Antibody: ?SP1 ?? Test(s) Performed: ? Progesterone Receptor (PgR) Status: ?Negative (less than 1%) ? : ?Internal control cells absent ? Test Type: ?Laboratory-developed test ? Primary Antibody: ?16 ?? Test(s) Performed: ? HER2 by Immunohistochemistry: ?Equivocal (Score 2+) ? Percentage of Cells with Uniform Intense Complete Membrane Staining: ?0 % ? Test Type: ?Laboratory-developed test ? Primary Antibody: ?4B5 ?? Test(s) Performed: ? HER2 by in situ Hybridization: ?Negative (not amplified) ? Number of Observers: ?2 ? Number of Invasive Tumor Cells Counted: ?60 cells ? Method: ?Dual probe assay ? Average Number of HER2 Signals per Cell: ?3.47 ? Average Number of CEP17 Signals per Cell: ?2.38 ? HER2 / CEP17 Ratio: ?1.46 ? Aneusomy: ?Not identified ? Heterogeneous Signals: ?Not identified ? Test Type: ?Food and Drug Administration (FDA) cleared (test / vendor): [employer] HER2/Joaquim ?? Cold Ischemia and Fixation Times: ?Cannot be determined: cold ischemia time and duration in formalin not documented. ?? Testing Performed on Block Number(s): ?A1 METHODS ?? Fixative: ?Formalin ?? Image Analysis: ?Performed ? Method: ?Aperio morphometric analysis ? Biomarkers Scored by Image Analysis: ?ER ? Biomarkers Scored by Image Analysis: ?PgR ?? Comment(s): ?The FDA approved [employer]ion DNA Probe Kit was developed and its performance characteristics determined by [facility]. This test incorporates minor modifications to protocol and validated by the [facility] Cytogenetics Laboratory and [facility] to yield equivocal or superior performance. This FISH test uses a multiplex probe stain procedure. 4 5:13 PM [facility] LABORATORY- CENTRAL LABORATORY Additional Information Patients with breast cancers that are HER2 IHC 3+ or IHC 2+/CHELSEA amplified may be eligible for several therapies that disrupt HER2 signaling pathways. Invasive breast cancers that test 'HER2-negative' (IHC 0, 1+ or 2+/CHELSEA not-amplified) are more specifically considered 'HER2-negative for protein overexpression/gene amplification' since non-overexpressed levels of the HER2 protein may be present in these cases. Patients with breast cancers that are HER2 IHC 1+ or IHC 2+/CHELSEA not amplified may be eligible for a treatment that targets non-amplified/non-over expressed levels of HER2 expression for cytotoxic drug delivery (IHC 0 results do not result in eligibility currently). [facility] - [address], [place] [address] Immunohistochemistry controls were reviewed and approved by the pathologist during this examination. 5:13 PM VALIDATION SPECIALIST [facility] LABORATORY- CENTRAL LABORATORY Other (Chest Wall) 07/28/2024 11:40 AM CDT 07/29/2024 5:34 AM CDT Doctor Unknown PATHOLOGY/[facility] [address] [place] [address], [place] from Last 3 Months Care Teams Superintendent Custodian Janitor Relationship Specialty Start Date End Date Augusto Scott MD [address] [place] [address] PCP - General Family Practice 03/30/24
--- OUTSIDE RECORDS SUMMARY | 2024-08-10 14:58 | XMS_ITS | Encounter Summary ---
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
--- OUTSIDE RECORDS SUMMARY | 2024-08-10 14:58 | XMS_ITS ---
Author Organization [place] Address [address] [place] [address] Care Team Providers Care Lace Paper Machine Operator Name Role Phone Augusto Scott MD Primary Care Provider [phone] Transitional Care Management Status:Closed (Closed) Start date:07/14/2024 Enrollment date:07/15/2024 End date:07/28/2024 Close reason:Goals met Continued Care and Services Coordination
--- OUTSIDE RECORDS SUMMARY | 2024-08-10 14:58 | XMS_ITS | Encounter Summary ---
Author Organization [place] Address [address] [place] [address] Care Team Providers Care Bowling Ball Weigher And Packer Name Role Phone Irvin Mar Primary Care Provider [phone] Augusto Scott MD Primary Care Provider [phone] Encounter Details Date Type Department Care Team (Late st Contact Info) Description 11/14/2021 Orders Only [facility] Centralized Scheduling [address] [place] [address] Nolberto French MD [address] [place] [address] Social History Tobacco Use Types Packs/Day Years Used Date Smoking Tobacco: Every Day Cigarettes Smokeless Tobacco: Never Alcohol Use Standard Drinks/Week Comments Not Currently 0 (1 standard drink = 0.6 oz pur e alcohol) Comments No Sex and Gender Information Value Date Recorded Sex Assigned at Not on file Legal Sex Female 11:18 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
--- OUTSIDE RECORDS SUMMARY | 2024-08-10 14:58 | XMS_ITS | Encounter Summary ---
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 Emergency Dept [address] [place] [address] Phone: tel:[phone] fax: Referral ID Status Reason Start Date Expiration Date Visits Re quested Visits Authorized [id number] 1 1 Encounter Details Date Type Department Care Team (Late st Contact Info) Description 07/11/2024 4:33 PM CDT - 07/13/2024 10:58 AM CDT Hospital Encounter 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 [facility] Hospitalist Discharge Summary Date of Admission: 07/11/2024 Date of Discharge: 07/13/2024 Discharging Provider: Allan Mathews MD, MD Discharge Service: Hospitalist Service Discharge Diagnoses Severe sepsis secondary to bacterial community-acquired pneumonia left lung LINDA resolved secondary to hypovolemia and sepsis Hypovolemic hyponatremia improving resolved Alteration of mental state secondary to acute infectious encephalopathy improved and resolved Wwf-dwechwg-lfqyhybkr diabetes mellitus History of depression Anxiety Clinically [...] got worse. She was seen in the [place] clinic and diagnosed with bronchitis. She was [...] discharging this patient. Allan Mathews MD, MD [place] [address] MEDICAL SURGICAL [address] [facility] [address] Physical Exam Vital Signs: Temp: 98.2 ??F [...] mood, not agitated Primary Care Physician Augusto cSott Discharge Orders Reason for your hospital stay [...] 07/11/2024 1831 07/12/20242030 Blood Culture Peripheral Blood [[id number]] Peripheral Blood Preliminary result Component Value Culture No growth after 1 day [P] 07/11/2024 1719 07/11/2024 1808 Asymptomatic Influenza A/B, RSV, & SARS-CoV2 PCR (COVID-19) Nose [[id number]] Swab from Nose Final result Component Value [...] Narrative EXAM: XR CHEST 2 VIEWS LOCATION: [facility] DATE: 07/11/2024 INDICATION: Fever COMPARISON: None. Impression IMPRESSION: Heart size is normal. Confluent airspace disease noted in the left lower lobe posteriorly compatible with pneumonia. Clinical correlation and follow-up to resolution recommended. No effusions or pneumothorax. No acute bony abnormalities. Clips in the right upper quadrant are compatible with prior cholecystectomy. Head CT w/o contrast Narrative EXAM: CT HEAD W/O CONTRAST LOCATION: [facility] DATE: 07/11/2024 INDICATION: Confusion. COMPARISON: None. TECHNIQUE: [...] Mathews MD - 07/12/2024 11:04 AM CDT [facility] Medicine Progress Note - Hospitalist [...] got worse. She was seen in the [facility] and diagnosed with bronchitis. She was started on oral doxycycline. Today, she developed worsening symptoms. She was brought toemergency room for evaluation. On arrival to emergency [...] Anticipated in 2-4 Days Allan Mathews MD, MD Hospitalist Service [facility] Securely message with [employer] (more info) Text page via [facility] Paging/Directory Interval History I assumed medicine [...] Narrative EXAM: CT HEAD W/O CONTRAST LOCATION: [facility] DATE: 07/11/2024 INDICATION: Confusion. COMPARISON: None. TECHNIQUE: [...] Narrative EXAM: XR CHEST 2 VIEWS LOCATION: [facility] DATE: 07/11/2024 INDICATION: Fever COMPARISON: None. Impression IMPRESSION: Heart size is normal. Confluent airspace disease noted in the left lower lobe posteriorly compatible with pneumonia. Clinical correlation and follow-up to resolution recommended. No effusions or pneumothorax. No acute bony abnormalities. Clips in the right upper quadrant are compatible with prior cholecystectomy. * Jazmine Reilly RN - 07/12/2024 7:52 AM CDT [facility] ED Boarding Nurse Handoff Addendum Report: Date/time: [...] Dixon MD - 07/11/2024 9:23 PM CDT [facility] History and Physical Hospitalist Date [...] got worse. She was seen in the [place] clinic and diagnosed with bronchitis. She was [...] of days. She was seen in the [facility] and diagnosed with bronchitis. 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 COMPARISON: None. TECHNIQUE: [...] Narrative EXAM: XR CHEST 2 VIEWS LOCATION: [facility] DATE: 07/11/2024 INDICATION: Fever COMPARISON: None. Impression [...] Navarro RN - 07/11/2024 9:20 PM CDT [facility] ED Nurse Handoff Report ED [...] 1. Lift room needed: No. Bariatric: No National Sales Director Needed: No Isolation: No. Infection: Not Applicable. [...] Bilirubin Urine Negative Ketones Urine Negative Specific [place] Urine 1.032 Blood Urine Moderate (*) pH [...] She was seen at her clinic in [place] for bronchitis yesterday. Today she developed progressive weakness per the xwetkuuo-do-psp at the bedside. Also some mild confusion. 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 Rate 91 bpm. GA interval 128 ms. QRS duration 80 ms. 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: Added: Bupropion SR, Buspirone, Dexcom G7 CGM, Doxycycline, Duloxetine, Empagliflozin, Semaglutide,Vit D Deleted: APAP Changed: Metformin XR --> 1000mg BID WC Paroxetine 20mg --> 40mg daily Trazodone 100mg --> 200mg HS Allergies reviewed with patient and updates made in EHR: no Medication History Completed By: Riley Rick RPH 07/11/2024 10:40 PM INGREDIENT SCALER HELPER Med List Medication Sig Note Last Dose [...] LAB - BEAKER POCT Final Result LABORATORY [facility] Acute Care Lab [address] Lab (1st floor, no room number) [place] [address] * Extra Purple Top EDTA (LAB USE ONLY) (07/13/2024 6:03 AM CDT) Pathologist [facility] Hold Specimen JIC 07/13/2024 7:16 AM CDT LABORATORY Blood STRUCTURE OF RIGHT HAND / Unknown Venipuncture / Unknown 07/13/2024 6:03 AM CDT 07/13/2024 6:15 AM CDT us Rohit Lerma [facility] LAB - BLOOD ORDERABLES F inal Result LABORATORY [facility] Care Lab [address] Lab (1st floor, no room number) [address] * Lactic acid whole blood (07/13/2024 6:03 AM CDT) Lactic Acid 1.4 0.7 - 2.0 mmol/L 07/13/2024 6:22 AM CDT LABORATORY Blood STRUCTURE OF RIGHT HAND / Unknown Venipuncture / Unknown 07/13/2024 6:03 AM CDT 07/13/2024 6:15 AM CDT us Allan Mathews MD LAB - BLOOD ORDERABLES Fi nal Result Performing Organization Address City/[facility]/ZIP Co de Phone Number [facility] Lab [address] Lab (1st floor, no room number) [place] [phone] [place] [address] * (ABNORMAL) Glucose by meter (07/13/2024 2:05 AM CDT) GLUCOSE BY METER POCT 113(H) 70 - 99 mg/dL 07/13/2024 2:12 AM CDT LABORATORY POC Blood, Capillary BLOOD SPECIMEN / Unknown 07/13/2024 2:05 AM CDT 07/13/2024 2:12 AM CDT us Amanuel Cherry MD LAB - BEAKER POCT Final Result LABORATORY POC [facility] Lab [address] Lab (1st floor, no room number) [address] [place] [address] * (ABNORMAL) Glucose by meter (07/12/2024 10:37 PM CDT) GLUCOSE BY METER POCT 125(H) 70 - 99 mg/dL 07/12/2024 10:43 PM CDT LABORATORY POC Blood, Capillary BLOOD SPECIMEN / Unknown 07/12/2024 10:37 PM CDT 07/12/2024 10:43 PM CDT Amanuel Cherry MD LAB - BEAKER POCT Final Result Performing Organization Address City/[facility]/ZIP Co de Phone Number [facility] Lab [address] Lab (1st floor, no room number) [place] [address], [facility] * Lactic acid whole blood (07/12/2024 8:58 PM CDT) Lactic Acid 0.9 0.7 - 2.0 mmol/L 07/12/2024 9:04 PM CDT LABORATORY Blood STRUCTURE OF LEFT HAND / Unknown Venipuncture / Unknown 07/12/2024 8:58 PM CDT 07/12/2024 9:02 PM CDT us Allan Mathews MD LAB - BLOOD ORDERABLES Fi nal Result Performing Organization Address City/[facility]/ZIP Co de Phone Number [facility] Lab [address] Lab (1st floor, no room number) [place] [address], [facility] * (ABNORMAL) Glucose by meter (07/12/2024 4:46 PM CDT) GLUCOSE BY METER POCT 107(H) 70 - 99 mg/dL 07/12/2024 4:53 PM CDT LABORATORY POC Blood, Capillary BLOOD SPECIMEN / Unknown 07/12/2024 4:46 PM CDT 07/12/2024 4:53 PM CDT us Amanuel SCRUGGS - BEAKER POCT Final Result LABORATORY [facility] Lab [address] Lab (1st floor, no room number) [place] [address], [facility] * (ABNORMAL) Glucose by meter (07/12/2024 11:36 AM CDT) GLUCOSE BY METER POCT 105(H) 70 - 99 mg/dL 07/12/2024 11:44 AM CDT RH LABORATORY POC Blood, Capillary BLOOD SPECIMEN / Unknown 07/12/2024 11:36 AM CDT 07/12/2024 11:44 AM CDT Amanuel Cherry MD LAB - BEAKER POCT Final Result LABORATORY [facility] Lab [address] Lab (1st floor, no room number) [place] [address] * (ABNORMAL) Glucose by meter (07/12/2024 9:27 AM CDT) GLUCOSE BY METER POCT 117(H) 70 - 99 mg/dL 07/12/2024 9:34 AM CDT LABORATORY POC Blood, Capillary BLOOD SPECIMEN / Unknown 07/12/2024 9:27 AM CDT 07/12/2024 9:34 AM CDT Amanuel Cherry MD LAB - BEAKER POCT Final Result Performing Organization Address City/[facility]/ZIP Co de Phone Number LABORATORY [facility] Lab [address] Lab (1st floor, no room number) [place] [address] * Lactic acid whole blood (07/12/2024 8:53 AM CDT) Lactic Acid 1.1 0.7 - 2.0 mmol/L 07/12/2024 9:06 AM CDT LABORATORY Blood STRUCTURE OF RIGHT HAND / Unknown Venipuncture / Unknown 07/12/2024 8:53 AM CDT 07/12/2024 8:58 AM CDT Brody Beckford MD LAB - BLOOD ORDERABLES Final Result [facility] Lab [address] Lab (1st floor, no room number) [place] [address] * (ABNORMAL) CBC with platelets (07/12/2024 [...] - BLOOD ORDERABLES Final Result RH LABORATORY [facility] Acute Care Lab [address] Lab (1st floor, no room number) [place] [address], [facility] * (ABNORMAL) Basic metabolic panel (07/12/2024 8:53 AM CDT) Pathologist [facility] Sodium 137 135 - 145 mmol/L 07/12/2024 [...] LAB - BLOOD ORDERABLES Final Result LABORATORY [facility] Acute Care Lab [address] Lab (1st floor, no room number) [place] [address], [facility] * (ABNORMAL) Glucose by meter (07/12/2024 12:06 AM CDT) [facility] GLUCOSE BY METER POCT 168(H) 70 - 99 mg/dL 07/12/2024 12:13 AM CDT LABORATORY POC Blood, Capillary BLOOD SPECIMEN / Unknown 07/12/2024 12:06 AM CDT 07/12/2024 12:13 AM CDT us Amanuel Cherry MD LAB - BEAKER POCT Final Result LABORATORY [facility] Lab [address] Lab (1st floor, no room number) [place] [address], [facility] * Lactic acid whole blood (07/11/2024 10:28 PM CDT) Lactic Acid 1.5 0.7 - 2.0 mmol/L 07/11/2024 10:41 PM CDT LABORATORY Blood BLOOD SPECIMEN / Unknown Venipuncture / Unknown 07/11/2024 10:28 PM CDT 07/11/2024 10:38 PM CDT us Brody Beckford MD LAB - BLOOD ORDERABLES Final Result Performing Organization Address City/[facility]/ZIP Co de Phone Number LABORATORY [facility] [address] [facility], no room number) [place] [address], [facility] * (ABNORMAL) UA with Microscopic reflex to [...] mg/dL 07/11/2024 8:47 PM CDT LABORATORY Specific [place] Urine 1.032 1.003 - 1.035 07/11/2024 8:47 [...] LAB - URINE ORDERABLES Final Result LABORATORY [facility] Acute Care Lab [address] Lab (1st floor, no room number) [place] [address] * (ABNORMAL) iStat Gases (lactate) venous, [...] - BEAKER POCT Final Resul t LABORATORY [facility] Acute Care Lab [address] Lab (1st floor, no room number) [place] [address], [facility] * XR Chest 2 Views (07/11/2024 7:54 [...] CDT EXAM: XR CHEST 2 VIEWS LOCATION: [facility] DATE: 07/11/2024 INDICATION: Fever COMPARISON: None. Procedure Note Hira Casey MD - 07/11/2024 EXAM: XR CHEST 2 VIEWS LOCATION: [facility] DATE: 07/11/2024 INDICATION: Fever COMPARISON: None. IMPRESSION: [...] CDT EXAM: CT HEAD W/O CONTRAST LOCATION: [facility] DATE: 07/11/2024 INDICATION: Confusion. COMPARISON: None. TECHNIQUE: [...] 07/11/2024 EXAM: CT HEAD W/O CONTRAST LOCATION: [facility] DATE: 07/11/2024 INDICATION: Confusion. COMPARISON: None. TECHNIQUE: [...] POCT Final Resul t RH LABORATORY POC [facility] Acute Care Lab [address] Lab (1st floor, no room number) [place] [address] * Blood Culture Peripheral Blood (07/11/2024 6:31 PM CDT) Culture No Growth 07/16/2024 8:31 PM CDT [facility] LABORATORY Blood BLOOD SPECIMEN / Unknown Venipuncture / Unknown 07/11/2024 6:31 PM CDT 07/11/2024 6:52 PM CDT Brody Beckford MD LAB - MICRO GENERAL ORDERABLE S Final Result [facility] LABORATORY [facility] Inf. Diseases Diag. Lab [address] [facility] [place] [address] * EKG 12 lead (07/11/2024 6:14 PM CDT) Systolic Blood Pressure mmHg RADIOLOGY RESULTS Diastolic Blood Pressure mmHg RADIOLOGY RESULTS Ventricular Rate 91 BPM RAD IOLOGY RESULTS Atrial Rate 91 BPM RADIOLOG Y RESULTS GA Interval 128 ms RADIOLOG Y RESULTS QRS Duration 80 ms RADIOLO GY RESULTS QT 374 ms RADIOLOGY RESULTS QTc 460 ms RADIOLOGY RESULTS P [place] 60 degrees RADIOLOGY RESULTS R AXIS 7 degrees RADIOLOGY RESULTS T [place] 48 degrees RADIOLOGY RESULTS Interpretation ECG Sinus [...] the Xpert Xpress CoV2/Flu/RSV Assay on the [employer] GeneXpert Instrument. This test should be ordered [...] management. This test was validated by the [facility]. These laboratories are certified under the Clinical Laboratory Improvement Amendments of 1988 (CLIA-88) as qualified to perfom high complexity laboratory testing. us Brody Beckford MD LAB - MICRO GENERAL ORDERABLE S Final Result RH LABORATORY [facility] Acute Care Lab [address] Lab (1st floor, no room number) [place] [address], [facility] * (ABNORMAL) CBC with platelets and differential [...] LAB - BLOOD ORDERABLES Final Result LABORATORY [facility] Acute Care Lab [address] [facility] Lab (1st floor, no room number) [place] [address], [facility] * (ABNORMAL) Comprehensive metabolic panel (07/11/2024 5:09 [...] LAB - BLOOD ORDERABLES Final Result LABORATORY [facility] Acute Care Lab [address] Lab (1st floor, no room number) [place] [address], [facility] * Extra Purple Top Tube (07/11/2024 5:09 PM CDT) Hold Specimen [facility] 07/11/2024 6:31 PM CDT RH LABORATORY Blood BLOOD SPECIMEN / Unknown Venipuncture / Unknown 07/11/2024 5:09 PM CDT 07/11/2024 5:20 PM CDT us Brody Beckford MD LAB - BLOOD ORDERABLES Final Result [facility] Lab [address] Lab (1st floor, no room number) [place] [address] * Extra Green Top ([place] Heparin) Tube (07/11/2024 5:09 PM CDT) Hold Specimen [facility] 07/11/2024 6:31 PM CDT RH LABORATORY Blood BLOOD SPECIMEN / Unknown Venipuncture / Unknown 07/11/2024 5:09 PM CDT 07/11/2024 5:20 PM CDT us Brody Beckford MD LAB - BLOOD ORDERABLES Final Result [facility] Lab [address] Lab (1st floor, no room number) [place] [address], [facility] * Extra Red Top Tube (07/11/2024 5:09 PM CDT) Hold Specimen [facility] 07/11/2024 6:31 PM CDT RH LABORATORY Blood BLOOD SPECIMEN / Unknown Venipuncture / Unknown 07/11/2024 5:09 PM CDT 07/11/2024 5:20 PM CDT us Brody Beckford MD LAB - BLOOD ORDERABLES Final Result [facility] Lab [address] Lab (1st floor, no room number) [place] [address], [facility] * Extra Blue Top Tube (07/11/2024 5:09 PM CDT) Hold Specimen [facility] 07/11/2024 6:31 PM CDT LABORATORY Blood BLOOD SPECIMEN / Unknown Venipuncture / Unknown 07/11/2024 5:09 PM CDT 07/11/2024 5:20 PM CDT Brody Beckford MD LAB - BLOOD ORDERABLES Final Result [facility] Acute Care Lab [address] [facility] Lab (1st floor, no room number) [place] [address], [facility] documented in this encounter Visit Diagnoses Diagnosis [...] Annie Heredia RN)[phone] (Stopped - Provider: Annie Herdeia RN) 0804 ($New Bag - Provider: Yuni [...] On Wed07/11/24 at 2025, For 1 dose 205 ($New Bag - Provider: Laina Ace RN)223 [...] stools. 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
--- OUTSIDE RECORDS SUMMARY | 2024-08-10 14:58 | XMS_ITS | Referral Summary ---
Author Organization [facility] Address [address] [place] [address] Care Team Providers Care Watch Assembler Name Role Phone Augusto Scott MD Primary Care Provider [phone] Encounters Date Type Department Care Team Description 07/11/2024 4:33 PM CDT - 07/13/2024 10:58 AM CDT Hospital Encounter [place] [address] [facility] [address] [place] [address] Brody Beckford MD Jaleta, MD Jo Ann [...] mg by mouth 2 times daily. 07/10/20 24 024 Discontinu ed(Stop at Discharge) amoxicillin-cl avulanate (AUGMENTIN) 875-125 MG tabletIndicati ons:Pneumonia of left lower lobe due to infectious organism Take 1 tablet by mouth 2 times daily for 6 days. 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 [facility] GLUCOSE BY METER POCT 120(H) 70 - 99 mg/dL 07/13/2024 8:30 AM CDT LABORATORY POC Blood, Capillary BLOOD SPECIMEN / Unknown 07/13/2024 8:23 AM CDT 07/13/2024 8:30 AM CDT us Amanuel SCRUGGS - BEAKER POCT Final Result LABORATORY [facility] Lab [address] Lab (1st floor, no room number) [place] [address], [facility] * Extra Purple Top EDTA (LAB USE ONLY) (07/13/2024 6:03 AM CDT) Hold Specimen JIC 07/13/2024 7:16 AM CDT LABORATORY Blood STRUCTURE OF RIGHT HAND / Unknown Venipuncture / Unknown 07/13/2024 6:03 AM CDT 07/13/2024 6:15 AM CDT us Rohit Lerma [facility] LAB - BLOOD ORDERABLES F inal Result LABORATORY [facility] Lab [address] Lab (1st floor, no room number) [address] * Lactic acid whole blood (07/13/2024 6:03 AM CDT) Only the most recent of4 resultswithin the time period is included. Lactic Acid 1.4 0.7 - 2.0 mmol/L 07/13/2024 6:22 AM CDT LABORATORY Blood STRUCTURE OF RIGHT HAND / Unknown Venipuncture / Unknown 07/13/2024 6:03 AM CDT 07/13/2024 6:15 AM CDT us Allan Mathews MD LAB - BLOOD ORDERABLES Fi nal Result LABORATORY [facility] Lab [address] Lab (1st floor, no room number) [address] * (ABNORMAL) Basic metabolic panel (07/12/2024 8:53 [...] - 23.0 mg/dL 07/12/2024 9:25 AM CDT [facility] LABORATORY Creatinine 0.82 0.51 - 0.95 mg/dL 07/12/2024 9:25 AM CDT [facility] LABORATORY GFR Estimate 76 >60 mL/min/1.7 3m2 07/12/2024 9:25 AM CDT [facility] LABORATORY Comment:eGFR calculated usin 2020 [...] - BLOOD ORDERABLES Final Result RH LABORATORY [facility] Acute Care Lab [address] [facility] Lab (1st floor, no room number) [place] [address], [facility] * (ABNORMAL) CBC with platelets (07/12/2024 [...] LAB - BLOOD ORDERABLES Final Result LABORATORY [facility] Acute [facility] Lab [address] Lab (1st floor, no room number) [place] [address], [facility] * (ABNORMAL) UA with Microscopic reflex [...] mg/dL 07/11/2024 8:47 PM CDT LABORATORY [facility] Urine 1.032 1.003 - 1.035 07/11/2024 8:47 [...] LAB - URINE ORDERABLES Final Result LABORATORY [facility] Lab [address] Lab (1st floor, no room number) [place] [address], [facility] * (ABNORMAL) iStat Gases (lactate) venous, [...] BEAKER POCT Final Resul t RH LABORATORY [facility] Acute Care Lab [address] Lab (1st floor, no room number) [place] [address] * XR Chest 2 Views (07/11/2024 [...] CDT EXAM: XR CHEST 2 VIEWS LOCATION: [facility] DATE: 07/11/2024 INDICATION: Fever COMPARISON: None. Procedure Note Hira Casey MD - 07/11/2024 EXAM: XR CHEST 2 VIEWS LOCATION: [facility] DATE: 07/11/2024 INDICATION: Fever COMPARISON: [...] CDT EXAM: CT HEAD W/O CONTRAST LOCATION: [facility] DATE: 07/11/2024 INDICATION: Confusion. COMPARISON: [...] 07/11/2024 EXAM: CT HEAD W/O CONTRAST LOCATION: [facility] DATE: 07/11/2024 INDICATION: Confusion. COMPARISON: [...] and presumed chronic microvascular ischemic changes asabove. us Brody Beckford MD IMG CT ORDERABLES Final Resul t * Blood Culture Peripheral Blood (07/11/2024 6:31 PM CDT) Culture No Growth 07/16/2024 8:31 PM CDT [facility]AT[facility] Blood BLOOD SPECIMEN / Unknown Venipuncture / Unknown 07/11/2024 6:31 PM CDT 07/11/2024 6:52 PM CDT us Brody Beckford MD LAB - MICRO GENERAL ORDERABLE S Final Result [facility] LABORATORY [facility] Inf. Diseases Di[facility]. Lab [address] [facility], [address] [place] [address], [facility] * EKG 12 lead (07/11/2024 6:14 PM CDT) Systolic Blood Pressure mmHg RADIOLOGY RESULTS Diastolic Blood Pressure mmHg RADIOLOGY RESULTS Ventricular Rate 91 BPM RAD IOLOGY RESULTS Atrial Rate 91 [address] RESULTS [address] Interval 128 ms RADIOLOG Y RESULTS QRS Duration 80 ms RADIOLO GY RESULTS QT 374 ms RADIOLOGY RESULTS QTc 460 ms RADIOLOGY RESULTS P [place] 60 degrees RADIOLOGY RESULTS R AXIS 7 degrees RADIOLOGY RESULTS T [place] 48 degrees RADIOLOGY RESULTS Interpretation ECG Sinus rhythm Normal ECG No previous ECGs available Confirmed by MD NICO, ADRIANA ([id number]) on 07/13/2024 4:48:22 PM RADIOLOGY RESULTS 07/11/2024 6:14 PM CDT 07/13/2024 4:48 PM CDT us David Gilliland MD ECG ORDERABLES Edited Result [...] the Xpert Xpress CoV2/Flu/RSV Assay on the [employer] GeneXpert Instrument. This test should be ordered [...] management. This test was validated by the [facility]. These laboratories are certified under the Clinical Laboratory Improvement Amendments of 1988 (CLIA-88) as qualified to perfom high complexity laboratory testing. Brdoy Beckford MD LAB - MICRO GENERAL ORDERABLE S Final Result [facility] [address] [facility], no room number) [place] [address] * Extra Purple Top Tube (07/11/2024 5:09 PM CDT) [facility] Signature Hold Specimen [facility] 07/11/2024 6:31 PM CDT LABORATORY Blood BLOOD SPECIMEN / Unknown Venipuncture / Unknown 07/11/2024 5:09 PM CDT 07/11/2024 5:20 PM CDT Brody Beckford MD LAB - BLOOD ORDERABLES Final Result [facility] Lab [address] Lab (1st floor, no room number) [place] [address], [facility] * Extra Green Top (Beason Heparin) Tube (07/11/2024 5:09 PM CDT) Hold Specimen [facility] 07/11/2024 6:31 PM CDT RH LABORATORY Blood BLOOD SPECIMEN / Unknown Venipuncture / Unknown 07/11/2024 5:09 PM CDT 07/11/2024 5:20 PM CDT Brody Beckford MD LAB - BLOOD ORDERABLES Final Result [facility] [address] Lab (1st floor, no room number) [place] [phone] [place] [address] * Extra Red Top Tube (07/11/2024 5:09 PM CDT) Hold Specimen [facility] 07/11/2024 6:31 PM CDT RH LABORATORY Blood BLOOD SPECIMEN / Unknown Venipuncture / Unknown 07/11/2024 5:09 PM CDT 07/11/2024 5:20 PM CDT Brody Beckford MD LAB - BLOOD ORDERABLES Final Result [facility] Lab [address] Lab (1st floor, no room number) [place] [phone] [place] [address] * Extra Blue Top Tube (07/11/2024 5:09 PM CDT) Hold Specimen [facility] 07/11/2024 6:31 PM CDT RH LABORATORY Blood BLOOD SPECIMEN / Unknown Venipuncture / Unknown 07/11/2024 5:09 PM CDT 07/11/2024 5:20 PM CDT Brody Beckford MD LAB - BLOOD ORDERABLES Final Result [facility] Lab [address] Lab (1st floor, no room number) [place] [phone] [place] [address] * (ABNORMAL) CBC with platelets and differential (07/11/2024 5:09 PM CDT) [facility] WBC Count 13.4(H) 4.0 - 11.0 10e3/uL [...] LAB - BLOOD ORDERABLES Final Result LABORATORY [facility] Lab [address] [facility] Lab (1st floor, no room number) [place] [address], [facility] * (ABNORMAL) Comprehensive metabolic panel (07/11/2024 [...] 0.5 <=1.2 mg/dL 07/11/2024 6:52 PM CDT LABORATORY Blood BLOOD SPECIMEN / Unknown Venipuncture / Unknown 07/11/2024 5:09 PM CDT 07/11/2024 5:20 PM CDT us Brody Beckford MD LAB - BLOOD ORDERABLES Final Result LABORATORY [facility] Lab [address] [facility] Lab (1st floor, no room number) [place] [address], [facility] * (ABNORMAL) Lipid Panel (External Result) (09/23/2021 2:57 PM TRANSIT CLERK) Cholesterol (External) 183 90 - 199 mg/dL [facility] Triglycerides (External) 371(A) 40 - 149 mg/dL [facility] HDL Cholesterol (External) 44 >=50 mg/dL [facility] LDL Cholesterol Calculated (External) 65 <100 mg/dL [facility] Blood 09/23/2021 2:57 PM TRANSIT CLERK Narrative [facility] - 09/23/2021 2:57 PM TRANSIT CLERK LAB RESULTS [facility] us Provider Outside LAB - HIM EXTERNAL RESULT Edite d Result - Final [facility] [address] [place] [address], [facility] [phone] from Last 3 Months or Most Recently Relevant to Health Maintenance Insurance [place] Advance Directives For more information, please contact: [phone] * Full Code (Latest Code Status on [...] palak nt/ legal decision maker Care Teams Watch Assembler Relationship Specialty Start Date End Date Augusto Scott MD [facility] [address] [place] [address] PCP - General Family Medicine 07/11/24
--- NOTE | 2024-08-10 15:15 | CRLHL7_ITS ---
For Patients: As a result of the Century Cures Act, medical imaging exams and procedure reports are released immediately into your electronic medical record. You may view this report before your referring provider. If you have questions, please contact your health care provider. INDICATION: Liver lesions; lesions left chest wall COMPARISON: CT chest, abdomen and pelvis with intravenous contrast July 24, 2024; low-dose screening chest CT October 07, 2023. TECHNIQUE: Precontrast T1 and T2 weighted imaging; T2 haste imaging; diffusion-weighted imaging; in and out of phase imaging; postcontrast imaging including subtraction; 14 cc of dotarem contrast was injected. FINDINGS: Multiple lesions identified in the liver. Largest lesion is in segment 3 of the liver measuring 5.5 x 4 cm. A 1 cm lesion in segment 4 of the liver. 1 cm lesion in the dome of the liver in segment 7. All the lesions have restricted diffusion and low signal on the precontrast T1 weighted imaging and intermediate signal on the precontrast T2 haste imaging with enhancement postcontrast administration; highly concerning for metastatic disease. No evidence of portal vein thrombosis. No splenic pathology. No pancreatic pathology. Status post cholecystectomy. No adrenal pathology. Kidneys are unremarkable. No retroperitoneal lymphadenopathy. Status post left mastectomy. IMPRESSION: 1. Lesions identified in the left hepatic lobe as well as the right hepatic lobe; highly concerning for metastatic disease; amenable for image guided biopsy. 2. Status post cholecystectomy and left mastectomy. Dictated by Adolfo Cervantes MD @ 08/11/2024 3:07:46 PM (Electronically Signed)
== END 2024-08-10 14:52 | disposition home or self-care (01) ==
LOC: MRI 14:53
PROVIDERS: PCP Family Medicine; Visit Provider Family Medicine
DX: K76.89 Other specified diseases of liver (principal)
CPT/HCPCS: 74183; A9575

== ENCOUNTER 2024-08-17 10:08 | Outpatient (CLI) | payer OTHER, SELFPAY ==
--- OUTSIDE RECORDS SUMMARY | 2024-08-17 10:12 | XMS_ITS | Encounter Summary ---
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
--- OUTSIDE RECORDS SUMMARY | 2024-08-17 10:12 | XMS_ITS ---
Author Organization [facility] Address [address] [place] [address] Care Team Providers Care Foreign Languages Professor Name Role Phone Augusto Scott MD Primary Care Provider [phone] Transitional Care Management Status:Closed (Closed) Start date:07/14/2024 Enrollment date:07/15/2024 End date:07/28/2024 Close reason:Goals met Continued Care and Services Coordination
--- OUTSIDE RECORDS SUMMARY | 2024-08-17 10:12 | XMS_ITS | Encounter Summary ---
Author Organization [facility] Address [address] [place] [address] Care Team Providers Care Sustainability Executive Director Name Role Phone Augusto Scott MD Primary Care Provider [phone] Reason for Visit * Reason Comments Urinary Frequency UTI * Auth/Cert (Routine) Specialty Diagnoses / Procedures Referred By Contac t Referred To Contact EMERGENCY MEDICINE Diagnoses Severe sepsis (H) Pneumonia of left lower lobe due to infectious organism [facility] [address] [place] [address] Phone: tel:[phone] fax: Referral ID Status Reason Start Date Expiration Date Visits Re quested Visits Authorized [id number] 1 1 Encounter Details Date Type Department Care Team (Late st Contact Info) Description 07/11/2024 4:33 PM CDT - 07/13/2024 10:58 AM CDT Hospital Encounter [facility] 5 Medical Surgical [address] [place] [id number] Brody Beckford MD [facility] [address] [facility] [address] [place] [address] Ashish Dixon MD [address] [place] [address] Amanuel Cherry MD [facility] [address], [facility] [address] [place] [address] Severe sepsis (H); Pneumonia of left lower [...] on file Legal Sex Female 11:18 AM [employer] Gender Identity Not on file Sexual Orientation Not on file documented as of this encounter Last Filed Vital Signs Vital Sign Reading Time Taken Comments Blood Pressure 118/69 07/13/2024 8:02 AM CDT Pulse 69 07/13/2024 8:02 AM CDT Temperature 36.8 C (98.2 F) 07/13/2024 8:02 AM CDT Respiratory Rate 16 07/13/2024 8:02 AM CDT Oxygen Saturation 97% 07/13/2024 8:02 AM CDT Inhaled Oxygen Concentration - - Weight - - Height - - Body Mass Index - - documented in this encounter Discharge Summaries * Allan Mathews MD - 07/13/2024 8:50 AM CDT Images from the original note were not included. [facility] Hospitalist Discharge Summary Date of Admission: 07/11/2024 Date of Discharge: 07/13/2024 Discharging Provider: Allan Mathews MD, MD Discharge Service: Hospitalist Service Discharge Diagnoses Severe sepsis secondary to bacterial community-acquired pneumonia left lung LINDA resolved secondary to hypovolemia and sepsis Hypovolemic hyponatremia improving resolved Alteration of mental state secondary to acute infectious encephalopathy improved and resolved Muf-fhdudlq-nkikrwyof diabetes mellitus History of depression Anxiety Clinically [...] got worse. She was seen in the [place] clinic and diagnosed with bronchitis. She was [...] discharging this patient. Allan Mathews MD, MD [place] [address] MEDICAL SURGICAL [address] [facility] [address] Physical Exam Vital Signs: Temp: 98.2 ??F [...] 07/11/2024 1831 07/12/20242030 Blood Culture Peripheral Blood [[id number]] Peripheral Blood Preliminary result Component Value Culture No growth after 1 day [P] 07/11/2024 1719 07/11/2024 1808 Asymptomatic Influenza A/B, RSV, & SARS-CoV2 PCR (COVID-19) Nose [[id number]] Swab from Nose Final result Component Value [...] Narrative EXAM: XR CHEST 2 VIEWS LOCATION: [facility] DATE: 07/11/2024 INDICATION: Fever COMPARISON: None. Impression IMPRESSION: Heart size is normal. Confluent airspace disease noted in the left lower lobe posteriorly compatible with pneumonia. Clinical correlation and follow-up to resolution recommended. No effusions or pneumothorax. No acute bony abnormalities. Clips in the right upper quadrant are compatible with prior cholecystectomy. Head CT w/o contrast Narrative EXAM: CT HEAD W/O CONTRAST LOCATION: [facility] DATE: 07/11/2024 INDICATION: Confusion. COMPARISON: [...] Mathews MD - 07/12/2024 11:04 AM CDT [facility] Medicine Progress Note - Hospitalist Service Date of Admission: 07/11/2024 Assessment & Plan Halleyolanda Mayers is a 69 year old female patient with past medical history of diabetes mellitus type2, hyperlipidemia, anxiety, depression, was brought to emergency room for evaluation for cough, fever, sore throat, generalized weakness and confusion. She states that her symptoms started couple of days ago and gradually got worse. She was seen in the [facility] and diagnosed with bronchitis. She was started [...] Days Allan Mathews MD, MD Hospitalist Service [facility] Securely message with [employer] (more info) Text page via [facility] Paging/Directory Interval History I assumed medicine service care today. Seen and examined. Chart reviewed. Family updated this patient's son present at bedside. I met this pleasant lady while she is [facility] the [facility] room waiting for her [...] Narrative EXAM: CT HEAD W/O CONTRAST LOCATION: [facility] DATE: 07/11/2024 INDICATION: Confusion. COMPARISON: [...] Narrative EXAM: XR CHEST 2 VIEWS LOCATION: [facility] DATE: 07/11/2024 INDICATION: Fever COMPARISON: None. Impression IMPRESSION: Heart size is normal. Confluent airspace disease noted in the left lower lobe posteriorly compatible with pneumonia. Clinical correlation and follow-up to resolution recommended. No effusions or pneumothorax. No acute bony abnormalities. Clips in the right upper quadrant are compatible with prior cholecystectomy. * Jazmine Reilly RN - 07/12/2024 7:52 AM CDT [facility] ED Boarding Nurse Handoff Addendum Report: Date/time: [...] Dixon MD - 07/11/2024 9:23 PM CDT [facility] History and Physical Hospitalist Date [...] got worse. She was seen in the [place] clinic and diagnosed with bronchitis. She was [...] of days. She was seen in the [facility] and diagnosed with bronchitis. She was started [...] MD; Location: OR EYE SURGERY [facility]AR[facility] BILATERAL DIRECTOR HEDIS SURGERY TUBAL LIGATION ORTHOPEDIC SURGERY Right ACL [...] Narrative EXAM: CT HEAD W/O CONTRAST LOCATION: [facility] DATE: 07/11/2024 INDICATION: Confusion. COMPARISON: [...] Narrative EXAM: XR CHEST 2 VIEWS LOCATION: [facility] DATE: 07/11/2024 INDICATION: Fever COMPARISON: None. Impression [...] 11:48 PM CDT Report given to Meri RN * Tracey Solorzano RN - 07/11/2024 11:43 PM CDT Bed: ED30 Expected date: Expected time: Means of arrival: Comments: 37 for Meri * Sukhdeep Navarro RN - 07/11/2024 9:20 PM CDT [facility] ED Nurse Handoff Report ED [...] 1. Lift room needed: No. Bariatric: No News Assistant Needed: No Isolation: No. Infection: Not Applicable. [...] Bilirubin Urine Negative Ketones Urine Negative Specific [place] Urine 1.032 Blood Urine Moderate (*) pH [...] She was seen at her clinic in [place] for bronchitis yesterday. Today she developed progressive weakness per the dkzshsel-wv-dmi at the bedside. Also some mild confusion. [...] MD; Location: OR EYE SURGERY [facility] BILATERAL DIRECTOR HEDIS SURGERY TUBAL LIGATION ORTHOPEDIC SURGERY Right ACL REPAIR REPAIR PTOSIS BROW Bilateral 11/25/2021 Procedure: AND BROW PTOSIS REPAIR; Surgeon: Debby Cunningham MD; Location: OR Physical Exam Patient Vitals for the past 24 hrs: BP Temp Temp src Pulse SpO2 07/12/24 0000 100/68 -- -- 75 95 % 07/11/242244 103/53 -- -- 75 94 % 07/11/242229 90/55 -- -- 72 94 % 07/11/242214 [...] Bilirubin Urine Negative Ketones Urine Negative Specific [place] Urine 1.032 Blood Urine Moderate (*) pH [...] changes as above. EKG ECG taken at 181, ECG read at 181 Normal sinus rhythm No significant changes as compared to prior, dated 09/23/21. Rate 91 bpm. OR interval 128 ms. QRS duration 80 ms. QT/QTc 374/460 ms. P-R-T axes 60 7 48. ED Course Medications Administered Medications sodium chloride (PF) 0.9% PF flush 3 mL (3 mLs Intracatheter $Given 07/11/24 1843) sodium chloride (PF) 0.9% PF flush 3 mL (3 mLs Intracatheter $Given 07/12/24 0010) lidocaine 1 % 0.1-1 mL (has no administration in time range) lidocaine (LMX4) cream (has no administration in time range) sodium chloride (PF) 0.9% PF flush 3 mL (3 mLs Intracatheter $Given 07/12/24 0011) sodium chloride (PF) 0.9% PF flush 3 [...] Procedures Procedures Medical Decision Making / Diagnosis [facility] Diagnoses: IV Antibiotics given and/or elevated Lactate [...] 30 Minutes Intravenous ONCE 07/11/24182107/11/242009 and None MDM Halle Loreto Mayers is a 69 year [...] suspicion for sinister infectious intra-abdominal pathology or LINE WORKER infection or skin or soft tissue infection [...] Outcome: Met * Plan of Care - Camyrn Hobson RN - 07/13/2024 6:28 AM CDT [...] note. Outcome: Not Progressing Flowsheets (Taken 07/13/2024 0653) Plan of Care Reviewed With: patient Overall [...] in-person Pertinent Information: None Changes made to EMERGENCY ROOM CLINICIAN medication list: Added: Bupropion SR, Buspirone, Dexcom G7 CGM, Doxycycline, Duloxetine, Empagliflozin, Semaglutide,Vit D Deleted: APAP Changed: Metformin XR --> 1000mg BID WC Paroxetine 20mg --> 40mg daily Trazodone 100mg --> 200mg HS Allergies reviewed with patient and updates made in EHR: no Medication History Completed By: Riley Rick RPH 07/11/2024 10:40 PM EMERGENCY ROOM CLINICIAN Med List Medication Sig Note Last Dose [...] LAB - BEAKER POCT Final Result LABORATORY [facility] Lab [address] Lab (1st floor, no room number) [place] [address] * Extra Purple Top EDTA (LAB USE ONLY) (07/13/2024 6:03 AM CDT) Hold Specimen JIC 07/13/2024 7:16 AM CDT LABORATORY Blood STRUCTURE OF RIGHT HAND / Unknown Venipuncture / Unknown 07/13/2024 6:03 AM CDT 07/13/2024 6:15 AM CDT Rohit Lerma [facility] LAB - BLOOD ORDERABLES F inal Result LABORATORY [facility] Lab [address] Lab (1st floor, no room number) [place] [phone] [place] [address] * Lactic acid whole blood (07/13/2024 6:03 AM CDT) Lactic Acid 1.4 0.7 - 2.0 mmol/L 07/13/2024 6:22 AM CDT LABORATORY Blood STRUCTURE OF RIGHT HAND / Unknown Venipuncture / Unknown 07/13/2024 6:03 AM CDT 07/13/2024 6:15 AM CDT us Allan Mathews MD LAB - BLOOD ORDERABLES Fi nal Result Performing Organization Address [facility]/ZIP Co de Phone Number LABORATORY [facility] [address] Lab (1st floor, no room number) [place] [phone] * (ABNORMAL) Glucose by meter (07/13/2024 2:05 AM CDT) GLUCOSE BY METER POCT 113(H) 70 - 99 mg/dL 07/13/2024 2:12 AM CDT LABORATORY POC Blood, Capillary BLOOD SPECIMEN / Unknown 07/13/2024 2:05 AM CDT 07/13/2024 2:12 AM CDT us Amanuel Cherry MD LAB - BEAKER POCT Final Result LABORATORY POC [facility] Lab [address] Lab (1st floor, no room number) [place] [id number] * (ABNORMAL) Glucose by meter (07/12/2024 10:37 PM CDT) GLUCOSE BY METER POCT 125(H) 70 - 99 mg/dL 07/12/2024 10:43 PM CDT LABORATORY POC Blood, Capillary BLOOD SPECIMEN / Unknown 07/12/2024 10:37 PM CDT 07/12/2024 10:43 PM CDT Amanuel Cherry MD LAB - BEAKER POCT Final Result Performing Organization Address City/[facility]/ZIP Co de Phone Number LABORATORY [facility] Lab [address] Lab (1st floor, no room number) [place] [phone], [facility] * Lactic acid whole blood (07/12/2024 8:58 PM CDT) Lactic Acid 0.9 0.7 - 2.0 mmol/L 07/12/2024 9:04 PM CDT LABORATORY Blood STRUCTURE OF LEFT HAND / Unknown Venipuncture / Unknown 07/12/2024 8:58 PM CDT 07/12/2024 9:02 PM CDT us Allan Mathews MD LAB - BLOOD ORDERABLES Fi nal Result Performing Organization Address [facility]/ZIP Co de Phone Number [facility] Lab [address] Lab (1st floor, no room number) [place] [address], [facility] * (ABNORMAL) Glucose by meter (07/12/2024 4:46 PM CDT) GLUCOSE BY METER POCT 107(H) 70 - 99 mg/dL 07/12/2024 4:53 PM CDT LABORATORY POC Blood, Capillary BLOOD SPECIMEN / Unknown 07/12/2024 4:46 PM CDT 07/12/2024 4:53 PM CDT us Amanuel Cherry MD LAB - BEAKER POCT Final Result Performing Organization Address City/[facility]/ZIP Co de Phone Number LABORATORY [facility] Lab [address] Lab (1st floor, no room number) [place] [address], [facility] * (ABNORMAL) Glucose by meter (07/12/2024 11:36 AM CDT) GLUCOSE BY METER POCT 105(H) 70 - 99 mg/dL 07/12/2024 11:44 AM CDT RH LABORATORY POC Blood, Capillary BLOOD SPECIMEN / Unknown 07/12/2024 11:36 AM CDT 07/12/2024 11:44 AM CDT Amanuel Cherry MD LAB - BEAKER POCT Final Result LABORATORY [facility] Lab [address] Lab (1st floor, no room number) [place] [phone] [place] [address] * (ABNORMAL) Glucose by meter (07/12/2024 9:27 AM CDT) GLUCOSE BY METER POCT 117(H) 70 - 99 mg/dL 07/12/2024 9:34 AM CDT LABORATORY POC Blood, Capillary BLOOD SPECIMEN / Unknown 07/12/2024 9:27 AM CDT 07/12/2024 9:34 AM CDT Amanuel Cherry MD LAB - BEAKER POCT Final Result Performing Organization Address City/[facility]/ZIP Co de Phone Number LABORATORY [facility] Lab [address] Lab (1st floor, no room number) [place] [phone], [facility] * Lactic acid whole blood (07/12/2024 8:53 AM CDT) Lactic Acid 1.1 0.7 - 2.0 mmol/L 07/12/2024 9:06 AM CDT LABORATORY Blood STRUCTURE OF RIGHT HAND / Unknown Venipuncture / Unknown 07/12/2024 8:53 AM CDT 07/12/2024 8:58 AM CDT Brody Beckford MD LAB - BLOOD ORDERABLES Final Result [facility] Lab [address] Lab (1st floor, no room number) [place] [phone], [facility] * (ABNORMAL) CBC with [...] BLOOD ORDERABLES Final Result RH LABORATORY [facility] Lab [address] Lab (1st floor, no room number) [place] [address], [facility] * (ABNORMAL) Basic metabolic panel (07/12/2024 [...] 07/12/2024 9:25 AM CDT LABORATORY Comment:eGFR calculated us2020 CKD-EPI equation. Calcium [...] - BLOOD ORDERABLES Final Result LABORATORY [facility] [address] [facility] Lab (1st floor, no room number) [place] [address], [facility] * (ABNORMAL) Glucose by meter (07/12/2024 12:06 AM CDT) [facility] GLUCOSE BY METER POCT 168(H) 70 - 99 mg/dL 07/12/2024 12:13 AM CDT LABORATORY POC Blood, Capillary BLOOD SPECIMEN / Unknown 07/12/2024 12:06 AM CDT 07/12/2024 12:13 AM CDT us Amanuel Cherry MD LAB - BEAKER POCT Final Result RH LABORATORY POC [facility] [address] Lab (1st floor, no room number) [place] [address] * Lactic acid whole blood (07/11/2024 10:28 PM CDT) Lactic Acid 1.5 0.7 - 2.0 mmol/L 07/11/2024 10:41 PM CDT LABORATORY Blood BLOOD SPECIMEN / Unknown Venipuncture / Unknown 07/11/2024 10:28 PM CDT 07/11/2024 10:38 PM CDT us Brody Beckford MD LAB - BLOOD ORDERABLES Final Result Performing Organization Address City/[facility]/ZIP Co de Phone Number LABORATORY [facility] Lab [address] Lab (1st floor, no room number) [place] [address] * (ABNORMAL) UA with Microscopic [...] mg/dL 07/11/2024 8:47 PM CDT LABORATORY Specific [place] Urine 1.032 1.003 - 1.035 07/11/2024 8:47 [...] - URINE ORDERABLES Final Result LABORATORY [facility] [address] Lab (1st floor, no room number) [place] [address] * (ABNORMAL) iStat Gases (lactate) venous, POCT (07/11/2024 8:06 PM CDT) Pathologist [facility] Lactic Acid POCT 1.9 <=2.0 mmol/L 07/11/2024 [...] BEAKER POCT Final Resul t RH LABORATORY [facility] [address] Lab (1st floor, no room number) [place] [address], [facility] * XR Chest 2 Views (07/11/2024 [...] CDT EXAM: XR CHEST 2 VIEWS LOCATION: [facility] DATE: 07/11/2024 INDICATION: Fever COMPARISON: None. Procedure Note Hira Casey MD - 07/11/2024 EXAM: XR CHEST 2 VIEWS LOCATION: [facility] DATE: 07/11/2024 INDICATION: Fever COMPARISON: [...] Impressions 07/11/2024 8:07 PM CDT IMPRESSION: 1. No CT evidence for acute intracranial process. 2. Brain atrophy and presumed chronic microvascular ischemic changes as above. Narrative 07/11/2024 8:07 PM CDT EXAM: CT HEAD W/O CONTRAST LOCATION: [facility] DATE: 07/11/2024 INDICATION: Confusion. COMPARISON: [...] 07/11/2024 EXAM: CT HEAD W/O CONTRAST LOCATION: [facility] DATE: 07/11/2024 INDICATION: Confusion. COMPARISON: [...] ischemic changes asabove. Brody Beckford MD [facility] CT ORDERABLES Final Resul t * (ABNORMAL) [...] Final Resul t RH LABORATORY POC [facility] Lab [address] Lab (1st floor, no room number) [place] [address] * Blood Culture Peripheral Blood (07/11/2024 6:31 PM CDT) Culture No Growth 07/16/2024 8:31 PM CDT [facility] LABORATORY Blood BLOOD SPECIMEN / Unknown Venipuncture / Unknown 07/11/2024 6:31 PM CDT 07/11/2024 6:52 PM CDT us Brody Beckford MD LAB - MICRO GENERAL ORDERABLE S Final Result [facility]ORAT[facility] Inf. Diseases Diag. Lab [address] [facility] [place] [address] * EKG 12 lead (07/11/2024 6:14 PM CDT) Systolic Blood Pressure mmHg RADIOLOGY RESULTS Diastolic Blood Pressure mmHg RADIOLOGY RESULTS Ventricular Rate 91 BPM RAD IOLOGY RESULTS Atrial Rate 91 BPM RADIOLOG Y RESULTS OR Interval 128 ms RADIOLOG Y RESULTS QRS Duration 80 ms RADIOLO GY RESULTS QT 374 ms RADIOLOGY RESULTS QTc 460 ms RADIOLOGY RESULTS P [place] 60 degrees RADIOLOGY RESULTS R AXIS 7 degrees RADIOLOGY RESULTS T [place] 48 degrees RADIOLOGY RESULTS Interpretation ECG Sinus [...] the Xpert Xpress CoV2/Flu/RSV Assay on the [employer] GeneXpert Instrument. This test should be ordered [...] management. This test was validated by the [facility] [employer]. These laboratories are certified under the Clinical Laboratory Improvement Amendments of 1988 (CLIA-88) as qualified to perfom high complexity laboratory testing. us Brody Beckford MD LAB - MICRO GENERAL ORDERABLE S Final Result RH LABORATORY [facility] Lab [address] Lab (1st floor, no room number) [place] [address], [facility] * (ABNORMAL) CBC with platelets and [...] - BLOOD ORDERABLES Final Result LABORATORY [facility] Lab [address] [facility] Lab (1st floor, no room number) [place] [address], [facility] * (ABNORMAL) Comprehensive metabolic panel (07/11/2024 [...] - 23.0 mg/dL 07/11/2024 6:52 PM CDT LABORATORY Creatinine 1.07(H) 0.51 - 0.95 mg/dL [...] - 150 U/L 07/11/2024 6:52 PM CDT LABORATORY AST 23 0 - 45 U/L 07/11/2024 6:52 PM CDT RH LABORATORY ALT 15 0 - 50 U/L 07/11/2024 6:52 PM CDT LABORATORY Protein Total 7.5 6.4 - 8.3 g/dL 07/11/2024 6:52 PM CDT RH LABORATORY Albumin 4.1 3.5 - 5.2 g/dL 07/11/2024 6:52 PM CDT LABORATORY Bilirubin Total 0.5 <=1.2 mg/dL 07/11/2024 6:52 PM CDT LABORATORY Blood BLOOD SPECIMEN / Unknown Venipuncture / Unknown 07/11/2024 5:09 PM CDT 07/11/2024 5:20 PM CDT us Brody Beckford MD LAB - BLOOD ORDERABLES Final Result LABORATORY [facility] [address] ([facility], no room number) [place] [address], [facility] * Extra Purple Top Tube (07/11/2024 5:09 PM CDT) Hold Specimen JIC 07/11/2024 6:31 PM CDT RH LABORATORY Blood BLOOD SPECIMEN / Unknown Venipuncture / Unknown 07/11/2024 5:09 PM CDT 07/11/2024 5:20 PM CDT Brody Beckford MD LAB - BLOOD ORDERABLES Final Result [facility] Lab [address] Lab (1st floor, no room number) [place] [address] * Extra Green Top ([place] Heparin) Tube (07/11/2024 5:09 PM CDT) Hold Specimen [facility] 07/11/2024 6:31 PM CDT RH LABORATORY Blood BLOOD SPECIMEN / Unknown Venipuncture / Unknown 07/11/2024 5:09 PM CDT 07/11/2024 5:20 PM CDT us Brody Beckford MD LAB - BLOOD ORDERABLES Final Result [facility] Lab [address] Lab (1st floor, no room number) [place] [address], [place] * Extra Red Top Tube (07/11/2024 5:09 PM CDT) Hold Specimen [facility] 07/11/2024 6:31 PM CDT RH LABORATORY Blood BLOOD SPECIMEN / Unknown Venipuncture / Unknown 07/11/2024 5:09 PM CDT 07/11/2024 5:20 PM CDT Brody Beckford MD LAB - BLOOD ORDERABLES Final Result [facility] Lab [address] Lab (1st floor, no room number) [place] [address], [facility] * Extra Blue Top Tube (07/11/2024 5:09 PM CDT) Hold Specimen [facility] 07/11/2024 6:31 PM CDT LABORATORY Blood BLOOD SPECIMEN / Unknown Venipuncture / Unknown 07/11/2024 5:09 PM CDT 07/11/2024 5:20 PM CDT us Brody Beckford MD LAB - BLOOD ORDERABLES Final Result [facility] Acute Care Lab [address] Lab (1st floor, no room number) [place] [address], [facility] documented in this encounter Visit Diagnoses [...] 2109 ($Given - Provider: Sierra Goodman RN) Vitamin D3 (CHOLECALCIFEROL) tablet 25 mcg 25 mcg, Oral, DAILY, First dose on Wed07/12/24 at 1345, Note: 25 mcg = 1000 units 1609 ($Given - Provider: Sierra Goodman RN) 0805 ($Given - Provider: Yuni Snyder V RN) Continuous Medication Order 07/11/2024 07/12/2024 07/13/2024 sodium chloride 0.9 % infusion at 100 mL/hr, Intravenous, CONTINUOUS, Starting on Wed07/11/24 at 2355, Until Samina 07/13/24 at 1258 0011 ($New Bag - Provider: [...] site for insertion. MAX Dose: 2.5 g ( of 5 g tube) Do NOT give [...] stools. documented in this encounter Care Teams Sustainability Executive Director Relationship Specialty Start Date End Date Augusto Scott MD PCP - General Family Medicine 07/11/24 documented as of this encounter
--- OUTSIDE RECORDS SUMMARY | 2024-08-17 10:12 | XMS_ITS | Clinical Summary ---
Author Organization [facility] Address [address] [place] [address] Care Team Providers Care Program Consultant Name Role Phone Augusto Scott MD Primary Care Provider [phone] Allergies Active Allergy Reactions Criticality Noted Date [...] Take 1 tablet by mouth daily. 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 Gender Identity Not on file Sexual Orientation [...] lb 3.2 oz) 11/25/2021 5:59 A M USED CAR SALESPERSON Height 162.6 cm (5' 4) 11/25/2021 5:59 AM USED CAR SALESPERSON Body Mass Index 29.39 11/25/2021 5:59 AM USED CAR SALESPERSON Plan of Treatment Health Maintenance Due Date [...] PANEL (EXTERNAL RESULT) Routine 09/23/2021 2:57 PM USED CAR SALESPERSON from Last 3 Months or Most Recently [...] MD LAB - BEAKER POCT Final Result [facility] Care Lab [address] [facility] Lab (1st floor, no room number) [place] [address] * Extra Purple Top EDTA (LAB USE ONLY) (07/13/2024 6:03 AM CDT) [facility] Hold Specimen JIC 07/13/2024 7:16 AM CDT LABORATORY Blood STRUCTURE OF RIGHT HAND / Unknown Venipuncture / Unknown 07/13/2024 6:03 AM CDT 07/13/2024 6:15 AM CDT us Rohit Lerma [facility] LAB - BLOOD ORDERABLES F inal Result [facility] Acute Care Lab [address] Lab (1st floor, no room number) [place] [id number] * Lactic acid whole blood (07/13/2024 6:03 AM CDT) Only the most recent of4 resultswithin the time period is included. Lactic Acid 1.4 0.7 - 2.0 mmol/L 07/13/2024 6:22 AM CDT LABORATORY Blood STRUCTURE OF RIGHT HAND / Unknown Venipuncture / Unknown 07/13/2024 6:03 AM CDT 07/13/2024 6:15 AM CDT us Al Andres Mathews MD LAB - BLOOD ORDERABLES Fi nal Result RH LABORATORY [facility] Acute Care Lab [address] [facility] Lab (1st floor, no room number) [place] [phone] * (ABNORMAL) Basic metabolic panel [...] 8:53 AM CDT 07/12/2024 8:58 AM CDT us Ashish Dixon MD LAB - BLOOD ORDERABLES Final Result RH LABORATORY [facility] Acute Care Lab [address] [facility] Lab (1st floor, no room number) [place] [address], [facility] * (ABNORMAL) CBC with platelets (07/12/2024 [...] LAB - BLOOD ORDERABLES Final Result LABORATORY [facility] Acute Care Lab [address] Lab (1st floor, no room number) [place] [address], [facility] * (ABNORMAL) UA [...] mg/dL 07/11/2024 8:47 PM CDT LABORATORY Specific [place] Urine 1.032 1.003 - 1.035 07/11/2024 8:47 [...] LAB - URINE ORDERABLES Final Result LABORATORY [facility] Care Lab [address] Lab (1st floor, no room number) [place] [address] * (ABNORMAL) iStat Gases (lactate) venous, POCT (07/11/2024 8:06 PM CDT) Only the most recent of2 resultswithin the time period is included. [facility] Lactic Acid POCT 1.9 <=2.0 mmol/L 07/11/2024 [...] - BEAKER POCT Final Resul t LABORATORY POC [facility] Care Lab [address] Lab (1st floor, no room number) [place] [address], [facility] * XR Chest [...] CDT EXAM: XR CHEST 2 VIEWS LOCATION: [facility] DATE: 07/11/2024 INDICATION: Fever COMPARISON: None. Procedure Note Hira Casey MD - 07/11/2024 EXAM: XR CHEST 2 VIEWS LOCATION: [facility] DATE: 07/11/2024 INDICATION: Fever COMPARISON: None. [...] CDT EXAM: CT HEAD W/O CONTRAST LOCATION: [facility] DATE: 07/11/2024 INDICATION: Confusion. COMPARISON: None. [...] 07/11/2024 EXAM: CT HEAD W/O CONTRAST LOCATION: [facility] DATE: 07/11/2024 INDICATION: Confusion. COMPARISON: None. [...] ORDERABLE S Final Result UU IDD LABORATORY [facility] Inf. Diseases Diag. Lab [address] [facility], [address] [place] [address] * EKG 12 lead (07/11/2024 6:14 PM CDT) Systolic Blood Pressure mmHg RADIOLOGY RESULTS Diastolic Blood Pressure mmHg RADIOLOGY RESULTS Ventricular Rate 91 BPM RAD IOLOGY RESULTS Atrial Rate 91 BPM RADIOLOG Y RESULTS AR Interval 128 ms RADIOLOG Y RESULTS QRS Duration 80 ms RADIOLO GY RESULTS QT 374 ms RADIOLOGY RESULTS QTc 460 ms RADIOLOGY RESULTS P [place] 60 degrees RADIOLOGY RESULTS R AXIS 7 degrees RADIOLOGY RESULTS T [place] 48 degrees RADIOLOGY RESULTS Interpretation ECG Sinus rhythm Normal ECG No previous ECGs available Confirmed by MD WALSH STEVEN ([id number]) on 07/13/2024 4:48:22 PM RADIOLOGY RESULTS 07/11/2024 6:14 PM CDT 07/13/2024 4:48 PM CDT David Gilliland MD ECG ORDERABLES Edited Result - Final RADIOLOGY RESULTS * Asymptomatic Influenza A/B, RSV, & SARS-CoV2 PCR (COVID-19) Nose (07/11/2024 5:19 PM CDT) Pathologist [facility] Influenza A PCR Negative Negative 07/11/2024 [...] the Xpert Xpress CoV2/Flu/RSV Assay on the C[employer] GeneXpert Instrument. This test should be ordered [...] management. This test was validated by the [facility]. These laboratories are certified under the Clinical Laboratory Improvement Amendments of 1988 (CLIA-88) as qualified to perfom high complexity laboratory testing. us Brody Beckford MD LAB - MICRO GENERAL ORDERABLE S Final Result [facility] Care Lab [address] Lab (1st floor, no room number) [place] [address] * Extra Purple Top Tube (07/11/2024 5:09 PM CDT) Hold Specimen [facility] 07/11/2024 6:31 PM CDT RH LABORATORY Blood BLOOD SPECIMEN / Unknown Venipuncture / Unknown 07/11/2024 5:09 PM CDT 07/11/2024 5:20 PM CDT Brody Beckford MD LAB - BLOOD ORDERABLES Final Result Performing Organization Address City/[facility]/ZIP Co de Phone Number [facility] Lab [address] Lab (1st floor, no room number) [place] [address], [facility] * Extra Green Top ([place] Heparin) Tube (07/11/2024 5:09 PM CDT) Hold Specimen [facility] 07/11/2024 6:31 PM CDT LABORATORY Blood BLOOD SPECIMEN / Unknown Venipuncture / Unknown 07/11/2024 5:09 PM CDT 07/11/2024 5:20 PM CDT us Brody Beckford MD LAB - BLOOD ORDERABLES Final Result [facility] Care Lab [address] Lab (1st floor, no room number) [place] [address], [facility] * Extra Red Top Tube (07/11/2024 5:09 PM CDT) Hold Specimen [facility] 07/11/2024 6:31 PM CDT RH LABORATORY Blood BLOOD SPECIMEN / Unknown Venipuncture / Unknown 07/11/2024 5:09 PM CDT 07/11/2024 5:20 PM CDT Brody Beckford MD LAB - BLOOD ORDERABLES Final Result LABORATORY [facility] Care Lab [address] Lab (1st floor, no room number) [place] [id number] [place] [address] * Extra Blue Top Tube (07/11/2024 5:09 PM CDT) [facility] Signature Hold Specimen [facility] 07/11/2024 6:31 PM CDT RH LABORATORY Blood BLOOD SPECIMEN / Unknown Venipuncture / Unknown 07/11/2024 5:09 PM CDT 07/11/2024 5:20 PM CDT Brody Beckford MD LAB - BLOOD ORDERABLES Final Result [facility] Lab [address] Lab (1st floor, no room number) [address] * (ABNORMAL) CBC with platelets and differential (07/11/2024 5:09 PM CDT) [facility] WBC Count 13.4(H) 4.0 - 11.0 [...] - BLOOD ORDERABLES Final Result RH LABORATORY [facility] Acute Care Lab [address] [facility] Lab (1st floor, no room number) [place] [address], [facility] * (ABNORMAL) Comprehensive [...] PM CDT RH LABORATORY Comment:eGFR calculated usin g 2020 CKD-EPI equation. Calcium 9.2 8.8 - [...] LAB - BLOOD ORDERABLES Final Result LABORATORY [facility] Acute Care Lab [address] [facility] Lab (1st floor, no room number) [place] [address], [facility] * (ABNORMAL) Lipid Panel (External Result) (09/23/2021 2:57 PM USED CAR SALESPERSON) [facility] Signature Cholesterol (External) 183 90 - 199 mg/dL [facility] Triglycerides (External) 371(A) 40 - 149 mg/dL [facility] HDL Cholesterol (External) 44 >=50 mg/dL [facility] LDL Cholesterol Calculated (External) 65 <100 mg/dL [facility] Blood 09/23/2021 2:57 PM USED CAR SALESPERSON Narrative [facility] - 09/23/2021 2:57 PM USED CAR SALESPERSON LAB RESULTS [facility] us Provider Outside LAB - HIM EXTERNAL RESULT Edite d Result - Final [facility] [address] [place] [id number], [facility] [phone] from Last 3 Months or Most Recently Relevant to Health Maintenance Insurance [employer] Advance Directives For more information, please contact: [phone] * Full Code (Latest Code Status on [...] palak nt/ legal decision maker Care Teams Program Consultant Relationship Specialty Start Date End Date Augusto Scott MD PCP - General Family Medicine 07/11/24
--- OUTSIDE RECORDS SUMMARY | 2024-08-17 10:12 | XMS_ITS | Encounter Summary ---
Author Organization [facility] Address [address] [place] [address] Care Team Providers Care Compositor Apprentice Name Role Phone Irvin Mar Primary Care Provider [phone] Augusto Scott MD Primary Care Provider Encounter Details Date Type Department Care Team (Late st Contact Info) Description 11/14/2021 Orders Only [facility] Centralized Scheduling [address] [place] [address] Nolberto French MD [address] [place] [address] Social History Tobacco Use Types Packs/Day Years Used Date Smoking Tobacco: Every Day Cigarettes Smokeless Tobacco: Never Alcohol Use Standard Drinks/Week Comments Not Currently 0 (1 standard drink = 0.6 oz pur e alcohol) Comments No Sex and Gender Information Value Date Recorded Sex Assigned at Not on file 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
--- OUTSIDE RECORDS SUMMARY | 2024-08-17 10:12 | XMS_ITS | Referral Summary ---
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 [facility] GLUCOSE BY METER POCT 120(H) 70 - 99 mg/dL 07/13/2024 8:30 AM CDT LABORATORY POC Blood, Capillary BLOOD SPECIMEN / Unknown 07/13/2024 8:23 AM CDT 07/13/2024 8:30 AM CDT us Amanuel Cherry MD LAB - BEAKER POCT Final Result LABORATORY [facility] Acute Care Lab [address] [facility] Lab (1st floor, no room number) [place] [address], [facility] * Extra Purple Top EDTA (LAB USE ONLY) (07/13/2024 6:03 AM CDT) [facility] Hold Specimen [facility] 07/13/2024 7:16 AM CDT RH LABORATORY Blood STRUCTURE OF RIGHT HAND / Unknown Venipuncture / Unknown 07/13/2024 6:03 AM CDT 07/13/2024 6:15 AM CDT Rohit Lerma [facility] LAB - BLOOD ORDERABLES F inal Result [facility] Acute Care Lab [address] Lab (1st floor, no room number) [place] [phone] [place] [address] * Lactic acid whole blood (07/13/2024 6:03 AM CDT) Only the most recent of4 resultswithin the time period is included. Lactic Acid 1.4 0.7 - 2.0 mmol/L 07/13/2024 6:22 AM CDT LABORATORY Blood STRUCTURE OF RIGHT HAND / Unknown Venipuncture / Unknown 07/13/2024 6:03 AM CDT 07/13/2024 6:15 AM CDT us Al Andres Mathews MD LAB - BLOOD ORDERABLES Fi nal Result [facility] Care Lab [address] Lab (1st floor, no room number) [place] [id number] * (ABNORMAL) Basic metabolic panel (07/12/2024 [...] - BLOOD ORDERABLES Final Result RH LABORATORY [facility] Acute Care Lab [address] [facility] Lab (1st floor, no room number) [place] [address], [facility] * (ABNORMAL) CBC [...] LAB - BLOOD ORDERABLES Final Result LABORATORY [facility] Acute Care Lab [address] Lab (1st floor, no room number) [place] [address], [facility] * (ABNORMAL) UA [...] mg/dL 07/11/2024 8:47 PM CDT LABORATORY Specific [place] Urine 1.032 1.003 - 1.035 07/11/2024 8:47 [...] LAB - URINE ORDERABLES Final Result LABORATORY [facility] Acute Care Lab [address] Lab (1st floor, no room number) [place] [address], [facility] * (ABNORMAL) iStat [...] BEAKER POCT Final Resul t RH LABORATORY [facility] Acute Care Lab [address] Lab (1st floor, no room number) [place] [address], [facility] * XR Chest 2 Views (07/11/2024 [...] CDT EXAM: XR CHEST 2 VIEWS LOCATION: [facility] DATE: 07/11/2024 INDICATION: Fever COMPARISON: None. Procedure Note Hira Casey MD - 07/11/2024 EXAM: XR CHEST 2 VIEWS LOCATION: [facility] DATE: 07/11/2024 INDICATION: Fever COMPARISON: None. IMPRESSION: [...] CDT EXAM: CT HEAD W/O CONTRAST LOCATION: [facility] DATE: 07/11/2024 INDICATION: Confusion. COMPARISON: None. TECHNIQUE: [...] 07/11/2024 EXAM: CT HEAD W/O CONTRAST LOCATION: [facility] DATE: 07/11/2024 INDICATION: Confusion. COMPARISON: None. TECHNIQUE: [...] ORDERABLE S Final Result UU IDD LABORATORY [facility] Inf. Diseases Diag. Lab [address] [facility], [address] [place] [address], [facility] * EKG 12 lead (07/11/2024 6:14 PM CDT) Systolic Blood Pressure mmHg RADIOLOGY RESULTS Diastolic Blood Pressure mmHg RADIOLOGY RESULTS Ventricular Rate 91 BPM RAD IOLOGY RESULTS Atrial Rate 91 BPM RADIOLOG Y RESULTS NC Interval 128 ms RADIOLOG Y RESULTS QRS Duration 80 ms RADIOLO GY RESULTS QT 374 ms RADIOLOGY RESULTS QTc 460 ms RADIOLOGY RESULTS P [place] 60 degrees RADIOLOGY RESULTS R AXIS 7 degrees RADIOLOGY RESULTS T [place] 48 degrees RADIOLOGY RESULTS Interpretation ECG Sinus rhythm Normal ECG No previous ECGs available Confirmed by MD NICO, ADRIANA ([id number]) on 07/13/2024 4:48:22 PM RADIOLOGY RESULTS 07/11/2024 6:14 PM CDT 07/13/2024 4:48 PM CDT David Gilliland MD ECG ORDERABLES Edited Result - Final RADIOLOGY RESULTS * Asymptomatic Influenza A/B, RSV, & SARS-CoV2 PCR (COVID-19) Nose (07/11/2024 5:19 PM CDT) Pathologist [facility] Influenza A PCR Negative Negative 07/11/2024 6:08 [...] the Xpert Xpress CoV2/Flu/RSV Assay on the [employer] GeneXpert Instrument. This test should be ordered [...] management. This test was validated by the [facility]. These laboratories are certified under the Clinical Laboratory Improvement Amendments of 1988 (CLIA-88) as qualified to perfom high complexity laboratory testing. Brody Beckford MD LAB - MICRO GENERAL ORDERABLE S Final Result Performing Organization Address City/[facility]/ZIP Co de Phone Number [facility] Lab [address] Lab (1st floor, no room number) [place] [address] * Extra Purple Top Tube (07/11/2024 5:09 PM CDT) Hold Specimen [facility] 07/11/2024 6:31 PM CDT LABORATORY Blood BLOOD SPECIMEN / Unknown Venipuncture / Unknown 07/11/2024 5:09 PM CDT 07/11/2024 5:20 PM CDT Brody Beckford MD LAB - BLOOD ORDERABLES Final Result [facility] Lab [address] Lab (1st floor, no room number) [place] [address], [facility] * Extra Green Top ([place] Heparin) Tube (07/11/2024 5:09 PM CDT) Hold Specimen [facility] 07/11/2024 6:31 PM CDT LABORATORY Blood BLOOD SPECIMEN / Unknown Venipuncture / Unknown 07/11/2024 5:09 PM CDT 07/11/2024 5:20 PM CDT Brody Beckford MD LAB - BLOOD ORDERABLES Final Result [facility] Care Lab [address] Lab (1st floor, no room number) [address] [place] [address] * Extra Red Top Tube (07/11/2024 5:09 PM CDT) Hold Specimen [facility] 07/11/2024 6:31 PM CDT RH LABORATORY Blood BLOOD SPECIMEN / Unknown Venipuncture / Unknown 07/11/2024 5:09 PM CDT 07/11/2024 5:20 PM CDT Brody Beckford MD LAB - BLOOD ORDERABLES Final Result Performing Organization Address City/[facility]/ZIP Co de Phone Number [facility] Lab [address] Lab (1st floor, no room number) [address] * Extra Blue Top Tube (07/11/2024 5:09 PM CDT) Hold Specimen [facility] 07/11/2024 6:31 PM CDT RH LABORATORY Blood BLOOD SPECIMEN / Unknown Venipuncture / Unknown 07/11/2024 5:09 PM CDT 07/11/2024 5:20 PM CDT Brody Beckford MD LAB - BLOOD ORDERABLES Final Result [facility] Care Lab [address] Lab (1st floor, no room number) [address] * (ABNORMAL) CBC with platelets and [...] - BLOOD ORDERABLES Final Result RH LABORATORY [facility] [address] [facility] ([facility]st [facility], no room number) [place] [address], [facility] * (ABNORMAL) Comprehensive [...] - 0.95 mg/dL 07/11/2024 6:52 PM CDT LABORATORY GFR Estimate 55(L) >60 mL/min/1.7 3m2 [...] - 107 mmol/L 07/11/2024 6:52 PM CDT LABORATORY Glucose 327(H) 70 - 99 mg/dL [...] LAB - BLOOD ORDERABLES Final Result LABORATORY [facility] Acute Care Lab [address] Lab (1st floor, no room number) [place] [address], [facility] * (ABNORMAL) Lipid Panel (External Result) (09/23/2021 2:57 PM PERFECT BINDER SETTER) Cholesterol (External) 183 90 - 199 mg/dL [facility] Triglycerides (External) 371(A) 40 - 149 mg/dL [facility] HDL Cholesterol (External) 44 >=50 mg/dL [facility] LDL Cholesterol Calculated (External) 65 <100 mg/dL [facility] Blood 09/23/2021 2:57 PM PERFECT BINDER SETTER Narrative [facility] - 09/23/2021 2:57 PM PERFECT BINDER SETTER LAB RESULTS [facility] us Provider Outside LAB - HIM EXTERNAL RESULT Edite d Result - Final [facility] [address] [place], [place] [address] [phone] from Last 3 Months or Most Recently Relevant to Health Maintenance Insurance [employer] Advance Directives For more information, please contact: [phone] * Full Code (Latest Code Status on File) Date Activated Date Inactivated Comments 07/13/2024 8:47 AM Question Answer Comments Code status determined by: Discussion with aplak cabrera/ legal decision maker * Full Code Date Activated Date Inactivated Comments 07/11/2024 11:54 PM 07/13/2024 8:47 AM All basic and advanced life-sustaining interventions are performed as appropriate Question Answer Comments Code status determined by: Discussion with palak nt/ legal decision maker Care Teams Manager Salt Relationship Specialty Start Date End Date Augusto Scott MD PCP - General Family Medicine 07/11/24
--- OUTSIDE RECORDS SUMMARY | 2024-08-17 10:12 | XMS_ITS | Clinical Summary ---
Author Organization [employer] 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 05/26/2019 Diabetes 06/30/2013 Encounters Date Type Department Care Team Description 08/17/2024 Transcribe Orders [facility] [address] [place] [address] Claudette Arreguin MD 07/28/2024 Lab Requisition [facility] [phone] Unknown, Doctor from Last 3 Months Social [...] 86 03/30/2024 4:18 PM CDT Temperature 36.9 C (98.4 F) 03/30/2024 4:18 PM CDT Respiratory Rate 18 03/30/2024 4:18 PM CDT Oxygen Saturation 99% 03/30/2024 4:18 PM CDT Inhaled Oxygen Concentration - - Weight - - Height - - Body Mass Index - - Plan of Treatment Upcoming Encounters Date Type Department Care Team (Late st Contact Info) Description 08/23/2024 10:30 AM AIRCRAFT FUELER Appointment [facility] Medical Imaging [address] [place] [address] Health Maintenance Due Date Last Done Comments [...] PM CDT Doctor Unknown LAB BILL ONLY Performing Organization Address [facility]/ZIP Co de Phone Number [facility] [address] [place] [address], * CG HER2 BREAST (07/28/2024 11:40 AM CDT) Other (Chest Wall) 07/28/2024 11:40 AM CDT 08/02/2024 11:30 AM AIRCRAFT FUELER Doctor Unknown LABORATORY Performing Organization Address [facility] Co de Phone Number [facility] Sport LABORATORY [address] [place] [address], * CYTOGENETICS MALIGNANT TISSUE STUDIES (07/28/2024 11:40 AM CDT) RFR Breast cancer 08/07/2024 4:01 PM AIRCRAFT FUELER [employer] Online [facility] TEST & RESULT SUMMARY HER2 FISH Breast: See pathology report [id number]. See comments. 08/07/2024 4:01 PM AIRCRAFT FUELER [employer]- NTRAL LABORATORY _ 08/07/2024 4:01 PM AIRCRAFT FUELER [facility]- [facility]AL LABORATORY COMMENTS This record is used as an internal laboratory test designed for workflow purposes only. 08/07/2024 4:01 PM AIRCRAFT FUELER [employer]- NTRAL LABORATORY SOURCE Chest Wall (Paraffin Slides A1 2 uns) [id number] 08/07/2024 4:01 PM AIRCRAFT FUELER [facility] Other (Chest Wall) 07/28/2024 11:40 AM CDT 08/02/2024 11:30 AM AIRCRAFT FUELER Doctor Unknown LABORATORY Performing Organization Address City/[facility]/ZIP Co de Phone Number [facility]AL LABORATORY [address] [place] [address], * PATH TISSUE EXAM (07/28/2024 11:40 AM CDT) Case Report Pathology Report Case: [id number] Authorizing Provider: Unknown, Doctor Collected: 07/28/2024 1140 Ordering Location: [facility] Received: 07/29/2024 0534 Pathologist: Haven Birmingham MD Specimen: Chest Wall 4 5:13 PM AIRCRAFT FUELER [facility] Amendment 08/02/2024 - Amendmen t issued to incorporate ancillary studies. 08/07/2024 - Amendment issued to incorporate ancillary HER2 FISH studies. 4 5:13 PM AIRCRAFT FUELER [facility] Final Diagnosis SOFT TISSUE MASS, LEFT CHEST WALL, CORE BIOPSY: 1. Poorly differentiated adenocarcinoma, compatible with breast primary 2. Breast Ancillary Testing: a. Hormone Receptors: Estrogen receptor: Negative Progesterone receptor: Negative b. HER2 by IHC: Equivocal (2+ by manual morphometry) HER2 by FISH: Negative HER2/CEP17 ratio: 1.46 HER2 signals/cell: 3.47 CEP17 signals/cell: 2.38 4 5:13 PM AIRCRAFT FUELER [facility] Amendment electronically signed by Alva Goss MD on 08/07/2024 at 5:13 PM Amendment electronically signed by Alva Goss MD on 08/02/2024 at 11:33 AM Comment Case seen in consultation with Dr. Goss. Estrogen Receptor Comment No internal controls are present, but external controls are appropriately positive. If needed, testing another specimen that contains internal controls may be warranted for confirmation of ER status. 4 5:13 PM AIRCRAFT FUELER [facility] Clinical Information The patient is a 69 y.o. female with a left anterior chest wall mass, approximately 6 cm. She has a history of left breast cancer 7 years ago. 4 5:13 PM AIRCRAFT FUELER [facility] Gross Description A) Received in formalin, labeled with the patient's name and anterior chest wall left, are 5 cylindrical grimes-white ranging from 1.4-1.7 cm in length and each measuring 0.2 cm in diameter. The specimen is submitted entirely, in toto in 1 cassette. LMG 07/29/2024 4 5:13 PM [facility] Microscopic Description The final diagnosis is based on microscopic examination of appropriate sections of all specimens. Immunohistochemical staining is performed (block A1) with the following results: Stain: Result: Claudin-4 Positive SHANIQUE-3 Positive CK 7 Positive Support for the interpretation of this case may have included the use of immunohistochemistry and/or in situ hybridization tests that were performed by [facility] and whose performance characteristics were evaluated by pathologists from [facility]. These tests have not been cleared or approved by the U.S. Food and Drug Administration. The FDA has determined that such clearance or approval is not necessary. These tests are used for clinical purposes and should not be regarded as investigational or for research. This laboratory is certified under the Clinical Laboratory Improvement Amendments of 1988 (CLIA) as qualified to perform high complexity clinical laboratory testing. 4 5:13 PM [facility] Cytogenetics Summary Cytogenetic testing has been ordered and will be reported separately. 4 5:13 PM [facility] SYNOPTIC REPORTING Breast Biomarker Reporting Template BREAST BIOMARKER REPORTING TEMPLATE - A Protocol posted: 09/08/2023 Test(s) Performed: Estrogen Receptor (ER) Status: Negative (less than 1%) : Internal control cells absent Test Type: Laboratory-developed test Primary Antibody: SP1 Test(s) Performed: Progesterone Receptor (PgR) Status: Negative (less than 1%) : Internal control cells absent Test Type: Laboratory-developed test Primary Antibody: 16 Test(s) Performed: HER2 by Immunohistochemistry: Equivocal (Score 2+) Percentage of Cells with Uniform Intense Complete Membrane Stainin % Test Type: Laboratory-developed test Primary Antibody: 4B5 Test(s) Performed: HER2 by in situ Hybridization: Negative (not amplified) Number of Observers: 2 Number of Invasive Tumor Cells Counted: 60 cells Method: Dual probe assay Average Number of HER2 Signals per Cell: 3.47 Average Number of CEP17 Signals per Cell: 2.38 HER2 / CEP17 Ratio: 1.46 Aneusomy: Not identified Heterogeneous Signals: Not identified Test Type: Food and Drug Administration (FDA) cleared (test / vendor): [employer] Path[employer]ion HER2/Joaquim Cold Ischemia and Fixation Times: Cannot be determined: cold ischemia time and duration in formalin not documented. Testing Performed on Block Number(s): A1 METHODS Fixative: Formalin Image Analysis: Performed Method: Aperio morphometric analysis Biomarkers Scored by Image Analysis: ER Biomarkers Scored by Image Analysis: PgR Comment(s): The FDA approved [employer] PathVysion DNA Probe Kit was developed and its performance characteristics determined by [facility]. This test incorporates minor modifications to protocol and validated by the [facility] to yield equivocal or superior performance. This FISH test uses a multiplex probe stain procedure. 5:13 PM [facility] Additional Information Patients with breast [...] not result in eligibility currently). Interpreted at [facility], Central Laboratory - [address], [place] [address] Immunohistochemistry controls were reviewed and approved by the pathologist during this examination. 4 5:13 PM [facility]AT[facility] Other (Chest Wall) 07/28/2024 11:40 AM CDT 07/29/2024 5:34 AM CDT Doctor Unknown PATHOLOGY/CYTOLOGY [facility] [address] [place] [address], [place] from Last 3 Months Care Teams Wood Hacker Relationship Specialty Start Date End Date Augusto Scott MD [address] [place] [address] PCP - General Family Practice 03/30/24
--- NOTE | 2024-08-17 10:15 | CRLHL7_ITS ---
For Patients: As a result of the Century Cures Act, medical imaging exams and procedure reports are released immediately into your electronic medical record. You may view this report before your referring provider. If you have questions, please contact your health care provider. INDICATION: Breast cancer. Staging. COMPARISON: 11/25/2022. TECHNIQUE: Multiplanar T1, T2, FLAIR and diffusion-weighted imaging. FINDINGS: Mild generalized volume loss. Scattered patchy T2/FLAIR signal hyperintense within the white matter of both cerebral hemispheres are nonspecific and may represent chronic deep white matter small vessel ischemic changes or sequela of migraine headache. No intracranial hemorrhage. No abnormal ventricular dilatation. Intracranial vascular flow voids are preserved. No mass effect or midline shift. No restricted diffusion to suggest acute ischemia. No susceptibility artifact of remote hemorrhage. No abnormal enhancement or enhancing lesions within the brain parenchyma. Bilateral orbits are unremarkable. Normal appearing sella. Visualized paranasal sinuses and mastoid air cells are unremarkable. IMPRESSION: 1. No acute intracranial abnormality. 2. Mild generalized cerebral volume loss. Scattered patchy T2/FLAIR signal hyperintensity within the white matter both cerebral hemispheres are nonspecific and may represent chronic deep white matter small vessel ischemic changes or sequela of migraine headache 3. No acute or chronic intracranial hemorrhage. 4. No abnormal enhancement or enhancing lesions. No intracranial metastases Dictated by Garry French MD @ 08/18/2024 12:14:27 PM (Electronically Signed)
== END 2024-08-17 10:09 | disposition home or self-care (01) ==
LOC: MRI 10:10
PROVIDERS: PCP Family Medicine; Visit Provider Surgery
DX: C50.919 Malignant neoplasm of unspecified site of unspecified female breast (principal); R22.2 Localized swelling, mass and lump, trunk; M89.9 Disorder of bone, unspecified; R41.89 Other symptoms and signs involving cognitive functions and awareness
CPT/HCPCS: 70553; A9575

== ENCOUNTER 2024-08-17 10:15 | Outpatient (CLI) | payer OTHER, SELFPAY ==
--- NOTE | 2024-08-17 10:15 | CRLHL7_ITS ---
For Patients: As a result of the Century Cures Act, medical imaging exams and procedure reports are released immediately into your electronic medical record. You may view this report before your referring provider. If you have questions, please contact your health care provider. EXAM: MRI OF THE LEFT BRACHIAL PLEXUS, WITHOUT AND WITH IV CONTRAST CLINICAL INDICATION: Left upper extremity pain. Breast carcinoma. COMPARISON PLAIN FILMS: None. COMPARISON CROSS-SECTIONAL IMAGING STUDIES: 07/24/2024 CT chest abdomen and pelvis. TECHNICAL: Axial, sagittal and coronal T1 and STIR images precontrast. Postcontrast T1 weighted imaging with fat saturation. Contrast: Dotarem, 20 mL IV. FINDINGS: Spinal Cord: Normal signal and morphology. No intrinsic mass. Central Canal: No fluid collection or mass. Disc osteophyte complexes in the lower cervical interspaces. No high-grade narrowing. Brachial Plexus and Soft Tissues: Subcutaneous mass in the left chest wall with extension deep to the pectoralis major muscle measures up to 5.2 cm in size. There is a large area of central nonenhancement consistent with necrosis. Additional mass more medially deep to the pectoralis minor musculature measures up to 2.7 cm in size. The majority of the mass demonstrates non enhancement consistent with necrosis. There are multiple additional subcentimeter lesions adjacent to the subclavian vasculature both superiorly, medially and laterally to the smaller lesion deep to the pectoralis minor muscle. Adjacent soft tissue edema and enhancement. The masses adjacent to the pectoralis minor muscle and subclavian vasculature are inferior and anterior from the brachial plexus. No masses with direct mass effect on the brachial plexus. Single enlarged left axillary lymph node. No abnormal enhancement of the brachial plexus. Left mastectomy. BONES: Lobular 5 cm mass in the proximal left humerus and smaller mass in the right glenoid with extension into the base of the coracoid. Findings consistent with osseous metastases. IMPRESSION: 1. Subcutaneous mass in the left chest wall and additional mass deep to the pectoralis minor muscle are again identified. Multiple additional small masses adjacent to the pectoralis minor muscle and subclavian vasculature. Adjacent soft tissue edema and enhancement. Enlarged left axillary lymph node. 2. No mass effect on the brachial plexus or abnormal enhancement. 3. Osseous lesions in the proximal left humerus and right glenoid/coracoid consistent with metastases. Dictated by Steven Hernández MD @ 08/18/2024 12:02:38 PM (Electronically Signed)
== END 2024-08-17 10:16 | disposition home or self-care (01) ==
LOC: MRI 10:16
PROVIDERS: PCP Family Medicine; Visit Provider Internal Medicine Hematology & Oncology
DX: C50.919 Malignant neoplasm of unspecified site of unspecified female breast (principal); R59.0 Localized enlarged lymph nodes; R22.2 Localized swelling, mass and lump, trunk; M89.9 Disorder of bone, unspecified; M79.622 Pain in left upper arm
CPT/HCPCS: 70543; A9575

== ENCOUNTER 2024-08-18 10:10 | Outpatient (CLI) | payer OTHER, SELFPAY ==
--- OUTSIDE RECORDS SUMMARY | 2024-08-18 10:17 | XMS_ITS | Referral Summary ---
Author Organization [facility] Address [address] [place] [address] Care Team Providers Care Magazine Repairer Name Role Phone Augusto Scott MD Primary Care Provider [phone] Encounters Date Type Department Care Team Description 07/11/2024 4:33 PM CDT - 07/13/2024 10:58 AM CDT Hospital Encounter [place] [address] Medical Surgical [address] [place] [address] Brody Beckford MD Jaleta, MD Jo Ann [...] file Legal Sex Female 11:18 AM HEALTH INFORMATICS SPECIALIST Gender Identity Not on file Sexual Orientation [...] lb 3.2 oz) 11/25/2021 5:59 A M HEALTH INFORMATICS SPECIALIST Height 162.6 cm (5' 4) 11/25/2021 5:59 AM HEALTH INFORMATICS SPECIALIST Body Mass Index 29.39 11/25/2021 5:59 AM HEALTH INFORMATICS SPECIALIST Plan of Treatment Not on file Procedures [...] PANEL (EXTERNAL RESULT) Routine 09/23/2021 2:57 PM HEALTH INFORMATICS SPECIALIST from Last 3 Months or Most Recently Relevant to Health Maintenance Results * (ABNORMAL) Glucose by meter (07/13/2024 8:23 AM CDT) Only the most recent of7 resultswithin the time period is included. [facility] GLUCOSE BY METER POCT 120(H) 70 - 99 mg/dL 07/13/2024 8:30 AM CDT LABORATORY POC Blood, Capillary BLOOD SPECIMEN / Unknown 07/13/2024 8:23 AM CDT 07/13/2024 8:30 AM CDT us Amanuel Cherry MD LAB - BEAKER POCT Final Result LABORATORY [facility] [address] [facility] Lab (1st floor, no room number) [place] [address], [facility] * Extra Purple Top EDTA (LAB USE ONLY) (07/13/2024 6:03 AM CDT) [facility] Hold Specimen JIC 07/13/2024 7:16 AM CDT RH LABORATORY Blood STRUCTURE OF RIGHT HAND / Unknown Venipuncture / Unknown 07/13/2024 6:03 AM CDT 07/13/2024 6:15 AM CDT Rhoit Lerma [facility] LAB - BLOOD ORDERABLES F inal Result [facility] Acute Care Lab [address] Lab (1st floor, no room number) [place] [phone] [place] [address] * Lactic acid whole blood (07/13/2024 6:03 AM CDT) Only the most recent of4 resultswithin the time period is included. Lactic Acid 1.4 0.7 - 2.0 mmol/L 07/13/2024 6:22 AM CDT LABORATORY Blood STRUCTURE OF RIGHT HAND / Unknown Venipuncture / Unknown 07/13/2024 6:03 AM CDT 07/13/2024 6:15 AM CDT us Al Andres Mathews MD LAB - BLOOD ORDERABLES Fi nal Result [facility] [address] Lab (1st floor, no room number) [place] [id number] * (ABNORMAL) Basic metabolic panel [...] - BLOOD ORDERABLES Final Result RH LABORATORY [facility] Acute Care Lab [address] [facility] Lab (1st floor, no room number) [place] [address], [facility] * (ABNORMAL) CBC with platelets [...] LAB - BLOOD ORDERABLES Final Result LABORATORY [facility] Acute Care Lab [address] Lab (1st floor, no room number) [place] [address], [facility] * (ABNORMAL) UA with Microscopic [...] mg/dL 07/11/2024 8:47 PM CDT LABORATORY Specific [place] Urine 1.032 1.003 - 1.035 07/11/2024 8:47 [...] LAB - URINE ORDERABLES Final Result LABORATORY [facility] Acute Care Lab [address] Lab (1st floor, no room number) [place] [address], [facility] * (ABNORMAL) iStat Gases (lactate) [...] BEAKER POCT Final Resul t RH LABORATORY [facility] Lab [address] Lab (1st floor, no room number) [place] [address], [facility] * XR Chest 2 Views (07/11/2024 [...] ORDERABLE S Final Result [facility]ORAT[facility] [employer] Inf. Diseases Diag. Lab [address] [facility] [place] [address], [facility] * EKG 12 lead (07/11/2024 6:14 PM CDT) Systolic Blood Pressure mmHg RADIOLOGY RESULTS Diastolic Blood Pressure mmHg RADIOLOGY RESULTS Ventricular Rate 91 BPM RAD IOLOGY RESULTS Atrial Rate 91 BPM RADIOLOG Y RESULTS PA Interval 128 ms RADIOLOG Y RESULTS QRS Duration 80 ms RADIOLO GY RESULTS QT 374 ms RADIOLOGY RESULTS QTc 460 ms RADIOLOGY RESULTS P Donnelly 60 degrees RADIOLOGY RESULTS R AXIS 7 degrees RADIOLOGY RESULTS T Donnelly 48 degrees RADIOLOGY RESULTS Interpretation ECG Sinus [...] the Xpert Xpress CoV2/Flu/RSV Assay on the [employer] GeneXpert Instrument. This test should be ordered [...] management. This test was validated by the [facility]. These laboratories are certified under the Clinical Laboratory Improvement Amendments of 1988 (CLIA-88) as qualified to perfom high complexity laboratory testing. Brody Beckford MD LAB - MICRO GENERAL ORDERABLE S Final Result Performing Organization Address City/[facility]/ZIP Co de Phone Number [facility] Lab [address] Lab (1st floor, no room number) [place] [address] * Extra Purple Top Tube (07/11/2024 5:09 PM CDT) Hold Specimen [facility] 07/11/2024 6:31 PM CDT LABORATORY Blood BLOOD SPECIMEN / Unknown Venipuncture / Unknown 07/11/2024 5:09 PM CDT 07/11/2024 5:20 PM CDT Brody Beckford MD LAB - BLOOD ORDERABLES Final Result [facility] Lab [address] Lab (1st floor, no room number) [place] [address], [facility] * Extra Green Top ([place] Heparin) Tube (07/11/2024 5:09 PM CDT) Hold Specimen [facility] 07/11/2024 6:31 PM CDT LABORATORY Blood BLOOD SPECIMEN / Unknown Venipuncture / Unknown 07/11/2024 5:09 PM CDT 07/11/2024 5:20 PM CDT Brody Beckford MD LAB - BLOOD ORDERABLES Final Result [facility] Lab [address] Lab (1st floor, no room number) [address] [place] [address] * Extra Red Top Tube (07/11/2024 5:09 PM CDT) Hold Specimen [facility] 07/11/2024 6:31 PM CDT RH LABORATORY Blood BLOOD SPECIMEN / Unknown Venipuncture / Unknown 07/11/2024 5:09 PM CDT 07/11/2024 5:20 PM CDT Brody Beckford MD LAB - BLOOD ORDERABLES Final Result Performing Organization Address City/[facility]/ZIP Co de Phone Number [facility] Lab [address] Lab (1st floor, no room number) [address] * Extra Blue Top Tube (07/11/2024 5:09 PM CDT) Hold Specimen [facility] 07/11/2024 6:31 PM CDT RH LABORATORY Blood BLOOD SPECIMEN / Unknown Venipuncture / Unknown 07/11/2024 5:09 PM CDT 07/11/2024 5:20 PM CDT Brody Beckford MD LAB - BLOOD ORDERABLES Final Result [facility] [address] Lab (1st floor, no room number) [address] * (ABNORMAL) CBC with platelets and [...] - BLOOD ORDERABLES Final Result RH LABORATORY [facility] [address] [facility] [facility] ([facility]st floor, no room number) [place] [address], [facility] * (ABNORMAL) Comprehensive metabolic panel [...] LAB - BLOOD ORDERABLES Final Result LABORATORY [facility] Care Lab [address] Lab (1st floor, no room number) [place] [address], [facility] * (ABNORMAL) Lipid Panel (External Result) (09/23/2021 2:57 PM HEALTH INFORMATICS SPECIALIST) Cholesterol (External) 183 90 - 199 mg/dL [facility] Triglycerides (External) 371(A) 40 - 149 mg/dL [facility] HDL Cholesterol (External) 44 >=50 mg/dL [facility] LDL Cholesterol Calculated (External) 65 <100 mg/dL [facility] Blood 09/23/2021 2:57 PM HEALTH INFORMATICS SPECIALIST Narrative [facility] - 09/23/2021 2:57 PM HEALTH INFORMATICS SPECIALIST LAB RESULTS [facility] us Provider Outside LAB - HIM EXTERNAL RESULT Edite d Result - Final [facility] [address] [place], [place] [address] [phone] from Last 3 Months or Most Recently Relevant to Health Maintenance Insurance [employer] Advance Directives For more information, please contact: [phone] * Full Code (Latest Code Status on File) Date Activated Date Inactivated Comments 07/13/2024 8:47 AM Question Answer Comments Code status determined by: Discussion with palak cabrera/ legal decision maker * Full Code Date Activated Date Inactivated Comments 07/11/2024 11:54 PM 07/13/2024 8:47 AM All basic and advanced life-sustaining interventions are performed as appropriate Question Answer Comments Code status determined by: Discussion with palak nt/ legal decision maker Care Teams Magazine Repairer Relationship Specialty Start Date End Date Augusto Scott MD PCP - General Family Medicine 07/11/24
--- OUTSIDE RECORDS SUMMARY | 2024-08-18 10:17 | XMS_ITS | Clinical Summary ---
Author Organization [place] Address [address] [place] [address] Care Team Providers Care Jewel Gauger Name Role Phone Augusto Scott MD Primary Care Provider [phone] Allergies Active Allergy Reactions Criticality Noted Date [...] - 07/13/2024 10:58 AM CDT Hospital Encounter [place] [address] [facility] [address] [place] [address] Brody Beckford MD Jaleta, Cherinet [...] on file Legal Sex Female 11:18 AM RESIZER OPERATOR Gender Identity Not on file Sexual [...] lb 3.2 oz) 11/25/2021 5:59 A M RESIZER OPERATOR Height 162.6 cm (5' 4) 11/25/2021 5:59 AM RESIZER OPERATOR Body Mass Index 29.39 11/25/2021 5:59 AM RESIZER OPERATOR Plan of Treatment Health Maintenance Due [...] PANEL (EXTERNAL RESULT) Routine 09/23/2021 2:57 PM RESIZER OPERATOR from Last 3 Months or Most [...] MD LAB - BEAKER POCT Final Result [facility] Care Lab [address] Lab (1st floor, no room number) [place] [address] * Extra Purple Top EDTA (LAB USE ONLY) (07/13/2024 6:03 AM CDT) [facility] Hold Specimen JIC 07/13/2024 7:16 AM CDT LABORATORY Blood STRUCTURE OF RIGHT HAND / Unknown Venipuncture / Unknown 07/13/2024 6:03 AM CDT 07/13/2024 6:15 AM CDT us Rohit Lerma [facility] LAB - BLOOD ORDERABLES F inal Result [facility] Acute Care Lab [address] Lab (1st floor, no room number) [place] [id number] * Lactic acid whole blood (07/13/2024 [...] BLOOD ORDERABLES Fi nal Result RH LABORATORY [facility] Acute Care Lab [address] [facility] Lab (1st floor, no room number) [place] [id number] * (ABNORMAL) Basic metabolic panel (07/12/2024 [...] - BLOOD ORDERABLES Final Result RH LABORATORY [facility] Acute Care Lab [address] [facility] Lab (1st floor, no room number) [place] [address], [facility] * (ABNORMAL) CBC with platelets (07/12/2024 8:53 [...] LAB - BLOOD ORDERABLES Final Result LABORATORY [facility] Acute Care Lab [address] Lab (1st floor, no room number) [place] [address], [facility] * (ABNORMAL) UA with Microscopic reflex to [...] mg/dL 07/11/2024 8:47 PM CDT LABORATORY Specific [place] Urine 1.032 1.003 - 1.035 07/11/2024 8:47 [...] LAB - URINE ORDERABLES Final Result LABORATORY [facility] Care Lab [address] Lab (1st floor, no room number) [place] [address] * (ABNORMAL) iStat Gases (lactate) venous, POCT (07/11/2024 8:06 PM CDT) Only the most recent of2 resultswithin the time period is included. [facility] Lactic Acid POCT 1.9 <=2.0 mmol/L 07/11/2024 [...] BEAKER POCT Final Resul t LABORATORY POC [facility] Care Lab [address] Lab (1st floor, no room number) [place] [address], [facility] * XR Chest 2 Views (07/11/2024 7:54 [...] CDT EXAM: XR CHEST 2 VIEWS LOCATION: [facility] DATE: 07/11/2024 INDICATION: Fever COMPARISON: None. Procedure Note Hira Casey MD - 07/11/2024 EXAM: XR CHEST 2 VIEWS LOCATION: [facility] DATE: 07/11/2024 INDICATION: Fever COMPARISON: [...] CDT EXAM: CT HEAD W/O CONTRAST LOCATION: [facility] DATE: 07/11/2024 INDICATION: Confusion. COMPARISON: [...] 07/11/2024 EXAM: CT HEAD W/O CONTRAST LOCATION: [facility] DATE: 07/11/2024 INDICATION: Confusion. COMPARISON: [...] [facility] Lab [address] [facility] [place] [address] * EKG 12 lead (07/11/2024 6:14 PM CDT) Systolic Blood Pressure mmHg RADIOLOGY RESULTS Diastolic Blood Pressure mmHg RADIOLOGY RESULTS Ventricular Rate 91 BPM RAD IOLOGY RESULTS Atrial Rate 91 BPM RADIOLOG Y RESULTS WI Interval 128 ms RADIOLOG Y RESULTS QRS Duration 80 ms RADIOLO GY RESULTS QT 374 ms RADIOLOGY RESULTS QTc 460 ms RADIOLOGY RESULTS P [place] 60 degrees RADIOLOGY RESULTS R AXIS 7 degrees RADIOLOGY RESULTS T [place] 48 degrees RADIOLOGY RESULTS Interpretation ECG Sinus rhythm Normal ECG No previous ECGs available Confirmed by MD WALSH STEVEN ([id number]) on 07/13/2024 4:48:22 PM RADIOLOGY RESULTS 07/11/2024 6:14 PM CDT 07/13/2024 4:48 PM CDT David Gilliland MD ECG ORDERABLES Edited Result - Final RADIOLOGY RESULTS * Asymptomatic Influenza A/B, RSV, & SARS-CoV2 PCR (COVID-19) Nose (07/11/2024 5:19 PM CDT) Pathologist [facility] [place] Influenza A PCR Negative Negative 07/11/2024 6:08 [...] the Xpert Xpress CoV2/Flu/RSV Assay on the [employer] GeneXpert Instrument. This test should be ordered [...] management. This test was validated by the [facility]. These laboratories are certified under the Clinical Laboratory Improvement Amendments of 1988 (CLIA-88) as qualified to perfom high complexity laboratory testing. us Brody Beckford MD LAB - MICRO GENERAL ORDERABLE S Final Result [facility] Care Lab [address] Lab (1st floor, no room number) [place] [address] * Extra Purple Top Tube (07/11/2024 5:09 PM CDT) Hold Specimen [facility] 07/11/2024 6:31 PM CDT RH LABORATORY Blood BLOOD SPECIMEN / Unknown Venipuncture / Unknown 07/11/2024 5:09 PM CDT 07/11/2024 5:20 PM CDT Brody Beckford MD LAB - BLOOD ORDERABLES Final Result Performing Organization Address City/[facility]/ZIP Co de Phone Number [facility] Lab [address] Lab (1st floor, no room number) [place] [address], [facility] * Extra Green Top ([place] Heparin) Tube (07/11/2024 5:09 PM CDT) Hold Specimen [facility] 07/11/2024 6:31 PM CDT LABORATORY Blood BLOOD SPECIMEN / Unknown Venipuncture / Unknown 07/11/2024 5:09 PM CDT 07/11/2024 5:20 PM CDT us Brody Beckford MD LAB - BLOOD ORDERABLES Final Result [facility] Care Lab [address] Lab (1st floor, no room number) [place] [address], [facility] * Extra Red Top Tube (07/11/2024 5:09 PM CDT) Hold Specimen [facility] 07/11/2024 6:31 PM CDT RH LABORATORY Blood BLOOD SPECIMEN / Unknown Venipuncture / Unknown 07/11/2024 5:09 PM CDT 07/11/2024 5:20 PM CDT Brody Beckford MD LAB - BLOOD ORDERABLES Final Result LABORATORY [facility] Care Lab [address] Lab (1st floor, no room number) [place] [id number] [place] [address] * Extra Blue Top Tube (07/11/2024 5:09 PM CDT) [facility] Signature Hold Specimen [facility] 07/11/2024 6:31 PM CDT RH LABORATORY Blood BLOOD SPECIMEN / Unknown Venipuncture / Unknown 07/11/2024 5:09 PM CDT 07/11/2024 5:20 PM CDT Brody Beckford MD LAB - BLOOD ORDERABLES Final Result [facility] Lab [address] Lab (1st floor, no room number) [address] * (ABNORMAL) CBC with platelets and differential (07/11/2024 5:09 PM CDT) [facility] WBC Count 13.4(H) 4.0 - 11.0 10e3/uL [...] - BLOOD ORDERABLES Final Result RH LABORATORY [facility] Acute Care Lab [address] [facility] Lab (1st floor, no room number) [place] [address], [facility] * (ABNORMAL) Comprehensive metabolic panel (07/11/2024 5:09 [...] LAB - BLOOD ORDERABLES Final Result LABORATORY [facility] Acute Care Lab [address] [facility] Lab (1st floor, no room number) [place] [address], [facility] * (ABNORMAL) Lipid Panel (External Result) (09/23/2021 2:57 PM RESIZER OPERATOR) [facility] Signature Cholesterol (External) 183 90 - 199 mg/dL [facility] Triglycerides (External) 371(A) 40 - 149 mg/dL [facility] HDL Cholesterol (External) 44 >=50 mg/dL [facility] LDL Cholesterol Calculated (External) 65 <100 mg/dL [facility] Blood 09/23/2021 2:57 PM RESIZER OPERATOR Narrative [facility] - 09/23/2021 2:57 PM RESIZER OPERATOR LAB RESULTS [facility] us Provider Outside LAB - HIM EXTERNAL RESULT Edite d Result - Final [facility] [address] [place] [id number], [facility] [phone] from Last 3 Months or Most Recently Relevant to Health Maintenance Insurance [employer] Advance Directives For more information, please contact: [phone] * Full Code (Latest Code Status on [...] palak nt/ legal decision maker Care Teams Jewel Gauger Relationship Specialty Start Date End Date Augusto Scott MD PCP - General Family Medicine 07/11/24
--- OUTSIDE RECORDS SUMMARY | 2024-08-18 10:18 | XMS_ITS ---
Author Organization [facility] Address [address] [place] [address] Care Team Providers Care Jockey Agent Name Role Phone Augusto Scott MD Primary Care Provider [phone] Transitional Care Management Status:Closed (Closed) Start date:07/14/2024 Enrollment date:07/15/2024 End date:07/28/2024 Close reason:Goals met Continued Care and Services Coordination
--- OUTSIDE RECORDS SUMMARY | 2024-08-18 10:18 | XMS_ITS | Encounter Summary ---
Author Organization [facility] Address [address] [place] [address] Care Team Providers Care Piece Presser Name Role Phone Irvin Mar Primary Care Provider [phone] Augusto Scott MD Primary Care Provider Encounter Details Date Type Department Care Team (Late st Contact Info) Description 11/14/2021 Orders Only [facility] Centralized Scheduling [address] [place] [address] Nolberto French MD [address] [place] [address] Social History Tobacco Use Types Packs/Day Years Used Date Smoking Tobacco: Every Day Cigarettes Smokeless Tobacco: Never Alcohol Use Standard Drinks/Week Comments Not Currently 0 (1 standard drink = 0.6 oz pur e alcohol) Comments No Sex and Gender Information Value Date Recorded Sex Assigned at Not on file Legal Sex Female 11:18 AM RANGE AIDE Gender Identity Not on file Sexual Orientation Not on file documented as of this encounter Plan of Treatment Not on file documented as of this encounter Visit Diagnoses Not on filedocumented in this encounter Care Teams Piece Presser Relationship Specialty Start Date End Date Irvin Mar [facility] [address] [place] [id number] PCP - General Family Medicine 09/09/21 07/10/24 Augusto Scott MD [address] [address] PCP - General Family Medicine 07/11/24 documented as of this encounter
--- OUTSIDE RECORDS SUMMARY | 2024-08-18 10:18 | XMS_ITS | Clinical Summary ---
Author Organization [facility] 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 05/26/2019 Diabetes 06/30/2013 Encounters Date Type Department Care Team Description 08/17/2024 Transcribe Orders [facility] [address] [place] [address] Claudette Arreguin MD 07/28/2024 Lab Requisition [facility] [phone] Unknown, Doctor from Last 3 Months Social [...] Care Team (Late st Contact Info) Description 08/21/2024 8:30 AM DATA ENGINEER Appointment [facility] Out[facility] Imaging [address] [place] [address] 08/22/2024 9:00 AM DATA ENGINEER Telemedicine [facility] [address] [place] [address] Nicole Dugan MS, [facility] [address] [place] [address] [address] [place] [address] 08/23/2024 10:30 AM DATA ENGINEER Appointment [facility] Medical Imaging [address] [place] [address] Health Maintenance Due Date Last Done Comments [...] Unknown LAB BILL ONLY Performing Organization Address [facility] Co de Phone Number [facility] [address] [place] [address], [place] * CG HER2 BREAST (07/28/2024 11:40 AM CDT) Other (Chest Wall) 07/28/2024 11:40 AM CDT 08/02/2024 11:30 AM DATA ENGINEER Doctor Unknown LABORATORY Performing Organization Address City/[facility] Co de Phone Number [facility] [address] [place] [address], [place] * CYTOGENETICS MALIGNANT TISSUE STUDIES (07/28/2024 11:40 AM CDT) RFR Breast cancer 08/07/2024 4:01 PM DATA ENGINEER [employer] [facility] TEST & RESULT SUMMARY HER2 FISH Breast: See pathology report [id number]. See comments. 08/07/2024 4:01 PM DATA ENGINEER [employer] N[facility] _ 08/07/2024 4:01 PM DATA ENGINEER [employer] N[facility] COMMENTS This record is used as an internal laboratory test designed for workflow purposes only. 08/07/2024 4:01 PM DATA ENGINEER [facility] NTRAL LABORATORY SOURCE Chest Wall (Paraffin Slides A1 2 uns) [id number] 08/07/2024 4:01 PM DATA ENGINEER [facility] Other (Chest Wall) 07/28/2024 11:40 AM CDT 08/02/2024 11:30 AM DATA ENGINEER Doctor Unknown LABORATORY [facility] [address] [place] [address], * PATH TISSUE EXAM (07/28/2024 11:40 AM CDT) Case Report Pathology Report Case: [id number] Authorizing Provider: Unknown, Doctor Collected: 07/28/2024 1140 Ordering Location: [facility] Received: 07/29/2024 0534 Pathologist: Haven Birmingham MD Specimen: Chest Wall 4 5:13 PM [facility] Amendment 08/02/2024 - Amendmen t issued to incorporate ancillary studies. 08/07/2024 - Amendment issued to incorporate ancillary HER2 FISH studies. 4 5:13 PM [facility] Final Diagnosis SOFT TISSUE MASS, LEFT CHEST WALL, CORE BIOPSY: 1. Poorly differentiated adenocarcinoma, compatible with breast primary 2. Breast Ancillary Testing: a. Hormone Receptors: Estrogen receptor: Negative Progesterone receptor: Negative b. HER2 by IHC: Equivocal (2+ by manual morphometry) HER2 by FISH: Negative HER2/CEP17 ratio: 1.46 HER2 signals/cell: 3.47 CEP17 signals/cell: 2.38 4 5:13 PM DATA ENGINEER [facility] Amendment electronically signed by Alva [...] confirmation of ER status. 4 5:13 PM [facility] Clinical Information The patient is a 69 y.o. female with a left anterior chest wall mass, approximately 6 cm. She has a history of left breast cancer 7 years ago. 4 5:13 PM [facility] Gross Description A) Received in formalin, labeled with the patient's name and anterior chest wall left, are 5 cylindrical grimes-white ranging from 1.4-1.7 cm in length and each measuring 0.2 cm in diameter. The specimen is submitted entirely, in toto in 1 cassette. [facility] 07/29/2024 5:13 PM [facility] Microscopic Description The final diagnosis is based on microscopic examination of appropriate sections of all specimens. Immunohistochemical staining is performed (block A1) with the following results: Stain: Result: Claudin-4 Positive SHANIQUE-3 Positive CK 7 Positive Support for the interpretation of this case may have included the use of immunohistochemistry and/or in situ hybridization tests that were performed by [facility] [employer] and whose performance characteristics were evaluated by [...] to perform high complexity clinical laboratory testing. 5:13 PM [facility] Cytogenetics Summary Cytogenetic testing has been ordered and will be reported separately. 5:13 PM [facility] [...] developed and its performance characteristics determined by [facility]. This test incorporates minor modifications to protocol and validated by the [facility] to yield equivocal or superior performance. This FISH test uses a multiplex probe stain procedure. 4 5:13 PM [facility] Additional Information Patients with breast cancers [...] not result in eligibility currently). Interpreted at [facility] Central Laboratory - [address], [place] [address] Immunohistochemistry controls were reviewed and approved by the pathologist during this examination. 4 5:13 PM DATA ENGINEER [facility]- [facility]TRAL LABORATORY Other (Chest Wall) 07/28/2024 11:40 AM CDT 07/29/2024 5:34 AM CDT Doctor Unknown PATHOLOGY/CYTOLOGY [facility] [employer] LABORATORY-CENTRAL LABORATORY [address] [place] [address], [place] from Last 3 Months Care Teams Clinical Recruiter Relationship Specialty Start Date End Date Augusto Scott MD [address] [place] [address] PCP - General Family Practice 03/30/24
--- OUTSIDE RECORDS SUMMARY | 2024-08-18 10:18 | XMS_ITS | Encounter Summary ---
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
--- OUTSIDE RECORDS SUMMARY | 2024-08-18 10:18 | XMS_ITS | Encounter Summary ---
Author Organization [place] Address [address] [place] [address] Care Team Providers Care Service Desk Associate Name Role Phone Augusto Scott MD Primary Care Provider [phone] Reason for Visit * Reason Comments Urinary Frequency UTI * Auth/Cert (Routine) Specialty Diagnoses / Procedures Referred By Contac t Referred To Contact EMERGENCY MEDICINE Diagnoses Severe sepsis (H) Pneumonia of left lower lobe due to infectious organism [facility] Emergency Dept [address] [place] [address] Phone: tel:[phone] fax: Referral ID Status Reason Start Date Expiration Date Visits Re quested Visits Authorized [id number] 1 1 Encounter Details Date Type Department Care Team (Late st Contact Info) Description 07/11/2024 4:33 PM CDT - 07/13/2024 10:58 AM CDT Hospital Encounter [facility] 5 Medical Surgical [address] [place] [id number] Brody Beckford MD [facility] [address] [facility] [address] [place] [address] Ashish Dixon MD [address] [place] [address] Amanuel Cherry MD [facility] [address], [facility] [address] [place] [address] Severe sepsis (H); Pneumonia of left lower [...] on file 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 [facility] Hospitalist Discharge Summary Date of Admission: 07/11/2024 Date of Discharge: 07/13/2024 Discharging Provider: Allan Mathews MD, MD Discharge Service: Hospitalist Service Discharge Diagnoses Severe sepsis secondary to bacterial community-acquired pneumonia left lung LINDA resolved secondary to hypovolemia and sepsis Hypovolemic hyponatremia improving resolved Alteration of mental state secondary to acute infectious encephalopathy improved and resolved Kul-zetmidt-beiexkqvc diabetes mellitus History of depression Anxiety Clinically [...] got worse. She was seen in the [place] [facility] and diagnosed with bronchitis. She was [...] discharging this patient. Allan Mathews MD, MD [place] [address] MEDICAL SURGICAL [address] [facility] [address] Physical Exam Vital Signs: Temp: 98.2 ??F [...] 07/11/2024 1831 07/12/20242030 Blood Culture Peripheral Blood [[id number]] Peripheral Blood Preliminary result Component Value Culture No growth after 1 day [P] 07/11/2024 1719 07/11/2024 1808 Asymptomatic Influenza A/B, RSV, & SARS-CoV2 PCR (COVID-19) Nose [[id number]] Swab from Nose Final result Component Value [...] Narrative EXAM: XR CHEST 2 VIEWS LOCATION: [facility] DATE: 07/11/2024 INDICATION: Fever COMPARISON: None. Impression IMPRESSION: Heart size is normal. Confluent airspace disease noted in the left lower lobe posteriorly compatible with pneumonia. Clinical correlation and follow-up to resolution recommended. No effusions or pneumothorax. No acute bony abnormalities. Clips in the right upper quadrant are compatible with prior cholecystectomy. Head CT w/o contrast Narrative EXAM: CT HEAD W/O CONTRAST LOCATION: [facility] DATE: 07/11/2024 INDICATION: Confusion. COMPARISON: None. [...] Mathews MD - 07/12/2024 11:04 AM CDT [facility] Medicine Progress Note - Hospitalist Service [...] got worse. She was seen in the [facility] and diagnosed with bronchitis. She was [...] Days Allan Mathews MD, MD Hospitalist Service [facility] Securely message with [employer] (more info) Text page via [facility] Paging/Directory Interval History I assumed medicine service care today. Seen and examined. Chart reviewed. Family updated this patient's son present at bedside. I met this pleasant lady while she is laying comfortably in the [facility] boarding the emergency room waiting for her [...] Narrative EXAM: CT HEAD W/O CONTRAST LOCATION: [facility] DATE: 07/11/2024 INDICATION: Confusion. COMPARISON: None. [...] Narrative EXAM: XR CHEST 2 VIEWS LOCATION: [facility] DATE: 07/11/2024 INDICATION: Fever COMPARISON: None. Impression IMPRESSION: Heart size is normal. Confluent airspace disease noted in the left lower lobe posteriorly compatible with pneumonia. Clinical correlation and follow-up to resolution recommended. No effusions or pneumothorax. No acute bony abnormalities. Clips in the right upper quadrant are compatible with prior cholecystectomy. * Jazmine Reilly RN - 07/12/2024 7:52 AM CDT [facility] ED Boarding Nurse Handoff Addendum Report: Date/time: [...] Dixon MD - 07/11/2024 9:23 PM CDT [facility] History and Physical Hospitalist Date of [...] got worse. She was seen in the [place] [facility] and diagnosed with bronchitis. She was [...] of days. She was seen in the [facility] and diagnosed with bronchitis. She was [...] MD; Location: OR EYE SURGERY CATARACT BILATERAL NIGHT CUSTODIAN SURGERY TUBAL LIGATION ORTHOPEDIC SURGERY Right ACL [...] Narrative EXAM: CT HEAD W/O CONTRAST LOCATION: [facility] DATE: 07/11/2024 INDICATION: Confusion. COMPARISON: None. [...] Narrative EXAM: XR CHEST 2 VIEWS LOCATION: [facility] DATE: 07/11/2024 INDICATION: Fever COMPARISON: None. Impression [...] Navarro RN - 07/11/2024 9:20 PM CDT [facility] ED Nurse Handoff Report ED Chief [...] 1. Lift room needed: No. Bariatric: No Chemic Mangler Needed: No Isolation: No. Infection: Not Applicable. [...] Bilirubin Urine Negative Ketones Urine Negative Specific [place] Urine 1.032 Blood Urine Moderate (*) pH [...] She was seen at her clinic in [place] for bronchitis yesterday. Today she developed progressive weakness per the xnnetmhs-fz-rxh at the bedside. Also some mild confusion. [...] MD; Location: OR EYE SURGERY CATARACT BILATERAL NIGHT CUSTODIAN SURGERY TUBAL LIGATION ORTHOPEDIC SURGERY Right ACL [...] Bilirubin Urine Negative Ketones Urine Negative Specific [place] Urine 1.032 Blood Urine Moderate (*) pH [...] to prior, dated 09/23/21. Rate 91 bpm. DC interval 128 ms. QRS duration 80 ms. [...] Procedures Procedures Medical Decision Making / Diagnosis [facility] Diagnoses: IV Antibiotics given and/or elevated Lactate [...] suspicion for sinister infectious intra-abdominal pathology or HOSE CEMENTER infection or skin or soft tissue infection [...] note. Outcome: Not Progressing Flowsheets (Taken 07/13/2024 0632) Plan of Care Reviewed With: patient Overall [...] in-person Pertinent Information: None Changes made to DATAPOWER CONSULTANT medication list: Added: Bupropion SR, Buspirone, Dexcom G7 CGM, Doxycycline, Duloxetine, Empagliflozin, Semaglutide,Vit D Deleted: APAP Changed: Metformin XR --> 1000mg BID WC Paroxetine 20mg --> 40mg daily Trazodone 100mg --> 200mg HS Allergies reviewed with patient and updates made in EHR: no Medication History Completed By: Riley Rick RPH 07/11/2024 10:40 PM DATAPOWER CONSULTANT Med List Medication Sig Note Last Dose [...] [facility] [address] Lab (1st floor, no room number) [place] [address] * Extra Purple Top EDTA (LAB USE ONLY) (07/13/2024 6:03 AM CDT) Hold Specimen JIC 07/13/2024 7:16 AM CDT LABORATORY Blood STRUCTURE OF RIGHT HAND / Unknown Venipuncture / Unknown 07/13/2024 6:03 AM CDT 07/13/2024 6:15 AM CDT Rohit Lerma [facility] LAB - BLOOD ORDERABLES F inal Result LABORATORY [facility] Acute Care Lab [address] Lab (1st floor, no room number) [place] [id number] [place] [address] * Lactic acid whole blood (07/13/2024 6:03 AM CDT) Lactic Acid 1.4 0.7 - 2.0 mmol/L 07/13/2024 6:22 AM CDT LABORATORY Blood STRUCTURE OF RIGHT HAND / Unknown Venipuncture / Unknown 07/13/2024 6:03 AM CDT 07/13/2024 6:15 AM CDT us Allan Mathews MD LAB - BLOOD ORDERABLES Fi nal Result Performing Organization Address [facility]/ZIP Co de Phone Number LABORATORY [facility] Care Lab [address] Lab (1st floor, no room number) [place] [phone] * (ABNORMAL) Glucose by meter (07/13/2024 2:05 AM CDT) GLUCOSE BY METER POCT 113(H) 70 - 99 mg/dL 07/13/2024 2:12 AM CDT LABORATORY POC Blood, Capillary BLOOD SPECIMEN / Unknown 07/13/2024 2:05 AM CDT 07/13/2024 2:12 AM CDT us Amanuel Cherry MD LAB - BEAKER POCT Final Result LABORATORY POC [facility] Acute Care Lab [address] Lab (1st floor, no room number) [place] [phone] * (ABNORMAL) Glucose by meter (07/12/2024 10:37 PM CDT) GLUCOSE BY METER POCT 125(H) 70 - 99 mg/dL 07/12/2024 10:43 PM CDT LABORATORY POC Blood, Capillary BLOOD SPECIMEN / Unknown 07/12/2024 10:37 PM CDT 07/12/2024 10:43 PM CDT Amanuel Cherry MD LAB - BEAKER POCT Final Result Performing Organization Address City/[facility]/ZIP Co de Phone Number LABORATORY [facility] Lab [address] Lab (1st floor, no room number) [place] [phone], [facility] * Lactic acid whole blood (07/12/2024 8:58 PM CDT) Lactic Acid 0.9 0.7 - 2.0 mmol/L 07/12/2024 9:04 PM CDT LABORATORY Blood STRUCTURE OF LEFT HAND / Unknown Venipuncture / Unknown 07/12/2024 8:58 PM CDT 07/12/2024 9:02 PM CDT us Allan Mathews MD LAB - BLOOD ORDERABLES Fi nal Result Performing Organization Address [facility]/ZIP Co de Phone Number [facility] Lab [address] Lab (1st floor, no room number) [place] [address], [facility] * (ABNORMAL) Glucose by meter (07/12/2024 4:46 PM CDT) GLUCOSE BY METER POCT 107(H) 70 - 99 mg/dL 07/12/2024 4:53 PM CDT LABORATORY POC Blood, Capillary BLOOD SPECIMEN / Unknown 07/12/2024 4:46 PM CDT 07/12/2024 4:53 PM CDT us Amanuel Cherry MD LAB - BEAKER POCT Final Result Performing Organization Address City/[facility]/ZIP Co de Phone Number LABORATORY [facility] Lab [address] Lab (1st floor, no room number) [place] [address], [facility] * (ABNORMAL) Glucose by meter (07/12/2024 11:36 AM CDT) GLUCOSE BY METER POCT 105(H) 70 - 99 mg/dL 07/12/2024 11:44 AM CDT RH LABORATORY POC Blood, Capillary BLOOD SPECIMEN / Unknown 07/12/2024 11:36 AM CDT 07/12/2024 11:44 AM CDT Amanuel Cherry MD LAB - BEAKER POCT Final Result LABORATORY [facility] Lab [address] Lab (1st floor, no room number) [place] [phone] [place] [address] * (ABNORMAL) Glucose by meter (07/12/2024 9:27 AM CDT) GLUCOSE BY METER POCT 117(H) 70 - 99 mg/dL 07/12/2024 9:34 AM CDT LABORATORY POC Blood, Capillary BLOOD SPECIMEN / Unknown 07/12/2024 9:27 AM CDT 07/12/2024 9:34 AM CDT Amanuel Cherry MD LAB - BEAKER POCT Final Result Performing Organization Address City/[facility]/ZIP Co de Phone Number LABORATORY [facility] Lab [address] Lab (1st floor, no room number) [place] [phone], [facility] * Lactic acid whole blood (07/12/2024 8:53 AM CDT) Lactic Acid 1.1 0.7 - 2.0 mmol/L 07/12/2024 9:06 AM CDT LABORATORY Blood STRUCTURE OF RIGHT HAND / Unknown Venipuncture / Unknown 07/12/2024 8:53 AM CDT 07/12/2024 8:58 AM CDT Brody Beckford MD LAB - BLOOD ORDERABLES Final Result [facility] [address] Lab (1st floor, no room number) [place] [phone], [facility] * (ABNORMAL) CBC with platelets (07/12/2024 [...] - BLOOD ORDERABLES Final Result RH LABORATORY [facility] Acute Care Lab [address] Lab (1st floor, no room number) [place] [address], [facility] * (ABNORMAL) Basic metabolic panel (07/12/2024 [...] LAB - BLOOD ORDERABLES Final Result LABORATORY [facility] Acute Care Lab [address] [facility] Lab (1st floor, no room number) [place] [address], [facility] * (ABNORMAL) Glucose by meter (07/12/2024 12:06 AM CDT) [facility] GLUCOSE BY METER POCT 168(H) 70 - 99 mg/dL 07/12/2024 12:13 AM CDT LABORATORY POC Blood, Capillary BLOOD SPECIMEN / Unknown 07/12/2024 12:06 AM CDT 07/12/2024 12:13 AM CDT us Amanuel Cherry MD LAB - BEAKER POCT Final Result RH LABORATORY POC [facility] Care Lab [address] Lab (1st floor, no room number) [place] [address] * Lactic acid whole blood (07/11/2024 10:28 PM CDT) Lactic Acid 1.5 0.7 - 2.0 mmol/L 07/11/2024 10:41 PM CDT LABORATORY Blood BLOOD SPECIMEN / Unknown Venipuncture / Unknown 07/11/2024 10:28 PM CDT 07/11/2024 10:38 PM CDT us Brody Beckford MD LAB - BLOOD ORDERABLES Final Result Performing Organization Address City/[facility]/ZIP Co de Phone Number LABORATORY [facility] [address] Lab (1st floor, no room number) [place] [address] * (ABNORMAL) UA with Microscopic reflex to [...] mg/dL 07/11/2024 8:47 PM CDT LABORATORY Specific [place] Urine 1.032 1.003 - 1.035 07/11/2024 8:47 [...] LAB - URINE ORDERABLES Final Result LABORATORY [facility] Acute Care Lab [address] Lab (1st floor, no room number) [place] [address] * (ABNORMAL) iStat Gases (lactate) venous, POCT (07/11/2024 8:06 PM CDT) Pathologist [facility] Lactic Acid POCT 1.9 <=2.0 mmol/L 07/11/2024 [...] [address] Lab (1st floor, no room number) [place] [address], [facility] * XR Chest 2 Views (07/11/2024 [...] CDT EXAM: XR CHEST 2 VIEWS LOCATION: [facility] DATE: 07/11/2024 INDICATION: Fever COMPARISON: None. Procedure Note Hira Casey MD - 07/11/2024 EXAM: XR CHEST 2 VIEWS LOCATION: [facility] DATE: 07/11/2024 INDICATION: Fever COMPARISON: None. [...] CDT EXAM: CT HEAD W/O CONTRAST LOCATION: [facility] DATE: 07/11/2024 INDICATION: Confusion. COMPARISON: None. [...] 07/11/2024 EXAM: CT HEAD W/O CONTRAST LOCATION: [facility] DATE: 07/11/2024 INDICATION: Confusion. COMPARISON: None. [...] microvascular ischemic changes asabove. Brody Beckford MD [facility] CT ORDERABLES Final Resul t * (ABNORMAL) [...] POCT Final Resul t RH LABORATORY POC [facility] Acute Care Lab [address] Lab (1st floor, no room number) [place] [address] * Blood Culture Peripheral Blood (07/11/2024 6:31 PM CDT) Culture No Growth 07/16/2024 8:31 PM CDT [facility] LABORATORY Blood BLOOD SPECIMEN / Unknown Venipuncture / Unknown 07/11/2024 6:31 PM CDT 07/11/2024 6:52 PM CDT us Brody Beckford MD LAB - MICRO GENERAL ORDERABLE S Final Result [facility] LABORATORY [facility] Inf. Diseases Diag. Lab [address] [facility], [address] [place] [address] * EKG 12 lead (07/11/2024 6:14 PM CDT) Systolic Blood Pressure mmHg RADIOLOGY RESULTS Diastolic Blood Pressure mmHg RADIOLOGY RESULTS Ventricular Rate 91 BPM RAD IOLOGY RESULTS Atrial Rate 91 BPM RADIOLOG Y RESULTS DC Interval 128 ms RADIOLOG Y RESULTS QRS Duration 80 ms RADIOLO GY RESULTS QT 374 ms RADIOLOGY RESULTS QTc 460 ms RADIOLOGY RESULTS P [place] 60 degrees RADIOLOGY RESULTS R AXIS 7 degrees RADIOLOGY RESULTS T [place] 48 degrees RADIOLOGY RESULTS Interpretation ECG Sinus [...] the Xpert Xpress CoV2/Flu/RSV Assay on the [employer] GeneXpert Instrument. This test should be ordered [...] management. This test was validated by the [facility]. These laboratories are certified under the Clinical Laboratory Improvement Amendments of 1988 (CLIA-88) as qualified to perfom high complexity laboratory testing. us Brody Beckford MD LAB - MICRO GENERAL ORDERABLE S Final Result RH LABORATORY [facility] Acute Care Lab [address] Lab (1st floor, no room number) [place] [address], [facility] * (ABNORMAL) CBC with platelets and [...] LAB - BLOOD ORDERABLES Final Result LABORATORY [facility] Acute Care Lab [address] [facility] Lab (1st floor, no room number) [place] [address], [facility] * (ABNORMAL) Comprehensive metabolic panel (07/11/2024 [...] LAB - BLOOD ORDERABLES Final Result LABORATORY [facility] [address] [facility] (1st floor, no room number) [place] [address], [facility] * Extra Purple Top Tube (07/11/2024 5:09 PM CDT) Hold Specimen JIC 07/11/2024 6:31 PM CDT RH LABORATORY Blood BLOOD SPECIMEN / Unknown Venipuncture / Unknown 07/11/2024 5:09 PM CDT 07/11/2024 5:20 PM CDT Brody Beckford MD LAB - BLOOD ORDERABLES Final Result [facility] [address] Lab (1st floor, no room number) [place] [address] * Extra Green Top ([place] Heparin) Tube (07/11/2024 5:09 PM CDT) Hold Specimen [facility] 07/11/2024 6:31 PM CDT RH LABORATORY Blood BLOOD SPECIMEN / Unknown Venipuncture / Unknown 07/11/2024 5:09 PM CDT 07/11/2024 5:20 PM CDT us Brody Beckford MD LAB - BLOOD ORDERABLES Final Result [facility] [address] Lab (1st floor, no room number) [place] [address], [place] * Extra Red Top Tube (07/11/2024 5:09 PM CDT) Hold Specimen [facility] 07/11/2024 6:31 PM CDT RH LABORATORY Blood BLOOD SPECIMEN / Unknown Venipuncture / Unknown 07/11/2024 5:09 PM CDT 07/11/2024 5:20 PM CDT Brody Beckford MD LAB - BLOOD ORDERABLES Final Result [facility] [address] Lab (1st floor, no room number) [place] [address], [facility] * Extra Blue Top Tube (07/11/2024 5:09 PM CDT) Hold Specimen [facility] 07/11/2024 6:31 PM CDT LABORATORY Blood BLOOD SPECIMEN / Unknown Venipuncture / Unknown 07/11/2024 5:09 PM CDT 07/11/2024 5:20 PM CDT us Brody Beckford MD LAB - BLOOD ORDERABLES Final Result [facility] Acute Care Lab [address] Lab (1st floor, no room number) [place] [address], [facility] documented in this encounter Visit Diagnoses [...] stools. documented in this encounter Care Teams Service Desk Associate Relationship Specialty Start Date End Date Augusto Scott MD PCP - General Family Medicine 07/11/24 documented as of this encounter
== END 2024-08-18 10:11 | disposition home or self-care (01) ==
PROVIDERS: PCP Family Medicine; Visit Provider Family Medicine
DX: Z01.818 Encounter for other preprocedural examination (principal)
CPT/HCPCS: 80053; 88360

== ENCOUNTER 2024-09-04 06:18 | Day surgery (SDC) | payer OTHER, SELFPAY ==
--- OUTSIDE RECORDS SUMMARY | 2024-09-04 06:22 | XMS_ITS | Encounter Summary ---
Author Organization [facility] Address [address] [place] [address] Care Team Providers Care Supervising Appraiser Name Role Phone Irvin Mar Primary Care Provider [phone] Augusto Scott MD Primary Care Provider [phone] Encounter Details Date Type Department Care Team (Late st Contact Info) Description 11/14/2021 Orders Only [facility] Centralized Scheduling [address] [place] [address] Nolberto French MD [address] [place] [address] Social History Tobacco Use Types Packs/Day Years Used Date Smoking Tobacco: Every Day Cigarettes Smokeless Tobacco: Never Alcohol Use Standard Drinks/Week Comments Not Currently 0 (1 standard drink = 0.6 oz pur e alcohol) Comments No Sex and Gender Information Value Date Recorded Sex Assigned at Not on file 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
--- OUTSIDE RECORDS SUMMARY | 2024-09-04 06:22 | XMS_ITS | Encounter Summary ---
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
--- OUTSIDE RECORDS SUMMARY | 2024-09-04 06:22 | XMS_ITS | Clinical Summary ---
Author Organization [place] Address [address] [place] [address] Care Team Providers Care Bow Repairer Custom Name Role Phone Augusto Scott MD Primary Care Provider [phone] Allergies Active Allergy Reactions Criticality Noted Date Comments Codeine Hives Medium 09/24/2021 Venlafaxine Other (See Comments) 09/24/2021 DIAPHORESIS, INSOMNIA Medications ARIPiprazole (ABILIFY) 5 MG tablet Take 5 mg by mouth daily 1 Active PARoxetine (PAXIL) 40 MG tablet Take 40 mg by mouth daily. 1 Active simvastatin (ZOCOR) 40 MG tablet Take 40 mg by mouth At Bedtime 1 Active gabapentin (NEURONTIN) 600 MG tablet Take 600 mg by mouth at bedtime. Active traZODone (DESYREL) 100 MG tablet Take 200 mg by mouth at bedtime. 1 Active Multiple Vitamin (MULTIVITAMIN ADULT PO) Take 1 tablet by mouth daily Active metFORMIN (GLUCOPHAGE-XR ) 500 MG 24 hr tablet Take 1,000 mg by mouth 2 times daily (with meals). 1 Active buPROPion (WELLBUTRIN SR) 150 MG 12 [...] Take 1 tablet by mouth daily. Active Active Problems Problem Noted Date Diagnosed Date Severe sepsis 07/11/2024 Pneumonia of left lower lobe due to infectious o rganism 07/11/2024 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 Encounters Date Type Department Care Team Description 07/11/2024 4:33 PM CDT - 07/13/2024 10:58 AM CDT Hospital Encounter [place] [address] [facility] [address] [place] [phone] Brody Beckford MD Jaleta, Cherinet Negeri, MD Foss, MD Amanuel Severe sepsis (H); Pneumonia of [...] on file Legal Sex Female 11:18 AM DEVELOPMENT PROFESSIONAL Gender Identity Not on file Sexual Orientation [...] lb 3.2 oz) 11/25/2021 5:59 A M DEVELOPMENT PROFESSIONAL Height 162.6 cm (5' 4) 11/25/2021 5:59 AM DEVELOPMENT PROFESSIONAL Body Mass Index 29.39 11/25/2021 5:59 AM DEVELOPMENT PROFESSIONAL Plan of Treatment Health Maintenance Due Date [...] PANEL (EXTERNAL RESULT) Routine 09/23/2021 2:57 PM DEVELOPMENT PROFESSIONAL from Last 3 Months or Most Recently [...] LAB - BEAKER POCT Final Result LABORATORY [facility] Care Lab [address] Lab (1st floor, no room number) [place] [phone] * Extra Purple Top EDTA (LAB USE ONLY) (07/13/2024 6:03 AM CDT) [facility] Hold Specimen JIC 07/13/2024 7:16 AM CDT LABORATORY Blood STRUCTURE OF RIGHT HAND / Unknown Venipuncture / Unknown 07/13/2024 6:03 AM CDT 07/13/2024 6:15 AM CDT Rohit Lerma [facility] LAB - BLOOD ORDERABLES F inal Result [facility] Lab [address] Lab (1st floor, no room number) [place] [address] * Lactic acid whole blood (07/13/2024 6:03 AM CDT) Only the most recent of4 resultswithin the time period is included. Lactic Acid 1.4 0.7 - 2.0 mmol/L 07/13/2024 6:22 AM CDT LABORATORY Blood STRUCTURE OF RIGHT HAND / Unknown Venipuncture / Unknown 07/13/2024 6:03 AM CDT 07/13/2024 6:15 AM CDT Al Andres Mathews MD LAB - BLOOD ORDERABLES Fi nal Result LABORATORY [facility] [address] [facility] ([facility], no room number) [place] [address], [facility] * (ABNORMAL) Basic metabolic panel (07/12/2024 8:53 AM CDT) Pathologist [facility] Sodium 137 135 - 145 mmol/L 07/12/2024 [...] - BLOOD ORDERABLES Final Result RH LABORATORY [facility] [address] Lab (1st floor, no room number) [place] [address], [facility] * (ABNORMAL) CBC with platelets (07/12/2024 [...] - BLOOD ORDERABLES Final Result RH LABORATORY [facility] [address] Lab (1st floor, no room number) [place] [address] * (ABNORMAL) UA with Microscopic reflex [...] mg/dL 07/11/2024 8:47 PM CDT LABORATORY Specific [place] Urine 1.032 1.003 - 1.035 07/11/2024 8:47 [...] MD LAB - URINE ORDERABLES Final Result Performing Organization Address [facility]/ZIP Co de Phone Number LABORATORY [facility] [address] Lab (1st floor, no room number) [place] [address] * (ABNORMAL) iStat Gases [...] LAB - BEAKER POCT Final Resul t Performing Organization Address [facility] Co de Phone Number LABORATORY POC [facility] Care Lab [address] Lab (1st floor, no room number) [place] [address], [facility] * XR Chest 2 Views (07/11/2024 [...] CDT EXAM: XR CHEST 2 VIEWS LOCATION: [facility] DATE: 07/11/2024 INDICATION: Fever COMPARISON: None. Procedure Note Hira Casey MD - 07/11/2024 EXAM: XR CHEST 2 VIEWS LOCATION: [facility] DATE: 07/11/2024 INDICATION: Fever COMPARISON: None. [...] CDT EXAM: CT HEAD W/O CONTRAST LOCATION: [facility] DATE: 07/11/2024 INDICATION: Confusion. COMPARISON: None. [...] 07/11/2024 EXAM: CT HEAD W/O CONTRAST LOCATION: [facility] DATE: 07/11/2024 INDICATION: Confusion. COMPARISON: None. [...] ORDERABLE S Final Result [facility] IDD LABORATORY [facility] Inf. Diseases Diag. Lab [address] [facility], [address] [place] [phone] * EKG 12 lead (07/11/2024 6:14 PM CDT) Systolic Blood Pressure mmHg RADIOLOGY RESULTS Diastolic Blood Pressure mmHg RADIOLOGY RESULTS Ventricular Rate 91 BPM RAD IOLOGY RESULTS Atrial Rate 91 BPM RADIOLOG Y RESULTS IN Interval 128 ms RADIOLOG Y RESULTS QRS Duration 80 ms RADIOLO GY RESULTS QT 374 ms RADIOLOGY RESULTS QTc 460 ms RADIOLOGY RESULTS P [place] 60 degrees RADIOLOGY RESULTS R AXIS 7 degrees RADIOLOGY RESULTS T [place] 48 degrees RADIOLOGY RESULTS Interpretation ECG Sinus rhythm Normal ECG No previous ECGs available Confirmed by MD WALSH STEVEN ([id number]) on 07/13/2024 4:48:22 PM RADIOLOGY RESULTS 07/11/2024 6:14 PM CDT 07/13/2024 4:48 PM CDT David Gilliland MD ECG ORDERABLES Edited Result - Final RADIOLOGY RESULTS * Asymptomatic Influenza A/B, RSV, & SARS-CoV2 PCR (COVID-19) Nose (07/11/2024 5:19 PM CDT) Pathologist [facility] Influenza A PCR Negative Negative 07/11/2024 [...] PM CDT 07/11/2024 5:29 PM CDT Narrative LABORATORY - 07/11/2024 6:08 PM CDT Testing was performed using the Xpert Xpress CoV2/Flu/RSV Assay on the [employer] GeneXpert Instrument. This test should be ordered [...] management. This test was validated by the [facility]. These laboratories are certified under the Clinical Laboratory Improvement Amendments of 1988 (CLIA-88) as qualified to perfom high complexity laboratory testing. us Brody Beckford MD LAB - MICRO GENERAL ORDERABLE S Final Result [facility] Lab [address] Lab (1st floor, no room number) [place] [phone] [place] [address] * Extra Purple Top Tube (07/11/2024 5:09 PM CDT) Hold Specimen [facility] 07/11/2024 6:31 PM CDT RH LABORATORY Blood BLOOD SPECIMEN / Unknown Venipuncture / Unknown 07/11/2024 5:09 PM CDT 07/11/2024 5:20 PM CDT Brody Beckford MD LAB - BLOOD ORDERABLES Final Result Performing Organization Address City/[facility]/ZIP Co de Phone Number [facility] Lab [address] Lab (1st floor, no room number) [place] [phone] [place] [address] * Extra Green Top ([place] Heparin) Tube (07/11/2024 5:09 PM CDT) Hold Specimen [facility] 07/11/2024 6:31 PM CDT RH LABORATORY Blood BLOOD SPECIMEN / Unknown Venipuncture / Unknown 07/11/2024 5:09 PM CDT 07/11/2024 5:20 PM CDT Brody Beckford MD LAB - BLOOD ORDERABLES Final Result [facility] Care Lab [address] Lab (1st floor, no room number) [place] [phone] * Extra Red Top Tube (07/11/2024 5:09 PM CDT) Hold Specimen [facility] 07/11/2024 6:31 PM CDT RH LABORATORY Blood BLOOD SPECIMEN / Unknown Venipuncture / Unknown 07/11/2024 5:09 PM CDT 07/11/2024 5:20 PM CDT Brody Beckford MD LAB - BLOOD ORDERABLES Final Result LABORATORY [facility] [address] Lab (1st floor, no room number) [address] * Extra Blue Top Tube (07/11/2024 5:09 PM CDT) Hold Specimen [facility] 07/11/2024 6:31 PM CDT RH LABORATORY Blood BLOOD SPECIMEN / Unknown Venipuncture / Unknown 07/11/2024 5:09 PM CDT 07/11/2024 5:20 PM CDT Brody Beckford MD LAB - BLOOD ORDERABLES Final Result Performing Organization Address City/[facility]/ZIP Co de Phone Number [facility] Lab [address] Lab (1st floor, no room number) [address] * (ABNORMAL) CBC with platelets and [...] - BLOOD ORDERABLES Final Result RH LABORATORY [facility] [address] Lab (1st floor, no room number) [place] [address], [facility] * (ABNORMAL) Comprehensive metabolic panel (07/11/2024 [...] LAB - BLOOD ORDERABLES Final Result LABORATORY [facility] [address] Lab (1st floor, no room number) [place] [address] * (ABNORMAL) Lipid Panel (External Result) (09/23/2021 2:57 PM DEVELOPMENT PROFESSIONAL) [facility] Cholesterol (External) 183 90 - 199 mg/dL [facility] Triglycerides (External) 371(A) 40 - 149 mg/dL [facility] HDL Cholesterol (External) 44 >=50 mg/dL [facility] LDL Cholesterol Calculated (External) 65 <100 mg/dL [facility] Blood 09/23/2021 2:57 PM DEVELOPMENT PROFESSIONAL Narrative [facility] - 09/23/2021 2:57 PM DEVELOPMENT PROFESSIONAL LAB RESULTS [facility] us Provider Outside LAB - HIM EXTERNAL RESULT Edite d Result - Final [facility] [address] [place] [address], [facility] [phone] from Last 3 Months or Most Recently Relevant to Health Maintenance Insurance [employer] Member Subscriber Plan / Payer (Ef fective 2020-Present) Name:Halle Mayers Relation to Subscriber:Self Name:Halle Mayers Payer ID:[id number] (NAIC) Type:HMO Address: [address] [place] [phone] Advance Directives For more information, please contact: [phone] * Full Code (Latest Code Status on [...] palak nt/ legal decision maker Care Teams Bow Repairer Custom Relationship Specialty Start Date End Date Augusto Scott MD PCP - General Family Medicine 07/11/24
--- OUTSIDE RECORDS SUMMARY | 2024-09-04 06:22 | XMS_ITS | Encounter Summary ---
Author Organization [place] Address [address] [place] [id number] Care Team Providers Care Home Extension Agent Name Role Phone Augusto Scott MD Primary Care Provider Reason for Visit * Reason Comments Urinary Frequency UTI * Auth/Cert (Routine) Specialty Diagnoses / Procedures Referred By Contac t Referred To Contact EMERGENCY MEDICINE Diagnoses Severe sepsis (H) Pneumonia of left lower lobe due to infectious organism [facility] Emergency Dept [address] [place] [address] Phone: tel:[phone] fax: Referral ID Status Reason Start Date Expiration Date Visits Re quested Visits Authorized [id number] 1 1 Encounter Details Date Type Department Care Team (Late st Contact Info) Description 07/11/2024 4:33 PM CDT - 07/13/2024 10:58 AM CDT Hospital Encounter [facility] 5 Medical Surgical [address] [place] [id number] Brody Beckford MD [facility] [address] [facility] [address] [place] [address] Ashish Dixon MD [address] [place] [address] Amanuel Cherry MD [facility] [address] [facility] [address] [place] [address] Severe sepsis (H); Pneumonia of left lower [...] on file Legal Sex Female 11:18 AM [employer] Gender Identity Not on file Sexual Orientation [...] from the original note were not included. [facility] Hospitalist Discharge Summary Date of Admission: 07/11/2024 Date of Discharge: 07/13/2024 Discharging Provider: Allan Mathews MD, MD Discharge Service: Hospitalist Service Discharge Diagnoses Severe sepsis secondary to bacterial community-acquired pneumonia left lung LINDA resolved secondary to hypovolemia and sepsis Hypovolemic hyponatremia improving resolved Alteration of mental state secondary to acute infectious encephalopathy improved and resolved Ogx-iigkqqr-xkidmphxo diabetes mellitus History of depression Anxiety Clinically [...] got worse. She was seen in the [place] clinic and diagnosed with bronchitis. She was [...] discharging this patient. Allan Mathews MD, MD [place] [address] MED[facility] SUR[facility]ICAL [address] [facility] [address] Physical Exam Vital Signs: Temp: 98.2 ??F [...] 07/11/2024 1831 07/12/20242030 Blood Culture Peripheral Blood [[id number]] Peripheral Blood Preliminary result Component Value Culture No growth after 1 day [P] 07/11/2024 1719 07/11/2024 1808 Asymptomatic Influenza A/B, RSV, & SARS-CoV2 PCR (COVID-19) Nose [[id number]] Swab from Nose Final result Component Value [...] Narrative EXAM: XR CHEST 2 VIEWS LOCATION: [facility] DATE: 07/11/2024 INDICATION: Fever COMPARISON: None. Impression IMPRESSION: Heart size is normal. Confluent airspace disease noted in the left lower lobe posteriorly compatible with pneumonia. Clinical correlation and follow-up to resolution recommended. No effusions or pneumothorax. No acute bony abnormalities. Clips in the right upper quadrant are compatible with prior cholecystectomy. Head CT w/o contrast Narrative EXAM: CT HEAD W/O CONTRAST LOCATION: [facility] DATE: 07/11/2024 INDICATION: Confusion. COMPARISON: None. [...] Mathews MD - 07/12/2024 11:04 AM CDT [facility] Medicine Progress Note - Hospitalist Service Date of Admission: 07/11/2024 Assessment & Plan Halelyolanda Mayers is a 69 year old female patient with past medical history of diabetes mellitus type2, hyperlipidemia, anxiety, depression, was brought to emergency room for evaluation for cough, fever, sore throat, generalized weakness and confusion. She states that her symptoms started couple of days ago and gradually got worse. [facility]. She was started [...] Days Allan Mathews MD, MD Hospitalist Service [facility] Securely message with [employer] (more info) Text page via [facility] Paging/Directory Interval History I assumed medicine service care today. Seen and examined. Chart reviewed. Family updated this patient's son present at bedside. I met this pleasant lady while she is laying comfortably in the [facility] boarding the emergency room waiting for her [...] Narrative EXAM: CT HEAD W/O CONTRAST LOCATION: [facility] DATE: 07/11/2024 INDICATION: Confusion. COMPARISON: None. [...] Narrative EXAM: XR CHEST 2 VIEWS LOCATION: [facility] DATE: 07/11/2024 INDICATION: Fever COMPARISON: None. Impression IMPRESSION: Heart size is normal. Confluent airspace disease noted in the left lower lobe posteriorly compatible with pneumonia. Clinical correlation and follow-up to resolution recommended. No effusions or pneumothorax. No acute bony abnormalities. Clips in the right upper quadrant are compatible with prior cholecystectomy. * Jazmine Reilly RN - 07/12/2024 7:52 AM CDT [facility] ED Boarding Nurse Handoff Addendum Report: [...] Dixon MD - 07/11/2024 9:23 PM CDT [facility] History and Physical Hospitalist Date of [...] got worse. She was seen in the [place] clinic and diagnosed with bronchitis. She was [...] of days. [facility]. She was started [...] MD; Location: OR EYE SURGERY [employer]ARACT BILATERAL SENIOR INSPECTOR SURGERY TUBAL LIGATION ORTHOPEDIC SURGERY Right [...] updated it with pertinent information if needed. aHlle Mayers reports that she has been smoking [...] Narrative EXAM: CT HEAD W/O CONTRAST LOCATION: [facility] DATE: 07/11/2024 INDICATION: Confusion. COMPARISON: None. [...] Narrative EXAM: XR CHEST 2 VIEWS LOCATION: [facility] DATE: 07/11/2024 INDICATION: Fever COMPARISON: None. [...] Navarro RN - 07/11/2024 9:20 PM CDT [facility] ED Nurse Handoff Report ED Chief [...] 1. Lift room needed: No. Bariatric: No Blister Packing Machine Tender Needed: No Isolation: No. Infection: Not Applicable. [...] Bilirubin Urine Negative Ketones Urine Negative Specific [place] Urine 1.032 Blood Urine Moderate (*) pH [...] She was seen at her clinic in [place] for bronchitis yesterday. Today she developed progressive weakness per the [id number]-sx-acn at the bedside. Also some mild confusion. 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 Rate 91 bpm. TN interval 128 ms. QRS duration 80 ms. [...] Procedures Procedures Medical Decision Making / Diagnosis [facility] Diagnoses: IV Antibiotics given and/or elevated [...] suspicion for sinister infectious intra-abdominal pathology or DEVELOPMENT PLANNER infection or skin or soft tissue infection [...] note. Outcome: Not Progressing Flowsheets (Taken 07/13/2024 0613) Plan of Care Reviewed With: patient Overall [...] in-person Pertinent Information: None Changes made to INSTRUCTIONAL TECHNOLOGY FACILITATOR medication list: Added: Bupropion SR, Buspirone, Dexcom G7 CGM, Doxycycline, Duloxetine, Empagliflozin, Semaglutide,Vit D Deleted: APAP Changed: Metformin XR --> 1000mg BID WC Paroxetine 20mg --> 40mg daily Trazodone 100mg --> 200mg HS Allergies reviewed with patient and updates made in EHR: no Medication History Completed By: Riley Rick RPH 07/11/2024 10:40 PM INSTRUCTIONAL TECHNOLOGY FACILITATOR Med List Medication Sig Note Last Dose [...] LAB - BEAKER POCT Final Result LABORATORY [facility] Acute Care Lab [address] Lab (1st floor, no room number) [place] [address] * Extra Purple Top EDTA (LAB USE ONLY) (07/13/2024 6:03 AM CDT) Hold Specimen JIC 07/13/2024 7:16 AM CDT LABORATORY Blood STRUCTURE OF RIGHT HAND / Unknown Venipuncture / Unknown 07/13/2024 6:03 AM CDT 07/13/2024 6:15 AM CDT Rohit Lerma [facility] LAB - BLOOD ORDERABLES F inal Result LABORATORY [facility] Acute Care Lab [address] Lab (1st floor, no room number) [place] [phone] [place] [address] * Lactic acid whole blood (07/13/2024 6:03 AM CDT) Lactic Acid 1.4 0.7 - 2.0 mmol/L 07/13/2024 6:22 AM CDT LABORATORY Blood STRUCTURE OF RIGHT HAND / Unknown Venipuncture / Unknown 07/13/2024 6:03 AM CDT 07/13/2024 6:15 AM CDT us Allan Mathews MD LAB - BLOOD ORDERABLES Fi nal Result Performing Organization Address [facility]/ZIP Co de Phone Number LABORATORY [facility] Care Lab [address] Lab (1st floor, no room number) [place] [phone] * (ABNORMAL) Glucose by meter (07/13/2024 2:05 AM CDT) GLUCOSE BY METER POCT 113(H) 70 - 99 mg/dL 07/13/2024 2:12 AM CDT LABORATORY POC Blood, Capillary BLOOD SPECIMEN / Unknown 07/13/2024 2:05 AM CDT 07/13/2024 2:12 AM CDT us Amanuel Cherry MD LAB - BEAKER POCT Final Result LABORATORY POC [facility] Acute Care Lab [address] Lab (1st floor, no room number) [place] [phone] * (ABNORMAL) Glucose by meter (07/12/2024 10:37 PM CDT) GLUCOSE BY METER POCT 125(H) 70 - 99 mg/dL 07/12/2024 10:43 PM CDT LABORATORY POC Blood, Capillary BLOOD SPECIMEN / Unknown 07/12/2024 10:37 PM CDT 07/12/2024 10:43 PM CDT Amanuel Cherry MD LAB - BEAKER POCT Final Result Performing Organization Address City/[facility]/ZIP Co de Phone Number LABORATORY [facility] Lab [address] Lab (1st floor, no room number) [place] [phone], [facility] * Lactic acid whole blood (07/12/2024 8:58 PM CDT) Lactic Acid 0.9 0.7 - 2.0 mmol/L 07/12/2024 9:04 PM CDT LABORATORY Blood STRUCTURE OF LEFT HAND / Unknown Venipuncture / Unknown 07/12/2024 8:58 PM CDT 07/12/2024 9:02 PM CDT us Allan Mathews MD LAB - BLOOD ORDERABLES Fi nal Result Performing Organization Address [facility]/ZIP Co de Phone Number [facility] Lab [address] Lab (1st floor, no room number) [place] [address], [facility] * (ABNORMAL) Glucose by meter (07/12/2024 4:46 PM CDT) GLUCOSE BY METER POCT 107(H) 70 - 99 mg/dL 07/12/2024 4:53 PM CDT LABORATORY POC Blood, Capillary BLOOD SPECIMEN / Unknown 07/12/2024 4:46 PM CDT 07/12/2024 4:53 PM CDT us Amanuel Cherry MD LAB - BEAKER POCT Final Result Performing Organization Address City/[facility]/ZIP Co de Phone Number LABORATORY [facility] Lab [address] Lab (1st floor, no room number) [place] [address], [facility] * (ABNORMAL) Glucose by meter (07/12/2024 11:36 AM CDT) GLUCOSE BY METER POCT 105(H) 70 - 99 mg/dL 07/12/2024 11:44 AM CDT RH LABORATORY POC Blood, Capillary BLOOD SPECIMEN / Unknown 07/12/2024 11:36 AM CDT 07/12/2024 11:44 AM CDT Amanuel Cherry MD LAB - BEAKER POCT Final Result LABORATORY [facility] Lab [address] Lab (1st floor, no room number) [place] [phone] [place] [address] * (ABNORMAL) Glucose by meter (07/12/2024 9:27 AM CDT) GLUCOSE BY METER POCT 117(H) 70 - 99 mg/dL 07/12/2024 9:34 AM CDT LABORATORY POC Blood, Capillary BLOOD SPECIMEN / Unknown 07/12/2024 9:27 AM CDT 07/12/2024 9:34 AM CDT Amanuel Cherry MD LAB - BEAKER POCT Final Result Performing Organization Address City/[facility]/ZIP Co de Phone Number LABORATORY [facility] Lab [address] Lab (1st floor, no room number) [place] [phone], [facility] * Lactic acid whole blood (07/12/2024 8:53 AM CDT) Lactic Acid 1.1 0.7 - 2.0 mmol/L 07/12/2024 9:06 AM CDT LABORATORY Blood STRUCTURE OF RIGHT HAND / Unknown Venipuncture / Unknown 07/12/2024 8:53 AM CDT 07/12/2024 8:58 AM CDT Brody Beckford MD LAB - BLOOD ORDERABLES Final Result [facility] Lab [address] Lab (1st floor, no room number) [place] [phone], [facility] * (ABNORMAL) CBC with [...] - BLOOD ORDERABLES Final Result [facility] LABORATORY [facility] Acute Care Lab [address] Lab (1st floor, no room number) [place] [address], [facility] * (ABNORMAL) Basic metabolic [...] LAB - BLOOD ORDERABLES Final Result LABORATORY [facility] Acute Care Lab [address] Lab (1st floor, no room number) [place] [address], [facility] * (ABNORMAL) Glucose by meter (07/12/2024 12:06 AM CDT) [facility] GLUCOSE BY METER POCT 168(H) 70 - 99 mg/dL 07/12/2024 12:13 AM CDT LABORATORY POC Blood, Capillary BLOOD SPECIMEN / Unknown 07/12/2024 12:06 AM CDT 07/12/2024 12:13 AM CDT us Amanuel Cherry MD LAB - BEAKER POCT Final Result RH LABORATORY POC [facility] Care Lab [address] Lab (1st floor, no room number) [place] [address] * Lactic acid whole blood (07/11/2024 10:28 PM CDT) Lactic Acid 1.5 0.7 - 2.0 mmol/L 07/11/2024 10:41 PM CDT LABORATORY Blood BLOOD SPECIMEN / Unknown Venipuncture / Unknown 07/11/2024 10:28 PM CDT 07/11/2024 10:38 PM CDT us Brody Beckford MD LAB - BLOOD ORDERABLES Final Result Performing Organization Address City/[facility]/ZIP Co de Phone Number LABORATORY [facility] Lab [address] Lab (1st floor, no room number) [place] [address] * (ABNORMAL) UA with Microscopic reflex to [...] mg/dL 07/11/2024 8:47 PM CDT LABORATORY Specific [place] Urine 1.032 1.003 - 1.035 07/11/2024 8:47 [...] LAB - URINE ORDERABLES Final Result LABORATORY [facility] Acute Care Lab [address] Lab (1st floor, no room number) [place] [address] * (ABNORMAL) iStat Gases (lactate) venous, POCT (07/11/2024 8:06 PM CDT) Pathologist [facility] Department Lactic Acid POCT 1.9 <=2.0 mmol/L 07/11/2024 [...] BEAKER POCT Final Resul t RH LABORATORY [facility] Acute Care Lab [address] Lab (1st floor, no room number) [place] [address], [facility] * XR Chest 2 [...] CDT EXAM: XR CHEST 2 VIEWS LOCATION: [facility] DATE: 07/11/2024 INDICATION: Fever COMPARISON: None. Procedure Note Hira Casey MD - 07/11/2024 EXAM: XR CHEST 2 VIEWS LOCATION: [facility] DATE: 07/11/2024 INDICATION: Fever COMPARISON: None. [...] CDT EXAM: CT HEAD W/O CONTRAST LOCATION: [facility] DATE: 07/11/2024 INDICATION: Confusion. COMPARISON: None. [...] 07/11/2024 EXAM: CT HEAD W/O CONTRAST LOCATION: [facility] DATE: 07/11/2024 INDICATION: Confusion. COMPARISON: None. [...] microvascular ischemic changes asabove. Brody Beckford MD [facility] CT ORDERABLES Final Resul t * (ABNORMAL) [...] POCT Final Resul t RH LABORATORY POC [facility] Acute Care Lab [address] Lab (1st floor, no room number) [place] [address] * Blood Culture Peripheral Blood (07/11/2024 6:31 PM CDT) Culture No Growth 07/16/2024 8:31 PM CDT [facility] LABORATORY Blood BLOOD SPECIMEN / Unknown Venipuncture / Unknown 07/11/2024 6:31 PM CDT 07/11/2024 6:52 PM CDT us Brody Beckford MD LAB - MICRO GENERAL ORDERABLE S Final Result [facility] LABORATORY [facility] Inf. Diseases Diag. Lab [address] [facility] [place] [address] * EKG 12 lead (07/11/2024 6:14 PM CDT) Systolic Blood Pressure mmHg RADIOLOGY RESULTS Diastolic Blood Pressure mmHg RADIOLOGY RESULTS Ventricular Rate 91 BPM RAD IOLOGY RESULTS Atrial Rate 91 BPM RADIOLOG Y RESULTS TN Interval 128 ms RADIOLOG Y RESULTS QRS Duration 80 ms RADIOLO GY RESULTS QT 374 ms RADIOLOGY RESULTS QTc 460 ms RADIOLOGY RESULTS P [place] 60 degrees RADIOLOGY RESULTS R AXIS 7 degrees RADIOLOGY RESULTS T [place] 48 degrees RADIOLOGY RESULTS Interpretation ECG Sinus [...] the Xpert Xpress CoV2/Flu/RSV Assay on the [employer] GeneXpert Instrument. This test should be ordered [...] was validated by the [facility]out. These laboratories are certified under the Clinical Laboratory Improvement Amendments of 1988 (CLIA-88) as qualified to perfom high complexity laboratory testing. us Brody Beckford MD LAB - MICRO GENERAL ORDERABLE S Final Result RH LABORATORY [facility] Acute Care Lab [address] Lab (1st floor, no room number) [place] [address], [facility] * (ABNORMAL) CBC with [...] LAB - BLOOD ORDERABLES Final Result LABORATORY [facility] Acute Care Lab [address] Lab (1st floor, no room number) [place] [address], [facility] * (ABNORMAL) Comprehensive metabolic [...] LAB - BLOOD ORDERABLES Final Result LABORATORY [facility] Acute Care [facility] [address] ([facility], no room number) [place] [address], [facility] * Extra Purple Top Tube (07/11/2024 5:09 PM CDT) Hold Specimen JIC 07/11/2024 6:31 PM CDT RH LABORATORY Blood BLOOD SPECIMEN / Unknown Venipuncture / Unknown 07/11/2024 5:09 PM CDT 07/11/2024 5:20 PM CDT Brody Beckford MD LAB - BLOOD ORDERABLES Final Result [facility] Lab [address] Lab (1st floor, no room number) [place] [address] * Extra Green Top ([place] Heparin) Tube (07/11/2024 5:09 PM CDT) Hold Specimen [facility] 07/11/2024 6:31 PM CDT RH LABORATORY Blood BLOOD SPECIMEN / Unknown Venipuncture / Unknown 07/11/2024 5:09 PM CDT 07/11/2024 5:20 PM CDT us Brody Beckford MD LAB - BLOOD ORDERABLES Final Result [facility] Lab [address] Lab (1st floor, no room number) [place] [address], [place] * Extra Red Top Tube (07/11/2024 5:09 PM CDT) Hold Specimen [facility] 07/11/2024 6:31 PM CDT RH LABORATORY Blood BLOOD SPECIMEN / Unknown Venipuncture / Unknown 07/11/2024 5:09 PM CDT 07/11/2024 5:20 PM CDT Brody Beckford MD LAB - BLOOD ORDERABLES Final Result [facility] Lab [address] Lab (1st floor, no room number) [place] [address], [facility] * Extra Blue Top Tube (07/11/2024 5:09 PM CDT) Hold Specimen [facility] 07/11/2024 6:31 PM CDT LABORATORY Blood BLOOD SPECIMEN / Unknown Venipuncture / Unknown 07/11/2024 5:09 PM CDT 07/11/2024 5:20 PM CDT us Brody Beckford MD LAB - BLOOD ORDERABLES Final Result [facility] Acute Care Lab [address] Lab (1st floor, no room number) [place] [address], [facility] documented in this encounter [...] Camryn Hobson, VIPIN)[id number] (Rate/Dose Verify - Provider: uYni Cano RN) PRN Medication Order 07/11/2024 07/12/2024 [...] stools. documented in this encounter Care Teams Home Extension Agent Relationship Specialty Start Date End Date Augusto Scott MD PCP - General Family Medicine 07/11/24 documented as of this encounter
--- OUTSIDE RECORDS SUMMARY | 2024-09-04 06:22 | XMS_ITS | Referral Summary ---
Author Organization [place] Address [address] [place] [id number] Care Team Providers Care Hull Grinder Name Role Phone Augusto Scott MD Primary Care Provider [phone] Encounters Date Type Department Care Team Description 07/11/2024 4:33 PM CDT - 07/13/2024 10:58 AM CDT Hospital Encounter [place] [address] [facility] [address] [place] [address] Brody Beckford MD Jaleta, MD Jo Ann [...] on file Legal Sex Female 11:18 AM CAPACITY ANALYST Gender Identity Not on file Sexual Orientation [...] lb 3.2 oz) 11/25/2021 5:59 A M CAPACITY ANALYST Height 162.6 cm (5' 4) 11/25/2021 5:59 AM CAPACITY ANALYST Body Mass Index 29.39 11/25/2021 5:59 AM CAPACITY ANALYST Plan of Treatment Not on file Procedures [...] PANEL (EXTERNAL RESULT) Routine 09/23/2021 2:57 PM CAPACITY ANALYST from Last 3 Months or Most [...] AM CDT 07/13/2024 8:30 AM CDT Amanuel SCRUGGS - [facility] POCT Final Result [facility] LABORATORY [facility] Acute Care Lab [address] Lab (1st floor, no room number) [place] [address], [facility] * Extra Purple Top EDTA (LAB USE ONLY) (07/13/2024 6:03 AM CDT) Hold Specimen JIC 07/13/2024 7:16 AM CDT [facility] LABORATORY Blood STRUCTURE OF RIGHT HAND / Unknown Venipuncture / Unknown 07/13/2024 6:03 AM CDT 07/13/2024 6:15 AM CDT us Rohit Lerma [facility] LAB - BLOOD ORDERABLES F inal Result [facility] [address] Lab (1st floor, no room number) [place] [id number] * Lactic acid whole [...] ORDERABLES Fi nal Result Performing Organization Address City/[facility]/ZIP Co de Phone Number [facility] Care Lab [address] Lab (1st floor, no room number) [place] [id number] * (ABNORMAL) Basic metabolic [...] - BLOOD ORDERABLES Final Result RH LABORATORY [facility] Acute Care Lab [address] Lab (1st floor, no room number) [place] [address] * (ABNORMAL) CBC with platelets [...] - BLOOD ORDERABLES Final Result [facility] LABORATORY [facility] Acute Care Lab [address] Lab (1st floor, no room number) [place] [address], [facility] * (ABNORMAL) UA with Microscopic reflex [...] mg/dL 07/11/2024 8:47 PM CDT LABORATORY Specific [place] Urine 1.032 1.003 - 1.035 07/11/2024 8:47 [...] LAB - URINE ORDERABLES Final Result LABORATORY [facility] Care Lab [address] Lab (1st floor, no room number) [place] [address], [facility] * (ABNORMAL) iStat Gases (lactate) [...] POCT Final Resul t RH LABORATORY POC [facility] Care Lab [address] Lab (1st floor, no room number) [place] [address] * XR Chest 2 Views [...] CHEST 2 VIEWS LOCATION: [facility] DATE: 07/11/2024 INDICATION: Fever COMPARISON: None. Procedure Note Hira Casey MD - 07/11/2024 EXAM: XR CHEST 2 VIEWS LOCATION: [facility] DATE: 07/11/2024 INDICATION: Fever COMPARISON: [...] HEAD W/O CONTRAST LOCATION: [facility] DATE: 07/11/2024 INDICATION: Confusion. COMPARISON: [...] HEAD W/O CONTRAST LOCATION: [facility] DATE: 07/11/2024 INDICATION: Confusion. COMPARISON: [...] MEDICAL [facility]ENTER [facility] Lab [address] [facility] [place] [address], [facility] * EKG 12 lead (07/11/2024 6:14 PM CDT) Systolic Blood Pressure mmHg RADIOLOGY RESULTS Diastolic Blood Pressure mmHg RADIOLOGY RESULTS Ventricular Rate 91 BPM RAD IOLOGY RESULTS Atrial Rate 91 BPM RADIOLOG Y RESULTS HI Interval 128 ms RADIOLOG Y RESULTS QRS Duration 80 ms RADIOLO GY RESULTS QT 374 ms RADIOLOGY RESULTS QTc 460 ms RADIOLOGY RESULTS P [place] 60 degrees RADIOLOGY RESULTS R AXIS 7 degrees RADIOLOGY RESULTS T [place] 48 degrees RADIOLOGY RESULTS Interpretation ECG Sinus rhythm Normal ECG No previous ECGs available Confirmed by MD WALSH STEVEN ([id number]) on 07/13/2024 4:48:22 PM RADIOLOGY RESULTS 07/11/2024 6:14 PM CDT 07/13/2024 4:48 PM CDT David Gillliand MD ECG ORDERABLES Edited Result - Final [...] the Xpert Xpress CoV2/Flu/RSV Assay on the [employer] GeneXpert Instrument. This test should be ordered [...] management. This test was validated by the [facility]. These laboratories are certified under the Clinical Laboratory Improvement Amendments of 1988 (CLIA-88) as qualified to perfom high complexity laboratory testing. Brody Beckford MD LAB - MICRO GENERAL ORDERABLE S Final Result [facility] [address] Lab (1st floor, no room number) [place] [address] * Extra Purple Top Tube (07/11/2024 5:09 PM CDT) Hold Specimen [facility] 07/11/2024 6:31 PM CDT RH LABORATORY Blood BLOOD SPECIMEN / Unknown Venipuncture / Unknown 07/11/2024 5:09 PM CDT 07/11/2024 5:20 PM CDT Brody Beckford MD LAB - BLOOD ORDERABLES Final Result Performing Organization Address City/[facility]/ZIP Co de Phone Number [facility] [address] Lab (1st floor, no room number) [place] [address], [facility] * Extra Green Top (Starr Heparin) Tube (07/11/2024 5:09 PM CDT) Hold Specimen [facility] 07/11/2024 6:31 PM CDT RH LABORATORY Blood BLOOD SPECIMEN / Unknown Venipuncture / Unknown 07/11/2024 5:09 PM CDT 07/11/2024 5:20 PM CDT Brody Beckford MD LAB - BLOOD ORDERABLES Final Result [facility] Care Lab [address] Lab (1st floor, no room number) [place] [phone] [place] [address] * Extra Red Top Tube (07/11/2024 5:09 PM CDT) Hold Specimen [facility] 07/11/2024 6:31 PM CDT RH LABORATORY Blood BLOOD SPECIMEN / Unknown Venipuncture / Unknown 07/11/2024 5:09 PM CDT 07/11/2024 5:20 PM CDT Brody Beckford MD LAB - BLOOD ORDERABLES Final Result LABORATORY [facility] Care Lab [address] Lab (1st floor, no room number) [place] [phone] [place] [address] * Extra Blue Top Tube (07/11/2024 5:09 PM CDT) [facility] Signature Hold Specimen [facility] 07/11/2024 6:31 PM CDT RH LABORATORY Blood BLOOD SPECIMEN / Unknown Venipuncture / Unknown 07/11/2024 5:09 PM CDT 07/11/2024 5:20 PM CDT Brody Beckford MD LAB - BLOOD ORDERABLES Final Result LABORATORY [facility] Care Lab [address] Lab (1st floor, no room number) [address] * (ABNORMAL) CBC with platelets and differential (07/11/2024 5:09 PM CDT) [facility] WBC Count 13.4(H) 4.0 - 11.0 [...] LAB - BLOOD ORDERABLES Final Result LABORATORY [facility] Acute Care Lab [address] Lab (1st floor, no room number) [place] [address], [facility] * (ABNORMAL) Comprehensive metabolic panel (07/11/2024 [...] LAB - BLOOD ORDERABLES Final Result LABORATORY [facility] Acute Care Lab [address] Lab (1st floor, no room number) [place] [address], [facility] * (ABNORMAL) Lipid Panel (External Result) (09/23/2021 2:57 PM CAPACITY ANALYST) [facility] Signature Cholesterol (External) 183 90 - 199 mg/dL [facility] Triglycerides (External) 371(A) 40 - 149 mg/dL [facility] HDL Cholesterol (External) 44 >=50 mg/dL [facility] LDL Cholesterol Calculated (External) 65 <100 mg/dL [facility] Blood 09/23/2021 2:57 PM CAPACITY ANALYST Narrative [facility] - 09/23/2021 2:57 PM CAPACITY ANALYST LAB RESULTS [facility] us Provider Outside LAB - HIM EXTERNAL RESULT Edite d Result - Final [facility] [address] [place] [address], [facility] [phone] from Last 3 Months or Most Recently Relevant to Health Maintenance Insurance [email or web address] Advance Directives For more information, please contact: [phone] * Full Code (Latest Code Status on [...] palak nt/ legal decision maker Care Teams Hull Grinder Relationship Specialty Start Date End Date Augusto Scott MD PCP - General Family Medicine 07/11/24
--- OUTSIDE RECORDS SUMMARY | 2024-09-04 06:22 | XMS_ITS | Clinical Summary ---
Author Organization [facility] Address [place], [place] [address] Care Team Providers Care Fourdrinier Tender Name Role Phone Augusto Scott MD Primary Care Provider [phone] Allergies Active Allergy Reactions Criticality Noted Date Comments Michael Orellana 06/30/2013 Medications metFORMIN (GLUCOPHAGE) 500 mg tablet Take 1 [...] by mouth once daily. 0 06/30/2013 Active gabapentin (NEURONTIN) 600 mg tablet Take 600 mg by mouth at bedtime. 12/17/2022 Active buPROPion (WELLBUTRIN SR) 150 mg Sustained-Relea se tablet Take 150 mg by mouth once daily. Active cholecalciferol (VITAMIN D3) 1,000 unit tablet Take 1 Tablet by mouth once daily. Active gabapentin (NEURONTIN) 100 mg capsule Take 100 mg by mouth once daily. 02/02/2024 Active Active Problems Problem Noted Date Diagnosed Date Xojap-Jfdbagxyl-Uhmtz (WPW) pattern seen on electrocardiography 05/26/2019 Diabetes 06/30/2013 Encounters Date Type Department Care Team Description 08/23/2024 9:22 AM SHOE LINING FITTER - 08/23/2024 11:59 PM SHOE LINING FITTER Hospital Encounter [facility] Medical Imaging [address] [place] [address] Augusto Scott MD Liver nodule 08/23/2024 Travel 08/22/2024 9:00 AM SHOE LINING FITTER Telemedicine [facility] [address] [place] [address] Nicole Dugan MS, CGC Counseling (Genetic counseling/ ) 08/21/2024 8:21 AM SHOE LINING FITTER - 08/21/2024 11:59 PM SHOE LINING FITTER Hospital Encounter [facility] Outpatient Medical Imaging [address] [place] [address] Claudette Arreguin MD Malignant neoplasm of midline of breast, left (HC) 08/21/2024 Travel 08/18/2024 Telephone [facility] [address] [place] [address] Bety Rubio Cancer Cancer Genetics 08/18/2024 Lab Requisition [facility] [phone] Claudette Arreguin MD 08/17/2024 Transcribe Orders [facility] [address] [place] [address] Claudette Arreguin MD 07/28/2024 Lab Requisition [facility] [phone] Unknown, Doctor from Last 3 Months Social History Tobacco Use Types Packs/Day Years Used Date Smoking Tobacco: Former Comments:10 years ago Alcohol Use Standard Drinks/Week Comments Not Asked 0 (1 standard drink = 0.6 oz pur e alcohol) Comments No Sex and Gender Information Value Date Recorded Sex Assigned at Not on file Legal Sex Female 8:42 AM SHOE LINING FITTER Gender Identity Not on file Sexual Orientation Not on file Obstetrics History Last Filed Vital Signs Vital Sign Reading Time Taken Comments Blood Pressure 115/68 08/23/2024 1:15 PM SHOE LINING FITTER Pulse 73 08/23/2024 1:15 PM SHOE LINING FITTER Temperature 36.6 C (97.8 F) 08/23/2024 9:53 AM SHOE LINING FITTER Respiratory Rate 16 08/23/2024 1:15 PM SHOE LINING FITTER Oxygen Saturation 97% 08/23/2024 1:15 PM SHOE LINING FITTER Inhaled Oxygen Concentration - - Weight 65.8 kg (145 lb) 08/23/2024 9:53 AM SHOE LINING FITTER Height 165.1 cm (5' 5) 08/23/2024 9:53 AM SHOE LINING FITTER Body Mass Index 24.13 08/23/2024 9:53 AM SHOE LINING FITTER Plan of Treatment Health Maintenance Due Date [...] age 65+ 05/28/2024 COVID-19 vaccine series Completed 06/16/20 24, 12/27/2023, 09/07/2023, Additional history exists Procedures Procedure Name Priority Date/Time Associated Diagnosis Comments PATH FNA CYTOLOGY ASP CYTOLOGY Today 08/23/2024 11:[address] BIOPSY LIVER Routine 08/23/2024 11:23 AM SHOE LINING FITTER Liver nodule HEMOGLOBIN STAT 08/23/2024 9:27 AM SHOE LINING FITTER PLATELET COUNT STAT 08/23/2024 9:27 AM SHOE LINING FITTER PROTIME-INR STAT 08/23/2024 9:27 AM SHOE LINING FITTER PET CT SKULL BASE TO MID THIGH INITIAL TREAT TONY 08/21/2024 9:35 AM SHOE LINING FITTER Malignant neoplasm of midline of breast, left (HC) GLUCOSE METER Routine 08/21/2024 8:29 AM SHOE LINING FITTER PATH-MISC/ANCILLARY TEST Routine 08/18/2024 11:29 AM SHOE LINING FITTER LAB TRACKING EVENT Routine 08/18/2024 11 :28 AM SHOE LINING FITTER LAB TRACKING EVENT Routine 07/28/2024 11 :40 AM CDT PATH TISSUE EXAM Routine 07/28/2024 11:4 0 AM CDT CG HER2 BREAST Routine 07/28/2024 11:40 AM CDT CYTOGENETICS MALIGNANT TISSUE Routine 07/28/2024 11:40 AM CDT from Last 3 Months Results * PATH FNA CYTOLOGY ASP CYTOLOGY (08/23/2024 11:24 AM SHOE LINING FITTER) Case Report Medical Cytology Report Case: [id number] Authorizing Provider: Yessy Viramontes MD Collected: 08/23/2024 [facility] Ordering Location: [facility] Received: 08/23/[address] [place] [address] Medical Imaging Pathologist: Omayra Bush MD Specimen: Liver, left lobe liver lesion 09/01/2024 3:22 PM SHOE LINING FITTER [facility] Amendment 08/28/2024 - Amendment issued to incorporate ancillary studies. 09/01/2024 At the request of the treating physician , this signed out case was retrieved from the [facility] pathology archives and reviewed by a pathologist, Dr. Bush, to select and prepare archival block(s) for submission to [facility] for molecular analysis. 09/01/2024 3:22 PM SHOE LINING FITTER [facility] Final Diagnosis A) LIVER, LEFT LOBE, LESION, CT-GUIDED CORE BIOPSY: 1. Metastatic carcinoma, consistent with a metastatic lesion from the patient's known breast primary 2. Background nonneoplastic liver is not present in this sample 3. See comment 4. Breast Ancillary Testing: a. Hormone Receptors: Estrogen receptor: Negative (see comment) Progesterone receptor: Negative b. HER2 by IHC: Negative (1+ by manual morphometry) 09/01/2024 3:22 PM SHOE LINING FITTER [facility] Amendment electronically signed by Omayra Bush MD on 09/01/2024 at 3:22 PM Amendment electronically signed by Zaria Kinney MD on 08/28/2024 at 2:34 PM Comment A) The histomorphology in conjunction with direct comparison to the patient's prior biopsy ([id number] reviewed) is consistent with a metastatic lesion from the patient's known breast primary. This case was seen in consultation with Dr. Goss. Neoplastic tissue is available for ancillary studies, to request please contact the [facility] ([phone]). Neoplastic tissue available for ancillary studies: [employer] NGS testing: - FFPE tissue blocks: A2 and A3 - Cytology slides: A1-1, A1-2, A1-6, and A1-7 Tests using immunostains and/or FISH (requiring 100 cells): A2 and A3 Send out (outside vendor) testing requiring 5 x 5 mm of tumor: A2 and A3 Estrogen Receptor Comment No internal controls are present, but external controls are appropriately positive. If needed, testing another specimen that contains internal controls may be warranted for confirmation of ER status. 09/01/2024 3:22 PM SHOE LINING FITTER [facility] Clinical Information 69-year-old female with a history of left breast cancer. She recently presented with a left anterior chest wall mass, approximately 6 cm. Biopsy of the chest mass showed: SOFT TISSUE MASS, LEFT CHEST WALL, CORE BIOPSY ([id number]; 07/28/24): 1. Poorly differentiated adenocarcinoma, compatible with breast primary 2. Breast Ancillary Testing: a. Hormone Receptors: Estrogen receptor: Negative Progesterone receptor: Negative b. HER2 by IHC: Equivocal (2+ by manual morphometry) HER2 by FISH: Negative HER2/CEP17 ratio: 1.46 HER2 signals/cell: 3.47 CEP17 signals/cell: 2.38 1. Ancillary testing (performed as [id number]): a. Breast PD-L1 Combined Positive Score (CPS): 1 (No expression, CPS less than 10) 09/01/2024 3:22 PM SHOE LINING FITTER [facility] Gross Description A) Received identified as Left Liver Lesion is a radiologic guided biopsy specimen. The core biopsy sampling measures 0.2 cm x 0.6 cm in aggregate. The specimen consists of: -4 Air dried slides -1 Formalin vial -0 RPMI vials The following were prepared from the specimen submitted: -4 Diff-Quik stained slides -2 H&E stained cell block slides The biopsy material is entirely submitted in 2 cassettes. A2 Cell block material was removed from the patient and placed directly in formalin at 1110 on 08/23/24 and fixed in formalin at least 6 hours and no more than 72 hours. A3 Cell block material was removed from the patient and placed directly in formalin at 1110 on 08/23/24 and fixed in formalin at least 6 hours and no more than 72 hours. 09/01/2024 3:22 PM [facility] Adequacy Assessment A) Kristina assessed adequacy from the air-dried smears at the time of the procedure with an impression of Adequate. 09/01/2024 3:22 PM [facility] Microscopic Description Specimen adequacy: Adequate for interpretation. All slides were reviewed. The microscopic appearance substantiates the diagnosis. 09/01/2024 3:22 PM [facility] SYNOPTIC REPORTING Breast Biomarker Reporting Template BREAST BIOMARKER REPORTING TEMPLATE - A Protocol posted: 09/08/2023 Test(s) Performed: Estrogen Receptor (ER) Status: Negative (less than 1%) : Internal control cells absent Test Type: Laboratory-develop ed test Primary Antibody: SP1 Test(s) Performed: Progesterone Receptor (PgR) Status: Negative (less than 1%) : Internal control cells absent Test Type: Laboratory-develop ed test Primary Antibody: 16 Test(s) Performed: HER2 by Immunohistochemist ry: Negative (Score 1+) Test Type: Laboratory-develop ed test Primary Antibody: 4B5 Cold Ischemia and Fixation Times: Meet requirements specified in latest version of the ASCO / CAP Guidelines Testing Performed on Block Number(s): A3 METHODS Fixative: Formalin Image Analysis: Performed Method: Aperio morphometric analysis Biomarkers Scored by Image Analysis: ER Biomarkers Scored by Image Analysis: PgR 09/01/2024 3:22 PM [facility] Additional Information Cytology is screened at [facility] - [address], [place] [address] and [facility] - [address], [place] [address] and [facility] - [address] [place] [address] Interpreted at [facility] - [address], [place] [address] Immunohistochemist ry controls were reviewed and approved by the pathologist during this examination. Patients with breast cancers that are HER2 IHC 3+ or IHC 2+/CHELSEA amplified may be eligible for several therapies that disrupt HER2 signaling pathways. Invasive breast cancers that test 'HER2-negative' (IHC 0, 1+ or 2+/CHELSEA not-amplified) are more specifically considered 'HER2-negative for protein overexpression/gen e amplification' since non-overexpressed levels of the HER2 protein may be present in these cases. Patients with breast cancers that are HER2 IHC 1+ or IHC 2+/CHELSEA not amplified may be eligible for a treatment that targets non-amplified/non- overexpressed levels of HER2 expression for cytotoxic drug delivery (IHC 0 results do not result in eligibility currently). 09/01/2024 3:22 PM SHOE LINING FITTER [facility] Aspirate SPECIMEN FROM LIVER / Unknown 08/23/2024 11:24 AM SHOE LINING FITTER 08/23/2024 11:24 AM SHOE LINING FITTER us Yessy Viramontes MD PATHOLOGY/CYTOLOGY Edited Result - Final [facility] [address] [place] [address], [place] * CT BIOPSY LIVER (08/23/2024 11:23 AM SHOE LINING FITTER) Anatomical Region Laterality Modality LIVER Computed Tomogra phy, Other, Other, Other Narrative 08/23/2024 11:28 AM SHOE LINING FITTER RADIOLOGY POST PROCEDURE NOTE 08/23/2024 Halle Mayers [id number] INFORMEDCONSENT: In my discussion, prior to the signing of the consent, I reviewed the procedure, benefits, risks, long-term effects, treatment options, possible use of pain or sedation medications, and how the procedure will meet the treatment goal with the patient and/or family. The patient was given ample time to ask questions. All questions were answered. MODERATESEDATION: Under physician supervision, midazolam and fentanyl were administered intravenously for moderate sedation. Pulse oximetry, heart rate, and blood pressure were continuously monitored by a trained, dedicated nurse. The physician who performed the procedure provided 38 minutes of intra-service time with the patient. INDICATIONS: Abnormal liver lesion left lobe positive on PET scan. PROCEDURE PERFORMED: CT-guided biopsy PROCEDURE NARRATIVE : Axial cuts through the liver were performed in the supine position. Entry site was marked. Almost midline entry was selected. 17/18-gauge core biopsy system was utilized. 4 samples obtained. Cytology confirmed adequacy. There was some bleeding through the guiding needle a small piece of Gelfoam was utilized to close the bleeding site. Hemostasis was achieved. Postbiopsy images do not demonstrate any hemorrhage. Patient tolerated procedure well. PATIENT POSITION: supine ANTISEPTIC PREPARATION and BARRIER TECHNIQUES USED: Skin was prepped and draped in the usual sterile fashion. IMAGING GUIDANCE FOR ACCESS / PROCEDURE: CT Permanently recorded images are archived in PACS. ACCESS LOCATION / SITE / TECHNIQUE: Anterior midline EQUIPMENT UTILIZED: 17/18-gauge core biopsy system CLOSURE: Small piece of Gelfoam was utilized to achieve hemostasis. RADIATION DOSE: total exam DLP: 984 mGy-cm MEDICATIONS GIVEN: versed 1 mg IV and fentanyl 50 mcg IV. 1% Lidocaine was used for local anesthesia. SPECIMEN(S): 4 samples COMPLICATIONS: no complications noted DRAINS: None ESTIMATED BLOOD LOSS: Less than 10 cc. PHYSICIAN(S) AND ASSISTANTS (if any): Yessy Viramontes MD Additional Comments: Please call with questions. Yessy Viramontes MD [place] Protocol A. Pre-procedure verification complete yes 1-relevant information / documentation available, reviewed and properly matched to the patient; 2-consent accurate and complete, 3-equipment and supplies available B. Site marking complete Yes Site marked if not in continuous attendance with patient C. TIME OUT completed yes Time Out was conducted just prior to starting procedure to verify the eight required elements: 1-patient identity, 2-consent accurate and complete, 3-position, 4-correct side/site marked (if applicable), 5-procedure, 6-relevant images / results properly labeled and displayed (if applicable), 7-antibiotics / irrigation fluids (if applicable), 8-safety precautions. Please note that all CT scans at this facility use dose modulation, iterative reconstruction, and/or weight-based dosing when appropriate to reduce radiation dose to as low as reasonably achievable. us Augusto Scott MD CT Final Result * Platelet Count (08/23/2024 9:27 AM SHOE LINING FITTER) PLATELET COUNT 235 140 - 440 thou/cu mm 08/23/2024 9:38 AM SHOE LINING FITTER [facility] MPV 9.3 6.5 - 11.0 fL 08/23/2024 9:38 AM SHOE LINING FITTER [facility] Blood BLOOD SPECIMEN / Unknown Venipuncture / Unknown 08/23/2024 9:27 AM SHOE LINING FITTER 08/23/2024 9:32 AM SHOE LINING FITTER Yessy Viramontes MD HEMATOLOGY Final Resu lt [facility] [address] [place] [address], * Hemoglobin (08/23/2024 9:27 AM SHOE LINING FITTER) HEMOGLOBIN 14.2 12.0 - 16.0 g/dL 08/23/2024 9:38 AM SHOE LINING FITTER [facility] MCV 92 80 - 100 fL 08/23/2024 9:38 AM SHOE LINING FITTER [facility] Blood BLOOD SPECIMEN / Unknown Venipuncture / Unknown 08/23/2024 9:27 AM SHOE LINING FITTER 08/23/2024 9:32 AM SHOE LINING FITTER Yessy Viramontes MD HEMATOLOGY Final Resu lt [facility] [address] [place] [address], * Protime-INR (08/23/2024 9:27 AM SHOE LINING FITTER) INR 1.0 <1.3 08/23/2024 9:42 AM SHOE LINING FITTER [facility] PROTIME 12.0 10.6 - 12.4 sec 08/23/2024 9:42 AM SHOE LINING FITTER [facility] Blood BLOOD SPECIMEN / Unknown Venipuncture / Unknown 08/23/2024 9:27 AM SHOE LINING FITTER 08/23/2024 9:32 AM SHOE LINING FITTER Narrative [facility] - 08/23/2024 9:42 AM SHOE LINING FITTER Therapeutic Range 2.0-3.0 for most anticoagulated patients 2.5-3.5 or 4.0 for high risk patients The INR is only used for patients on stable oral anticoagulant therapy. It makes no significant contribution to the diagnosis or treatment of patients whose Protime is prolonged for other reasons. INR results are increased when heparin levels exceed 1.0 U/mL, which corresponds to an aPTT >125 seconds if the patient is on UFH. us Yessy Viramontes MD HEMATOLOGY Final Resu lt [facility] [address] [place] [address], [place] * PET CT SKULL BASE TO MID THIGH INITIAL TREAT (08/21/2024 9:35 AM SHOE LINING FITTER) Anatomical Region Laterality Modality Positron Emissio n Tomography (PET) 08/21/2024 10:2 5 AM SHOE LINING FITTER Impressions 08/21/2024 10:25 AM SHOE LINING FITTER 1. Intensely FDG avid left upper outer breast cancer, with evidence of invasion into the left pectoralis major and left pectoralis minor. 2. Multifocal FDG avid intrathoracic bobby metastases, hepatic, and osseous metastases. Dictated by Louis Amaya MD @ 08/21/2024 10:25:07 AM (Electronically Signed) Narrative 08/21/2024 10:25 AM SHOE LINING FITTER For Patients: As a result of the 21st Century Cures Act, medical imaging exams and procedure reports are released immediately into your electronic medical record. You may view this report before your referring provider. If you have questions, please contact your health care provider. EXAM: FDG PET-CT Skull Base to Thighs CLINICAL INFORMATION: 69-year-old woman with history of left breast poorly differentiated adenocarcinoma. PET CT ordered for additional characterization. TECHNIQUE: Radiopharmaceutical: 18F-fluorodeoxyglucose (18F-FDG) Dose: 9.67 milliCurie. Blood glucose: 132 mg/dL. Image acquisition: At approximately 60 minutes following IV tracer administration via a right antecubital vein, positron emission tomography was performed from the skull base through the mid thigh. Non-contrast low-dose helical CT imaging was performed over the same range without breath-hold for attenuation correction of PET images and anatomic correlation; it is neither sufficient, nor should it be substituted for diagnostic purposes. COMPARISON: None FINDINGS: Mediastinal blood pool FDG uptake: SUVMax 2.8 (image 164) Liver background parenchymal FDG uptake: SUVMax 3.4 (image 133) HEAD AND NECK: Bilateral thyroid nodules, with faint FDG uptake less than blood pool, the largest measuring 1.5 cm in the left lower thyroid (best seen on coronal views). CHEST: Ports and devices: None. Lungs: No abnormal FDG uptake. Pleura: No abnormal FDG uptake. Lymph Nodes: Multistation FDG avid lymphadenopathy in the mediastinal, bilateral hilar, left subpectoral, and left axillary bobby stations, for example as below: *Right hilar node, SUVmax 4.9, (image 157) *2.7 x 1.9 cm left subpectoral node, SUVmax 7.1, (image 174) *1.0 X 0.9 Cm left axillary node, SUVmax 3.0, (image 167) Calcified mediastinal and hilar nodes, likely sequelae of prior granulomatous disease. Mediastinum: No abnormal FDG uptake. Coronary artery calcifications. Atherosclerotic calcifications of the thoracic aorta. Breasts/Chest Wall: 5.9 x 3.9 cm left upper outer breast mass, with loss of fat planes between the mass and left pectoralis major and pectoralis minor SUVMax 10.8 (images 161-165). ABDOMEN/PELVIS: Liver/biliary system: Multifocal FDG avid lesions in the left and right liver, including: *7.5 X 5.3 cm lesion, SUVMax 7.7 (image 126) segment 2/3 *Segment 4A, SUVMax 5.5 (image 132) * segment 7 SUVMax 4.4 (image 134) Cholecystectomy clips. Pancreas: No abnormal FDG uptake. Spleen: No abnormal FDG uptake. Adrenal Glands: No abnormal FDG uptake. Kidneys: No abnormal FDG uptake. Bowel: Diffuse bowel loop uptake likely secondary to metformin. Mesentery, Omentum and Peritoneum: No abnormal FDG uptake. Atherosclerotic calcifications. Pelvic Organs: No abnormal FDG uptake. Lymph Nodes: No abnormal FDG uptake. MUSCULOSKELETAL: Multifocal tracer-avid lesions throughout the axial and appendicular skeleton, some appearing sclerotic. Examples include: *Left humeral head SUVMax 8.2 (Image 174) *Left posterior iliac SUVMax 2.5 (image 83) *Right anterolateral rib 3 SUVMax 3.8 (image 161) *Right L5 vertebral body SUVMax 8.1 (Image 91) Procedure Note Louis Amaya MD - 08/21/2024 For Patients: As a result of the Cures Act, medical imagingexams and procedure reports are released immediately into your electronicmedical record. You may view this report before your referring provider.If you have questions, please contact your health care provider. EXAM: FDG PET-CT Skull Base to Thighs CLINICAL INFORMATION: 69-year-old woman with history of left breast poorly differentiatedadenocarcinoma. PET CT ordered for additional characterization. TECHNIQUE: Radiopharmaceutical: 18F-fluorodeoxyglucose (18F-FDG) Dose: 9.67 milliCurie. Blood glucose: 132 mg/dL. Image acquisition: At approximately 60 minutes following IV traceradministration via a right antecubital vein, positron emission tomographywas performed from the skull base through the mid thigh. Yqc-[id number]-igho helical CT imaging was performed over the same range withoutbreath-hold for attenuation correction of PET images and anatomiccorrelation; it is neither sufficient, nor should it be substituted fordiagnostic purposes. COMPARISON: None FINDINGS: Mediastinal blood pool FDG uptake: SUVMax 2.8 (image 164) Liver background parenchymal FDG uptake: SUVMax 3.4 (image 133) HEAD AND NECK: Bilateral thyroid nodules, with faint FDG uptake less thanblood pool, the largest measuring 1.5 cm in the left lower thyroid (bestseen on coronal views). CHEST: Ports and devices: None. Lungs: No abnormal FDG uptake. Pleura: No abnormal FDG uptake. Lymph Nodes: Multistation FDG avid lymphadenopathy in the mediastinal,bilateral hilar, left subpectoral, and left axillary bobby stations, forexample as below: *Right hilar node, SUVmax 4.9, (image 157) *2.7 x 1.9 cm left subpectoral node, SUVmax 7.1, (image 174) *1.0 X 0.9 Cm left axillary node, SUVmax 3.0, (image 167) Calcified mediastinal and hilar nodes, likely sequelae of priorgranulomatous disease. Mediastinum: No abnormal FDG uptake. Coronary artery calcifications.Atherosclerotic calcifications of the thoracic aorta. Breasts/Chest Wall: 5.9 x 3.9 cm left upper outer breast mass, with lossof fat planes between the mass and left pectoralis major and pectoralisminor SUVMax 10.8 (images 161-165). ABDOMEN/PELVIS: Liver/biliary system: Multifocal FDG avid lesions in the left and rightliver, including: *7.5 X 5.3 cm lesion, SUVMax 7.7 (image 126) segment 2/3 *Segment 4A, SUVMax 5.5 (image 132) * segment 7 SUVMax 4.4 (image 134) Cholecystectomy clips. Pancreas: No abnormal FDG uptake. Spleen: No abnormal FDG uptake. Adrenal Glands: No abnormal FDG uptake. Kidneys: No abnormal FDG uptake. Bowel: Diffuse bowel loop uptake likely secondary to metformin. Mesentery, Omentum and Peritoneum: No abnormal FDG uptake.Atherosclerotic calcifications. Pelvic Organs: No abnormal FDG uptake. Lymph Nodes: No abnormal FDG uptake. MUSCULOSKELETAL: Multifocal tracer-avid lesions throughout the axial andappendicular skeleton, some appearing sclerotic. Examples include: *Left humeral head SUVMax 8.2 (Image 174) *Left posterior iliac SUVMax 2.5 (image 83) *Right anterolateral rib 3 SUVMax 3.8 (image 161) *Right L5 vertebral body SUVMax 8.1 (Image 91) IMPRESSION: 1. Intensely FDG avid left upper outer breast cancer, with evidence ofinvasion into the left pectoralis major and left pectoralis minor. 2. Multifocal FDG avid intrathoracic bobby metastases, hepatic, andosseous metastases. Dictated by Louis Amaya MD @ 08/21/2024 10:25:07 AM (Electronically Signed) Claudette Arreguin MD PET Final Result * (ABNORMAL) GLUCOSE METER (08/21/2024 8:29 AM SHOE LINING FITTER) GLUCOSE METER 132(H) 65 - 100 mg/dL 08/21/2024 8:35 AM SHOE LINING FITTER [facility] Blood BLOOD SPECIMEN / Unknown 08/21/2024 8:29 AM SHOE LINING FITTER 08/21/2024 8:35 AM SHOE LINING FITTER Claudette Arreguin MD CHEMISTRY Final Result [facility] [address] [place] [address], * PATH-MISC/ANCILLARY TEST (08/18/2024 11:29 AM SHOE LINING FITTER) Case Report Surgical Pathology Report Case: [id number] Authorizing Provider: Claudette Arreguin MD Collected: 08/18/20241128 Ordering Location: [facility] Received: 08/18/20241128 Pathologist: Alva Goss MD Specimen: Chest Wall, [facility] [id number] 4 1:53 PM SHOE LINING FITTER [facility] Results 1. Ancillary testing : a. Breast PD-L1 Combined Positive Score (CPS): 1 (No expression, CPS less than 10) 4 1:53 PM SHOE LINING FITTER [facility] Comment TEST PERFORMED: PD-L 1 (SP263) ANALYSIS BY IMMUNOHISTOCHEMISTRY MATERIALS AND METHODS: - Adequate number of tumor cells are present on the re-cut H&E stain section. Minimum number of tumor cells required is 100 viable tumor cells - The positive and negative control tissue demonstrate appropriate staining TESTING INFORMATION FOR PD-L1 ANALYSIS: PD-L1 assayed by immunohistochemistry with microscopy, following tissue fixation in 10% neutral buffered formalin. Tissue sections are incubated with a PD-L1 rabbit monoclonal antibody (Exaptive PD-L1 SP263 assay), performed on the Exaptive BenchMark ULTRA instrument and visualized with OptiView DAB IHC Detection kit and OptiView Amplification Kit. Combined Positive Score is determined by manual morphometry evaluating the number of PD-L1 staining cells (tumor cells, lymphocytes, macrophages) divided by the total number of viable tumor cells, multiplied by 100. PD-L1 22C3 Combined Positive Score (CPS) Interpretation Guidelines for triple negative breast carcinoma: CPS Less than 10 (No PD-L1 expression) CPS Greater than or equal to 10 (PD-L1 Expression) This [place] SP263 immunohistochemical antibody assay is a laboratory developed test designed for patients with triple negative breast cancer who are being considered for Keytruda (Pembrolizumab) therapy. This SP263 assay has been validated against the FDA approved PharmDX 22C3 assay. The performance of this assay has not been validated on decalcified specimens. Results on decalcified specimens should be interpreted with caution, given the likelihood of a false negative result on decalcified specimens. References Nahed Oncol 2019. 30(suppl_3):1-26 [email or web address]://doi.org/10.[email or web address]/[email or web address] J Clin Oncol 2020. 38(1):1000 DOI: 10.1200/JCO.2020.38.15 _suppl.1000 Disclaimer Support for the interpretation of this case may have included the use of immunohistochemistry and/or in situ hybridization tests that were performed by [facility] and whose performance characteristics were evaluated by pathologists from [facility]. These tests have not been cleared or approved by the U.S. Food and Drug Administration. These tests are used for clinical purposes and should not be regarded as investigational or for research. This laboratory is certified under the Clinical Laboratory Improvement Amendments of 1988 (CLIA) as qualified to perform high complexity clinical laboratory testing. 4 1:53 PM SHOE LINING FITTER [facility] Clinical Information Breast cancer 4 1:53 PM [facility] Gross Description Received is one block labeled with the patient's name for PD-L1 testing. 4 1:53 PM [facility] Microscopic Description The final diagnosis is based on microscopic examination of appropriate sections of all specimens. 4 1:53 PM [facility] Additional Information Interpreted at [facility] - [address] [facility] [address], [place] [address] Immunohistochemistry controls were reviewed and approved by the pathologist during this examination. 4 1:53 PM [facility] Other (Chest Wall) 08/18/2024 11:29 AM SHOE LINING FITTER 08/18/2024 11:29 AM SHOE LINING FITTER Claudette Arreguin MD PATHOLOGY/CYTOLOGY Final Resul t [facility] [address] [place] [address], [place] * LAB TRACKING EVENT (08/18/2024 11:28 AM SHOE LINING FITTER) Only the most recent of2 resultswithin the time period is included. Other (Other) Client Collect / Unknown 08/18/2024 11:28 AM SHOE LINING FITTER 08/18/2024 11:28 AM SHOE LINING FITTER Claudette Arreguin MD LAB BILL ONLY Final Result Performing Organization Address [facility] Co de Phone Number [facility] [address] [place] [address], [place] * CG HER2 BREAST (07/28/2024 11:40 AM CDT) Other (Chest Wall) 07/28/2024 11:40 AM CDT 08/02/2024 11:30 AM SHOE LINING FITTER us Doctor Unknown LABORATORY Final Result Performing Organization Address [facility] de Phone Number [facility] [address] [place] [address], [place] * CYTOGENETICS MALIGNANT TISSUE STUDIES (07/28/2024 11:40 AM CDT) RFR Breast cancer 08/07/2024 4:01 PM [facility] TEST & RESULT SUMMARY HER2 FISH Breast: See pathology report [id number]. See comments. 08/07/2024 4:01 PM SHOE LINING FITTER [facility] LABORATORY- NTRAL LABORATORY _ 08/07/2024 4:01 PM SHOE LINING FITTER [facility] COMMENTS This record is used as an internal laboratory test designed for workflow purposes only. 08/07/2024 4:01 PM [facility]OE LINING FITTER [facility] SOURCE Chest Wall (Paraffin Slides A1 2 uns) [id number] 08/07/2024 4:01 PM SHOE LINING FITTER [facility] Other (Chest Wall) 07/28/2024 11:40 AM CDT 08/02/2024 11:30 AM SHOE LINING FITTER us Doctor Unknown LABORATORY Final Result [facility] [address] [place] [address], * PATH TISSUE EXAM (07/28/2024 11:40 AM CDT) Case Report Pathology Report Case: [id number] Authorizing Provider: Unknown, Doctor Collected: 07/28/2024 1140 Ordering Location: [facility] Received: 07/29/2024 0534 Pathologist: Haven Birmingham MD Specimen: Chest Wall 4 5:13 PM SHOE LINING FITTER [facility] Amendment 08/02/2024 - Amendmen t issued to incorporate ancillary studies. 08/07/2024 - Amendment issued to incorporate ancillary HER2 FISH studies. 4 5:13 PM SHOE LINING FITTER [facility] Final Diagnosis SOFT TISSUE MASS, LEFT CHEST WALL, CORE BIOPSY: 1. Poorly differentiated adenocarcinoma, compatible with breast primary 2. Breast Ancillary Testing: a. Hormone Receptors: Estrogen receptor: Negative Progesterone receptor: Negative b. HER2 by IHC: Equivocal (2+ by manual morphometry) HER2 by FISH: Negative HER2/CEP17 ratio: 1.46 HER2 signals/cell: 3.47 CEP17 signals/cell: 2.38 4 5:13 PM SHOE LINING FITTER [facility] Amendment electronically signed by Alva [...] confirmation of ER status. 4 5:13 PM SHOE LINING FITTER [facility] Clinical Information The patient is a 69 y.o. female with a left anterior chest wall mass, approximately 6 cm. She has a history of left breast cancer 7 years ago. 4 5:13 PM [facility] Gross Description A) Received in formalin, labeled with the patient's name and anterior chest wall left, are 5 cylindrical grimes-white ranging from 1.4-1.7 cm in length and each measuring 0.2 cm in diameter. The specimen is submitted entirely, in toto in 1 cassette. LMG 07/29/2024 4 5:13 PM [facility] Microscopic Description The final diagnosis is based on microscopic examination of appropriate sections of all specimens. Immunohistochemical staining is performed (block A1) with the following results: Stain: Result: Claudin-4 Positive SHANIQUE-3 Positive CK 7 Positive Support for the interpretation of this case may have included the use of immunohistochemistry and/or in situ hybridization tests that were performed by [facility] and whose performance characteristics were evaluated by [...] complexity clinical laboratory testing. 4 5:13 PM [facility] Cytogenetics Summary Cytogenetic testing has been ordered and will be reported separately. 4 5:13 PM [facility] SYNOPTIC REPORTING Breast Biomarker Reporting Template [...] developed and its performance characteristics determined by [employer]. This test incorporates minor modifications to protocol and validated by the [facility] Cytogenetics Laboratory and [facility] to yield equivocal or superior performance. This FISH test uses a multiplex probe stain procedure. 5:13 PM SHOE LINING FITTER [facility] Additional Information Patients with breast [...] not result in eligibility currently). Interpreted at [facility] - [address] [facility] [address], [place] [address] Immunohistochemistry controls were reviewed and approved by the pathologist during this examination. 4 5:13 PM SHOE LINING FITTER [facility] Other (Chest Wall) 07/28/2024 11:40 AM CDT 07/29/2024 5:34 AM CDT us Doctor Unknown PATHOLOGY/CYTOLOGY Edited Result - Final [facility] [address] [address], from Last 3 Months Insurance MEDICARE ADVANTAGE MR JAC ARELLANO [id number] MEDICARE PART A HB ONLY MEDICARE ADVANTAGE MR JAC ARELLANO [id number] Care Teams Fourdrinier Tender Relationship Specialty Start Date End Date Augusto Scott MD [address] [place] [address] PCP - General Family Practice 03/30/24
--- OUTSIDE RECORDS SUMMARY | 2024-09-04 06:22 | XMS_ITS ---
Author Organization [place] Address [address] [place] [id number] Care Team Providers Care Unhairer Name Role Phone Augusto Scott MD Primary Care Provider [phone] Transitional Care Management Status:Closed (Closed) Start date:07/14/2024 Enrollment date:07/15/2024 End date:07/28/2024 Close reason:Goals met Continued Care and Services Coordination
[2024-09-04 06:55] VITALS: BMI 26.1
[2024-09-04 06:58] VITALS: BP 117/77; PULSE 69; RESP 20; TEMP 36.1; O2SAT 97
[2024-09-04] MEDS: SODIUM CHLORIDE 0.9 % (FLUSH) 10 ML SYRINGE IVF (07:18)
--- NOTE | 2024-09-04 07:30 | CRLHL7_ITS ---
For Patients: As a result of the Century Cures Act, medical imaging exams and procedure reports are released immediately into your electronic medical record. You may view this report before your referring provider. If you have questions, please contact your health care provider. Indication: Port-A-Cath placement Technique: One fluoroscopic image of the chest. Fluoroscopic time 44.0 seconds. IMPRESSION: Fluoroscopic guidance for Port-A-Cath placement. Dictated by Rayshawn Parikh MD @ 09/04/2024 9:24:00 AM (Electronically Signed)
--- NOTE | 2024-09-04 07:35 | W.PM.H&PU ---
History & Physical Update History & Physical Update H&P Reviewed and patient assessed: The following changes are noted below H&P Updates: Since patient was last seen by me, the diagnosis of metastatic left triple negative breast cancer was confirmed. She presents today for port placement for chemotherapy.
--- NOTE | 2024-09-04 07:38 | CRLHL7_ITS ---
For Patients: As a result of the Century Cures Act, medical imaging exams and procedure reports are released immediately into your electronic medical record. You may view this report before your referring provider. If you have questions, please contact your health care provider. INDICATION: Postop port placement TECHNIQUE: 1 view chest radiograph COMPARISON: 10/11/2023 FINDINGS: Devices: Right IJ chest port distal tip is at the mid SVC at the level of the azygous vein. Lung volumes are moderate. External artifact over the right shoulder and right lower chest. No pleural effusion. No pneumothorax. Heart size is normal. IMPRESSION: The right IJ chest port distal tip is at the mid SVC. No effusion or pneumothorax. Dictated by Divine Zapata MD @ 09/04/2024 9:01:11 AM (Electronically Signed)
--- NOTE | 2024-09-04 07:38 | PM.GSPRC ---
Operative Note Date of procedure: 09/04/24 Pre-op diagnosis: Metastatic triple negative left breast cancer Post-op diagnosis: Same Type of Procedure: Right IJ port placement with ultrasound and fluoroscopic guidance Indications: The patient is a 69-year-old female who was found to have metastatic triple negative left breast cancer. Port placement was requested by her oncologist for chemotherapy. Procedure Description: After discussing the risks and benefits of the procedure, the patient signed informed consent.? The operative site was marked and the patient was brought to the operating room and placed on the operating table in supine position.? Care was taken to pad the patient's pressure points.?? The patient was then given sedation by anesthesia.?? The operative site was then prepped and draped in the usual sterile fashion.? A time-out was then performed. The patient's right internal jugular vein was visualized using ultrasound. Local anesthetic was injected into the skin overlying the vein. This was accessed percutaneously using ultrasound guidance. Using Seldinger technique, a guidewire was threaded through the needle. A skin elena was made around the wire. Next, local anesthetic was injected into the skin below the clavicle and along the proposed tract to the neck incision. A skin incision was then made with a 15 blade and a pocket created in the subcutaneous tissue with cautery. A tunneler was then used to thread the catheter from the chest wall pocket to the neck incision. Once this was done fluoroscopy was brought into the field. Over the wire the tract was dilated using fluoroscopy. The wire and the dilator were then removed leaving the sheath in the vein. Through this, the catheter was threaded. Using fluoroscopy, the catheter was positioned into the distal SVC. The catheter was noted to flush and aspirate easily. The catheter was then connected to the port. The port was placed in the pocket and secured in place with 2 0 Prolene sutures. It was noted to flush and aspirate easily. This was then locked with heparinized saline. The skin was closed with absorbable suture. Glue was applied. Instrument sponge and needle counts were correct at the end of the case. The patient was woken and taken to the PACU in stable condition. Findings: Right IJ power port placed in the low SVC Anesthesia: MAC Surgeon: Annie Ng MD Estimated blood loss (mL): 1 Condition: stable Disposition: same day
[2024-09-04] MEDS: CEFAZOLIN 1 GM inj IVP (07:51)
[2024-09-04] MEDS: LIDOCAINE 1% MDV 20 ML INJECTION (08:20)
[2024-09-04] MEDS: 0.9% SODIUM CHL 50 ML VIAL INJECTION (08:20)
[2024-09-04] MEDS: BUPIVACAINE 0.5% 30 ML INJECTION (08:20)
[2024-09-04] MEDS: HEPARIN 500 UNIT/5 ML SYRINGE IVF (08:25)
[2024-09-04 08:45] VITALS: BP 108/60; PULSE 65; RESP 18; O2SAT 97
[2024-09-04 08:47] VITALS: BP 116/72; PULSE 69; RESP 18; O2SAT 96
--- NOTE | 2024-09-04 08:49 | W.ANESCHARGE ---
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
[2024-09-04 09:03] VITALS: BP 126/80; PULSE 66; RESP 18; O2SAT 96
[2024-09-04 09:14] VITALS: BP 127/88; PULSE 64; RESP 18; O2SAT 98
== END 2024-09-04 09:48 | disposition home or self-care (01) ==
PROVIDERS: PCP Family Medicine; Visit Provider Surgery
PROC: (CPT 36561; principal; 2024-09-04 07:30)
DX: Z45.2 Encounter for adjustment and management of vascular access device (principal); C50.912 Malignant neoplasm of unspecified site of left female breast; C78.7 Secondary malignant neoplasm of liver and intrahepatic bile duct; C77.1 Secondary and unspecified malignant neoplasm of intrathoracic lymph nodes; C78.02 Secondary malignant neoplasm of left lung; C78.01 Secondary malignant neoplasm of right lung; Z17.421 Hormone receptor negative with human epidermal growth factor receptor 2 negative status; E11.69 Type 2 diabetes mellitus with other specified complication
CPT/HCPCS: 36561; 00532; 71045; 76000; 76998; 82962; 99100; J2003; C1788; J0665; J0690; J1100; J1642; J2405; J2704; J3010

== ENCOUNTER 2024-10-13 09:36 | Emergency (ER) | payer MEDICARE, SELFPAY ==
[2024-10-13] VITALS (16 sets, daily range): BP systolic 73–126; BP diastolic 44–84; PULSE 67–146; RESP 18; TEMP 36.6; O2SAT 81–100; BMI 24.5
--- OUTSIDE RECORDS SUMMARY | 2024-10-13 09:38 | XMS_ITS | Clinical Summary ---
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/26/2019 Diabetes 06/30/2013 Encounters Date Type Department Care Team Description 08/23/2024 9:22 AM BUCKLE SORTER - 08/23/2024 11:59 PM BUCKLE SORTER Hospital Encounter [facility] Medical Imaging [address] [place] [address] Augusto Scott MD Liver nodule 08/23/2024 Travel 08/22/2024 9:00 AM BUCKLE SORTER Telemedicine [facility] [address] [place] [address] Nicole Dugan MS, CGC Counseling (Genetic counseling/ ) 08/21/2024 8:21 AM BUCKLE SORTER - 08/21/2024 11:59 PM BUCKLE SORTER Hospital Encounter [facility] Outpatient Medical Imaging [address] [place] [address] Claudette Arreguin MD Malignant neoplasm of midline of breast, left (HC) 08/21/2024 Travel 08/18/2024 Telephone [facility] [address] [place] [address] Bety Rubio Cancer Cancer Genetics 08/18/2024 Lab Requisition [facility] [phone] Claudette Arreguin MD 08/17/2024 Transcribe Orders [facility] [address] [place] [address] Claudette Arreguin MD 07/28/2024 Lab Requisition [facility] [phone] Unknown, Doctor from Last 3 Months Social History Tobacco Use Types Packs/Day Years Used Date Smoking Tobacco: Former Comments:10 years ago Alcohol Use Standard Drinks/Week Comments Not Asked 0 (1 standard drink = 0.6 oz pur e alcohol) Comments No Sex and Gender Information Value Date Recorded Sex Assigned at Not on file Legal Sex Female 8:42 AM BUCKLE SORTER Gender Identity Not on file Sexual Orientation Not on file Obstetrics History Last Filed Vital Signs Vital Sign Reading Time Taken Comments Blood Pressure 115/68 08/23/2024 1:15 PM BUCKLE SORTER Pulse 73 08/23/2024 1:15 PM BUCKLE SORTER Temperature 36.6 C (97.8 F) 08/23/2024 9:53 AM BUCKLE SORTER Respiratory Rate 16 08/23/2024 1:15 PM BUCKLE SORTER Oxygen Saturation 97% 08/23/2024 1:15 PM BUCKLE SORTER Inhaled Oxygen Concentration - - Weight 65.8 kg (145 lb) 08/23/2024 9:53 AM BUCKLE SORTER Height 165.1 cm (5' 5) 08/23/2024 9:53 AM BUCKLE SORTER Body Mass Index 24.13 08/23/2024 9:53 AM BUCKLE SORTER Plan of Treatment Health Maintenance Due Date Last Done Comments Tdap 1964 Depression screening for age 12+ 1965 BMI (ht and wt on same day) for age 18+ 1971 Hepatitis C screening for ag e 18-79 1971 Tetanus booster 1973 Colonoscopy through age 75 1998 Lipids for age 45-75 1998 Mammogram for age 45-75 1998 Pneumococcal series for age 50+ (1 of 1 - PCV) 2003 Zoster (shingles) series for age 50+ (1 of 2) 2003 DEXA/DXA scan for age 65+ 2018 Medicare Wellness for age 65+ 2018 Influenza for age 65+ 05/28/2024 RSV vaccine for adults or (1 - 1-dose 75+ series) 2028 COVID-19 vaccine series Completed 06/16/20 24, 12/27/2023, 09/07/2023, Additional history exists Procedures Procedure Name Priority Date/Time Associated Diagnosis Comments PATH FNA CYTOLOGY ASP CYTOLOGY Today 08/23/2024 11:24 AM BUCKLE SORTER MSO AP SEND-OUT Routine 08/23/2024 11:[address] BIOPSY LIVER Routine 08/23/2024 11:23 AM BUCKLE SORTER Liver nodule HEMOGLOBIN STAT 08/23/2024 9:27 AM BUCKLE SORTER PLATELET COUNT STAT 08/23/2024 9:27 AM BUCKLE SORTER PROTIME-INR STAT 08/23/2024 9:[address] SKULL BASE TO MID THIGH INITIAL TREAT TONY 08/21/2024 9:35 AM BUCKLE SORTER Malignant neoplasm of midline of breast, left (HC) GLUCOSE METER Routine 08/21/2024 8:29 AM BUCKLE SORTER PATH-MISC/ANCILLARY TEST Routine 08/18/2024 11:29 AM BUCKLE SORTER LAB TRACKING EVENT Routine 08/18/2024 11 :28 AM BUCKLE SORTER LAB TRACKING EVENT Routine 07/28/2024 11 :40 AM CDT PATH TISSUE EXAM Routine 07/28/2024 11:4 0 AM CDT CG HER2 BREAST Routine 07/28/2024 11:40 AM CDT CYTOGENETICS MALIGNANT TISSUE Routine 07/28/2024 11:40 AM CDT from Last 3 Months Results * MSO AP SEND-OUT (08/23/2024 11:24 AM BUCKLE SORTER) Aspirate SPECIMEN FROM LIVER / Unknown 08/23/2024 11:24 AM BUCKLE SORTER 09/01/2024 12:30 PM BUCKLE SORTER us Yessy Viramontes MD LABORATORY Final Resu lt [facility] [address] [place] [address], * PATH FNA CYTOLOGY ASP CYTOLOGY (08/23/2024 11:24 AM BUCKLE SORTER) Case Report Medical Cytology Report Case: [id number] Authorizing Provider: Yessy Viramontes MD Collected: 08/23/2024 [facility] Ordering Location: [facility] Received: 08/23/[address] [place] [address] Medical Imaging Pathologist: Gisel Mejia MD Specimen: Liver, left lobe liver lesion 09/11/2024 2:06 PM [facility] S[facility] Amendment 08/28/2024 - Amendment issued to incorporate ancillary studies. 09/01/2024 At the request of the treating physician , this signed out case was retrieved from the [facility] pathology archives and reviewed by a pathologist, Dr. Bush, to select and prepare archival block(s) for submission to [facility] for molecular analysis. 09/11/2024 - Per Dr Kallie, tissue was submitted to [facility] for [employer] testing, please see attached scanned report for results. 09/11/2024 2:06 PM BUCKLE SORTER [employer]-[facility] ENTRNE LABORATORY Final Diagnosis LIVER, LEFT LOBE, LESION, CT-GUIDED CORE BIOPSY: 1. Metastatic carcinoma, consistent with a metastatic lesion from the patient's known breast primary 2. Background nonneoplastic liver is not present in this sample 3. See comment 4. Breast Ancillary Testing: a. Hormone Receptors: Estrogen receptor: Negative (see comment) Progesterone receptor: Negative b. HER2 by IHC: Negative (1+ by manual morphometry) 09/11/2024 2:06 PM BUCKLE SORTER [employer] EN[facility]AL LABORAT[facility] Amendment electronically signed by Gisel Mejia MD on 09/11/2024 at 2:05 PM Amendment electronically signed by Omayra Bush MD on 09/01/2024 at 3:22 PM Amendment electronically signed by Zaria Kinney MD on 08/28/2024 at 2:34 PM Comment The histomorphology in conjunction with direct comparison to the patient's prior biopsy ([id number] reviewed) is consistent with a metastatic lesion from the patient's known breast primary. This case was seen in consultation with Dr. Goss. Neoplastic tissue is available for ancillary studies, to request please contact the [facility] ([phone]). Neoplastic tissue available for ancillary studies: [facility] NGS testing: - FFPE tissue blocks: A2 [...] be warranted for confirmation of ER status. 09/11/2024 2:06 PM [facility] [employer] ENTRAL LABORATORY Clinical Information 69-year-old female with a history of left breast cancer. She recently presented with a left anterior chest wall mass, approximately 6 cm. Biopsy of the chest mass showed: SOFT TISSUE MASS, LEFT CHEST WALL, CORE BIOPSY ([id number]; 07/28/24): 1. Poorly differentiated adenocarcinoma, compatible with breast primary 2. Breast Ancillary Testing: a. Hormone Receptors: Estrogen receptor: Negative Progesterone receptor: Negative b. HER2 by IHC: Equivocal (2+ by manual morphometry) HER2 by FISH: Negative HER2/CEP17 ratio: 1.46 HER2 signals/cell: 3.47 CEP17 signals/cell: 2.38 1. Ancillary testing (performed as [id number]): a. Breast PD-L1 Combined Positive Score (CPS): 1 (No expression, CPS less than 10) 09/11/2024 2:06 PM [facility] Gross Description Received identified as Left Liver Lesion is [...] hours and no more than 72 hours. 09/11/2024 2:06 PM [facility] Adequacy Assessment G.N. assessed adequacy from the air-dried smears at the time of the procedure with an impression of Adequate. 09/11/2024 2:06 PM [facility] Microscopic Description Specimen adequacy: Adequate for interpretation. All slides were reviewed. The microscopic appearance substantiates the diagnosis. 09/11/2024 2:06 PM [facility] SYNOPTIC REPORTING Breast Biomarker Reporting Template [...] ER Biomarkers Scored by Image Analysis: PgR 09/11/2024 2:06 PM BUCKLE SORTER [facility] [employer] LABORATORY-C ENTRAL LABORATORY Additional Information Cytology is screened at [facility], Central Laboratory - [address], [place] [address] and [facility] - [address], [place] [address] and [facility] Laboratory - [address] [place] [address] Interpreted at [facility], Central Laboratory - [address], [place] [address] Immunohistochemist ry controls were reviewed and approved [...] that are HER2 IHC 1+ or IHC 2+/CHESLEA not amplified may be eligible for a treatment that targets non-amplified/non- overexpressed levels of HER2 expression for cytotoxic drug delivery (IHC 0 results do not result in eligibility currently). 09/11/2024 2:06 PM [facility] Aspirate SPECIMEN FROM LIVER / Unknown 08/23/2024 11:24 AM BUCKLE SORTER 08/23/2024 11:24 AM BUCKLE SORTER us Yessy Viramontes MD PATHOLOGY/CYTOLOGY Edited Result - Final [facility] [address] [place] [address], [place] * CT BIOPSY LIVER (08/23/2024 11:23 AM BUCKLE SORTER) Anatomical Region Laterality Modality LIVER Computed Tomogra phy, Other, Other, Other Narrative 08/23/2024 11:28 AM BUCKLE SORTER RADIOLOGY POST PROCEDURE NOTE 08/23/2024 Halle Mayers [id number] INFORMEDCONSENT: In my discussion, prior to [...] Please call with questions. Yessy Viramontes MD Richards Protocol A. Pre-procedure verification complete yes 1-relevant [...] Result * Platelet Count (08/23/2024 9:27 AM BUCKLE SORTER) PLATELET COUNT 235 140 - 440 thou/cu mm 08/23/2024 9:38 AM BUCKLE SORTER [facility] MPV 9.3 6.5 - 11.0 fL 08/23/2024 9:38 AM BUCKLE SORTER [facility] Blood BLOOD SPECIMEN / Unknown Venipuncture / Unknown 08/23/2024 9:27 AM BUCKLE SORTER 08/23/2024 9:32 AM BUCKLE SORTER us Yessy Viramontes MD HEMATOLOGY Final Resu lt [facility] [address] [place] [address], * Hemoglobin (08/23/2024 9:27 AM BUCKLE SORTER) HEMOGLOBIN 14.2 12.0 - 16.0 g/dL 08/23/2024 9:38 AM BUCKLE SORTER [facility] MCV 92 80 - 100 fL 08/23/2024 9:38 AM BUCKLE SORTER [facility] Blood BLOOD SPECIMEN / Unknown Venipuncture / Unknown 08/23/2024 9:27 AM BUCKLE SORTER 08/23/2024 9:32 AM BUCKLE SORTER Yessy Viramontes MD HEMATOLOGY Final Resu lt Performing Organization Address City/[facility]/ZIP Co de Phone Number [facility] [address] [place] [address], [place] * Protime-INR (08/23/2024 9:27 AM BUCKLE SORTER) INR 1.0 <1.3 08/23/2024 9:42 AM BUCKLE SORTER [facility] PROTIME 12.0 10.6 - 12.4 sec 08/23/2024 9:42 AM BUCKLE SORTER [facility] Blood BLOOD SPECIMEN / Unknown Venipuncture / Unknown 08/23/2024 9:27 AM BUCKLE SORTER 08/23/2024 9:32 AM BUCKLE SORTER Narrative [facility] - 08/23/2024 9:42 AM BUCKLE SORTER Therapeutic Range 2.0-3.0 for most anticoagulated patients [...] seconds if the patient is on UFH. Yessy Viramontes MD HEMATOLOGY Final Resu lt Performing Organization Address City/[facility]/ZIP Co de Phone Number [facility] [address] [place] [address], [place] * PET CT SKULL BASE TO MID THIGH INITIAL TREAT (08/21/2024 9:35 AM BUCKLE SORTER) Anatomical Region Laterality Modality Positron Emissio n Tomography (PET) 08/21/2024 10:2 5 AM BUCKLE SORTER Impressions 08/21/2024 10:25 AM BUCKLE SORTER 1. Intensely FDG avid left upper outer breast cancer, with evidence of invasion into the left pectoralis major and left pectoralis minor. 2. Multifocal FDG avid intrathoracic bobby metastases, hepatic, and osseous metastases. Dictated by Louis Amaya MD @ 08/21/2024 10:25:07 AM (Electronically Signed) Narrative 08/21/2024 10:25 AM BUCKLE SORTER For Patients: As a result of the Cures Act, medical imaging exams and procedure [...] For Patients: As a result of the Century Cures Act, medical imagingexams and procedure reports [...] the skull base through the mid thigh. Nns-esghaiubqeu-trcn helical CT imaging was performed over the [...] * (ABNORMAL) GLUCOSE METER (08/21/2024 8:29 AM BUCKLE SORTER) GLUCOSE METER 132(H) 65 - 100 mg/dL 08/21/2024 8:35 AM BUCKLE SORTER [facility] Blood BLOOD SPECIMEN / Unknown 08/21/2024 8:29 AM BUCKLE SORTER 08/21/2024 8:35 AM BUCKLE SORTER Claudette Arreguin MD CHEMISTRY Final Result [facility] [address] [place] [address], * PATH-MISC/ANCILLARY TEST (08/18/2024 11:29 AM BUCKLE SORTER) Case Report Surgical Pathology Report Case: [id number] Authorizing Provider: Claudette Arreguin MD Collected: 08/18/2024 112 Ordering Location: [facility] Received: 08/18/2024 1129 Pathologist: Alva Goss MD Specimen: Chest Wall, [facility] [id number] 4 1:53 PM [facility] SORTER [facility] Results 1. Ancillary testing : a. Breast PD-L1 Combined Positive Score (CPS): 1 (No expression, CPS less than 10) 4 1:53 PM [facility] Comment TEST PERFORMED: PD-L 1 [...] incubated with a PD-L1 rabbit monoclonal antibody (Bangcle PD-L1 SP263 assay), performed on the Bangcle BenchMark ULTRA instrument and visualized with OptiView [...] or equal to 10 (PD-L1 Expression) This [place] SP263 immunohistochemical antibody assay is a laboratory [...] decalcified specimens. References Nahed Oncol 2019. 30(suppl_3):1-26 https://doi.org/10.109 3/annonc/vjz317.009 J Clin Oncol 2020. 38(1):1000 DOI: 10.1200/JCO.2020.38.15 _suppl.1000 Disclaimer Support for the interpretation of this case may have included the use of immunohistochemistry and/or in situ hybridization tests that were performed by [facility] [employer] and whose performance characteristics were evaluated by [...] complexity clinical laboratory testing. 4 1:53 PM [facility] Clinical Information Breast cancer 4 1:53 PM BUCKLE SORTER [facility]- [facility]ENTRAL LABORATORY Gross Description Received is one block labeled with the patient's name for PD-L1 testing. 1:53 PM BUCKLE SORTER [facility] Microscopic Description The final diagnosis is based on microscopic examination of appropriate sections of all specimens. 1:53 PM BUCKLE SORTER [facility] Additional Information Interpreted at [facility], Central Laboratory - [address], [place] [address] Immunohistochemistry controls were reviewed and approved by the pathologist during this examination. 1:53 PM BUCKLE SORTER [facility] Other (Chest Wall) 08/18/2024 11:29 AM BUCKLE SORTER 08/18/2024 11:29 AM BUCKLE SORTER us Claudette Arreguin MD PATHOLOGY/CYTOLOGY Final Resul t Performing Organization Address [facility] Co de Phone Number [facility] [address] [place], [place] [id number], [place] * LAB TRACKING EVENT (08/18/2024 11:28 AM BUCKLE SORTER) Only the most recent of2 resultswithin the time period is included. Other (Other) Client Collect / Unknown 08/18/2024 11:28 AM BUCKLE SORTER 08/18/2024 11:28 AM BUCKLE SORTER us Claudette Arreguin MD LAB BILL ONLY Final Result Performing Organization Address [facility] Co de Phone Number [facility] [address] [place] [address], [place] * CG HER2 BREAST (07/28/2024 11:40 AM CDT) Other (Chest Wall) 07/28/2024 11:40 AM CDT 08/02/2024 11:30 AM BUCKLE SORTER us Doctor Unknown LABORATORY Final Result Performing Organization Address City/[facility]/ZIP Co de Phone Number [facility] [address] [place] [address], [place] * CYTOGENETICS MALIGNANT TISSUE STUDIES (07/28/2024 11:40 AM CDT) RFR Breast cancer 08/07/2024 4:01 PM [facility] TEST & RESULT SUMMARY HER2 FISH Breast: See pathology report [id number]. See comments. 08/07/2024 4:01 PM BUCKLE SORTER [facility] _ 08/07/2024 4:01 PM BUCKLE SORTER [facility] COMMENTS This record is used as an internal laboratory test designed for workflow purposes only. 08/07/2024 4:01 PM BUCKLE SORTER [facility] SOURCE Chest Wall (Paraffin Slides A1 2 uns) [id number] 08/07/2024 4:01 PM BUCKLE SORTER [facility] Other (Chest Wall) 07/28/2024 11:40 AM CDT 08/02/2024 11:30 AM BUCKLE SORTER us Doctor Unknown LABORATORY Final Result [facility] [address] [place] [address], [place] * PATH TISSUE EXAM (07/28/2024 11:40 AM CDT) Case Report Pathology Report Case: [id number] Authorizing Provider: Unknown, Doctor Collected: 07/28/2024 1140 Ordering Location: [facility] Received: 07/29/2024 0534 Pathologist: Haven Birmingham MD Specimen: Chest Wall 4 5:13 PM [facility] Amendment 08/02/2024 - Amendmen t issued to incorporate ancillary studies. 08/07/2024 - Amendment issued to incorporate ancillary HER2 FISH studies. 4 5:13 PM [facility] Final Diagnosis SOFT TISSUE MASS, LEFT CHEST WALL, CORE BIOPSY: 1. Poorly differentiated adenocarcinoma, compatible with breast primary 2. Breast Ancillary Testing: a. Hormone Receptors: Estrogen receptor: Negative Progesterone receptor: Negative b. HER2 by IHC: Equivocal (2+ by manual morphometry) HER2 by FISH: Negative HER2/CEP17 ratio: 1.46 HER2 signals/cell: 3.47 CEP17 signals/cell: 2.38 4 5:13 PM [facility] Amendment electronically signed by Alva [...] confirmation of ER status. 4 5:13 PM [facility] Clinical Information The patient is a 69 y.o. female with a left anterior chest wall mass, approximately 6 cm. She has a history of left breast cancer 7 years ago. 4 5:13 PM [facility] Gross Description A) Received in formalin, labeled with the patient's name and anterior chest wall left, are 5 cylindrical grimes-white ranging from 1.4-1.7 cm in length and each measuring 0.2 cm in diameter. The specimen is submitted entirely, in toto in 1 cassette. [facility] 07/29/2024 5:13 PM [facility] Microscopic Description The final diagnosis is based on microscopic examination of appropriate sections of all specimens. Immunohistochemical staining is performed (block A1) with the following results: Stain: Result: Claudin-4 Positive SHANIQUE-3 Positive CK 7 Positive Support for the interpretation of this case may have included the use of immunohistochemistry and/or in situ hybridization tests that were performed by [facility] [employer] and whose performance characteristics were evaluated by [...] complexity clinical laboratory testing. 4 5:13 PM [facility] Cytogenetics Summary Cytogenetic testing has been ordered and will be reported separately. 4 5:13 PM [facility] SYNOPTIC REPORTING Breast Biomarker Reporting Template BREAST [...] developed and its performance characteristics determined by [employer]. This test incorporates minor modifications to protocol and validated by the [facility]ogenetics [facility] to yield equivocal or superior performance. This FISH test uses a multiplex probe stain procedure. 4 5:13 PM [facility] Additional Information Patients with breast cancers [...] not result in eligibility currently). Interpreted at [facility], Central Laboratory - [address] [place] [address] [address], [place] [address] Immunohistochemistry controls were reviewed and approved by the pathologist during this examination. 5:13 PM BUCKLE SORTER [facility] Other (Chest Wall) 07/28/2024 11:40 AM CDT 07/29/2024 5:34 AM CDT us Doctor Unknown PATHOLOGY/CYTOLOGY Edited Result - Final [facility] [address] [place] [address], [place] from Last 3 Months Insurance MEDICARE ADVANTAGE MR MEDICARE PART A HB ONLY MEDICARE ADVANTAGE MR JAC ARELLANO [id number] Care Teams Technical Sales Manager Relationship Specialty Start Date End Date Augusto Scott MD [address] [place] [address] PCP - General Family Practice 03/30/24
--- OUTSIDE RECORDS SUMMARY | 2024-10-13 09:38 | XMS_ITS | Referral Summary ---
Author Organization [facility] Address [address] [place] [address] Care Team Providers Care Ice Cream Shop Associate Name Role Phone Augusto Scott MD Primary Care Provider [phone] Encounters Date Type Department Care Team Description 07/11/2024 4:33 PM CDT - 07/13/2024 10:58 AM CDT Hospital Encounter [place] [address] [facility] [address] [place] [address] Brody Beckford MD Jaleta, MD Jo Ann Hoffman, MD Amanuel Severe sepsis (H); Pneumonia of left lower lobe due to infectious organism Discharge Disposition: Home or Self Care from Last 3 Months Allergies Active Allergy [...] on file Legal Sex Female 11:18 AM BATTERY PLATE REMOVER Gender Identity Not on file Sexual Orientation [...] lb 3.2 oz) 11/25/2021 5:59 A M BATTERY PLATE REMOVER Height 162.6 cm (5' 4) 11/25/2021 5:59 AM BATTERY PLATE REMOVER Body Mass Index 29.39 11/25/2021 5:59 AM BATTERY PLATE REMOVER Plan of Treatment Not on file Procedures Procedure Name Priority Date/Time Associated Diagnosis Comments GLUCOSE BY METER Routine 07/13/2024 8:23 AM CDT EXTRA PURPLE TOP EDTA (LAB USE ONLY) Routine 07/13/2024 6:03 AM CDT LACTIC ACID WHOLE BLOOD Timed 07/13/2024 6:03 AM CDT GLUCOSE BY METER Routine 07/13/2024 2:05 AM CDT LIPID PANEL (EXTERNAL RESULT) Routine 09/23/2021 2:57 PM BATTERY PLATE REMOVER from Last 3 Months or Most Recently Relevant to Health Maintenance Results * (ABNORMAL) Glucose by meter (07/13/2024 8:23 AM CDT) Only the most recent of2 resultswithin the time period is included. [facility] GLUCOSE BY METER POCT 120(H) 70 - 99 mg/dL 07/13/2024 8:30 AM CDT LABORATORY POC Blood, Capillary BLOOD SPECIMEN / Unknown 07/13/2024 8:23 AM CDT 07/13/2024 8:30 AM CDT us Amanuel Cherry MD LAB - [facility] POCT Final Result LABORATORY [facility] Lab [address] Lab (1st floor, no room number) [place] [address] * Extra Purple Top EDTA (LAB USE ONLY) (07/13/2024 6:03 AM CDT) Hold Specimen JIC 07/13/2024 7:16 AM CDT LABORATORY Blood STRUCTURE OF RIGHT HAND / Unknown Venipuncture / Unknown 07/13/2024 6:03 AM CDT 07/13/2024 6:15 AM CDT us Rohit Lerma [facility] LAB - BLOOD ORDERABLES F inal Result [facility] [address] Lab (1st floor, no room number) [place] [address], [facility] * Lactic acid whole blood (07/13/2024 6:03 AM CDT) Lactic Acid 1.4 0.7 - 2.0 mmol/L 07/13/2024 6:22 AM CDT LABORATORY Blood STRUCTURE OF RIGHT HAND / Unknown Venipuncture / Unknown 07/13/2024 6:03 AM CDT 07/13/2024 6:15 AM CDT us Allan Mathews MD LAB - BLOOD ORDERABLES Fi nal Result [facility] [address] Lab (1st floor, no room number) [place] [address], [facility] * (ABNORMAL) Lipid Panel (External Result) (09/23/2021 2:57 PM BATTERY PLATE REMOVER) Cholesterol (External) 183 90 - 199 mg/dL [facility] Triglycerides (External) 371(A) 40 - 149 mg/dL [facility] HDL Cholesterol (External) 44 >=50 mg/dL [facility] LDL Cholesterol Calculated (External) 65 <100 mg/dL [facility] Blood 09/23/2021 2:57 PM BATTERY PLATE REMOVER Narrative [facility] - 09/23/2021 2:57 PM BATTERY PLATE REMOVER LAB RESULTS [facility] us Provider Outside LAB - HIM EXTERNAL RESULT Edite d Result - Final [facility] [address] [id number], [facility] [phone] from Last 3 Months or Most Recently Relevant to Health Maintenance Insurance [employer] Advance Directives For more information, please contact: [phone] * Full Code (Latest Code Status on File) Date Activated Date Inactivated Comments 07/13/2024 8:47 AM Question Answer Comments Code status determined by: Discussion with patie nt/ legal decision maker * Full Code Date Activated Date Inactivated Comments 07/11/2024 11:54 PM 07/13/2024 8:47 AM All basic and advanced life-sustaining interventions are performed as appropriate Question Answer Comments Code status determined by: Discussion with patie nt/ legal decision maker Care Teams Ice Cream Shop Associate Relationship Specialty Start Date End Date Augusto Scott MD [phone] (work) PCP - General Family Medicine 07/11/24
--- OUTSIDE RECORDS SUMMARY | 2024-10-13 09:38 | XMS_ITS | Clinical Summary ---
Author Organization [facility] Address [address] [place] [address] Care Team Providers Care Supervisor [employer] Name Role Phone Augusto Scott MD Primary Care Provider Allergies Active Allergy Reactions Criticality Noted Date [...] - 07/13/2024 10:58 AM CDT Hospital Encounter [place] [address] [facility] [address] [place] [id number] Brody Beckford MD Jaleta, Cherinet Negeri, MD Foss, Kevin, MD Severe sepsis (H); Pneumonia of left lower lobe due to infectious organism Discharge Disposition: Home or Self Care from Last 3 Months Immunizations Name Administration [...] file 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 Gender Identity Not on file Sexual Orientation [...] lb 3.2 oz) 11/25/2021 5:59 A M HEEL TOP LIFT SPLITTER Height 162.6 cm (5' 4) 11/25/2021 5:59 AM HEEL TOP LIFT SPLITTER Body Mass Index 29.39 11/25/2021 5:59 AM HEEL TOP LIFT SPLITTER Plan of Treatment Health Maintenance Due Date [...] Tdap) 06/18/2031 06/18/2021, 01/16/2011, 08/07/2004 Pneumococcal Vaccine: 50+ Years Completed 04/18/2020, 03/08/2018, 06/17/2010 ZOSTER IMMUNIZATION [...] PANEL (EXTERNAL RESULT) Routine 09/23/2021 2:57 PM HEEL TOP LIFT SPLITTER from Last 3 Months or Most Recently Relevant to Health Maintenance Results * (ABNORMAL) Glucose by meter (07/13/2024 8:23 AM CDT) Only the most recent of2 resultswithin the time period is included. GLUCOSE BY METER POCT 120(H) 70 - 99 mg/dL 07/13/2024 8:30 AM CDT LABORATORY POC Blood, Capillary BLOOD SPECIMEN / Unknown 07/13/2024 8:23 AM CDT 07/13/2024 8:30 AM CDT Amanuel Cherry MD LAB - [facility] POCT Final Result [facility] LABORATORY POC [facility] Acute Care Lab [address] [facility] Lab (1st floor, no room number) [place] [address] * Extra Purple Top EDTA (LAB USE ONLY) (07/13/2024 6:03 AM CDT) Hold Specimen JIC 07/13/2024 7:16 AM CDT LABORATORY Blood STRUCTURE OF RIGHT HAND / Unknown Venipuncture / Unknown 07/13/2024 6:03 AM CDT 07/13/2024 6:15 AM CDT us Rohit Lerma [facility] LAB - BLOOD ORDERABLES F inal Result LABORATORY [facility] [address] Lab (1st floor, no room number) [place] [address] * Lactic acid whole blood (07/13/2024 6:03 AM CDT) Lactic Acid 1.4 0.7 - 2.0 mmol/L 07/13/2024 6:22 AM CDT LABORATORY Blood STRUCTURE OF RIGHT HAND / Unknown Venipuncture / Unknown 07/13/2024 6:03 AM CDT 07/13/2024 6:15 AM CDT us Allan Mathews MD LAB - BLOOD ORDERABLES Fi nal Result LABORATORY [facility] Acute Care Lab [address] Lab (1st floor, no room number) [place] [address] * (ABNORMAL) Lipid Panel (External Result) (09/23/2021 2:57 PM HEEL TOP LIFT SPLITTER) Cholesterol (External) 183 90 - 199 mg/dL [facility] Triglycerides (External) 371(A) 40 - 149 mg/dL [facility] HDL Cholesterol (External) 44 >=50 mg/dL [facility] LDL Cholesterol Calculated (External) 65 <100 mg/dL [facility] Blood 09/23/2021 2:57 PM HEEL TOP LIFT SPLITTER Narrative [facility] - 09/23/2021 2:57 PM HEEL TOP LIFT SPLITTER LAB RESULTS [facility] us Provider Outside LAB - HIM EXTERNAL RESULT Edite d Result - Final [facility] [address] [place] [address], [facility] [phone] from Last 3 Months or Most Recently Relevant to Health Maintenance Insurance [employer] Advance Directives For more information, please contact: [phone] * Full Code (Latest Code Status on [...] palak nt/ legal decision maker Care Teams Supervisor [employer] Relationship Specialty Start Date End Date Augusto Scott MD PCP - General Family Medicine 07/11/24
--- OUTSIDE RECORDS SUMMARY | 2024-10-13 09:38 | XMS_ITS | Encounter Summary ---
Author Organization [facility] Address [address] [place] [address] Care Team Providers Care Bindery Supervisor Name Role Phone Irvin Mar Primary Care Provider [phone] Augusto Scott MD Primary Care Provider [phone] Encounter Details Date Type Department Care Team (Late st Contact Info) Description 11/14/2021 Orders Only [facility] Centralized Scheduling [address] [place] [address] Nolberto French MD [address] [place] [address] Social History Tobacco Use Types Packs/Day Years Used Date Smoking Tobacco: Every Day Cigarettes Smokeless Tobacco: Never Alcohol Use Standard Drinks/Week Comments Not Currently 0 (1 standard drink = 0.6 oz pur e alcohol) Comments No Sex and Gender Information Value Date Recorded Sex Assigned at Not on file 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
--- NOTE | 2024-10-13 10:11 | CRLHL7_ITS ---
For Patients: As a result of the Century Cures Act, medical imaging exams and procedure reports are released immediately into your electronic medical record. You may view this report before your referring provider. If you have questions, please contact your health care provider. INDICATION: Fall TECHNIQUE: CT head without contrast. COMPARISON: MRI brain 11/25/2022 FINDINGS: CSF spaces: Within normal limits for age. Brain parenchyma: The valenzuela-white differentiation is normal. No sign of mass, hemorrhage, or midline shift. Skull base and calvarium: The visualized paranasal sinuses and mastoid air cells demonstrate no acute or significant findings. The visualized orbits are grossly unremarkable. No skull fractures. IMPRESSION: Unremarkable noncontrast head CT. Please note that all CT scans at this facility use dose modulation, iterative reconstruction, and/or weight-based dosing when appropriate to reduce radiation dose to as low as reasonably achievable. Dictated by Hira Marion MD @ 10/13/2024 11:51:03 AM (Electronically Signed)
--- NOTE | 2024-10-13 10:11 | CRLHL7_ITS ---
For Patients: As a result of the Cures Act, medical imaging exams and procedure reports are released immediately into your electronic medical record. You may view this report before your referring provider. If you have questions, please contact your health care provider. INDICATION: Fall, head injury TECHNIQUE: CT cervical spine without contrast. COMPARISON: None FINDINGS: Vertebrae: Alignment is normal. There are no fractures or suspicious bony lesions. Discs and facet joints: Facet hypertrophy C2-3 without significant stenosis. Facet hypertrophy C3-4 with posterior osteophytes causing severe left foraminal stenosis. Facet hypertrophy C4-5 causing [id number] bilateral foraminal stenosis. Facet hypertrophy C5-6 without significant stenosis. Posterior osteophytes and mild facet hypertrophy at C6-7 causing mild right and moderate left foraminal stenoses. Facet hypertrophy C7-T1 without significant stenosis. Extraspinal findings: Right internal jugular catheter partially included on the examination. Mild apical pleural-parenchymal scarring. Bilateral thyroid nodules, greater on the left measuring 9 millimeters. IMPRESSION: 1. No evidence of cervical spine fracture. Diffuse degenerative changes as detailed level by level above. 2. Bilateral thyroid nodules, largest measuring 9 millimeters. Follow-up outpatient thyroid ultrasound is suggested for further characterization. Please note that all CT scans at this facility use dose modulation, iterative reconstruction, and/or weight-based dosing when appropriate to reduce radiation dose to as low as reasonably achievable. Dictated by Hira Marion MD @ 10/13/2024 11:56:15 AM (Electronically Signed)
--- NOTE | 2024-10-13 10:12 | ED_ITS ---
HPI - Fall General Chief Complaint: Fall/Minor Trauma Stated Complaint: confused, multiple falls Time Seen by Provider: 10/13/24 10:05 History of Present Illness HPI Narrative: Patient is a 69-year-old woman with metastatic breast cancer who presents with mental status changes with disorientation at home as well as occasional hallucinations of people a visiting her that cannot be seen. She fell recently at home stumbling over the carpet hitting the back of her head. This is approxi mately 2-3 days ago. She had no loss of consciousness and got up on her own. She lives independently but is accompanied by her abjyltft-xo-[id number]. She describes no cough no sputum production no fevers no chills no dysuria no abdominal pain. She has a small skin tear well-approximated on the left posterior forearm from recent fall. Family is concerned that she has been falling and hallucinating and want to make sure that she is also not injured. Related Data Home Medications ?Medication ?Instructions ?Recorded ?Confirmed blood-glucose meter (Accu-Chek #1 ea 07/21/22 09/07/24 Guide Me Glucose Meter) lancets (Accu-Chek Softclix #100 ea 07/21/22 09/07/24 Lancets) acetaminophen 500 mg tablet 2,000 mg PO QID PRN 08/16/24 10/03/24 (Tylenol Extra Strength) gabapentin 100 mg capsule 100 mg PO BID PRN 08/16/24 10/03/24 gabapentin 600 mg tablet 600 mg PO QHS PRN 08/16/24 10/03/24 ibuprofen 200 mg tablet (Advil) 200 mg PO Q6H PRN 08/16/24 10/03/24 multivitamin 1 tab PO QAM 08/16/24 10/03/24 bupropion HCl 300 mg 24 hr tablet, 300 mg PO DAILY 09/07/24 10/03/24 extended release buspirone 15 mg tablet 15 mg PO BID 09/07/24 10/03/24 calcium 600 mg (as 1 tab PO BID 09/07/24 10/03/24 carbonate)-vitamin D3 10 mcg (400 unit) tablet ondansetron HCl 4 mg tablet 4 mg PO Q8H PRN 10/03/24 Previous Rx's ?Medication ?Instructions ?Recorded blood sugar diagnostic (Accu-Chek #100 ea 12/16/22 Guide test strips) blood-glucose meter,continuous #1 ea 05/05/23 (Dexcom G7 Java Engineer) aripiprazole 5 mg tablet 5 mg PO QHS #90 tabs 09/07/23 blood-glucose sensor (Dexcom G7 #9 ea 09/07/23 Sensor device) empagliflozin 10 mg tablet 10 mg PO DAILY #90 tabs 01/11/24 (Jardiance) semaglutide 1 mg/dose (4 mg/3 mL) 1 mg (0.75 mL) subcut QWEEK #3 mL 01/11/24 subcutaneous pen injector (Ozempic) diclofenac sodium 1 % topical gel 4 g topical QID #100 grams 04/14/24 (Arthritis Pain (diclofenac)) cholecalciferol (vitamin D3) 50 50 mcg PO QDAY #90 caps 07/10/24 mcg (2,000 unit) capsule loratadine 10 mg tablet 10 mg PO QDAY #90 tabs 07/10/24 trazodone 100 mg tablet 100 - 200 mg (1 - 2 x 100 mg) PO 08/10/24 QHS PRN insomnia #180 tabs lorazepam 1 mg tablet 0.5 - 1 mg (0.5 - 1 x 1 mg) PO BID 08/18/24 PRN sleep #30 tabs prochlorperazine maleate 5 mg 5 mg PO Q8-12H PRN nausea and 08/29/24 tablet (Compazine) vomiting #60 tabs duloxetine 30 mg capsule,delayed 30 mg PO BID #60 caps 09/01/24 release (Cymbalta) hydrocodone 5 mg-acetaminophen 300 1 tab PO Q8H PRN pain #30 tabs 09/14/24 mg tablet hydrocodone 5 mg-acetaminophen 300 1 tab PO Q6H PRN pain #100 tabs 10/03/24 mg tablet metformin 500 mg tablet,extended 2,000 mg (4 x 500 mg) PO QDAY #360 10/05/24 release 24 hr tabs morphine 15 mg tablet,extended 15 mg PO Q12H #60 tabs 10/05/24 release simvastatin 40 mg tablet 40 mg PO QHS #90 tabs 10/10/24 morphine 10 mg capsule,extended 10 mg PO Q12H #60 caps 10/11/24 release pellets Allergies Allergy/AdvReac Type Severity Reaction Status Date / Time venlafaxine AdvReac Intermediate Insomnia Verified 10/13/24 09:47 Review of Systems Status of ROS: Reports: 10 or more systems reviewed and unremarkable except as noted in History and below [facility] Medical History Pre-op exam ?Z01.818 - Encounter for other preprocedural examination (ICD-10) Breast cancer in female ?C50.919 - Malignant neoplasm of unspecified site of unspecified female breast (ICD-10) Mass of soft tissue of chest ?M79.89 - Other specified soft tissue disorders (ICD-10) Microalbuminuria ?R80.9 - Proteinuria, unspecified (ICD-10) Dementia ?F03.90 - Unspecified dementia, unspecified severity, without behavioral disturbance, psychotic disturbance, mood disturbance, and anxiety (ICD-10) Hypocalcemia ?E83.51 - Hypocalcemia (ICD-10) Cognitive impairment ?R41.89 - Other symptoms and signs involving cognitive functions and awareness (ICD-10) Action tremor ?G25.2 - Other specified forms of tremor (ICD-10) Normal cardiac stress test 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) Normal echocardiogram Neuropathy ?G62.9 - Polyneuropathy, unspecified (ICD-10) Diabetes mellitus type 2 in obese ?E11.69 - Type 2 diabetes mellitus with other specified complication (ICD-10) ?E66.9 - Obesity, unspecified (ICD-10) COPD (chronic obstructive pulmonary disease) ?J44.9 - Chronic obstructive pulmonary disease, unspecified (ICD-10) Abnormal brain MRI ?R90.89 - Other abnormal findings on diagnostic imaging of central nervous system (ICD-10) JAQUELINE II (vulvar intraepithelial neoplasia II) ?N90.1 - Moderate vulvar dysplasia (ICD-10) Elevated TSH ?R79.89 - Other specified abnormal findings of blood chemistry (ICD-10) Ataxia ?R27.0 - Ataxia, unspecified (ICD-10) Gait disturbance ?R26.9 - Unspecified abnormalities of gait and mobility (ICD-10) Smoking greater than 30 pack years ?F17.210 - Nicotine dependence, cigarettes, uncomplicated (ICD-10) Pharyngitis, acute ?J02.9 - Acute pharyngitis, unspecified (ICD-10) Tobacco use (06/10/10) ?Z72.0 - Tobacco use (ICD-10) Obesity (06/10/10) ?E66.9 - Obesity, unspecified (ICD-10) Surgical History Status post repair of anterior cruciate ligament (1989) ?Z98.890 - Other specified postprocedural states (ICD-10) History of tubal ligation (06/10/10) ?Z98.51 - Tubal ligation status (ICD-10) History of surgical removal of skin lesion ?Z98.890 - Other specified postprocedural states (ICD-10) ?Z87.2 - Personal history of diseases of the skin and subcutaneous tissue (ICD-10) History of mastectomy (08/25/12) ?Z90.10 - Acquired absence of unspecified breast and nipple (ICD-10) History of lymph node biopsy (08/25/12) ?Z98.890 - Other specified postprocedural states (ICD-10) History of colonoscopy ?Z98.890 - Other specified postprocedural states (ICD-10) History of cholecystectomy (06/10/10) ?Z90.49 - Acquired absence of other specified parts of digestive tract (ICD- 10) History of cataract removal with insertion of prosthetic lens ?Z98.49 - Cataract extraction status, unspecified eye (ICD-10) ?Z96.1 - Presence of intraocular lens (ICD-10) History of carpal tunnel release (06/10/10) ?Z98.890 - Other specified postprocedural states (ICD-10) Family History Mother Alcohol dependence Colon cancer Father Alcohol dependence Stroke Diabetes Coronary artery disease Family/Other No problems noted. Brother Pancreatic cancer Sister Dementia Social History Narrative: former cigarette smoker-quit 2022, ; no alcohol use. Smoking Status: Former smoker What tobacco products do you use: cigarettes Smoking quit date/years: <= 15 years ago Do you use any of these nicotine containing products: None Second hand tobacco smoke exposure: No How often do you have a drink containing alcohol: monthly or less AUDIT-C Alcohol total score: 1 Non-prescribed substance use: denies use Caffeine: Yes Exam Narrative: Exam Narrative: EXAM GENERAL: Patient appears comfortable and well. EYES: No scleral icterus. LYMPH: No supraclavicular or cervical lymphadenopathy. SKIN: Skin tear as mentioned above posterior aspect of the left arm. EXT: No dependent lower extremity pedal edema. HEART: Regular rate and rhythm with no murmurs, rubs, or gallops. LUNGS: Clear to auscultation bilaterally with no crackles or wheezes. ABD: Soft, non tender, non distended. PSYCH: Good eye contact, speech is not pressured. Patient is oriented with the exception of the month. Const: Vital Signs, click to edit/add: Vital Signs - 24 hr 10/13/24 09:47 10/13/24 10:36 10/13/24 11:40 Temperature 97.8 F Pulse Rate 68 Pulse Rate [Pulse Oximeter] 80 Pulse Rate [orthos tatic lying Left] 77 Pulse Rate [orthos tatic sitting Left ] 85 Pulse Rate [orthos tatic standing Lef t] 90 Respiratory Rate 18 Blood Pressure Blood Pressure [Ri ght Upper Arm] 107/67 Blood Pressure [or thostatic lying Le ft Arm] 104/67 Blood Pressure [or thostatic sitting Left Arm] 92/60 Blood Pressure [or thostatic standing Left Arm] 73/44 L Pulse Oximetry 98 100 Oxygen Delivery Me thod Room Air 10/13/24 12:00 10/13/24 12:01 10/13/24 12:02 Temperature Pulse Rate 68 68 Pulse Rate [Pulse Oximeter] Pulse Rate [orthos tatic lying Left] Pulse Rate [orthos tatic sitting Left ] Pulse Rate [orthos tatic standing Lef t] Respiratory Rate Blood Pressure 114/68 117/65 Blood Pressure [Ri ght Upper Arm] Blood Pressure [or thostatic lying Le ft Arm] Blood Pressure [or thostatic sitting Left Arm] Blood Pressure [or thostatic standing Left Arm] Pulse Oximetry 96 97 Oxygen Delivery Me thod 10/13/24 12:31 10/13/24 12:38 10/13/24 12:40 Temperature Pulse Rate Pulse Rate [Pulse Oximeter] Pulse Rate [orthos tatic lying Left] Pulse Rate [orthos tatic sitting Left ] Pulse Rate [orthos tatic standing Lef t] Respiratory Rate Blood Pressure 119/73 126/71 96/70 Blood Pressure [Ri ght Upper Arm] Blood Pressure [or thostatic lying Le ft Arm] Blood Pressure [or thostatic sitting Left Arm] Blood Pressure [or thostatic standing Left Arm] Pulse Oximetry Oxygen Delivery Me thod 10/13/24 12:41 10/13/24 12:43 10/13/24 12:50 Temperature Pulse Rate 146 H Pulse Rate [Pulse Oximeter] Pulse Rate [orthos tatic lying Left] 68 Pulse Rate [orthos tatic sitting Left ] 74 Pulse Rate [orthos tatic standing Lef t] 76 Respiratory Rate Blood Pressure 90/68 Blood Pressure [Ri ght Upper Arm] Blood Pressure [or thostatic lying Le ft Arm] 126/71 Blood Pressure [or thostatic sitting Left Arm] 96/70 Blood Pressure [or thostatic standing Left Arm] 90/68 Pulse Oximetry 81 L Oxygen Delivery Me thod 10/13/24 13:00 10/13/24 13:01 10/13/24 13:32 Temperature Pulse Rate 68 67 Pulse Rate [Pulse Oximeter] Pulse Rate [orthos tatic lying Left] Pulse Rate [orthos tatic sitting Left ] Pulse Rate [orthos tatic standing Lef t] Respiratory Rate Blood Pressure 119/84 126/68 Blood Pressure [Ri ght Upper Arm] Blood Pressure [or thostatic lying Le ft Arm] Blood Pressure [or thostatic sitting Left Arm] Blood Pressure [or thostatic standing Left Arm] Pulse Oximetry 96 97 Oxygen Delivery Me thod 10/13/24 13:42 Temperature Pulse Rate 69 Pulse Rate [Pulse Oximeter] Pulse Rate [orthos tatic lying Left] Pulse Rate [orthos tatic sitting Left ] Pulse Rate [orthos tatic standing Lef t] Respiratory Rate Blood Pressure Blood Pressure [Ri ght Upper Arm] Blood Pressure [or thostatic lying Le ft Arm] Blood Pressure [or thostatic sitting Left Arm] Blood Pressure [or thostatic standing Left Arm] Pulse Oximetry 99 Oxygen Delivery Wv thod Course Course ED Course: Patient seen and examined. Primary and secondary surveys are largely unremarkable. GCS is 15. I did proceed with CT head and neck CBC comprehensive metabolic panel UA. Will check set of orthostatic vital signs as well. Reevaluation(s) Reevaluation #1: Patient hypotensive and orthostatic. 1 L of normal saline given. Vital Signs Vital signs: Initial Vital Signs Temperature 97.8 F 10/13/24 09:47 Temperature Source Temporal Artery Scan 10/13/24 09:47 Pulse Rate 80 10/13/24 09:47 Respiratory Rate 18 10/13/24 09:47 Blood Pressure 107/67 10/13/24 09:47 Blood Pressure Mean 80 10/13/24 09:47 Blood Pressure Position Sitting 10/13/24 09:47 Pulse Oximetry 98 10/13/24 09:47 Oxygen Delivery Method Room Air 10/13/24 09:47 Vital Signs Temperature 97.8 F 10/13/24 09:47 Pulse Rate 80 10/13/24 09:47 Respiratory Rate 18 10/13/24 09:47 Blood Pressure 107/67 10/13/24 09:47 Pulse Oximetry 98 10/13/24 09:47 Oxygen Delivery Method Room Air 10/13/24 09:47 Temperature 97.8 F 10/13/24 09:47 Pulse Rate 69 10/13/24 13:42 Respiratory Rate 18 10/13/24 09:47 Blood Pressure 126/68 10/13/24 13:32 Pulse Oximetry 99 10/13/24 13:42 Oxygen Delivery Method Room Air 10/13/24 09:47 Medications Administered Medications: Discontinued Medications Generic Name Dose Route Start Last Admin Trade Name Freq PRN Reason Stop Dose Admin Sodium Chloride 1,000 mls @ 1,000 mls/hr 10/13/24 10:38 10/13/24 12:41 0.9 % Sodium Chloride 1000 Ml IV 10/13/24 11:37 Infused .Q1H LIBERTY Infusion Sodium Chloride 1,000 mls @ 1,000 mls/hr 10/13/24 12:45 10/13/24 12:45 0.9 % Sodium Chloride 1000 Ml IV 10/13/24 13:44 1,000 mls/hr .Q1H LIBERTY Administration MDM - Fall MDM Narrative Medical decision making narrative: Patient presents with recent falls is found to be hypotensive. She improved with hydration. Her labs look reasonable. She has no signs of UTI her COVID testing and influenza testing were negative. She had negative CT of the head neck and does well ambulating after her hydration. She does have metastatic breast cancer and has been having some delirium and mental status changes. He seems oriented in the emergency room and her whvmteap-[id number] is with her. Her vaoovlvy-cd-ews would like her admitted to the hospital of her thumb with only have any reason for admission. She is on a host of medications may which give mental status changes. This time I did stop her Ozempic. I a encouraged close outpatient follow-up with her primary physician to further adjust her meds her family will stay with her encourage hydration and good oral intake. Lab Data Labs: Lab Results 10/13/24 10/13/24 10/13/24 Range/Units 11:30 11:35 Unknown WBC 2.67 L (4.50-11.00) K/uL RBC 4.15 (4.00-5.20) m/uL Hgb 12.2 (12.0-16.0) gm/dL Hct 36.3 (33.0-51.0) % MCV 88 (80-100) fL MCH 29 (26-34) pg MCHC 34 (32-36) gm/dL RDW Coeff of Miguel 12.5 (11.5-15.5) % Plt Count 187 (140-440) K/uL Neut % (Auto) 52.7 (42.0-72.0) % Lymph % (Auto) 34.5 (20-44) % Harris % (Auto) 12.0 H (0.0-11.0) % Eos % (Auto) 0.0 (0.0-7.0) % Baso % (Auto) 0.4 (0.0-3.0) % Neut # (Auto) 1.40 L (1.7-7.0) K/uL Lymph # (Auto) 0.90 (0.90-2.90) K/uL Harris # (Auto) 0.30 (0.00-0.90) K/UL Eos # (Auto) 0.00 (0.00-0.50) K/uL Baso # (Auto) 0.00 (0.00-0.30) K/uL Abs Immat Gran (auto) 0.00 (0.00-0.30) K/uL Imm/Tot Granulo (auto) 0.4 % Sodium 135 (135-149) mmol/L Potassium 3.3 L (3.6-5.1) mmol/L Chloride 97 (96-114) mmol/L Carbon Dioxide 32 (20-32) mmol/L Anion Gap 6 L (7-15) mEq/L BUN 22 (7-30) mg/dL Creatinine 1.0 (0.5-1.5) mg/dL Estimated Creat Clear 44.56 Estimated GFR 60 ml/min Glucose 101 (60-115) mg/dL Calcium 9.1 (8.4-10.6) mg/dL Total Bilirubin 0.3 (0.1-1.5) mg/dL AST 31 (12-35) U/L ALT 22 (4-35) U/L Alkaline Phosphatase 115 (40-150) U/L Total Protein 6.6 (6.0-8.3) g/dL Albumin 3.9 (3.3-5.0) g/dL Urine Color Yellow (Yellow) Urine Appearance Clear (Clear) Urine pH 6.0 (5.0-8.5) Ur Specific Nikolai 1.025 (1.000-1.030) Urine Protein 1+ A (Negative) Urine Glucose (UA) 3+ A (Negative) Urine Ketones Trace A (Negative) Urine Blood Negative (Negative) Urine Nitrite Negative (Negative) Urine Bilirubin Negative (Negative) Urine Urobilinogen 0.2 (0.2-1.0) Ur Leukocyte Esterase Negative (Negative) Urine RBC 0-2 (0-2) Urine WBC 0-2 (0-5) Ur Squamous Epith Cells Few (None-Few) Urine Bacteria None (None) SARS-CoV-2 (PCR) Negative SARS-CoV-2 (Negative) Influenza Type A (PCR) Negative PCR FLU A (Negative) Influenza Type B (PCR) Negative PCR FLU B (Negative) RSV (PCR) Negative PCR RSV (Negative) Discharge Plan Discharge Clinical Impression: Dehydration Patient Disposition: Home, Self-Care Condition: Stable Instructions: Dehydration (ED) Additional Instructions: Discontinue Ozempic Follow-up closely with your doctor to discuss discontinuation of a number of her medications. Continue oncology follow-up. Activity Level: No Restrictions Discharge Diet: Regular Prescriptions: No Action (DME) Dexcom G7 Sensor Device See Rx Instructions .ROUTE .COMPLEX Qty: 9 3RF Dose Instruction: DIRECTED Rx Instructions: DIRECTED aripiprazole 5 mg tablet 5 mg PO QHS Qty: 90 3RF loratadine 10 mg tablet 10 mg PO QDAY Qty: 90 3RF cholecalciferol (vitamin D3) 50 mcg (2,000 unit) capsule 50 mcg PO QDAY Qty: 90 3RF calcium carbonate-vitamin D3 600 mg-10 mcg (400 unit) tablet 1 tab PO BID bupropion HCl 300 mg tablet extended release 24 hr 300 mg PO DAILY buspirone 15 mg tablet 15 mg PO BID gabapentin 100 mg capsule 100 mg PO BID PRN Rx Instructions: take 100 mg cap bid and the 600 mg tablet qhs, may take an additional 100-200 mg BID PRN gabapentin 600 mg tablet 600 mg PO QHS PRN acetaminophen [Tylenol Extra Strength] 500 mg tablet 2,000 mg PO QID PRN ibuprofen [Advil] 200 mg tablet 200 mg PO Q6H PRN multivitamin Tablet 1 tab PO QAM (DME) blood-glucose meter [Accu-Chek Guide Me Glucose Mtr] Misc See Rx Instructions .ROUTE .MEDSUPPLY Qty: 1 Patient Comments: USE TO TEST BLOOD SUGAR DAILY Rx Instructions: As directed (DME) lancets [Accu-Chek Softclix Lancets] Misc See Rx Instructions .ROUTE .MEDSUPPLY Qty: 100 Patient Comments: USE TO TEST BLOOD SUGAR DAILY Rx Instructions: As directed (DME) Dexcom G7 Java Engineer Misc See Rx Instructions .Route Qty: 1 0RF Rx Instructions: As directed Jardiance 10 mg tablet 10 mg PO DAILY Qty: 90 1RF Ozempic 1 mg/dose (4 mg/3 mL) pen injector 1 mg subcut QWEEK Qty: 3 5RF diclofenac sodium [Arthritis Pain (diclofenac)] 1 % gel 4 g topical QID Qty: 100 1RF Rx Instructions: apply to single knee, ankle, foot; for foot includes sole/toes/top of foot lorazepam 1 mg tablet 0.5 - 1 mg PO BID PRN (Reason: sleep) Qty: 30 0RF prochlorperazine maleate [Compazine] 5 mg tablet 5 mg PO Q8-12H PRN (Reason: nausea and vomiting) Qty: 60 1RF ondansetron HCl 4 mg tablet 4 mg PO Q8H PRN hydrocodone-acetaminophen 5-300 mg tablet 1 tab PO Q6H PRN (Reason: pain) Qty: 100 0RF (DME) Accu-Chek Guide test strips Strip See Rx Instructions .ROUTE .MEDSUPPLY Qty: 100 5RF Rx Instructions: test once daily. trazodone 100 mg tablet 100 - 200 mg PO QHS PRN (Reason: insomnia) Qty: 180 3RF duloxetine [Cymbalta] 30 mg capsule,delayed release(DR/EC) 30 mg PO BID Qty: 60 2RF hydrocodone-acetaminophen 5-300 mg tablet 1 tab PO Q8H PRN (Reason: pain) Qty: 30 0RF metformin 500 mg tablet extended release 24 hr 2,000 mg PO QDAY Qty: 360 0RF morphine 15 mg tablet extended release 15 mg PO Q12H Qty: 60 0RF simvastatin 40 mg tablet 40 mg PO QHS Qty: 90 2RF morphine 10 mg capsule,extend.release pellets 10 mg PO Q12H Qty: 60 0RF Follow Up/Referrals: Augusto Scott MD [Primary Care Provider] - Stand Alone Forms: [facility] Info Instructions
--- OUTSIDE RECORDS SUMMARY | 2024-10-13 10:28 | XMS_ITS | Clinical Summary ---
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 05/26/2019 Diabetes 06/30/2013 Encounters Date Type Department Care Team Description 08/23/2024 9:22 AM EMAIL MARKETING PROCESSOR - 08/23/2024 11:59 PM EMAIL MARKETING PROCESSOR Hospital Encounter [facility] [address] [place] [address] Augusto Scott MD Liver nodule 08/23/2024 Travel 08/22/2024 9:00 AM EMAIL MARKETING PROCESSOR Telemedicine [facility] [address] [place] [address] Nicole Dugan MS, CGC Counseling (Genetic counseling/ ) 08/21/2024 8:21 AM EMAIL MARKETING PROCESSOR - 08/21/2024 11:59 PM EMAIL MARKETING PROCESSOR Hospital Encounter [facility] [address] [place] [address] Claudette Arreguin MD Malignant neoplasm of midline of breast, left (HC) 08/21/2024 Travel 08/18/2024 Telephone [facility] [address] [place] [address] Bety Rubio Cancer Cancer Genetics 08/18/2024 Lab Requisition [facility] [phone] Claudette Arreguin MD 08/17/2024 Transcribe Orders [facility] [address] [place] [address] Claudette Arreguin MD 07/28/2024 Lab Requisition [facility] [phone] Unknown, Doctor from Last 3 Months Social History Tobacco Use Types Packs/Day Years Used Date Smoking Tobacco: Former Comments:10 years ago Alcohol Use Standard Drinks/Week Comments Not Asked 0 (1 standard drink = 0.6 oz pur e alcohol) Comments No Sex and Gender Information Value Date Recorded Sex Assigned at Not on file Legal Sex Female 8:42 AM EMAIL MARKETING PROCESSOR Gender Identity Not on file Sexual Orientation Not on file Obstetrics History Last Filed Vital Signs Vital Sign Reading Time Taken Comments Blood Pressure 115/68 08/23/2024 1:15 PM EMAIL MARKETING PROCESSOR Pulse 73 08/23/2024 1:15 PM EMAIL MARKETING PROCESSOR Temperature 36.6 C (97.8 F) 08/23/2024 9:53 AM EMAIL MARKETING PROCESSOR Respiratory Rate 16 08/23/2024 1:15 PM EMAIL MARKETING PROCESSOR Oxygen Saturation 97% 08/23/2024 1:15 PM EMAIL MARKETING PROCESSOR Inhaled Oxygen Concentration - - Weight 65.8 kg (145 lb) 08/23/2024 9:53 AM EMAIL MARKETING PROCESSOR Height 165.1 cm (5' 5) 08/23/2024 9:53 AM EMAIL MARKETING PROCESSOR Body Mass Index 24.13 08/23/2024 9:53 AM EMAIL MARKETING PROCESSOR Plan of Treatment Health Maintenance Due Date [...] CYTOLOGY ASP CYTOLOGY Today 08/23/2024 11:24 AM EMAIL MARKETING PROCESSOR MSO AP SEND-OUT Routine 08/23/2024 11:24 AM EMAIL MARKETING PROCESSOR CT BIOPSY LIVER Routine 08/23/2024 11:23 AM EMAIL MARKETING PROCESSOR Liver nodule HEMOGLOBIN STAT 08/23/2024 9:27 AM EMAIL MARKETING PROCESSOR PLATELET COUNT STAT 08/23/2024 9:27 AM EMAIL MARKETING PROCESSOR PROTIME-INR STAT 08/23/2024 9:27 AM EMAIL MARKETING PROCESSOR PET CT SKULL BASE TO MID THIGH INITIAL TREAT TONY 08/21/2024 9:35 AM EMAIL MARKETING PROCESSOR Malignant neoplasm of midline of breast, left (HC) GLUCOSE METER Routine 08/21/2024 8:29 AM EMAIL MARKETING PROCESSOR PATH-MISC/ANCILLARY TEST Routine 08/18/2024 11:29 AM EMAIL MARKETING PROCESSOR LAB TRACKING EVENT Routine 08/18/2024 11 :28 AM EMAIL MARKETING PROCESSOR LAB TRACKING EVENT Routine 07/28/2024 11 :40 AM CDT PATH TISSUE EXAM Routine 07/28/2024 11:4 0 AM CDT CG HER2 BREAST Routine 07/28/2024 11:40 AM CDT CYTOGENETICS MALIGNANT TISSUE Routine 07/28/2024 11:40 AM CDT from Last 3 Months Results * MSO AP SEND-OUT (08/23/2024 11:24 AM EMAIL MARKETING PROCESSOR) Aspirate SPECIMEN FROM LIVER / Unknown 08/23/2024 11:24 AM EMAIL MARKETING PROCESSOR 09/01/2024 12:30 PM EMAIL MARKETING PROCESSOR us Yessy Viramontes MD LABORATORY Final Resu lt [facility] [address] [place] [address], * PATH FNA CYTOLOGY ASP CYTOLOGY (08/23/2024 11:24 AM EMAIL MARKETING PROCESSOR) Case Report Medical Cytology Report Case: [id number] Authorizing Provider: Yessy Viramontes MD Collected: 08/23/2024 [facility] Ordering Location: [facility] Received: 08/23/[address] [place] [address] Medical Imaging Pathologist: Gisel Mejia MD Specimen: Liver, left lobe liver lesion 09/11/2024 2:06 PM EMAIL MARKETING PROCESSOR [facility]-C ENTRAL LABORATORY Amendment 08/28/2024 - Amendment issued to incorporate ancillary studies. 09/01/2024 At the request of the treating physician , this signed out case was retrieved from the [facility] pathology archives and reviewed by a pathologist, Dr. Bush, to select and prepare archival block(s) for submission to [facility] for molecular analysis. 09/11/2024 - Per Dr Kallie, tissue was submitted to [facility] for [employer] CDx testing, please see attached scanned report for results. 09/11/2024 2:06 PM EMAIL MARKETING PROCESSOR [employer]C ENTRMN LABORATORY Final Diagnosis LIVER, LEFT LOBE, LESION, [...] (1+ by manual morphometry) 09/11/2024 2:06 PM EMAIL MARKETING PROCESSOR [employer] ENTRAL LABORATORY Amendment electronically signed by Gisel Mejia MD on 09/11/2024 at 2:05 PM Amendment electronically signed by Omayra Bush MD on 09/01/2024 at 3:22 PM Amendment electronically signed by Zaria Kinney MD on 08/28/2024 at 2:34 PM Comment The histomorphology in conjunction with direct comparison to the patient's prior biopsy ([id number]) is consistent with a metastatic lesion from the patient's known breast primary. This case was seen in consultation with Dr. Goss. Neoplastic tissue is available for ancillary studies, to request please contact the [facility] ([phone]). Neoplastic tissue available for ancillary studies: [facility] NGS testing: - FFPE tissue blocks: A2 [...] confirmation of ER status. 09/11/2024 2:06 PM [facility] [employer] ENTRAL LABORATORY Clinical Information 69-year-old female with a history of left breast cancer. She recently presented with a left anterior chest wall mass, approximately 6 cm. Biopsy of the chest mass showed: SOFT TISSUE MASS, LEFT CHEST WALL, CORE BIOPSY ([id number]; 07/28/24): 1. Poorly differentiated adenocarcinoma, compatible with breast primary 2. Breast Ancillary Testing: a. Hormone Receptors: Estrogen receptor: Negative Progesterone receptor: Negative b. HER2 by IHC: Equivocal (2+ by manual morphometry) HER2 by FISH: Negative HER2/CEP17 ratio: 1.46 HER2 signals/cell: 3.47 CEP17 signals/cell: 2.38 1. Ancillary testing (performed as [id number]): a. Breast PD-L1 Combined Positive Score (CPS): 1 (No expression, CPS less than 10) 09/11/2024 2:06 PM [facility] Gross Description Received identified as [...] more than 72 hours. 09/11/2024 2:06 PM [facility] Adequacy Assessment G.N. assessed adequacy from the air-dried smears at the time of the procedure with an impression of Adequate. 09/11/2024 2:06 PM [facility] Microscopic Description Specimen adequacy: Adequate for interpretation. All slides were reviewed. The microscopic appearance substantiates the diagnosis. 09/11/2024 2:06 PM [facility] SY[employer] REPORTING Breast Biomarker Reporting Template BREAST [...] by Image Analysis: PgR 09/11/2024 2:06 PM EMAIL MARKETING PROCESSOR [facility] [employer] LABORATORY-C ENTRAL LABORATORY Additional Information Cytology is screened at [facility], Central Laboratory - [address] [place] [address] and [facility] - [address] [place] [address] and [facility] - [address] [place] [address] Interpreted at [facility], Central Laboratory - [address], [place] [address] Immunohistochemist ry controls were reviewed and approved [...] result in eligibility currently). 09/11/2024 2:06 PM EMAIL MARKETING PROCESSOR [facility] LAB[facility]-C ENTRAL LABORATORY Aspirate SPECIMEN FROM LIVER / Unknown 08/23/2024 11:24 AM EMAIL MARKETING PROCESSOR 08/23/2024 11:24 AM EMAIL MARKETING PROCESSOR us Yessy Viramontes MD PATHOLOGY/CYTOLOGY Edited Result - Final [facility] LABORATORY [address] [place] [address], [place] * CT BIOPSY LIVER (08/23/2024 11:23 AM EMAIL MARKETING PROCESSOR) Anatomical Region Laterality Modality LIVER Computed Tomogra phy, Other, Other, Other Narrative 08/23/2024 11:28 AM EMAIL MARKETING PROCESSOR RADIOLOGY POST PROCEDURE NOTE 08/23/2024 Halle Mayers [id number] INFORMEDCONSENT: In my discussion, prior to [...] Please call with questions. Yessy Viramontes MD [place] Protocol A. Pre-procedure verification complete yes 1-relevant [...] Result * Platelet Count (08/23/2024 9:27 AM EMAIL MARKETING PROCESSOR) PLATELET COUNT 235 140 - 440 thou/cu mm 08/23/2024 9:38 AM EMAIL MARKETING PROCESSOR [facility] MPV 9.3 6.5 - 11.0 fL 08/23/2024 9:38 AM EMAIL MARKETING PROCESSOR [facility] Blood BLOOD SPECIMEN / Unknown Venipuncture / Unknown 08/23/2024 9:27 AM EMAIL MARKETING PROCESSOR 08/23/2024 9:32 AM EMAIL MARKETING PROCESSOR us Yessy Viramontes MD HEMATOLOGY Final Resu lt [facility] [address] [place] [address], * Hemoglobin (08/23/2024 9:27 AM EMAIL MARKETING PROCESSOR) HEMOGLOBIN 14.2 12.0 - 16.0 g/dL 08/23/2024 9:38 AM EMAIL MARKETING PROCESSOR [facility] MCV 92 80 - 100 fL 08/23/2024 9:38 AM EMAIL MARKETING PROCESSOR [facility] Blood BLOOD SPECIMEN / Unknown Venipuncture / Unknown 08/23/2024 9:27 AM EMAIL MARKETING PROCESSOR 08/23/2024 9:32 AM EMAIL MARKETING PROCESSOR Yessy Viramontes MD HEMATOLOGY Final Resu lt Performing Organization Address City/[facility]/ZIP Co de Phone Number [facility] [address] [place] [address], [place] * Protime-INR (08/23/2024 9:27 AM EMAIL MARKETING PROCESSOR) INR 1.0 <1.3 08/23/2024 9:42 AM EMAIL MARKETING PROCESSOR [facility] PROTIME 12.0 10.6 - 12.4 sec 08/23/2024 9:42 AM EMAIL MARKETING PROCESSOR [facility] Blood BLOOD SPECIMEN / Unknown Venipuncture / Unknown 08/23/2024 9:27 AM EMAIL MARKETING PROCESSOR 08/23/2024 9:32 AM EMAIL MARKETING PROCESSOR Narrative [facility] - 08/23/2024 9:42 AM EMAIL MARKETING PROCESSOR Therapeutic Range 2.0-3.0 for most anticoagulated patients [...] HEMATOLOGY Final Resu lt Performing Organization Address City/[facility]/ZIP Co de Phone Number [facility] [address] [place] [address], [place] * PET CT SKULL BASE TO MID THIGH INITIAL TREAT (08/21/2024 9:35 AM EMAIL MARKETING PROCESSOR) Anatomical Region Laterality Modality Positron Emissio n Tomography (PET) 08/21/2024 10:2 5 AM EMAIL MARKETING PROCESSOR Impressions 08/21/2024 10:25 AM EMAIL MARKETING PROCESSOR 1. Intensely FDG avid left upper outer breast cancer, with evidence of invasion into the left pectoralis major and left pectoralis minor. 2. Multifocal FDG avid intrathoracic bobby metastases, hepatic, and osseous metastases. Dictated by Louis Amaya MD @ 08/21/2024 10:25:07 AM (Electronically Signed) Narrative 08/21/2024 10:25 AM EMAIL MARKETING PROCESSOR For Patients: As a result of the [...] the skull base through the mid thigh. Mfx-vughefnzgnw-rtmt helical CT imaging was performed over the [...] * (ABNORMAL) GLUCOSE METER (08/21/2024 8:29 AM EMAIL MARKETING PROCESSOR) GLUCOSE METER 132(H) 65 - 100 mg/dL 08/21/2024 8:35 AM EMAIL MARKETING PROCESSOR [facility] Blood BLOOD SPECIMEN / Unknown 08/21/2024 8:29 AM EMAIL MARKETING PROCESSOR 08/21/2024 8:35 AM EMAIL MARKETING PROCESSOR Claudette Arreguin MD CHEMISTRY Final Result [facility] [address] [place] [address], * PATH-MISC/ANCILLARY TEST (08/18/2024 11:29 AM EMAIL MARKETING PROCESSOR) Case Report Surgical Pathology Report Case: [id number] Authorizing Provider: Claudette Arreguin MD Collected: 08/18/2024 112 Ordering Location: [facility] Received: 08/18/2024 1129 Pathologist: Alva Goss MD Specimen: Chest Wall, [facility] [id number] 4 1:53 PM EMAIL MARKETING PROCESSOR [facility] Results 1. Ancillary testing : a. Breast PD-L1 Combined Positive Score (CPS): 1 (No expression, CPS less than 10) 4 1:53 PM EMAIL MARKETING PROCESSOR [facility] Comment TEST PERFORMED: PD-L 1 [...] incubated with a PD-L1 rabbit monoclonal antibody ([employer] PD-L1 SP263 assay), performed on the [employer] BenchMark ULTRA instrument and visualized with OptiView [...] or equal to 10 (PD-L1 Expression) This [place] SP263 immunohistochemical antibody assay is a laboratory [...] specimens. References Nahed Oncol 2019. 30(suppl_3):1-26 https://doi.org/10.109 3/annonc/kxt401.009 J Clin Oncol 2020. 38(1):1000 DOI: 10.1200/JCO.2020.38.15 _suppl.1000 Disclaimer Support for the interpretation of this case may have included the use of immunohistochemistry and/or in situ hybridization tests that were performed by [facility] [employer] and whose performance characteristics were evaluated by [...] complexity clinical laboratory testing. 4 1:53 PM [facility] Clinical Information Breast cancer 4 1:53 PM EMAIL MARKETING PROCESSOR [facility]- [facility]AL LABORATORY Gross Description Received is one block labeled with the patient's name for PD-L1 testing. 1:53 PM EMAIL MARKETING PROCESSOR [facility] Microscopic Description The final diagnosis is based on microscopic examination of appropriate sections of all specimens. 1:53 PM EMAIL MARKETING PROCESSOR [facility] Additional Information Interpreted at [facility], Central Laboratory - [address], [place] [address] Immunohistochemistry controls were reviewed and approved by the pathologist during this examination. 1:53 PM EMAIL MARKETING PROCESSOR [facility] Other (Chest Wall) 08/18/2024 11:29 AM EMAIL MARKETING PROCESSOR 08/18/2024 11:29 AM EMAIL MARKETING PROCESSOR us Claudette Arreguin MD PATHOLOGY/CYTOLOGY Final Resul t Performing Organization Address [facility] Co de Phone Number [facility] [address] [place], [place] [id number], [place] * LAB TRACKING EVENT (08/18/2024 11:28 AM EMAIL MARKETING PROCESSOR) Only the most recent of2 resultswithin the time period is included. Other (Other) Client Collect / Unknown 08/18/2024 11:28 AM EMAIL MARKETING PROCESSOR 08/18/2024 11:28 AM EMAIL MARKETING PROCESSOR us Claudette Arreguin MD LAB BILL ONLY Final Result Performing Organization Address [facility] Co de Phone Number [facility] [address] [place] [address], [place] * CG HER2 BREAST (07/28/2024 11:40 AM CDT) Other (Chest Wall) 07/28/2024 11:40 AM CDT 08/02/2024 11:30 AM EMAIL MARKETING PROCESSOR us Doctor Unknown LABORATORY Final Result Performing Organization Address City/[facility]/ZIP Co de Phone Number [facility] [address] [place] [address], [place] * CYTOGENETICS MALIGNANT TISSUE STUDIES (07/28/2024 11:40 AM CDT) RFR Breast cancer 08/07/2024 4:01 PM [facility] TEST & RESULT SUMMARY HER2 FISH Breast: See pathology report [id number]. See comments. 08/07/2024 4:01 PM EMAIL MARKETING PROCESSOR [facility] _ 08/07/2024 4:01 PM EMAIL MARKETING PROCESSOR [facility] COMMENTS This record is used as an internal laboratory test designed for workflow purposes only. 08/07/2024 4:01 PM EMAIL MARKETING PROCESSOR [facility] SOURCE Chest Wall (Paraffin Slides A1 2 uns) [id number] 08/07/2024 4:01 PM EMAIL MARKETING PROCESSOR [facility] Other (Chest Wall) 07/28/2024 11:40 AM CDT 08/02/2024 11:30 AM EMAIL MARKETING PROCESSOR us Doctor Unknown LABORATORY Final Result [facility] [address] [place] [address], [place] * PATH TISSUE EXAM (07/28/2024 11:40 AM CDT) Case Report Pathology Report Case: [id number] Authorizing Provider: Unknown, Doctor Collected: 07/28/2024 1140 Ordering Location: [facility] Received: 07/29/2024 0534 Pathologist: Haven Birmingham MD Specimen: Chest Wall 4 5:13 PM [facility] Amendment 08/02/2024 - Amendmen t issued to incorporate ancillary studies. 08/07/2024 - Amendment issued to incorporate ancillary HER2 FISH studies. 4 5:13 PM [facility] Final Diagnosis SOFT TISSUE MASS, LEFT CHEST WALL, CORE BIOPSY: 1. Poorly differentiated adenocarcinoma, compatible with breast primary 2. Breast Ancillary Testing: a. Hormone Receptors: Estrogen receptor: Negative Progesterone receptor: Negative b. HER2 by IHC: Equivocal (2+ by manual morphometry) HER2 by FISH: Negative HER2/CEP17 ratio: 1.46 HER2 signals/cell: 3.47 CEP17 signals/cell: 2.38 4 5:13 PM [facility] Amendment electronically signed by Alva [...] confirmation of ER status. 4 5:13 PM [facility] Clinical Information The patient is a 69 y.o. female with a left anterior chest wall mass, approximately 6 cm. She has a history of left breast cancer 7 years ago. 4 5:13 PM [facility] Gross Description A) Received in formalin, labeled with the patient's name and anterior chest wall left, are 5 cylindrical grimes-white ranging from 1.4-1.7 cm in length and each measuring 0.2 cm in diameter. The specimen is submitted entirely, in toto in 1 cassette. [facility] 07/29/2024 5:13 PM [facility] Microscopic Description The final diagnosis is based on microscopic examination of appropriate sections of all specimens. Immunohistochemical staining is performed (block A1) with the following results: Stain: Result: Claudin-4 Positive SHANIQUE-3 Positive CK 7 Positive Support for the interpretation of this case may have included the use of immunohistochemistry and/or in situ hybridization tests that were performed by [facility] [employer] and whose performance characteristics were evaluated by [...] complexity clinical laboratory testing. 4 5:13 PM [facility] Cytogenetics Summary Cytogenetic testing has been ordered and will be reported separately. 4 5:13 PM [facility] SYNOPTIC REPORTING Breast Biomarker Reporting [...] developed and its performance characteristics determined by [employer]. This test incorporates minor modifications to protocol and validated by the [facility]ogenetics [facility] to yield equivocal or superior performance. This FISH test uses a multiplex probe stain procedure. 4 5:13 PM [facility] Additional Information Patients with breast [...] not result in eligibility currently). Interpreted at [facility], Central Laboratory - [address] [place] [address] [address], [place] [address] Immunohistochemistry controls were reviewed and approved by the pathologist during this examination. 5:13 PM EMAIL MARKETING PROCESSOR [facility] Other (Chest Wall) 07/28/2024 11:40 AM CDT 07/29/2024 5:34 AM CDT us Doctor Unknown PATHOLOGY/CYTOLOGY Edited Result - Final [facility] [address] [place] [address], [place] from Last 3 Months Insurance MEDICARE ADVANTAGE MR MEDICARE PART A HB ONLY MEDICARE ADVANTAGE MR JAC ARELLANO [id number] Care Teams Rural Carrier Relationship Specialty Start Date End Date Augusto Scott MD [address] [place] [address] PCP - General Family Practice 03/30/24
--- OUTSIDE RECORDS SUMMARY | 2024-10-13 10:29 | XMS_ITS | Encounter Summary ---
Author Organization [facility] Address [address] [place] [address] Care Team Providers Care Tacker Elastic Band Name Role Phone Irvin Mar Primary Care Provider [phone] Augusto Scott MD Primary Care Provider [phone] Encounter Details Date Type Department Care Team (Late st Contact Info) Description 11/14/2021 Orders Only [facility] Centralized Scheduling [address] [place] [address] Nolberto French MD [address] [place] [address] Social History Tobacco Use Types Packs/Day Years Used Date Smoking Tobacco: Every Day Cigarettes Smokeless Tobacco: Never Alcohol Use Standard Drinks/Week Comments Not Currently 0 (1 standard drink = 0.6 oz pur e alcohol) Comments No Sex and Gender Information Value Date Recorded Sex Assigned at Not on file Legal Sex Female 11:18 AM CIRCULAR STUFFER Gender Identity Not on file Sexual Orientation Not on file documented as of this encounter Plan of Treatment Not on file documented as of this encounter Visit Diagnoses Not on filedocumented in this encounter Care Teams Tacker Elastic Band Relationship Specialty Start Date End Date Irvin Mar [facility] [address] [place] [address] PCP - General Family Medicine 09/09/21 07/10/24 Augusto Scott MD [address] [address] PCP - General Family Medicine 07/11/24 documented as of this encounter
--- OUTSIDE RECORDS SUMMARY | 2024-10-13 10:29 | XMS_ITS | Referral Summary ---
Author Organization [facility] Address [address] [place] [id number] Care Team Providers Care Software Project Engineer Name Role Phone Augusto [place] MD Primary Care Provider [phone] Encounters Date Type Department Care Team Description 07/11/2024 4:33 PM CDT - 07/13/2024 10:58 AM CDT Hospital Encounter [place] [id number] [facility] [address] [place] [address] Brody Beckford MD Jaleta, MD Jo Ann [...] on file Legal Sex Female 11:18 AM OUTDOOR RECREATION SPECIALIST Gender Identity Not on file Sexual [...] lb 3.2 oz) 11/25/2021 5:59 A M OUTDOOR RECREATION SPECIALIST Height 162.6 cm (5' 4) 11/25/2021 5:59 AM OUTDOOR RECREATION SPECIALIST Body Mass Index 29.39 11/25/2021 5:59 AM OUTDOOR RECREATION SPECIALIST Plan of Treatment Not on file Procedures Procedure Name Priority Date/Time Associated Diagnosis Comments GLUCOSE BY METER Routine 07/13/2024 8:23 AM CDT EXTRA PURPLE TOP EDTA (LAB USE ONLY) Routine 07/13/2024 6:03 AM CDT LACTIC ACID WHOLE BLOOD Timed 07/13/2024 6:03 AM CDT GLUCOSE BY METER Routine 07/13/2024 2:05 AM CDT LIPID PANEL (EXTERNAL RESULT) Routine 09/23/2021 2:57 PM OUTDOOR RECREATION SPECIALIST from Last 3 Months or Most Recently Relevant to Health Maintenance Results * (ABNORMAL) Glucose by meter (07/13/2024 8:23 AM CDT) Only the most recent of2 resultswithin the time period is included. [facility] GLUCOSE BY METER POCT 120(H) 70 - 99 mg/dL 07/13/2024 8:30 AM CDT LABORATORY POC Blood, Capillary BLOOD SPECIMEN / Unknown 07/13/2024 8:23 AM CDT 07/13/2024 8:30 AM CDT us Amanuel Cherry MD LAB - BEAKER POCT Final Result LABORATORY [facility] Acute Care Lab [address] Lab (1st floor, no room number) [place] [address] * Extra Purple Top EDTA (LAB USE ONLY) (07/13/2024 6:03 AM CDT) Hold Specimen JIC 07/13/2024 7:16 AM CDT LABORATORY Blood STRUCTURE OF RIGHT HAND / Unknown Venipuncture / Unknown 07/13/2024 6:03 AM CDT 07/13/2024 6:15 AM CDT us Rohit Lerma [facility] LAB - BLOOD ORDERABLES F inal Result [facility] Care Lab [address] Lab (1st floor, no room number) [place] [address], [facility] * Lactic acid whole blood (07/13/2024 6:03 AM CDT) Lactic Acid 1.4 0.7 - 2.0 mmol/L 07/13/2024 6:22 AM CDT LABORATORY Blood STRUCTURE OF RIGHT HAND / Unknown Venipuncture / Unknown 07/13/2024 6:03 AM CDT 07/13/2024 6:15 AM CDT us Allan Mathews MD LAB - BLOOD ORDERABLES Fi nal Result [facility] Care Lab [address] Lab (1st floor, no room number) [place] [address], [facility] * (ABNORMAL) Lipid Panel (External Result) (09/23/2021 2:57 PM OUTDOOR RECREATION SPECIALIST) Cholesterol (External) 183 90 - 199 mg/dL [facility] Triglycerides (External) 371(A) 40 - 149 mg/dL [facility] HDL Cholesterol (External) 44 >=50 mg/dL [facility] LDL Cholesterol Calculated (External) 65 <100 mg/dL [facility] Blood 09/23/2021 2:57 PM OUTDOOR RECREATION SPECIALIST Narrative [facility] - 09/23/2021 2:57 PM OUTDOOR RECREATION SPECIALIST LAB RESULTS [facility] us Provider Outside LAB - HIM EXTERNAL RESULT Edite d Result - Final [facility] [address] [id number], [facility] [phone] from Last 3 Months or Most Recently Relevant to Health Maintenance Insurance Last Size Advance Directives For more information, please contact: [phone] * Full Code (Latest Code Status on [...] patie nt/ legal decision maker Care Teams Software Project Engineer Relationship Specialty Start Date End Date Augusto [place] MD [phone] (work) PCP - General Family Medicine 07/11/24
--- OUTSIDE RECORDS SUMMARY | 2024-10-13 10:29 | XMS_ITS | Clinical Summary ---
Author Organization [facility] Address [address] [place] [address] Care Team Providers Care Compressed Gases Tester Name Role Phone Augusto [place] MD Primary Care Provider [phone] Allergies Active Allergy Reactions Criticality Noted Date [...] - 07/13/2024 10:58 AM CDT Hospital Encounter [place] [address] Medical Surgical [address] [place] [id number] Brody Beckford MD Jaleta, Cherinet Negeri, MD [...] on file Legal Sex Female 11:18 AM SUPERVISOR BRAIDING Gender Identity Not on file Sexual Orientation [...] lb 3.2 oz) 11/25/2021 5:59 A M SUPERVISOR BRAIDING Height 162.6 cm (5' 4) 11/25/2021 5:59 AM SUPERVISOR BRAIDING Body Mass Index 29.39 11/25/2021 5:59 AM SUPERVISOR BRAIDING Plan of Treatment Health Maintenance Due Date [...] PANEL (EXTERNAL RESULT) Routine 09/23/2021 2:57 PM SUPERVISOR BRAIDING from Last 3 Months or Most Recently [...] AM CDT Amanuel Cherry MD LAB - [facility] POCT Final Result [facility] LABORATORY POC [facility] Acute Care Lab [address] [facility] Lab (1st floor, no room number) [place] [address] * Extra Purple Top EDTA (LAB USE ONLY) (07/13/2024 6:03 AM CDT) Hold Specimen JIC 07/13/2024 7:16 AM CDT LABORATORY Blood STRUCTURE OF RIGHT HAND / Unknown Venipuncture / Unknown 07/13/2024 6:03 AM CDT 07/13/2024 6:15 AM CDT us Rohit Lerma [facility] LAB - BLOOD ORDERABLES F inal Result LABORATORY [facility] Care Lab [address] Lab (1st floor, no room number) [place] [address] * Lactic acid whole blood (07/13/2024 6:03 AM CDT) Lactic Acid 1.4 0.7 - 2.0 mmol/L 07/13/2024 6:22 AM CDT LABORATORY Blood STRUCTURE OF RIGHT HAND / Unknown Venipuncture / Unknown 07/13/2024 6:03 AM CDT 07/13/2024 6:15 AM CDT us Allan Mathews MD LAB - BLOOD ORDERABLES Fi nal Result LABORATORY [facility] Acute Care Lab [address] Lab (1st floor, no room number) [place] [address] * (ABNORMAL) Lipid Panel (External Result) (09/23/2021 2:57 PM SUPERVISOR BRAIDING) Cholesterol (External) 183 90 - 199 mg/dL [facility] Triglycerides (External) 371(A) 40 - 149 mg/dL [facility] HDL Cholesterol (External) 44 >=50 mg/dL [facility] LDL Cholesterol Calculated (External) 65 <100 mg/dL [facility] Blood 09/23/2021 2:57 PM SUPERVISOR BRAIDING Narrative [facility] - 09/23/2021 2:57 PM SUPERVISOR BRAIDING LAB RESULTS [facility] us Provider Outside LAB - HIM EXTERNAL RESULT Edite d Result - Final [facility] [address] [place] [address], [facility] [phone] from Last 3 Months or Most Recently Relevant to Health Maintenance Insurance [employer] Advance Directives For more information, please contact: [phone] * Full Code (Latest Code Status on [...] palak nt/ legal decision maker Care Teams Compressed Gases Tester Relationship Specialty Start Date End Date Augusto [place] MD PCP - General Family Medicine 07/11/24
[2024-10-13] MEDS: 0.9 % SODIUM CHLORIDE 1000 ml 1,000 ML IV ×2 (11:35→12:45)
[2024-10-13 11:46] LABS: Basophils Percent Auto 0.4 % (0.0-3.0); Hematocrit 36.3 % (33.0-51.0); Hemoglobin* 12.2 gm/dL (12.0-16.0); Immature Granulocytes Pct Auto 0.4 %; Lymphocytes Percent Auto 34.5 % (20-44); Mean Corpuscular HGB Conc 34 gm/dL (32-36); Mean Corpuscular Hemoglobin 29 pg (26-34); Mean Corpuscular Volume 88 fL (80-100); Neutrophils Percent Auto 52.7 % (42.0-72.0); Platelet Count* 187 K/uL (140-440); RDW Coefficient of Variation % 12.5 % (11.5-15.5); Red Blood Count 4.15 m/uL (4.00-5.20); White Blood Count* 2.67 K/uL (4.50-11.00)
[2024-10-13 11:48] LABS: Slide Review Reflex No
[2024-10-13 12:00] LABS: Albumin* 3.9 g/dL (3.3-5.0); Chloride* 97 mmol/L (96-114)
[2024-10-13 12:01] LABS: Potassium* 3.3 mmol/L (3.6-5.1); Sodium* 135 mmol/L (135-149)
[2024-10-13 12:02] LABS: Appearance Urine Clear (Clear); Bilirubin Urine Negative (Negative); Blood Urine Negative (Negative); Color Urine Yellow (Yellow); Glucose Urine 3+ (Negative); Ketones Urine Trace (Negative); Leukocyte Esterase Urine Negative (Negative); Nitrite Urine Negative (Negative); Protein Urine 1+ (Negative); Specific Gravity Urine 1.025 (1.000-1.030); Urobilinogen Urine 0.2 (0.2-1.0)
[2024-10-13 12:03] LABS: Anion Gap 6 mEq/L (7-15); Bilirubin Total* 0.3 mg/dL (0.1-1.5); Carbon Dioxide* 32 mmol/L (20-32); Est. Creatinine Clearance* 44.56; Estimated Glomerular Filt Rate 60 ml/min
[2024-10-13 12:04] LABS: Alanine Aminotransferase* 22 U/L (4-35); Alkaline Phosphatase* 115 U/L (40-150); Aspartate Amino Transferase* 31 U/L (12-35); Blood Urea Nitrogen* 22 mg/dL (7-30); Calcium* 9.1 mg/dL (8.4-10.6); Glucose* 101 mg/dL (60-115); Total Protein* 6.6 g/dL (6.0-8.3)
[2024-10-13 12:14] LABS: RBC Urine 0-2 (0-2); Squamous Epithelial Cell Urine Few (None-Few); WBC Urine 0-2 (0-5)
[2024-10-13 12:22] LABS: PCR FLU A Negative PCR FLU A (Negative); PCR FLU B Negative PCR FLU B (Negative); PCR RSV Negative PCR RSV (Negative); SARS PCR* Negative SARS-CoV-2 (Negative)
[2024-10-13] MEDS: HEPARIN 500 UNIT/5 ML SYRINGE IVF (15:06)
--- NOTE | 2024-10-13 15:58 | PC.SOCIAL ---
Social work: Met with pt for resources and support. Pt states she lives with her dog in her own home in [place], [place]. Pt states her family thinks she needs to have 24 hour care and she does not think she needs this. Discussed option for hiring attendant care at home. Provided pt with list of home care associate care agencies who serve the area and discussed how she and family could arrange for care at home. Discussed option for pt to move into a care facility where there would be 24 hour care available. Pt states she is not interested in moving out of her home because she needs to stay with her dog. Discussed option of a Fpc Care Assessment through the [facility]. Pt is interested in having this done to see if she qualifies for any supportive services in her home and gave this social secretary permission to make an online referral for a Fpc Care Assessment. Discussed option to have meals delivered through meals on wheels or mail order delivery services and provided pt with information on these services and how to arrange these. Discussed with pt and family option of having an Emergency Response button, which patient has had in the past but does not currently have. Also discussed options for home monitoring systems that would send updates to the children about what pt is doing at home to allow them to feel more confident in getting information that things are going well. Pt was tearful and shared that she wants to stay in her home. She appeared appreciative of the information provided and requested social secretary visit her on Wednesday when [facility]. Pt and family have social workers contact information to follow up as needed.
== END 2024-10-13 14:50 | disposition home or self-care (01) ==
PROVIDERS: Emergency Provider Internal Medicine; PCP Family Medicine
DX: E86.0 Dehydration (principal); Z91.81 History of falling
CPT/HCPCS: 36415; 70450; 72125; 80053; 81001; 81003; 85025; 87631; 99283; 99284; J1642; J7030

== ENCOUNTER 2024-10-16 12:58 | Outpatient (CLI) | payer MEDICARE, SELFPAY | END 2024-10-16 12:59 | disposition home or self-care (01) | LOC: LKVREF 12:59 | PROVIDERS: PCP Family Medicine; Visit Provider Family Medicine | DX: C50.919 Malignant neoplasm of unspecified site of unspecified female breast (principal); E86.0 Dehydration; E87.6 Hypokalemia; E11.42 Type 2 diabetes mellitus with diabetic polyneuropathy | CPT/HCPCS: 80053 ==

== ENCOUNTER 2024-12-11 11:17 | Outpatient (CLI) | payer MEDICARE, SELFPAY ==
--- NOTE | 2024-12-11 11:30 | CRLHL7_ITS ---
For Patients: As a result of the Century Cures Act, medical imaging exams and procedure reports are released immediately into your electronic medical record. You may view this report before your referring provider. If you have questions, please contact your health care provider. INDICATION: epigastric pain, tenderness, no bowel movement, flatus x2 days TECHNIQUE: CT of the abdomen and pelvis was obtained with 72 mL of Isovue 370 intravenous contrast. Please note that all CT scans at this facility use dose modulation, iterative reconstruction, and/or weight-based dosing when appropriate to reduce radiation dose to as low as reasonably achievable. COMPARISON: 07/24/2024, 08/10/2025,08/21/2024. FINDINGS: Lower thorax: Scattered bilateral pulmonary nodules measuring up to 6 millimeter in the left lower lobe (3/2) are again seen. Status post left mastectomy. Liver and biliary tree: Innumerable subtle scattered hepatic lesions. Dominant infiltrative ill-defined left hepatic lesion measuring 7.1 x 4.6 centimeter (2/31), previously measuring roughly 5.5 x 4.0 centimeter. Gallbladder: Status post cholecystectomy. Spleen: Calcified granulomata. Pancreas: Normal. Adrenal glands: Normal. Kidneys and ureters: No hydronephrosis. No obstructing renal calculi. Subcentimeter hypoattenuating lesions are too small to characterize and are favored to represent cysts. Gastrointestinal tract: Moderate to large stool burden is seen throughout the colon. No evidence of acute appendicitis. No evidence of bowel obstruction. Peritoneal cavity: Normal. Bladder: Normal. Pelvic organs: Normal. 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 Moderate vascular calcification. Lymph nodes: Normal. Abdominal wall: Normal. Musculoskeletal: Moderate degenerative changes of the visualized spine. Mild L5 vertebral height loss. Mild anterolisthesis of L4 on L5. IMPRESSION: 1. Moderate to large stool burden is seen throughout the colon. No evidence of bowel obstruction. 2. Innumerable subtle scattered hepatic lesions. Dominant infiltrative ill-defined left hepatic lesion measuring 7.1 x 4.6 centimeter, previously measuring roughly 5.5 x 4.0 centimeter. 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 3. Scattered bilateral pulmonary nodules measuring up to 6 millimeter in the left lower lobe are again seen. Please note that all CT scans at this facility use dose modulation, iterative reconstruction, and/or weight-based dosing when appropriate to reduce radiation dose to as low as reasonably achievable. Dictated by Tristian Anderson MD @ 12/11/2024 1:08:32 PM (Electronically Signed)
== END 2024-12-11 11:18 | disposition home or self-care (01) ==
PROVIDERS: PCP Family Medicine; Visit Provider Physician Assistant
DX: R10.13 Epigastric pain (principal); K76.9 Liver disease, unspecified; R91.8 Other nonspecific abnormal finding of lung field; K59.00 Constipation, unspecified; C50.919 Malignant neoplasm of unspecified site of unspecified female breast
CPT/HCPCS: 74177; Q9967

== ENCOUNTER 2024-12-18 13:32 | Outpatient (CLI) | payer MEDICARE, SELFPAY | END 2024-12-18 13:33 | disposition home or self-care (01) | LOC: NFLDREF 12-19 10:27 | PROVIDERS: PCP Family Medicine; Referring Provider Family Medicine; Visit Provider Internal Medicine Hematology & Oncology | DX: M79.89 Other specified soft tissue disorders (principal) | CPT/HCPCS: 80053 ==

== ENCOUNTER 2024-12-21 12:43 | Outpatient (CLI) | payer MEDICARE, SELFPAY ==
--- NOTE | 2024-12-21 16:30 | CRLHL7_ITS ---
For Patients: As a result of the 21st Century Cures Act, medical imaging exams and procedure reports are released immediately into your electronic medical record. You may view this report before your referring provider. If you have questions, please contact your health care provider. EXAM: PET-CT SKULL BASE TO THIGH CLINICAL INFORMATION: 69-yo Female with metastatic breast cancer. Remote history left breast cancer with prior mastectomy and adjuvant chemotherapy (2011). Could not tolerate adjuvant hormone therapy. Recurrent disease with multifocal metastases involving the left chest wall, lymph nodes, lung, liver and osseous structures. Completed palliative radiation to the left chest wall and left shoulder (09/2024). On Abraxane. Patient is referred for further characterization/treatment response. TECHNIQUE: Radiopharmaceutical: 14.4 mCi of 18F-FDG Intravenous injection site: Rac Uptake time: 54 minutes Blood glucose level at the time of injection: 127 mg/dL Field of view: Skull base to mid-thighs CT protocol: The low-dose, free-breathing, noncontrast CT performed as part of this study is designed for the purposes of attenuation correction and lesion localization, and it is neither sufficient, nor it should be substituted for diagnostic purposes. COMPARISON: PET-CT 08/21/2024. CT abdomen pelvis 12/11/2024. CT head/cervical spine 10/13/2024. CT chest abdomen pelvis 07/24/2024. FINDINGS: Physiologic background liver standardized uptake value (SUV mean and SUV max) reported for comparison between PET studies: 3.0 and 3.6. Visualized head and neck: No abnormal uptake in the brain. Similar hypodense bilateral thyroid cysts/nodules with low-level uptake not above blood pool. Head and neck lymph nodes: No enlarged or hypermetabolic cervical chain lymph nodes. Lungs: Respiratory motion. No new right lung uptake. Multifocal new left lung parenchymal opacities and small nodular opacities in the periphery of the left upper lobe, along the major fissure and in the anterolateral lingula. For example: Curvilinear opacity lateral lingula, SUV max 4.4 (fused image 103). Adjacent new nodular densities in the lingula, largest 1.3 cm, SUV max 4.1 (fused image 100). Posterior left upper lobe nodular opacity along the fissure, 1.4 cm, SUV max 3.3 (fused image 90). Additional bilateral micro nodules and small perifissural nodules without progressive uptake. Thoracic lymph nodes: Variable uptake within nonenlarged multi station mediastinal and bilateral hilar lymph nodes. For example: Lower right paratracheal/precarinal lymph node, SUV max 2.6. Previously 4.6. Subcarinal bobby uptake, 0.8 cm short axis, SUV max 3.7. Previously 6.3. Right anterior perihilar bobby uptake, SUV max 3.5. Previously 5.3. Left hilar bobby uptake, SUV max 3.3. Previously 5.8. Other chest findings: Scattered coronary vascular calcifications. Right chest port with central catheter tip positioned in the lower SVC. Prior left chest mastectomy. -postradiation changes with decreased overall size and uptake of an upper left chest mass and multiple high left axillary and subpectoral lymph nodes. For example: Decreased size and uptake upper left chest mass, difficult to measure, approximately 2.1 cm, SUV max 4.3 (fused image 77). Previously 5.1 cm, SUV max 10.8. Decreased uptake left subpectoral lymph node, difficult to measure, approximately 1.0 cm, SUV max 3.7 (fused image 81). Previously 3.0 cm, SUV max 7.1 (fused image 174). Hepatobiliary: Larger more confluent tracer avid left lobe mass now involves the superior and inferior aspect of the left lobe segments 2/3 and adjacent segments 4A/B with mildly increased uptake, 11.5 x 5.5 x 9.0 cm, SUV max 8.3 (fused image 146). Previously 7.0 x 5.0 cm, SUV max 7.7. Additional smaller less avid right lobe lesions are variably avid. For example: Posterior superior right lobe, 2.6 cm, SUV max 4.3 (fused image 128). Posterior inferior right lobe, difficult to measure, SUV max 4.4 (fused image 167). Anterior inferior right lobe, difficult to measure, SUV max 4.7 (fused image 164). Spleen: No abnormal uptake. No splenomegaly. Pancreas: No abnormal uptake. No adjacent inflammatory change. Adrenal glands: No abnormal right adrenal uptake. Increased thickening left adrenal gland with mild uptake, SUV max 2.4. Previously 2.3. Kidneys and bladder: No abnormal uptake or renal obstruction. Ureters are nondilated. Partially distended bladder. Bowel and peritoneum: Limited gastric distention with no asymmetric uptake. No suspicious proximal small bowel uptake. Areas of uptake with a decompressed distal small bowel loops and throughout the length of relative decompressed colon demonstrate no obvious noncontrast CT abnormality. Most likely related to Metformin use or reactive/inflammatory. The extent of uptake could obscure small avid bowel lesions. Pelvic organs: No abnormal uptake. Abdominopelvic lymph nodes: No enlarged or hypermetabolic lower retroperitoneal, pelvic or inguinal lymph nodes. Small upper abdominal lymph nodes border the liver margin. For example: Precaval lymph node, 0.5 cm short axis, SUV max 2.5. Gastrohepatic lymph node, 0.5 cm short axis, SUV max 2.8 (fused image 146). Musculoskeletal, soft tissues, skin: Variable uptake within multifocal tracer avid skeletal metastases involving the spine, thorax/ribs, pelvis, sacrum and extremities. Findings include several new sites of uptake, areas of increased uptake compared to prior PET-CT and foci of decreased uptake. For example: -decreased uptake left humeral head/proximal shaft lesion, SUV max 4.1. Previously 8.2. Posttreatment effect. -new upper left sternal lesion, SUV max 3.8. -new medullary lesion midshaft right humerus, SUV max 4.4. -decreased left anterior 1st rib lesion, SUV max 2.5. Previously 5.4. -new right anterior 5th rib lesion, SUV max 4.6. -new left posterior L1 vertebral body/pedicle uptake, SUV max 4.2. -decreased uptake right posterior L5 vertebral body/pedicle lesion, SUV max 4.4. Previously 8.1. -increased uptake left posterior iliac lesion, SUV max 6.7. Previously 2.5. -new right sacral body lesion, SUV max 6.8. -new left femoral neck lesion, SUV max 3.1. Other: Diffuse aortoiliac vascular calcifications. Prior cholecystectomy. Bandlike areas of upper prevertebral and paraspinal cervical muscular uptake. IMPRESSION: 1. Overall mixed response to therapy including postradiation changes of the left chest and axillary soft tissues with decreased size and uptake of an upper left chest mass and multiple previously avid left axillary and subpectoral lymph nodes. 2. Multiple new tracer avid skeletal metastases with variable uptake within additional previously hypermetabolic osseous metastases as detailed in the findings. 3. New avid left lung parenchymal opacities and nodular opacities with moderate uptake in the left upper lobe and lingula. Potentially reactive/inflammatory, infectious or secondary to post radiation change. Attention on follow-up. No new right lung uptake or progressive uptake in additional micro nodules in both lungs. 4. Previously avid metastatic lesion in the inferior left hepatic lobe is now larger and more confluent involving a large portion of the left lobe with mildly increased overall uptake. Additional smaller right lobe lesions demonstrate moderate activity. 5. Diffuse uptake throughout the decompressed distal small bowel and the length of the colon most likely related to metformin use. The degree of uptake could obscure small avid bowel lesions. 6. More conspicuous nodular thickening left adrenal gland with mild uptake not significantly changed. Attention on follow-up. No new right adrenal uptake. 7. Variable decreased uptake within multi station mediastinal and bilateral hilar lymph nodes. Residual mild uptake and small upper abdominal lymph nodes. 8. Other nonacute findings as detailed in the body of the report. Dictated by Adolfo Hannah MD @ 12/21/2024 8:04:08 PM (Electronically Signed)
== END 2024-12-21 12:44 | disposition home or self-care (01) ==
LOC: RAD 12:44
PROVIDERS: PCP Family Medicine; Visit Provider Internal Medicine Hematology & Oncology
DX: C50.412 Malignant neoplasm of upper-outer quadrant of left female breast (principal)
CPT/HCPCS: 78815; A9552

== ENCOUNTER 2025-02-12 09:15 | Outpatient (RCR) | payer MEDICARE, OTHER, SELFPAY ==
--- NOTE | 2024-08-17 14:22 | ONC.NURNOTE ---
Spoke with Halle and her [id number] Annie to review the plan of care: 1. Halle had her brain and brachial plexus MRI today 2. Patient will have her PET/CT at [facility] on 08/21 3. Patient will have her liver biopsy at [facility] on 08/23 ([facility], [place] testing will be requested once pathology is available) 4. PDL-1 testing requested from [facility] pathology on [id number] 5. Genetic referral placed, Halle will call to schedule TONY 6. Follow up with Dr. Arreguin 08/29 to review results and discuss plan of care. 7. Palliative care referral placed for [place]: fax [phone]
--- NOTE | 2024-08-29 15:09 | ONC.NURNOTE ---
Care Planning - Breast Nurse Navigator Accompanied pt to provider appt. Pt accompanied by 2 sons, Magnus and Richard and [id number] in lobby per phone, Annie. Radiation Oncology consult?for palliative tx to chest mass -- faxed to [place] [facility]. With PA check, per Lisa at [facility], that location may be out of network. They contacted pt to call insurance to determine who is in network. Per Lisa pt has [employer] which usually does not cover [facility] well. [facility] following. Chemo planning:? Abraxane D1 , D15 q 28 days --port placement coordination in process --PA for treatment in process --gave patient hand out for Abraxane, noting we will set up a teaching appt to go over in depth when closer to start Bone support: Dental Clearance form given, pt to see dentist in next couple weeks --Script sent for Calcium; pt already on Vit D --Start Bisphosphonates when able Pain Management: having significant shoulder/arm pain -- on Tylenol, Ibuprofen; had Tramadol from past needs --Dr. Arreguin ordered more Tramadol --Drain Tile Machine Operator recommended taking Tylenol/Tramadol on scheduled basis; could try together or alternating. Reinforced pt to call [facility] if inadequate pain control; she verbalizes understanding. She states that she feels the current plan will manage adequately.
--- NOTE | 2024-08-31 16:56 | ONC.NURNOTE ---
Call from patients daughter in law Johnson. [facility] is out of network for radiation. New referral and supporting documents faxed to [place] [facility] at [facility].
--- NOTE | 2024-09-01 11:39 | URNOTE ---
Addendum entered by Margret Cervantes RN 09/01/24 11:42: approval dates are 08/30/2024-02/28/2025 Original Note: Abraxane ([id number]) has been approved 08/30/[id number]. Auth #[id number]
--- NOTE | 2024-09-04 16:42 | ONC.NURNOTE ---
Discussed plan of care with Dr. Arreguin today in regards to sequence of treatment. Patient has a radiation oncology consult scheduled for 09/08 at [facility]. Per Dr. Arreguin, if radiation cannot be started until later in the month, the recommendation would be to get a dose of chemotherapy started prior to starting radiation. I offered to schedule the chemotherapy teach, baseline labs and tentative chemo start date with patient but she is reliant on her kids to transport her and would prefer to wait until after her radiation oncology consult to schedule any further appointments. I assured her that we would touch base sometime Wednesday to discuss next steps.
--- NOTE | 2024-09-11 16:06 | ONC.NURNOTE ---
[facility] Radiation Oncology note received. Spoke with patient and she will begin palliative radiation tomorrow, 09/12. 10 doses are planned, so her last treatment would be 10/26. I assured patient I would discuss with Dr. Arreguin and return her call with chemotherapy start date.
--- NOTE | 2024-09-14 10:10 | ONC.NURNOTE ---
Received Dental Clearance. Patient scheduled for 10/03/23 for infusion.
--- NOTE | 2024-09-28 15:34 | ONC.NURNOTE ---
Spoke with patient today. She had her last radiation treatment today. I explained that Dr. Arreguin recommends about a week between the completion of radiation and the start of chemotherapy. Patient is very anxious to get started on treatment. Due to transportation issues, she is unable to complete a formal chemotherapy teach. I told Halle we will plan to do labs and follow up on 10/[address] Arreguin authorizes treatment the same day, we will proceed. If not, we will start per her recommendation.
--- NOTE | 2024-10-02 16:07 | URNOTE ---
Request received for authorization for NAB-Paclitaxel (Abaxane (J9264). Prior authorization is not required as services are based on medical necessity and follow Medicare guidelines.Verified [facility] only.
[2024-10-03 09:01] LABS: Hematocrit 40.8 % (33.0-51.0); Hemoglobin* 13.4 gm/dL (12.0-16.0); Immature Granulocytes Pct Auto 0.2 %; Lymphocytes Percent Auto 22.4 % (20-44); Mean Corpuscular HGB Conc 33 gm/dL (32-36); Mean Corpuscular Hemoglobin 30 pg (26-34); Mean Corpuscular Volume 90 fL (80-100); Neutrophils Percent Auto 67.4 % (42.0-72.0); Platelet Count* 135 K/uL (140-440); RDW Coefficient of Variation % 12.8 % (11.5-15.5); Red Blood Count 4.52 m/uL (4.00-5.20)
[2024-10-03 09:05] LABS: Slide Review Reflex No
[2024-10-03 09:16] LABS: Albumin* 3.9 g/dL (3.3-5.0); Chloride* 102 mmol/L (96-114); Potassium* 4.5 mmol/L (3.6-5.1); Sodium* 135 mmol/L (135-149)
[2024-10-03 09:18] LABS: Creatinine* 1.1 mg/dL (0.5-1.5); Estimated Glomerular Filt Rate 54 ml/min
[2024-10-03 09:19] LABS: Alanine Aminotransferase* 20 U/L (4-35); Alkaline Phosphatase* 114 U/L (40-150); Anion Gap 6 mEq/L (7-15); Aspartate Amino Transferase* 29 U/L (12-35); Bilirubin Total* 0.3 mg/dL (0.1-1.5); Blood Urea Nitrogen* 18 mg/dL (7-30); Calcium* 9.1 mg/dL (8.4-10.6); Carbon Dioxide* 27 mmol/L (20-32); Glucose* 91 mg/dL (60-115); Total Protein* 6.8 g/dL (6.0-8.3)
[2024-10-03] MEDS: SODIUM CHLORIDE 0.9 % (FLUSH) 10 ML SYRINGE IVF (09:30)
[2024-10-03] MEDS: ONDANSETRON 2 MG/ML inj 4 MG IVP (10:22)
[2024-10-03] MEDS: dexAMETHasone 10 MG/ML inj 8 MG IVP (10:22)
[2024-10-03] MEDS: 0.9 % SODIUM CHLORIDE 500 ML IV ×2 (10:26→11:47)
[2024-10-03] MEDS: HEPARIN 500 UNIT/5 ML SYRINGE IVF (11:47)
--- NOTE | 2024-10-04 10:42 | URNOTE ---
Request received for authorization for Connectipitymeta ([id number]). Prior authorization is not required as services are based on medical necessity and follow Medicare guidelines.
--- NOTE | 2024-10-04 12:15 | ONC.NURNOTE ---
Call to patient to see how she tolerated her first Abraxane infusion. Left message encouraging her to call back with questions or concerns.
--- NOTE | 2024-10-04 14:30 | ONC.NURNOTE ---
Patients daughter in law Shannon called to report Halle is not feeling well. She states that Wednesday evening after chemotherapy, she started to feel nauseated. She had an emesis at 8PM, in the middle of the night and this morning. She has taken 3 doses of antiemetics. She has not thrown up since this morning but is not able to eat. She is drinking fluids. Shannon shares that Halle is very sensitive to medications so they are concerned that any medication that might make her sleepy (Ativan, Olanzapine, etc.) would not be safe options. I discussed these concerns with Dr. Arreguin. Shannon was instructed to have Halle take her nausea medications on a schedule every 4 hours alternating between Compazine and Zofran. If her symptoms do not improve, they are encouraged to call us back. Shannon verbalizes understanding.
--- NOTE | 2024-10-05 13:50 | ONC.NURNOTE ---
BCN attempted to reach patient for an update on her condition. Encouraged patient to call back with questions or concerns.
--- NOTE | 2024-10-05 18:42 | ONC.NURNOTE ---
ER Morphine Rx transferred to [facility] in [facility] at the request of family due to no availability at preferred pharmacy.
--- NOTE | 2024-10-11 11:41 | ONC.NURNOTE ---
Addendum entered by Grazyna Garcia 10/11/24 15:17: Per daughter in law, re-fills are not needed. See note below: Daughter in law calling, patient accidentally switched insurances and possibly signed up for a new pharmacy on accident. Daughter in law wanted to let us know that patient does not need any medications filled at the moment in case we get some refill requests from a pharmacy. They are trying to figure out what happened but at the moment patient is okay on meds and they are just calling her care team to be aware. Original Note: Received refill [facility] from [facility], called pt and left message to see if pt needs Calcium/vit D3, Ondansetron, and prochlorperazine at this time. Will ask Dr. Arreguin to order if needed at this time.
[2024-10-17 09:32] VITALS: BP 132/85; PULSE 70; RESP 16; TEMP 35.7; O2SAT 100
[2024-10-17 09:59] LABS: Basophils Percent Auto 0.4 % (0.0-3.0); Hematocrit 35.6 % (33.0-51.0); Hemoglobin* 11.7 gm/dL (12.0-16.0); Immature Granulocytes Pct Auto 0.4 %; Lymphocytes Percent Auto 34.4 % (20-44); Mean Corpuscular HGB Conc 33 gm/dL (32-36); Mean Corpuscular Hemoglobin 29 pg (26-34); Mean Corpuscular Volume 89 fL (80-100); Monocytes Percent Auto 17.4 % (0.0-11.0); Neutrophils Percent Auto 47.4 % (42.0-72.0); Platelet Count* 150 K/uL (140-440); Red Blood Count 3.98 m/uL (4.00-5.20); White Blood Count* 2.76 K/uL (4.50-11.00)
[2024-10-17 10:35] LABS: Slide Review Reflex No
[2024-10-17 10:45] LABS: Albumin* 3.6 g/dL (3.3-5.0); Chloride* 105 mmol/L (96-114); Potassium* 3.3 mmol/L (3.6-5.1); Sodium* 137 mmol/L (135-149)
[2024-10-17 10:47] LABS: Creatinine* 0.8 mg/dL (0.5-1.5); Est. Creatinine Clearance* 44.56; Estimated Glomerular Filt Rate 79 ml/min
[2024-10-17 10:48] LABS: Alanine Aminotransferase* 18 U/L (4-35); Alkaline Phosphatase* 118 U/L (40-150); Anion Gap 8 mEq/L (7-15); Aspartate Amino Transferase* 27 U/L (12-35); Bilirubin Total* 0.3 mg/dL (0.1-1.5); Blood Urea Nitrogen* 14 mg/dL (7-30); Carbon Dioxide* 24 mmol/L (20-32); Glucose* 115 mg/dL (60-115); Total Protein* 6.4 g/dL (6.0-8.3)
[2024-10-17 10:49] LABS: Calcium* 8.3 mg/dL (8.4-10.6)
[2024-10-17] MEDS: 0.9 % SODIUM CHLORIDE 500 ML IV (11:20)
[2024-10-17] MEDS: ONDANSETRON 2 MG/ML inj 4 MG IVP (11:20)
[2024-10-17] MEDS: SODIUM CHLORIDE 0.9 % (FLUSH) 10 ML SYRINGE IVF ×2 (11:20→13:35)
[2024-10-17] MEDS: dexAMETHasone 10 MG/ML inj 8 MG IVP (11:20)
[2024-10-17] MEDS: HEPARIN 500 UNIT/5 ML SYRINGE IVF (13:35)
--- NOTE | 2024-10-18 15:32 | ONC.NURNOTE ---
Pt notified that Dr. Arreguin sent in 7 day prescription for potassium to pt's pharmacy. Pt verbalized understanding of plan of care.
--- NOTE | 2024-10-24 14:45 | ONC.NURNOTE ---
Addendum entered and electronically signed by Sherrell Do APRN 10/26/24 13:55: Confirmed with [facility] pharmacy [facility] that pt received viscous lidocaine 2% yesterday. I requested for them to cancel magic mouthwash script from Dr. Arreguin, as [facility] does not have this in stock and does not compound medications. Original Note: Mucositis Received call from pt's family member, Annie Mayers, reporting that the pt and family are in [place], [place] this week and pt is noting mouth sores. She noticed last night pain after eating pizza; they have been trying popsicles to help and are asking about other options. Pt's son was able visualize pt's mouth with flashlight and denies white patches. Reviewed mucositis recommendations include swishing lukewarm water with a pinch of salt and/or pinch of baking soda ~ 4x/day can help with pain and prevention of thrush. Reviewed to avoid spicy, acidic, sharp, crunchy foods and also extreme temperatures may aggravate. Reviewed with Dr. Arreguin; Magic Mouthwash ordered and sent to local [facility] pharmacy near where they're staying. Lm for pharmacist to call if issue with compounding/ratios, etc. LM for Annie to update about pharmacy [id number] [address] P:
[2024-10-30 10:01] LABS: Basophils Percent Auto 0.6 % (0.0-3.0); Hematocrit 37.8 % (33.0-51.0); Hemoglobin* 12.4 gm/dL (12.0-16.0); Immature Granulocytes Pct Auto 0.3 %; Lymphocytes Percent Auto 25.8 % (20-44); Mean Corpuscular HGB Conc 33 gm/dL (32-36); Mean Corpuscular Hemoglobin 29 pg (26-34); Mean Corpuscular Volume 90 fL (80-100); Monocytes Percent Auto 13.8 % (0.0-11.0); Neutrophils Percent Auto 59.5 % (42.0-72.0); Platelet Count* 180 K/uL (140-440); Red Blood Count 4.22 m/uL (4.00-5.20); White Blood Count* 3.49 K/uL (4.50-11.00)
[2024-10-30] MEDS: SODIUM CHLORIDE 0.9 % (FLUSH) 10 ML SYRINGE IVF ×2 (10:01→11:30)
[2024-10-30 10:04] LABS: Slide Review Reflex No
[2024-10-30 10:14] LABS: Albumin* 3.8 g/dL (3.3-5.0); Chloride* 99 mmol/L (96-114); Sodium* 132 mmol/L (135-149)
[2024-10-30 10:15] LABS: Potassium* 4.4 mmol/L (3.6-5.1)
[2024-10-30 10:17] LABS: Alanine Aminotransferase* 21 U/L (4-35); Alkaline Phosphatase* 158 U/L (40-150); Anion Gap 9 mEq/L (7-15); Aspartate Amino Transferase* 28 U/L (12-35); Bilirubin Total* 0.3 mg/dL (0.1-1.5); Blood Urea Nitrogen* 21 mg/dL (7-30); Carbon Dioxide* 24 mmol/L (20-32); Creatinine* 0.9 mg/dL (0.5-1.5); Est. Creatinine Clearance* 42.68; Estimated Glomerular Filt Rate 68 ml/min; Glucose* 219 mg/dL (60-115); Total Protein* 6.9 g/dL (6.0-8.3)
[2024-10-30 10:18] LABS: Calcium* 9.3 mg/dL (8.4-10.6)
--- NOTE | 2024-10-30 11:29 | ONC.NURNOTE ---
I met with patient and her son in the infusion center. At this time, patient is not interested in nutrition and PT consult. We discussed the importance of eating small frequent meals and the use of supplements. Ensure samples were sent home with Halle and she was encouraged to take at least one per day. They are also meeting with home hospice in the near future to better understand their services and will inquire about home nursing care services at that time as well.
[2024-10-30] MEDS: ONDANSETRON 2 MG/ML inj 4 MG IVP (11:30)
[2024-10-30] MEDS: dexAMETHasone 10 MG/ML inj 8 MG IVP (11:30)
[2024-10-30] MEDS: 0.9 % SODIUM CHLORIDE 500 ML IV (11:30)
[2024-10-30] MEDS: ZOLEDRONIC ACID 3 MG in 0.9 % SODIUM CHLORIDE 100 ml 100 ML 415 MG IVPB (11:43)
[2024-11-13] MEDS: SODIUM CHLORIDE 0.9 % (FLUSH) 10 ML SYRINGE IVF ×2 (08:55→11:30)
[2024-11-13 09:01] VITALS: BP 90/56; PULSE 89; RESP 16; TEMP 36; O2SAT 98
[2024-11-13 09:05] LABS: Basophils Absolute Auto 0.02 K/uL (0.00-0.30); Basophils Percent Auto 0.4 % (0.0-3.0); Hemoglobin* 13.4 gm/dL (12.0-16.0); Immature Granulocytes Abs Auto 0.01 K/uL (0.00-0.30); Immature Granulocytes Pct Auto 0.2 %; Lymphocytes Percent Auto 18.7 % (20-44); Mean Corpuscular HGB Conc 32 gm/dL (32-36); Mean Corpuscular Hemoglobin 29 pg (26-34); Mean Corpuscular Volume 91 fL (80-100); Monocytes Percent Auto 11.3 % (0.0-11.0); Neutrophils Absolute Auto 3.94 K/uL (1.7-7.0); Neutrophils Percent Auto 69.4 % (42.0-72.0); Platelet Count* 208 K/uL (140-440); RDW Coefficient of Variation % 15.2 % (11.5-15.5); White Blood Count* 5.67 K/uL (4.50-11.00)
[2024-11-13 09:06] LABS: Slide Review Reflex No
[2024-11-13 09:16] LABS: Albumin* 4.1 g/dL (3.3-5.0); Chloride* 103 mmol/L (96-114)
[2024-11-13 09:17] LABS: Potassium* 4.6 mmol/L (3.6-5.1); Sodium* 135 mmol/L (135-149)
[2024-11-13 09:19] LABS: Alkaline Phosphatase* 151 U/L (40-150); Anion Gap 9 mEq/L (7-15); Aspartate Amino Transferase* 29 U/L (12-35); Bilirubin Total* 0.4 mg/dL (0.1-1.5); Blood Urea Nitrogen* 26 mg/dL (7-30); Carbon Dioxide* 23 mmol/L (20-32); Creatinine* 0.8 mg/dL (0.5-1.5); Est. Creatinine Clearance* 42.68; Estimated Glomerular Filt Rate 79 ml/min; Total Protein* 7.2 g/dL (6.0-8.3)
[2024-11-13 09:20] LABS: Alanine Aminotransferase* 19 U/L (4-35); Calcium* 9.2 mg/dL (8.4-10.6); Glucose* 239 mg/dL (60-115)
[2024-11-13] MEDS: dexAMETHasone 10 MG/ML inj 8 MG IVP (09:46)
[2024-11-13] MEDS: ONDANSETRON 2 MG/ML inj 4 MG IVP (09:49)
[2024-11-13] MEDS: HEPARIN 500 UNIT/5 ML SYRINGE IVF (11:30)
[2024-11-27 09:17] LABS: Basophils Percent Auto 0.8 % (0.0-3.0); Hematocrit 42.3 % (33.0-51.0); Hemoglobin* 13.5 gm/dL (12.0-16.0); Immature Granulocytes Pct Auto 0.8 %; Lymphocytes Percent Auto 32.5 % (20-44); Mean Corpuscular HGB Conc 32 gm/dL (32-36); Mean Corpuscular Hemoglobin 29 pg (26-34); Mean Corpuscular Volume 91 fL (80-100); Monocytes Percent Auto 16.9 % (0.0-11.0); Platelet Count* 198 K/uL (140-440); RDW Coefficient of Variation % 15.6 % (11.5-15.5); Red Blood Count 4.63 m/uL (4.00-5.20); White Blood Count* 2.43 K/uL (4.50-11.00)
[2024-11-27 09:23] LABS: Slide Review Reflex No
[2024-11-27] MEDS: SODIUM CHLORIDE 0.9 % (FLUSH) 10 ML SYRINGE IVF ×2 (09:30→12:41)
[2024-11-27 09:32] LABS: Chloride* 101 mmol/L (96-114); Potassium* 5.2 mmol/L (3.6-5.1); Sodium* 135 mmol/L (135-149)
[2024-11-27 09:34] LABS: Blood Urea Nitrogen* 15 mg/dL (7-30); Creatinine* 0.9 mg/dL (0.5-1.5); Est. Creatinine Clearance* 42.68; Estimated Glomerular Filt Rate 68 ml/min
[2024-11-27 09:35] LABS: Alanine Aminotransferase* 24 U/L (4-35); Alkaline Phosphatase* 149 U/L (40-150); Anion Gap 5 mEq/L (7-15); Aspartate Amino Transferase* 52 U/L (12-35); Bilirubin Total* 0.3 mg/dL (0.1-1.5); Calcium* 9.4 mg/dL (8.4-10.6); Carbon Dioxide* 29 mmol/L (20-32); Glucose* 275 mg/dL (60-115); Total Protein* 7.1 g/dL (6.0-8.3)
[2024-11-27] MEDS: ALTEPLASE 2 MG INJ IVF (10:28)
[2024-11-27] MEDS: ZOLEDRONIC ACID 3 MG in 0.9 % SODIUM CHLORIDE 100 ml 100 ML 415 MG IVPB (11:05)
[2024-11-27] MEDS: ONDANSETRON 2 MG/ML inj 8 MG IVP (11:29)
[2024-11-27] MEDS: dexAMETHasone 10 MG/ML inj 8 MG IVP (11:29)
[2024-11-27] MEDS: HEPARIN 500 UNIT/5 ML SYRINGE IVF (12:41)
[2024-12-11 09:20] LABS: Basophils Absolute Auto 0.02 K/uL (0.00-0.30); Basophils Percent Auto 0.4 % (0.0-3.0); Hematocrit 37.8 % (33.0-51.0); Hemoglobin* 12.3 gm/dL (12.0-16.0); Immature Granulocytes Abs Auto 0.03 K/uL (0.00-0.30); Immature Granulocytes Pct Auto 0.5 %; Lymphocytes Percent Auto 18.6 % (20-44); Mean Corpuscular HGB Conc 33 gm/dL (32-36); Mean Corpuscular Hemoglobin 30 pg (26-34); Mean Corpuscular Volume 91 fL (80-100); Neutrophils Absolute Auto 3.78 K/uL (1.7-7.0); Neutrophils Percent Auto 67.5 % (42.0-72.0); Platelet Count* 175 K/uL (140-440); RDW Coefficient of Variation % 15.2 % (11.5-15.5); Red Blood Count 4.17 m/uL (4.00-5.20)
[2024-12-11 09:21] LABS: Slide Review Reflex No
[2024-12-11 09:35] LABS: Chloride* 96 mmol/L (96-114); Sodium* 130 mmol/L (135-149)
[2024-12-11 09:36] LABS: Potassium* 4.7 mmol/L (3.6-5.1)
[2024-12-11 09:38] LABS: Alanine Aminotransferase* 23 U/L (4-35); Alkaline Phosphatase* 144 U/L (40-150); Anion Gap 9 mEq/L (7-15); Aspartate Amino Transferase* 44 U/L (12-35); Bilirubin Total* 0.7 mg/dL (0.1-1.5); Blood Urea Nitrogen* 17 mg/dL (7-30); Calcium* 9.2 mg/dL (8.4-10.6); Carbon Dioxide* 25 mmol/L (20-32); Creatinine* 0.8 mg/dL (0.5-1.5); Est. Creatinine Clearance* 42.68; Estimated Glomerular Filt Rate 79 ml/min; Glucose* 203 mg/dL (60-115); Total Protein* 7.2 g/dL (6.0-8.3)
[2024-12-11 09:39] VITALS: BP 87/65; PULSE 85; RESP 16; TEMP 36.6; O2SAT 95
[2024-12-11 11:26] LABS: Amylase* 68 U/L (18-89)
[2024-12-11 11:27] LABS: Lipase* 73 U/L (23-300)
[2024-12-11] MEDS: DOCUSATE SODIUM/BENZOCAINE 5 ML ENEMA PR (14:10)
[2024-12-11] MEDS: 0.9 % SODIUM CHLORIDE 500 ML 500 ML 1000 ML IV (14:10)
[2024-12-11 14:46] VITALS: BP 121/75; PULSE 74
--- NOTE | 2024-12-11 16:11 | ONC.NURNOTE ---
Addendum entered by Sandy Rubio RN 12/12/24 16:01: 1130: Called pt this am to follow up. Pt stated she had a small bowel movement yesterday evening after drinking the mag citrate. However, this am she still was having abd pain and was surprised it wasn't a larger bowel movement. Motor Vehicles Supervisor instructed pt she should be evaluated by a provider today if she is still having abd pain. Pt called back at 1515 with another update that she gave herself and enema and had good results. Pt then stated the abd pain resolved. Breast navigator will call pt tomorrow to check on her. Original Note: Pt here for chemo, unfortunately, c/o abd pain and sodium level low. CT scan done of abd and pelvis after pt assessed by Janet Rojo PA-C. After consulting with ED physician, Tami Rojo ordered an enema to be given by ED nurse and 500cc NS over 30 min. At least one hour after enema given pt still had no urge to have a BM. BP improved after 500cc IV NS. Discussed with Tami Rojo and recommendations from Tami was to have pt pickler helper a bottle of magnesium citrate this afternoon and drink that and follow up with primary in next day or 2 if no BM results. Also recommended having pt take a daily stool softener to stay regular when taking narcotics. Motor Vehicles Supervisor will call pt tomorrow morning to check on her and her symptoms. Pt to return in one week to recheck labs. Pt and her son verbalized understanding of plan of care.
[2024-12-25] MEDS: SODIUM CHLORIDE 0.9 % (FLUSH) 10 ML SYRINGE IVF (09:51)
[2024-12-25 10:10] LABS: Creatinine* 0.7 mg/dL (0.5-1.5); Est. Creatinine Clearance* 42.68; Estimated Glomerular Filt Rate 92 ml/min
[2024-12-25 10:11] LABS: Calcium* 9.2 mg/dL (8.4-10.6)
--- NOTE | 2024-12-25 14:56 | ONC.NURNOTE ---
Referral for PT/OT and Palliative Care faxed to [facility] in [place], .
--- NOTE | 2024-12-26 15:09 | ONC.NURNOTE ---
Rad Onc referral faxed.
--- NOTE | 2024-12-27 11:20 | ONC.NURNOTE ---
Patients daughter in law Annie called to discuss plan of care. Patient reports she had gotten a call from someone about a trial and radiation but didn't recall the details. Patient also did not recall what the status of her home care referral was. Annie updated on plan of care. 1. Halle does qualify for a study in [place] with Dr. Sai Cheek. His team will reach out to schedule consultation 2. Radiation oncology referral was faxed yesterday for palliative treatment which possibly could be done prior to starting the trial. They will call her to schedule consultation. 3. Home care referral was faxed on 12/25 to [facility] for PT/OT and palliative care services. Annie appreciated the update.
--- NOTE | 2025-01-11 12:04 | URNOTE ---
Request received for authorization approval for: Sacituzumab govitecan-hziy ([id number]) is approved date range: 01/22/2025 to 01/22/2026, Auth#[id number], Palonosetron ([id number]) , Fosaprepitant ([id number]) date range:01/22/2025 to 07/24/2025, Auth#[id number] , Pegfilgrastim-cbqv (Udenyca) ([id number]) date range: 01/22/2025 to 09/26/2025, Auth #[id number]- per [facility] Rep José Miguel Oliveira. 01/11/2025 at 1214pm- all approved for date range listed and confirmed they are not dose, frequency, cycle length specific as they are based on medical necessity and guidelines.
--- NOTE | 2025-01-12 14:33 | ONC.NURNOTE ---
Palliative Care consult scheduled at [facility] on 02/05.
--- NOTE | 2025-01-16 09:14 | URNOTE ---
Request received for authorization for Zometa ([id number]). Prior authorization is not required per [facility] Ref#[id number], services are based on medical necessity and guidelines.
[2025-01-22 09:00] VITALS: BP 116/77; PULSE 74; RESP 18; TEMP 35.7; O2SAT 98
[2025-01-22 09:42] LABS: Basophils Absolute Auto 0.01 K/uL (0.00-0.30); Basophils Percent Auto 0.2 % (0.0-3.0); Hematocrit 36.3 % (33.0-51.0); Hemoglobin* 11.6 gm/dL (12.0-16.0); Immature Granulocytes Abs Auto 0.01 K/uL (0.00-0.30); Immature Granulocytes Pct Auto 0.2 %; Lymphocytes Percent Auto 11.7 % (20-44); Mean Corpuscular HGB Conc 32 gm/dL (32-36); Mean Corpuscular Hemoglobin 29 pg (26-34); Mean Corpuscular Volume 90 fL (80-100); Monocytes Percent Auto 8.4 % (0.0-11.0); Neutrophils Percent Auto 79.5 % (42.0-72.0); Platelet Count* 147 K/uL (140-440); Red Blood Count 4.03 m/uL (4.00-5.20); White Blood Count* 4.62 K/uL (4.50-11.00)
[2025-01-22 09:51] LABS: Slide Review Reflex No
[2025-01-22 09:57] LABS: Albumin* 3.4 g/dL (3.3-5.0); Chloride* 97 mmol/L (96-114); Potassium* 4.8 mmol/L (3.6-5.1); Sodium* 133 mmol/L (135-149)
[2025-01-22 10:00] LABS: Alanine Aminotransferase* 33 U/L (4-35); Alkaline Phosphatase* 256 U/L (40-150); Anion Gap 10 mEq/L (7-15); Aspartate Amino Transferase* 67 U/L (12-35); Bilirubin Total* 0.4 mg/dL (0.1-1.5); Blood Urea Nitrogen* 25 mg/dL (7-30); Calcium* 8.7 mg/dL (8.4-10.6); Carbon Dioxide* 26 mmol/L (20-32); Creatinine* 0.9 mg/dL (0.5-1.5); Est. Creatinine Clearance* 42.68; Estimated Glomerular Filt Rate 68 ml/min; Glucose* 248 mg/dL (60-115); Total Protein* 6.5 g/dL (6.0-8.3)
[2025-01-22] MEDS: 0.9 % SODIUM CHLORIDE 500 ML IV (10:52)
[2025-01-22] MEDS: PALONOSETRON 0.25 MG/5 ML inj IVP (10:53)
[2025-01-22] MEDS: DEXAMETHASONE 10 MG/ML PF IVP (10:55)
[2025-01-22] MEDS: ACETAMINOPHEN 325 MG TABLET 650 MG PO (10:57)
[2025-01-22] MEDS: FAMOTIDINE 20 MG, diphenhydrAMINE 50 MG in 0.9 % SODIUM CHLORIDE 100 ml 100 ML 309 MG IVPB (11:20)
[2025-01-22] MEDS: FOSAPREPITANT 150 MG inj 150 MG in 0.9 % SODIUM CHLORIDE 250 ml 250 ML 510 MG IVPB (11:46)
[2025-01-22] MEDS: ATROPINE 0.4 mg/ml 0.25 MG IV (12:44)
[2025-01-22] MEDS: HEPARIN 500 UNIT/5 ML SYRINGE IVF (16:11)
[2025-01-22] MEDS: SODIUM CHLORIDE 0.9 % (FLUSH) 10 ML SYRINGE IVF (16:11)
--- NOTE | 2025-01-23 15:06 | ONC.NURNOTE ---
Called to check in post Trodelvy yesterday. She is taking her nausea meds as written out on calendar and is not having nausea. No concerns.
[2025-01-29 12:33] VITALS: BP 103/68; PULSE 92; RESP 18; TEMP 35.6; O2SAT 97
[2025-01-29] MEDS: HEPARIN 500 UNIT/5 ML SYRINGE IVF (12:45)
[2025-01-29] MEDS: SODIUM CHLORIDE 0.9 % (FLUSH) 10 ML SYRINGE IVF (12:45)
[2025-01-29 13:00] LABS: Basophils Percent Auto 0.5 % (0.0-3.0); Hemoglobin* 12.7 gm/dL (12.0-16.0); Immature Granulocytes Pct Auto 2.3 %; Lymphocytes Percent Auto 27.2 % (20-44); Mean Corpuscular HGB Conc 33 gm/dL (32-36); Mean Corpuscular Hemoglobin 29 pg (26-34); Mean Corpuscular Volume 88 fL (80-100); Monocytes Percent Auto 16.4 % (0.0-11.0); Neutrophils Percent Auto 53.6 % (42.0-72.0); Platelet Count* 148 K/uL (140-440); RDW Coefficient of Variation % 14.8 % (11.5-15.5); Red Blood Count 4.42 m/uL (4.00-5.20); White Blood Count* 2.13 K/uL (4.50-11.00)
[2025-01-29 13:03] LABS: Slide Review Reflex No
[2025-01-29 13:16] LABS: Chloride* 97 mmol/L (96-114)
[2025-01-29 13:17] LABS: Albumin* 3.6 g/dL (3.3-5.0); Potassium* 4.4 mmol/L (3.6-5.1); Sodium* 134 mmol/L (135-149)
[2025-01-29 13:19] LABS: Blood Urea Nitrogen* 31 mg/dL (7-30); Creatinine* 0.9 mg/dL (0.5-1.5); Est. Creatinine Clearance* 42.68; Estimated Glomerular Filt Rate 68 ml/min
[2025-01-29 13:20] LABS: Alanine Aminotransferase* 39 U/L (4-35); Alkaline Phosphatase* 288 U/L (40-150); Anion Gap 11 mEq/L (7-15); Aspartate Amino Transferase* 61 U/L (12-35); Bilirubin Total* 0.5 mg/dL (0.1-1.5); Carbon Dioxide* 26 mmol/L (20-32); Glucose* 346 mg/dL (60-115)
[2025-02-12] MEDS: ALTEPLASE 2 MG INJ IVF (09:37)
[2025-02-12 09:42] LABS: Hematocrit 39.2 % (33.0-51.0); Hemoglobin* 12.6 gm/dL (12.0-16.0); Immature Granulocytes Pct Auto 0.3 %; Lymphocytes Percent Auto 20.4 % (20-44); Mean Corpuscular HGB Conc 32 gm/dL (32-36); Mean Corpuscular Hemoglobin 29 pg (26-34); Mean Corpuscular Volume 90 fL (80-100); Monocytes Percent Auto 11.9 % (0.0-11.0); Neutrophils Percent Auto 67.4 % (42.0-72.0); Platelet Count* 118 K/uL (140-440); RDW Coefficient of Variation % 15.4 % (11.5-15.5); Red Blood Count 4.37 m/uL (4.00-5.20); White Blood Count* 3.29 K/uL (4.50-11.00)
[2025-02-12 09:56] LABS: Chloride* 97 mmol/L (96-114)
[2025-02-12 09:57] LABS: Albumin* 3.5 g/dL (3.3-5.0); Potassium* 4.1 mmol/L (3.6-5.1); Slide Review Reflex No; Sodium* 134 mmol/L (135-149)
[2025-02-12 09:59] LABS: Blood Urea Nitrogen* 19 mg/dL (7-30); Creatinine* 0.9 mg/dL (0.5-1.5); Est. Creatinine Clearance* 42.68; Estimated Glomerular Filt Rate 68 ml/min
[2025-02-12 10:00] LABS: Alanine Aminotransferase* 37 U/L (4-35); Alkaline Phosphatase* 279 U/L (40-150); Anion Gap 8 mEq/L (7-15); Aspartate Amino Transferase* 91 U/L (12-35); Bilirubin Total* 0.4 mg/dL (0.1-1.5); Calcium* 9.2 mg/dL (8.4-10.6); Carbon Dioxide* 29 mmol/L (20-32); Glucose* 153 mg/dL (60-115); Total Protein* 6.7 g/dL (6.0-8.3)
[2025-02-12 10:08] LABS: Hemoglobin A1C* 9.2 % (0-5.6)
[2025-02-12] MEDS: SODIUM CHLORIDE 0.9 % (FLUSH) 10 ML SYRINGE IVF ×2 (10:59→15:15)
[2025-02-12] MEDS: 0.9 % SODIUM CHLORIDE 1000 ml 1,000 ML IV (11:00)
[2025-02-12] MEDS: ACETAMINOPHEN 325 MG TABLET 650 MG PO (11:44)
[2025-02-12] MEDS: PALONOSETRON 0.25 MG/5 ML inj IVP (11:44)
[2025-02-12] MEDS: DEXAMETHASONE 10 MG/ML PF IVP (11:46)
[2025-02-12] MEDS: FAMOTIDINE 20 MG, diphenhydrAMINE 25 MG in 0.9 % SODIUM CHLORIDE 100 ml 100 ML 308 MG IVPB (11:53)
[2025-02-12] MEDS: FOSAPREPITANT 150 MG inj 150 MG in 0.9 % SODIUM CHLORIDE 250 ml 250 ML 600 MG IVPB (12:18)
[2025-02-12] MEDS: ATROPINE 0.4 mg/ml 0.25 MG IV (12:53)
[2025-02-12] MEDS: ZOLEDRONIC ACID 3 MG in 0.9 % SODIUM CHLORIDE 100 ml 100 ML 415 MG IVPB (14:41)
[2025-02-12] MEDS: HEPARIN 500 UNIT/5 ML SYRINGE IVF (15:15)
[2025-02-12] MEDS: PEGFILGRASTIM-CBQV (ONBODY) 6 MG/0.6 ML SUBCUT (15:25)
== END 2025-02-12 23:59 | disposition home or self-care (01) ==
LOC: CCIC 09:15
PROVIDERS: Clinical Nurse Specialist; Internal Medicine Hematology & Oncology; PCP Family Medicine; Referring Provider Family Medicine; Visit Provider Physician Assistant
DX: C50.912 Malignant neoplasm of unspecified site of left female breast (principal); Z17.0 Estrogen receptor positive status [ER+]; Z51.11 Encounter for antineoplastic chemotherapy; C79.51 Secondary malignant neoplasm of bone; C78.7 Secondary malignant neoplasm of liver and intrahepatic bile duct; R53.83 Other fatigue; R11.0 Nausea; T45.1X5A Adverse effect of antineoplastic and immunosuppressive drugs, initial encounter; G89.3 Neoplasm related pain (acute) (chronic); E87.1 Hypo-osmolality and hyponatremia; K76.89 Other specified diseases of liver; E11.9 Type 2 diabetes mellitus without complications
CPT/HCPCS: 36415; 36591; 80053; 82150; 82310; 82565; 83036; 83690; 85025; 96360; 96361; 96367; 96375; 96377; 96413; 96415; 99203; 99205; 99211; 99215; G0463; A9270; J0461; J1100; J1200; J1308; J1453; J1642; J2405; J2469; J2997; J3489; J7030; J7050; J9264; J9317; Q5111

== ENCOUNTER 2025-02-26 09:53 | Outpatient (RCR) | payer MEDICARE, SELFPAY | END 2025-03-13 23:59 | disposition home or self-care (01) | LOC: CCIC 09:53 | PROVIDERS: PCP Family Medicine; Visit Provider Physician Assistant | DX: C50.912 Malignant neoplasm of unspecified site of left female breast (principal); Z17.0 Estrogen receptor positive status [ER+]; C79.51 Secondary malignant neoplasm of bone; C78.7 Secondary malignant neoplasm of liver and intrahepatic bile duct; E87.1 Hypo-osmolality and hyponatremia; G89.3 Neoplasm related pain (acute) (chronic); Z87.891 Personal history of nicotine dependence | CPT/HCPCS: 80053; 85025; 99215; G0463 ==